=== PATIENT | female | born 1975 | race Caucasian/White ===

== ENCOUNTER 2017-07-25 10:31 | Emergency (ER) | payer MEDICAID, SELFPAY ==
[2017-07-25 10:31] VITALS: BP 103/51; PULSE 90; RESP 18; TEMP 36.8; O2SAT 99; BMI 33.7
--- NOTE | 2017-07-25 11:57 | HMH.EDUTC ---
[facility] [place] Disposition Clinical Impression: Bronchitis Disposition: Home, Self-Care Condition on Discharge: Good Instructions: DI for Acute Bronchitis Additional Instructions: * Monitor Temp. Follow up if fever develops * No sign of a bacterial infection. Likely viral. Viruses can last 10-14 days. Be sure to follow up for new or worsening symptoms. * humidifier/vaporizer/hot steamy shower * Inhaler every 4-6 hours as needed like we discussed. Should help open airways and improve cough, wheezing, shortness of breath. * Mucinex during the day for your cough and cough suppressant only at night. Be sure to drink lots of water. Insurance may not cover a prescription of mucinex. Might be cheaper to get 400mg tablets and take 2 tablets morning, midday and evening all with lots of water. * Tessalon Perles as needed for cough * Start steroid today as you requested. Helps with inflammation therefore, cough and wheezing. Rvwd side effects and risks. Pt and spouse want medication. Pt reports they have taken them before. Prescriptions: Benzonatate [Benzonatate 200mg Cap] 200 mg PO TID PRN #21 cap PRN Reason: Cough methylPREDNISolone [Medrol] 4 mg PO DIRECTED #1 tab.ds.pk Referrals: Onesimo Corbett [Referring] - (IMMEDIATELY for new or worsening symptoms OR no noticeable improvement over the next 48-72 hours. 911 for difficulty breathing) Time of Disposition: 12:17 Medical Decision Making - Gregory Inquiry Pt receiving controlled substance: No Vital Signs: 07/25/17 10:31 Temperature 98.2 F Temperature Source Oral Pulse Rate [Left Radial] 90 Respiratory Rate 18 Blood Pressure [Right Arm] 103/51 Blood Pressure Mean [Right Arm] 68 Blood Pressure Source [Right Arm] Automatic Cuff Blood Pressure Position [Right Arm] Supine 02 Sat by Pulse Oximetry 99 Oxygen Delivery Method Room Air [facility] [place] HPI - General Stated complaint: dizzy cough Time Seen by Provider: 07/25/17 11:57 Mode of Arrival: Ambulatory Source of Information: Patient Limitations: No Limitations Description of Symptoms (Recalled from Triage Doc. by RN): cough, dizziness, feels like she's is going to have a seizure x 2 days HEENT Symptoms (Recalled from RN notes): No Resp Symptoms (Recalled from RN notes): Yes (cough) Skin Symptoms (Recalled from RN notes): No MS Symptoms (Recalled from RN notes): No Functional Status (Recalled from RN notes): na - History of Present Illness Provider Complaint: Here w/ spouse c/o cough. She has a cold so while I was here in the ER with my mom, I thought I would get her some cold medicine spouse reports. Cough x 2-3 days. Feels dizzy at times with cough. A little SOA with exertion or too much cough . Wheezing at night. Denies tobacco abuse. Son with bronchitis within the last week. Improved with antibiotics and steroids. pt wants the same. Told nurse she felt like she might have a seizure but according to spouse, she has felt this way for 2 weeks, that is unchanged. Clarified with patient and she agrees, unchanged from baseline except for this cough . Hasn't taken or tried anything for symptoms. 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 Also no longer needs omeprazole or metformin. She lost weight and it went away . Med list gabapentin for leg pain, simvastatin for HLP, vistaril for anxiety, olanzapine, clonidine for HTN, levothyroxine, citalopram for anxiety, buspirone, lasix, atenolol, dilantin, clonazepam PRN anxiety and seizures. - Related Data Home Medications Medication Instructions Recorded Confirmed Atenolol [Atenolol 50mg Tab] 50 mg PO DAILY 07/25/17 07/25/17 Buspirone HCl 15 mg PO DAILY 07/25/17 07/25/17 Citalopram Hydrobromide [Celexa] 40 mg PO DAILY 07/25/17 07/25/17 Furosemide [Lasix 20mg tab] 20 mg PO DAILY 07/25/17 07/25/17 Gabapentin [Gabapentin 300mg Cap] 300 mg PO DAILY 07/25/17 07/25/17 Levothyroxine Sodium 50 mcg PO DAILY 07/25/17 07/25/17 [Levothyroxine 50mcg (0.05mg) Tab] OLANZapine [Olanzapine] 20 mg P
--- NOTE | 2017-07-25 12:05 | ED_ITS ---
[facility] [place] Disposition Clinical Impression: Bronchitis Disposition: Home, Self-Care Condition on Discharge: Good Instructions: DI for Acute Bronchitis Additional Instructions: * Monitor Temp. Follow up if fever develops * No sign of a bacterial infection. Likely viral. Viruses can last 10-14 days. Be sure to follow up for new or worsening symptoms. * humidifier/vaporizer/hot steamy shower * Inhaler every 4-6 hours as needed like we discussed. Should help open airways and improve cough, wheezing, shortness of breath. * Mucinex during the day for your cough and cough suppressant only at night. Be sure to drink lots of water. Insurance may not cover a prescription of mucinex. Might be cheaper to get 400mg tablets and take 2 tablets morning, midday and evening all with lots of water. * Tessalon Perles as needed for cough * Start steroid today as you requested. Helps with inflammation therefore, cough and wheezing. Rvwd side effects and risks. Pt and spouse want medication. Pt reports they have taken them before. Prescriptions: Benzonatate [Benzonatate 200mg Cap] 200 mg PO TID PRN #21 cap PRN Reason: Cough methylPREDNISolone [Medrol] 4 mg PO DIRECTED #1 tab.ds.pk Referrals: Onesimo Corbett [Referring] - (IMMEDIATELY for new or worsening symptoms OR no noticeable improvement over the next 48-72 hours. 911 for difficulty breathing) Time of Disposition: 12:17 Medical Decision Making - Gregory Inquiry Pt receiving controlled substance: No Vital Signs: 07/25/17 10:31 Temperature 98.2 F Temperature Source Oral Pulse Rate [Left Radial] 90 Respiratory Rate 18 Blood Pressure [Right Arm] 103/51 Blood Pressure Mean [Right Arm] 68 Blood Pressure Source [Right Arm] Automatic Cuff Blood Pressure Position [Right Arm] Supine 02 Sat by Pulse Oximetry 99 Oxygen Delivery Method Room Air [facility] [place] HPI - General Stated complaint: dizzy cough Time Seen by Provider: 07/25/17 11:57 Mode of Arrival: Ambulatory Source of Information: Patient Limitations: No Limitations Description of Symptoms (Recalled from Triage Doc. by RN): cough, dizziness, feels like she's is going to have a seizure x 2 days HEENT Symptoms (Recalled from RN notes): No Resp Symptoms (Recalled from RN notes): Yes (cough) Skin Symptoms (Recalled from RN notes): No MS Symptoms (Recalled from RN notes): No Functional Status (Recalled from RN notes): na - History of Present Illness Provider Complaint: Here w/ spouse c/o cough. She has a cold so while I was here in the ER with my mom, I thought I would get her some cold medicine spouse reports. Cough x 2-3 days. Feels dizzy at times with cough. A little SOA with exertion or too much cough . Wheezing at night. Denies tobacco abuse. Son with bronchitis within the last week. Improved with antibiotics and steroids. pt wants the same. Told nurse she felt like she might have a seizure but according to spouse, she has felt this way for 2 weeks, that is unchanged. Clarified with patient and she agrees, unchanged from baseline except for this cough . Hasn't taken or tried anything for symptoms. 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 Also no longer needs omeprazole or metformin. She lost weight and it went away . Med list gabapentin for leg pain, simvastatin for HLP, vistaril for anxiety, olanzapine, clonidine for HTN, levothyroxine, citalopram for anxiety, buspirone, lasix, atenolol, dilantin, clonazepam PRN anxiety and seizures. - Related Data Home Medications Medication Instructions Recorde
[2017-07-25 12:23] VITALS: BP 132/78; PULSE 72; RESP 18; TEMP 37
== END 2017-07-25 12:25 | disposition home or self-care (01) ==
PROVIDERS: Emergency Provider Nurse Practitioner Family; PCP Family Medicine
DX: J20.9 Acute bronchitis, unspecified (principal); E78.5 Hyperlipidemia, unspecified; F41.9 Anxiety disorder, unspecified; I10 Essential (primary) hypertension; R56.9 Unspecified convulsions; E11.9 Type 2 diabetes mellitus without complications; Z88.6 Allergy status to analgesic agent
CPT/HCPCS: 99202

== ENCOUNTER 2017-07-29 12:33 | Emergency (ER) | payer MEDICAID, SELFPAY ==
[2017-07-29 13:00] VITALS: BP 117/65; PULSE 89; RESP 20; TEMP 37.3; O2SAT 95; BMI 33.7
--- NOTE | 2017-07-29 14:12 | HMH.EDDENT ---
ED Disposition Clinical Impression: Pain, dental, Tramadol allergy, Has run out of medications Disposition: Home, Self-Care Condition on Discharge: Fair Prescriptions: Meloxicam [Mobic 7.5mg Tab] 7.5 mg PO BID #14 tab Referrals: Francis Robles [Primary Care Provider] - - Critical Care Critical Care Time: No Attestation: On 07/29/17, the high probability of a clinically significant, sudden or life threatening deterioration of the following system(s) required my full and direct attention, intervention and personal management. The time I documented below is in addition to time spent performing reported procedures but includes the following listed in this critical care notation. Medical Decision Making - Gregory Inquiry Pt receiving controlled substance: No Gregory was queried for this patient: No Vital Signs: 07/29/17 13:00 07/29/17 14:53 Temperature 99.1 F 98.9 F Temperature Source Oral Oral Pulse Rate 70 Pulse Rate [Right Radial] 89 Respiratory Rate 20 18 Blood Pressure 101/53 Blood Pressure [Left Arm] 117/65 Blood Pressure Mean [Left Arm] 82 Blood Pressure Source Automatic Cuff Blood Pressure Source [Left Arm] Automatic Cuff Blood Pressure Position Sitting Blood Pressure Position [Left Arm] Sitting 02 Sat by Pulse Oximetry 95 Oxygen Delivery Method Room Air Room Air Orders (Tests/Meds): ED MEDICATIONS Discontinued Medications Generic Name Dose Route Start Last Admin Trade Name Enrike PRN Reason Stop Dose Admin Ketorolac Tromethamine 30 mg 07/29/17 14:18 07/29/17 14:20 Toradol 30mg/Ml Vial IM 07/29/17 14:19 30 mg ONCE ONE Administration Medical Decision Narrative: I discussed with the patient and her that elbow and I will be unable to refill her narcotic pain medication. And will use alternatives like nonsteroidals. She is allergic to tramadol she is narcotic. I told her that she will be given Toradol which is nonsteroidal Dental HPI - General Chief complaint: Dental/Oral Stated complaint: had all teeth pulled in alot pain Time Seen by Provider: 07/29/17 13:15 Mode of Arrival: Ambulatory Limitations: No Limitations Description of Symptoms (Recalled from ER Triage Doc. by RN): UPPER AND LOWER TEETH REMOVED MONDAY, DENTIST PRESCRIBED 12 PAIN PILLS AND PT REPORTS THAT ISN'T ENOUGH FOR PAIN. - History of Present Illness HPI Narrative: 41 years old white female status post dental extraction out of pain medication. He denies having fever visual disturbance neck rigidity nausea or vomiting. He was prescribed hydrocodone 12 tablets less than 2 days ago and now she is out of them. Onset (ago): day(s) Duration: constant Relieving factors: prescription analgesics Exacerbating factors: nothing Treatment prior to arrival: none - Related Data Home Medications Medication Instructions Recorded Confirmed Atenolol [Atenolol 50mg Tab] 50 mg PO DAILY 07/25/17 07/25/17 Buspirone HCl 15 mg PO DAILY 07/25/17 07/25/17 Citalopram Hydrobromide [Celexa] 40 mg PO DAILY 07/25/17 07/25/17 Furosemide [Lasix 20mg tab] 20 mg PO DAILY 07/25/17 07/25/17 Gabapentin [Gabapentin 300mg Cap] 300 mg PO DAILY 07/25/17 07/25/17 Levothyroxine Sodium 50 mcg PO DAILY 07/25/17 07/25/17 [Levothyroxine 50mcg (0.05mg) Tab] OLANZapine [Olanzapine] 20 mg PO DAILY 07/25/17 07/25/17 Phenytoin Sodium Extended 100 mg PO DAILY 07/25/17 07/25/17 [Dilantin 100mg Capsule] Simvastatin [Zocor] 20 mg PO DAILY 07/25/17 07/25/17 cloNIDine HCl [cloNIDine 0.2mg 0.2 mg PO DAILY 07/25/17 07/25/17 Tablet] clonazePAM [Klonopin] 0.5 mg PO DAILY 07/25/17 07/25/17 hydrOXYzine pamoate [Hydroxyzine 50 mg PO DAILY 07/25/17 07/25/17 Pamoate] Previous Rx's Medication Instructions Recorded Benzonatate [Benzonatate 200mg Cap] 200 mg PO TID PRN #21 cap 07/25/17 methylPREDNISolone [Medrol] 4 mg PO DIRECTED #1 tab.ds.pk 07/25/17 Meloxicam [Mobic 7.5mg Tab] 7.5 mg PO BID #14 tab 07/29/17
--- NOTE | 2017-07-29 14:16 | ED_ITS ---
ED Disposition Clinical Impression: Pain, dental, Tramadol allergy, Has run out of medications Disposition: Home, Self-Care Condition on Discharge: Fair Prescriptions: Meloxicam [Mobic 7.5mg Tab] 7.5 mg PO BID #14 tab Referrals: Francis Robles [Primary Care Provider] - - Critical Care Critical Care Time: No Attestation: On 07/29/17, the high probability of a clinically significant, sudden or life threatening deterioration of the following system(s) required my full and direct attention, intervention and personal management. The time I documented below is in addition to time spent performing reported procedures but includes the following listed in this critical care notation. Medical Decision Making - Gregory Inquiry Pt receiving controlled substance: No Gregory was queried for this patient: No Vital Signs: 07/29/17 13:00 07/29/17 14:53 Temperature 99.1 F 98.9 F Temperature Source Oral Oral Pulse Rate 70 Pulse Rate [Right Radial] 89 Respiratory Rate 20 18 Blood Pressure 101/53 Blood Pressure [Left Arm] 117/65 Blood Pressure Mean [Left Arm] 82 Blood Pressure Source Automatic Cuff Blood Pressure Source [Left Arm] Automatic Cuff Blood Pressure Position Sitting Blood Pressure Position [Left Arm] Sitting 02 Sat by Pulse Oximetry 95 Oxygen Delivery Method Room Air Room Air Orders (Tests/Meds): ED MEDICATIONS Discontinued Medications Generic Name Dose Route Start Last Admin Trade Name Enrike PRN Reason Stop Dose Admin Ketorolac Tromethamine 30 mg 07/29/17 14:18 07/29/17 14:20 Toradol 30mg/Ml Vial IM 07/29/17 14:19 30 mg ONCE ONE Administration Medical Decision Narrative: I discussed with the patient and her that elbow and I will be unable to refill her narcotic pain medication. And will use alternatives like nonsteroidals. She is allergic to tramadol she is narcotic. I told her that she will be given Toradol which is nonsteroidal Dental HPI - General Chief complaint: Dental/Oral Stated complaint: had all teeth pulled in alot pain Time Seen by Provider: 07/29/17 13:15 Mode of Arrival: Ambulatory Limitations: No Limitations Description of Symptoms (Recalled from ER Triage Doc. by RN): UPPER AND LOWER TEETH REMOVED MONDAY, DENTIST PRESCRIBED 12 PAIN PILLS AND PT REPORTS THAT ISN 'T ENOUGH FOR PAIN. - History of Present Illness HPI Narrative: 41 years old white female status post dental extraction out of pain medication. He denies having fever visual disturbance neck rigidity nausea or vomiting. He was prescribed hydrocodone 12 tablets less than 2 days ago and now she is out of them. Onset (ago): day(s) Duration: constant Relieving factors: prescription analgesics Exacerbating factors: nothing Treatment prior to arrival: none - Related Data Home Medications Medication Instructions Recorded Confirmed Atenolol [Atenolol 50mg Tab] 50 mg PO DAILY 07/25/17 07/25/17 Buspirone HCl 15 mg PO DAILY 07/25/17 07/25/17 Citalopram Hydrobromide [Celexa] 40 mg PO DAILY 07/25/17 07/25/17 Furosemide [Lasix 20mg tab] 20 mg PO DAILY 07/25/17 07/25/17 Gabapentin [Gabapentin 300mg Cap] 300 mg PO DAILY 07/25/17 07/25/17 Levothyroxine Sodium 50 mcg PO DAILY 07/25/17 07/25/17 [Levothyroxine 50mcg (0.05mg) Tab]
[2017-07-29 14:53] VITALS: BP 101/53; PULSE 70; RESP 18; TEMP 37.2; O2SAT 97
== END 2017-07-29 14:52 | disposition home or self-care (01) ==
PROVIDERS: Emergency Provider Emergency Medicine; PCP Family Medicine
DX: K00.6 Disturbances in tooth eruption (principal); R56.9 Unspecified convulsions; E78.5 Hyperlipidemia, unspecified; I10 Essential (primary) hypertension; K21.9 Gastro-esophageal reflux disease without esophagitis; F41.8 Other specified anxiety disorders; E03.9 Hypothyroidism, unspecified; Z88.6 Allergy status to analgesic agent
CPT/HCPCS: 96372; 99281

== ENCOUNTER 2019-07-02 15:27 | Observation (INO) ==
--- NOTE | 2019-07-02 15:34 | Emergency Department Note ---
ED Disposition Clinical Impression: Chest pain, atypical, COPD (chronic obstructive pulmonary disease) Disposition: Admitted as Observation Condition on Discharge: Good Referrals: Francis Robles [Primary Care Provider] - - Critical Care Critical Care Time: No Attestation: On , the high probability of a clinically significant, sudden or life threatening deterioration of the following system(s) required my full and direct attention, intervention and personal management. The time I documented below is in addition to time spent performing reported procedures but includes the following listed in this critical care notation. Medical Decision Making - Medical Records MR Comment: Chest x-ray was negative for any infiltrate. no Interstitial markings. EKG shows normal sinus rhythm. No ST changes. troponin was negative. Achy feeling in the chest. COPD chronic with frequent exacerbation - Gregory Inquiry Pt receiving controlled substance: No Gregory was queried for this patient: No Vital Signs: 07/02/19 15:28 07/02/19 17:39 Temperature 98.2 F Temperature Source Oral Pulse Rate [Right Brachial] 88 88 Respiratory Rate 88 H 18 Blood Pressure [Right Arm] 140/86 140/86 Blood Pressure Mean [Right Arm] 104 104 Blood Pressure Source [Right Arm] Automatic Cuff Automatic Cuff Blood Pressure Position [Right Arm] Supine Supine 02 Sat by Pulse Oximetry 97 97 Oxygen Delivery Method Room Air - Lab Data Lab Results 07/02/19 15:40: WBC 14.4 H, RBC 4.77, Hgb 14.6, Hct 46.5, MCV 97.5, MCH 30.5, MCHC 31.3 L, RDW 16.8, Plt Count 380, MPV 7.7, Neut % (Auto) 78.9, Lymph % (Auto) 15.2, [place] % (Auto) 3.8, Eos % (Auto) 1.9, Baso % (Auto) 0.3, Neut # (Auto) 11.3 H, Lymph # (Auto) 2.2, [place] # (Auto) 0.6, Eos # (Auto) 0.3, Baso # (Auto) 0.0 07/02/19 15:40: Sodium 134 L, Potassium 4.3, Chloride 92 L, Carbon Dioxide 32 H, Anion Gap 14.3, BUN 6 L, Creatinine 0.60, Estimated Creat Clear 162, Estimated GFR 109, Est GFR ( Amer) 131, Glucose 277 H, Calcium 8.6, Troponin I < 0.01 07/02/19 15:40: NT-Pro-B Natriuret Pep 32.0 07/02/19 16:28: Urine Color Yellow, Urine Appearance Clear, Urine pH 7.0, Ur Specific [place] 1.010, Urine Protein Negative, Urine Glucose (UA) Negative, Urine Ketones Negative, Urine Blood 2+, Urine Nitrate Negative, Urine Bilirubin Negative, Urine Urobilinogen 0.2, Ur Leukocyte Esterase Trace, Urine RBC 5-10, Urine WBC 3-5, Ur Squamous Epith Cells Occasional, Urine Bacteria Trace 07/02/19 17:41: Troponin I < 0.01 Result diagrams: 07/02/19 15:40 07/02/19 15:40 Orders (Tests/Meds): ED MEDICATIONS Generic Name Dose Route Start Last Admin Trade Name Freq PRN Reason Stop Dose Admin Nitroglycerin 0.4 mg 07/02/19 15:37 Nitrostat 0.4mg Sl Tablet SL 07/03/19 15:37 [id number] PRN Chest Pain Discontinued Medications Generic Name Dose Route Start Last Admin Trade Name Freq PRN Reason Stop Dose Admin Albuterol/Ipratropium 3 ml 07/02/19 16:51 07/02/19 17:30 Duoneb 3ml Neb IH 07/02/19 16:52 3 ml ONCE ONE Administration Aspirin 324 mg 07/02/19 15:37 07/02/19 15:58 Aspirin 81mg Chewable Tablet PO 07/02/19 15:38 324 mg ONCE ONE Administration ORDERS Category Date Time Status Troponin I Q3H Lab 07/02/19 21:45 Ordered Chest Pain HPI - General Chief Complaint: Chest Pain Stated Complaint: Chest pain Time Seen by Provider: 07/02/19 16:45 Mode of Arrival: Wheelchair Limitations: No Limitations Description of Symptoms (Recalled from ER Triage Doc. by RN): Chest Pain - History of Present Illness HPI narrative: 43-year-old female with a history of COPD and chronic congestive heart failure. Complains of shortness achy feeling in the chest. She is a smoker. She said she had a heart cath about 2 years ago and they did not put any stent in . She has no swelling lower extremities. She is laying in bed flat with no signs of orthopnea. She looks comfortable with no diaphoresis. Uses oxygen at home at 2 liters. Duration: intermittent Activity at onset: during rest Pain location: substernal, left chest Severity: mild Severity scale (1-10): 3 Quality: aching Relieving factors: nothing Exacerbating factors: nothing Context: recent illness - Related Data Home Medications Medication Instructions Recorded Confirmed Buspirone HCl [Buspirone 15 mg 15 mg PO DAILY 07/25/17 07/25/17 Tablets] Citalopram Hydrobromide [Celexa] 40 mg PO DAILY 07/25/17 07/25/17 Furosemide [Lasix 20mg tab] 20 mg PO DAILY 07/25/17 07/25/17 Gabapentin [Gabapentin 300mg Cap] 300 mg PO DAILY 07/25/17 07/25/17 Levothyroxine Sodium 50 mcg PO DAILY 07/25/17 07/25/17 [Levothyroxine 50mcg (0.05mg) Tab] OLANZapine [Olanzapine] 20 mg PO DAILY 07/25/17 07/25/17 Phenytoin Sodium Extended 100 mg PO DAILY 07/25/17 07/25/17 [Dilantin 100mg Capsule] Simvastatin [Zocor] 20 mg PO DAILY 07/25/17 07/25/17 atenoloL [Atenolol 50mg Tab] 50 mg PO DAILY 07/25/17 07/25/17 cloNIDine HCL [cloNIDine 0.2mg 0.2 mg PO DAILY 07/25/17 07/25/17 Tablet] clonazePAM [Klonopin] 0.5 mg PO DAILY 07/25/17 07/25/17 hydrOXYzine pamoate [Hydroxyzine 50 mg PO DAILY 07/25/17 07/25/17 Pamoate] Meloxicam [Mobic 7.5mg Tab] 7.5 mg PO BID 07/02/19 methylPREDNISolone [Medrol] 4 mg PO DIRECTED 07/02/19 Previous Rx's Medication Instructions Recorded Benzonatate [Benzonatate 200mg Cap] 200 mg PO TID PRN #21 cap 07/25/17 Allergies Allergy/AdvReac Type Severity Reaction Status Date / Time tramadol Allergy Mild Abdominal Verified 07/29/17 13:08 Pain [facility] History - Hepatitis A Screen Drug use history?: No High risk sexual behaviors?: No History of sexually transmitted infection?: No Currently employed?: No Childcare worker?: No Do you have indoor plumbing?: Yes Do you have electricity?: Yes Attestation statement:: This patient has been screened for Hepatitis A risk factors. Medical History: Reports:: Anxiety, Chronic Obstructive Pulmonary Disease (COPD) Denies:: Cancer, Diabetes Mellitus Type 1, Diabetes Mellitus Type 2, Internal Pacemaker, MRSA Other Medical History: Reports: Other (neuropathy, HLP, anxiety, hypothyroidism, HTN, seizures) Other Surgeries: Yes: Tubal Ligation. No: Pacemaker Amputation: No Fractures: No - Social History Smoking Status: Current every day smoker # Packs/Day (cigarettes): 1 Alcohol Intake: never Substance Use Type: denies use Occupational Status: unemployed Household Members: spouse - Psychiatric History Pschychiatric History:: Reports:: Anxiety ROS Obtained: Yes All systems reviewed & no additional complaints - Constitutional Constitutional: Reports system reviewed and no additional complaints, except as docu - Eyes Eyes: Reports system reviewed and no additional complaints, except as docu - ENT Ears, Nose, Mouth, and Throat: Reports system reviewed and no additional complaints, except as docu - Cardiovascular Cardiovascular: Reports system reviewed and no additional complaints, except as docu, Reports chest pain, Reports dyspnea, Reports dyspnea on exertion - Respiratory Respiratory: Yes system reviewed and no additional complaints, except as docu - Gastrointestinal Gastrointestingal: Reports: system reviewed and no additional complaints, except as docu - Musculoskeletal Musculoskeletal: Reports system reviewed and no additional complaints, except as docu - Integumentary/Breasts Skin/Breast: Reports system reviewed and no additional complaints, except as docu - Neurologic Neurologic: Reports system reviewed and no additional complaints, except as docu - Endocrine Endocrine: Reports system reviewed and no additional complaints, except as docu - Hematologic/Lymphatic Henatologic/Lymphatic: Reports system reviewed and no additional complaints, except as docu - Allergic/Immunologic Allergic/Immunologic: Reports system reviewed and no additional complaints, except as docu Physical Exam - General General appearance: alert, in no apparent distress - Head Head exam: atraumatic, normocephalic, normal inspection - Eye Eye exam: Present: normal appearance, PERRL, EOMI - ENT ENT exam: Present: normal exam, normal oropharynx, mucous membranes moist, TM's normal bilaterally, normal external ear exam - Neck Neck exam: Present: normal inspection, full ROM, trachea midline. Absent: meningismus, lymphadenopathy - Chest Chest inspection: Present: normal inspection, symmetric chest wall rise. Absent: tenderness - Respiratory Respiratory exam: Present: wheezes, prolonged expiratory phase - Cardiovascular Cardiovascular exam: Present: regular rate, normal rhythm, tachycardia. Absent: JVD - Abdominal Exam Abdominal exam: Present: soft, normal bowel sounds. Absent: distention, tenderness, guarding - Extremities Exam Extremities exam: Present: normal inspection, full ROM, normal capillary refill. Absent: calf tenderness - Back Exam Back exam: Present: normal inspection. Absent: tenderness - Neurological Exam Neurological exam: Present: alert, oriented X3 - Psychiatric Psychiatric exam: Present: normal affect, normal mood - Skin Skin exam: Present: warm, dry, intact, normal color - Lymphatic Lymphatic Findings: no adenopathy
[2019-07-02 15:51] LABS: Basophils % 0.3 % (0.1-2.0); Eosinophils # 0.3 K/mm3 (0.0-0.4); Eosinophils % 1.9 % (0.1-12.0); Hematocrit 46.5 % (37.0-47.0); Hemoglobin 14.6 g/dL (12.2-16.2); Lymphocytes # 2.2 K/mm3 (0.7-4.5); Lymphocytes % 15.2 % (10-50); Mean Corpuscular HGB Conc 31.3 g/dL (31.8-35.4); Mean Corpuscular Volume 97.5 fl (81-99); Mean Platelet Volume 7.7 fl (7.4-10.4); Monocytes # 0.6 K/mm3 (0.1-1.0); Monocytes % 3.8 % (1.7-9.3); Neutrophils # 11.3 K/mm3 (1.8-7.8); Neutrophils % 78.9 % (37.0-80.0); Platelet Count 380 K/mm3 (142-424); Red Blood Count 4.77 M/mm3 (4.20-5.40); Red Cell Distribution Width 16.8 % (11.5-17.5); White Blood Count 14.4 K/mm3 (4.8-10.8)
[2019-07-02 15:53] LABS: Chloride 92 mmol/L (98-107); Sodium 134 mmol/L (136-145)
[2019-07-02 15:56] LABS: Blood Urea Nitrogen 6 mg/dl (7-17)
[2019-07-02 15:57] LABS: Anion Gap 14.3 mEq/L (5-15); Calcium 8.6 mg/dl (8.4-10.2); Carbon Dioxide 32 mmol/L (22.0-30.0); Glucose 277 mg/dl (74-100)
[2019-07-02 16:37] LABS: Microscopic, Urine URINE MICROSCOPIC (MICROSCOPIC)
[2019-07-02 16:45] LABS: Appearance,Urine CLEAR (Clear); Bilirubin,Urine Negative (Negative); Blood, Urine 2+ (Negative); Color,Urine YELLOW (Yellow); Glucose,Urine (UA) Negative (Negative); Ketones,Urine Negative (Negative); Leukocyte Esterase,Urine TRACE (Negative); Protein,Urine Negative (Negative); Urobilinogen,Urine 0.2 EU/dl (0.2)
[2019-07-02 17:31] LABS: Bacteria,Urine Trace /lpf; Squamous Epithelial Cell,Urine Occasional #/hpf (0-5)
--- NOTE | 2019-07-02 20:28 | Electrocardiograph Report ---
APPROVED REPORT Exam: Resting ECG HR:94 bpm ECG Measurements Heart Rate 94 AXES AK 144 P 36 QRSd 70 QRS 51 QT 342 T34 QTc 427 <Conclusion> Normal sinus rhythm Low voltage QRS Late r wave progression Abnormal ECG Electronically signed by : Max Alvarez, 07/02/2019 20:27:31
--- NOTE | 2019-07-03 07:19 | Pharmacy Consult Notes ---
[facility] Pharmacy VTE Monitoring - Patient Demographics Admission date: 07/02/19 Report Date: 07/03/19 Time: 07:19 Allergies/Adverse Reactions: Patient Allergies tramadol Adverse Reaction (Mild, Verified 07/02/19 19:52) Abdominal Pain Height: 1.5 m Weight: 85.928 kg Patient Problems: Current Active Problems Chest pain, atypical (Acute) COPD (chronic obstructive pulmonary disease) (Acute) - VTE Risk Labs: VTE Related Lab Results Hgb 14.6 g/dL (12.2-16.2) 07/02/19 15:40 Hct 46.5 % (37.0-47.0) 07/02/19 15:40 Plt Count 380 K/mm3 (142-424) 07/02/19 15:40 BUN 6 mg/dl (7-17) L 07/02/19 15:40 Creatinine 0.60 mg/dl (0.52-1.04) 07/02/19 15:40 Estimated Creat Clear 162 mL/min (50-200) 07/02/19 15:40 VTE Score: 9 VTE Risk Level: Moderate Risk - Prophylaxis VTE Prophylaxis Ordered?: Yes Types of VTE Prophylaxis: TEDS Knee High Location of Applied Device: Bilateral Lower Extremeties
--- NOTE | 2019-07-03 07:52 | H&P/Discharge Summary ---
General - General Admission date:: 07/02/19 Discharge date: 07/03/19 *Admission Date: 07/02/19 *Chief complaint: Cough and shortness of air *History of present illness: 43-year-old white female who has emphysema that requires oxygen therapy and nebulizer treatments at home. She came to the emergency department with a chief complaint of cough and congestion, also reported some anterior chest pain that was worse with coughing, deep breathing and positional changes. In spite of her home oxygen therapy she continues to smoke and does not use her nebulizers on a regular basis. In the emergency department she was found to have coughing and congestion, minimal wheezing, lower than average O2 saturations and she was admitted to hospital for overnight observation and serial enzyme testing. [facility] History I have reviewed the patient's past medical history: Yes Medical History: Reports:: Anxiety, Chronic Obstructive Pulmonary Disease (COPD), Diabetes Mellitus Type 2, Hyperlipidemia, Hypertension Denies:: Cancer, Diabetes Mellitus Type 1, Internal Pacemaker, MRSA *Have you ever received a pneumonia vaccine?: Yes *Have you received a flu vaccine this season?: Yes Other Medical History: Reports: Hypothyroidism, Other (neuropathy, HLP, anxiety, hypothyroidism, HTN, seizures) Other Surgeries: Yes: Tubal Ligation. No: Pacemaker Amputation: No Fractures: No - *Social History Educational Level: Attended High School Smoking Status: Current every day smoker Tobacco Type: cigarettes # Packs/Day (cigarettes): 1 Alcohol Intake: never Substance Use Type: denies use *Occupational Status:: disabled Housing: other Household Members: spouse, children *Travel in the last 8 weeks: None - Psychiatric History Pschychiatric History:: Reports:: Anxiety Family Hx:: Diabetes, Heart Attack, Hyperlipidemia, Hypertension, Alcoholism Review of Systems - Review of Systems Review of systems:: pertinent systems reviewed and negative unless documented below Chest pain as noted above, nonexertional, no nausea or diaphoresis. Respiratory symptoms noted. Otherwise 10 point review of systems negative for GI, , neuro or other organ system evaluation. Exam Vital signs and Labs for Last 24 Hours: Temp Pulse Resp BP Pulse Ox 98.2 F 87 20 122/69 90 L 07/03/19 04:00 07/03/19 04:00 07/03/19 04:00 07/03/19 04:00 07/03/19 04:00 Laboratory Results - last 24 hr 07/02/19 15:40: WBC 14.4 H, RBC 4.77, Hgb 14.6, Hct 46.5, MCV 97.5, MCH 30.5, MCHC 31.3 L, RDW 16.8, Plt Count 380, MPV 7.7, Neut % (Auto) 78.9, Lymph % (Auto) 15.2, [place] % (Auto) 3.8, Eos % (Auto) 1.9, Baso % (Auto) 0.3, Neut # (Auto) 11.3 H, Lymph # (Auto) 2.2, [place] # (Auto) 0.6, Eos # (Auto) 0.3, Baso # (Auto) 0.0 07/02/19 15:40: Sodium 134 L, Potassium 4.3, Chloride 92 L, Carbon Dioxide 32 H, Anion Gap 14.3, BUN 6 L, Creatinine 0.60, Estimated Creat Clear 162, Estimated GFR 109, Est GFR ( Amer) 131, Glucose 277 H, Calcium 8.6, Troponin I < 0.01 07/02/19 15:40: NT-Pro-B Natriuret Pep 32.0 07/02/19 16:28: Urine Color Yellow, Urine Appearance Clear, Urine pH 7.0, Ur Specific [place] 1.010, Urine Protein Negative, Urine Glucose (UA) Negative, Urine Ketones Negative, Urine Blood 2+, Urine Nitrate Negative, Urine Bilirubin Negative, Urine Urobilinogen 0.2, Ur Leukocyte Esterase Trace, Urine RBC 5-10, Urine WBC 3-5, Ur Squamous Epith Cells Occasional, Urine Bacteria Trace 07/02/19 17:41: Troponin I < 0.01 07/02/19 22:01: Troponin I < 0.01 I & O for Last 24 hours: Intake & Output 06/30/19 07/01/19 07/02/19 07/03/19 11:59 11:59 11:59 11:59 Weight 189 lb 7.014 oz Narrative: Patient is alert, oriented. Pleasant. Talkative. In no distress. Wearing her normal 2 L nasal cannula. ENT exam clear. Oropharynx clear. No JVD. Skin normal with no rash. Neurologically intact. Cranial nerves intact. Lungs have good air movement. Minimal expiratory rhonchi but these resolved with a deep breath. Heart rate regular. Abdomen soft and nontender. No edema or clubbing. Hospital Course Hospital Course: Patient was admitted overnight. Ruled out for DE. Telemetry monitoring was normal. Patient did well with respiratory symptoms. Responded very nicely to pulmonary toilet and antibiotics. She is at her baseline from a respiratory standpoint. She will be discharged home with medicine for COPD exacerbation as noted in an appointment with her regular physician in 2 days. She was strongly encouraged not to smoke. Results Labs on day of discharge: Labs from last 24 hours 07/02/19 07/02/19 07/02/19 22:01 17:41 16:28 WBC RBC Hgb Hct MCV MCH MCHC RDW Plt Count MPV Neut % (Auto) Lymph % (Auto) [place] % (Auto) Eos % (Auto) Baso % (Auto) Neut # (Auto) Lymph # (Auto) [place] # (Auto) Eos # (Auto) Baso # (Auto) Sodium Potassium Chloride Carbon Dioxide Anion Gap BUN Creatinine Estimated Creat Clear Estimated GFR Est GFR ( Amer) Glucose Calcium Troponin I < 0.01 < 0.01 NT-Pro-B Natriuret Pep Urine Color Yellow Urine Appearance Clear Urine pH 7.0 Ur Specific [place] 1.010 Urine Protein Negative Urine Glucose (UA) Negative Urine Ketones Negative Urine Blood 2+ Urine Nitrate Negative Urine Bilirubin Negative Urine Urobilinogen 0.2 Ur Leukocyte Esterase Trace Urine RBC 5-10 Urine WBC 3-5 Ur Squamous Epith Cells Occasional Urine Bacteria Trace 07/02/19 07/02/19 07/02/19 15:40 15:40 15:40 WBC 14.4 H RBC 4.77 Hgb 14.6 Hct 46.5 MCV 97.5 MCH 30.5 MCHC 31.3 L RDW 16.8 Plt Count 380 MPV 7.7 Neut % (Auto) 78.9 Lymph % (Auto) 15.2 [place] % (Auto) 3.8 Eos % (Auto) 1.9 Baso % (Auto) 0.3 Neut # (Auto) 11.3 H Lymph # (Auto) 2.2 [place] # (Auto) 0.6 Eos # (Auto) 0.3 Baso # (Auto) 0.0 Sodium 134 L Potassium 4.3 Chloride 92 L Carbon Dioxide 32 H Anion Gap 14.3 BUN 6 L Creatinine 0.60 Estimated Creat Clear 162 Estimated GFR 109 Est GFR ( Amer) 131 Glucose 277 H Calcium 8.6 Troponin I < 0.01 NT-Pro-B Natriuret Pep 32.0 Urine Color Urine Appearance Urine pH Ur Specific [place] Urine Protein Urine Glucose (UA) Urine Ketones Urine Blood Urine Nitrate Urine Bilirubin Urine Urobilinogen Ur Leukocyte Esterase Urine RBC Urine WBC Ur Squamous Epith Cells Urine Bacteria DS: Diagnosis - Discharge Diagnosis (1) COPD (chronic obstructive pulmonary disease) Status: Acute (2) Chest pain, atypical Status: Acute (3) Bronchitis Status: Acute Discharge Plan - Patient Discharge Instructions ACTIVITY: Continue current activity DIET: continue same diet Patient Instructions: DI for Chronic Obstructive Pulmonary Disease, DI for Atypical Chest Pain - Follow up Plan Follow up with: Francis Robles [Primary Care Provider] - 07/05/19 Disposition: Home, Self-Senior Care Medications: Home Medications Medication Instructions Recorded Confirmed Type Furosemide [Lasix 20mg tab] 20 mg PO DAILY 07/25/17 07/02/19 History Gabapentin [Gabapentin 300mg Cap] 400 mg PO TID 07/25/17 07/02/19 History Levothyroxine Sodium 50 mcg PO DAILY 07/25/17 07/02/19 History [Levothyroxine 50mcg (0.05mg) Tab] Phenytoin Sodium Extended 100 mg PO DAILY 07/25/17 07/02/19 History [Dilantin 100mg Capsule] Simvastatin [Zocor] 20 mg PO DAILY 07/25/17 07/02/19 History atenoloL [Atenolol 50mg Tab] 50 mg PO DAILY 07/25/17 07/02/19 History cloNIDine HCL [cloNIDine 0.2mg 0.2 mg PO DAILY 07/25/17 07/02/19 History Tablet] hydrOXYzine pamoate [Hydroxyzine 50 mg PO HS 07/25/17 07/03/19 History Pamoate] Azithromycin 250 mg PO DAILY 07/02/19 07/02/19 History LORazepam [Ativan 1mg tablet] 1 mg PO HS 07/02/19 07/02/19 History Magnesium Oxide [Magnesium] 250 mg PO DAILY 07/02/19 07/02/19 History Metformin HCl [Metformin 1000mg 1,000 mg PO BID 07/02/19 07/02/19 History Tablets] OLANZapine [Olanzapine] 20 mg PO HS 07/02/19 07/02/19 History Potassium Chloride [Klor-Con M20] 20 meq PO DAILY 07/02/19 07/02/19 History Sertraline HCl [Zoloft] 100 mg PO DAILY 07/02/19 07/03/19 History diazePAM [diazePAM 5mg Tablet] 7.5 mg PO TID 07/02/19 07/02/19 History Buspirone HCl [Buspar 10mg 20 mg PO TID 07/03/19 07/03/19 History tablet] levoFLOXacin [Levaquin 500mg 500 mg PO DAILY #7 tab 07/03/19 Rx tab] predniSONE [Deltasone 20mg 20 mg PO BID 7 Days #14 tab 07/03/19 Rx tablet] Prescriptions/Medication Reconciliation: New levoFLOXacin [Levaquin 500mg tab] 500 mg PO DAILY #7 tab predniSONE [Deltasone 20mg tablet] 20 mg PO BID 7 Days #14 tab Continued Furosemide [Lasix 20mg tab] 20 mg PO DAILY Levothyroxine Sodium [Levothyroxine 50mcg (0.05mg) Tab] 50 mcg PO DAILY hydrOXYzine pamoate [Hydroxyzine Pamoate] 50 mg PO HS Gabapentin [Gabapentin 300mg Cap] 400 mg PO TID cloNIDine HCL [cloNIDine 0.2mg Tablet] 0.2 mg PO DAILY Sertraline HCl [Zoloft] 100 mg PO DAILY OLANZapine [Olanzapine] 20 mg PO HS LORazepam [Ativan 1mg tablet] 1 mg PO HS Buspirone HCl [Buspar 10mg tablet] 20 mg PO TID Simvastatin [Zocor] 20 mg PO DAILY atenoloL [Atenolol 50mg Tab] 50 mg PO DAILY Phenytoin Sodium Extended [Dilantin 100mg Capsule] 100 mg PO DAILY Magnesium Oxide [Magnesium] 250 mg PO DAILY diazePAM [diazePAM 5mg Tablet] 7.5 mg PO TID Potassium Chloride [Klor-Con M20] 20 meq PO DAILY Metformin HCl [Metformin 1000mg Tablets] 1,000 mg PO BID Discontinued Azithromycin 250 mg PO DAILY - Problem Reconciliation Problems Reviewed?: Yes
== END 2019-07-03 09:33 | disposition home or self-care (01) ==
LOC: ER 15:27 → 2ND 15:27
PROVIDERS: ADMIT Internal Medicine Adolescent Medicine; ATTEND Internal Medicine Adolescent Medicine
CPT/HCPCS: 36415; 71020; 71046; 80048; 81001; 83880; 84484; 85025; 93005; 99284; G0378

== ENCOUNTER 2021-04-21 11:16 | Inpatient (IN) | payer MEDICAID, SELFPAY ==
[2021-04-21] VITALS (9 sets, daily range): BP systolic 106–140; BP diastolic 56–77; PULSE 73–83; RESP 14–21; TEMP 36.4–36.8; O2SAT 91–95; BMI 33.7; BMI 32.2
[2021-04-21 12:01] LABS: Basophils % 0.4 % (0.1-2.0); Eosinophils # 0.1 K/mm3 (0.0-0.4); Eosinophils % 1.5 % (0.1-12.0); Hematocrit 44.8 % (37.0-47.0); Hemoglobin 15.5 g/dL (12.2-16.2); Lymphocytes # 1.3 K/mm3 (0.7-4.5); Lymphocytes % 14.3 % (10-50); Mean Corpuscular HGB Conc 34.6 g/dL (31.8-35.4); Mean Corpuscular Hemoglobin 29.4 pg (27.0-31.2); Mean Corpuscular Volume 84.8 fl (81-99); Mean Platelet Volume 7.4 fl (7.4-10.4); Monocytes # 0.5 K/mm3 (0.1-1.0); Monocytes % 4.8 % (1.7-9.3); Neutrophils # 7.4 K/mm3 (1.8-7.8); Platelet Count 345 K/mm3 (142-424); Red Blood Count 5.29 M/mm3 (4.20-5.40); White Blood Count 9.3 K/mm3 (4.8-10.8)
[2021-04-21 12:09] LABS: Lactic Acid 1.1 mmol/L (0.7-2.1)
--- NOTE | 2021-04-21 12:23 | HMH.EDGENADL ---
ED Disposition Clinical Impression: Hypokalemia, Hyponatremia, Pyelonephritis Disposition: Admitted As Inpatient Condition on Discharge: Fair - Critical Care Critical Care Time: No Attestation: On 04/21/21, the high probability of a clinically significant, sudden or life threatening deterioration of the following system(s) required my full and direct attention, intervention and personal management. The time I documented below is in addition to time spent performing reported procedures but includes the following listed in this critical care notation. Medical Decision Making - Medical Records Medical records reviewed: Yes: I reviewed the patient's medical records. - Gregory Inquiry Pt receiving controlled substance: No Gregory was queried for this patient: No Vital Signs: 04/21/21 11:20 04/21/21 12:33 04/21/21 13:07 Temperature 97.6 F Temperature Source Oral Pulse Rate 75 79 Pulse Rate [Left Radial] 83 Respiratory Rate 18 14 Blood Pressure 140/56 L 132/77 Blood Pressure [Left Arm] 112/65 Blood Pressure Mean [Left Arm] 80 Blood Pressure Source [Left Arm] Automatic Cuff Blood Pressure Position Blood Pressure Position [Left Arm] Sitting 02 Sat by Pulse Oximetry 95 95 93 L Oxygen Delivery Method Room Air 04/21/21 13:32 04/21/21 14:00 04/21/21 14:30 Temperature Temperature Source Pulse Rate 77 75 73 Pulse Rate [Left Radial] Respiratory Rate Blood Pressure 128/68 113/63 106/61 L Blood Pressure [Left Arm] Blood Pressure Mean [Left Arm] Blood Pressure Source [Left Arm] Blood Pressure Position Blood Pressure Position [Left Arm] 02 Sat by Pulse Oximetry 94 L 92 L 92 L Oxygen Delivery Method Room Air 04/21/21 14:52 04/21/21 14:56 Temperature 97.6 F 97.6 F Temperature Source Oral Pulse Rate 73 Pulse Rate [Left Radial] 77 Respiratory Rate 16 18 Blood Pressure 106/61 L Blood Pressure [Left Arm] 106/61 L Blood Pressure Mean [Left Arm] 76 Blood Pressure Source [Left Arm] Automatic Cuff Blood Pressure Position Sitting Blood Pressure Position [Left Arm] Supine 02 Sat by Pulse Oximetry 91 L Oxygen Delivery Method Room Air Room Air - Lab Data Lab results reviewed: Yes: I reviewed the patient's lab results. Lab Results 04/21/21 11:49: WBC 9.3, RBC 5.29, Hgb 15.5, Hct 44.8, MCV 84.8, MCH 29.4, MCHC 34.6, RDW 16.0, Plt Count 345, MPV 7.4, Neut % (Auto) 79.0, Lymph % (Auto) 14.3, [place] % (Auto) 4.8, Eos % (Auto) 1.5, Baso % (Auto) 0.4, Neut # (Auto) 7.4, Lymph # (Auto) 1.3, [place] # (Auto) 0.5, Eos # (Auto) 0.1, Baso # (Auto) 0.0 04/21/21 11:49: Sodium 127 L, Potassium 2.0 L*, Chloride 80 L, Carbon Dioxide 42 H*, Anion Gap 7.0, BUN 7, Creatinine 0.90, Estimated Creat Clear 93, Estimated GFR 67, Est GFR ( Amer) 82, Glucose 237 H, Calcium 8.8, Total Bilirubin 0.2, AST 38 H, ALT 27, Alkaline Phosphatase 185 H, Total Protein 7.1, Albumin 3.9, Globulin 3.2, Albumin/Globulin Ratio 1.2, Lipase 91 04/21/21 11:49: Lactate 1.1 04/21/21 12:36: Urine Color Yellow, Urine Appearance Clear, Urine pH 6.5, Ur Specific [place] 1.015, Urine Protein Trace, Urine Glucose (UA) Negative, Urine Ketones Negative, Urine Blood Negative, Urine Nitrate Negative, Urine Bilirubin Negative, Urine Urobilinogen 0.2, Ur Leukocyte Esterase Trace, Urine RBC None, Urine WBC Occasional, Ur Renal Epithelial Cell 5-10, Urine Bacteria Trace Result diagrams: 04/21/21 11:49 04/21/21 11:49 Orders (Tests/Meds): ED MEDICATIONS Generic Name Dose Route Start Last Admin Trade Name Freq PRN Reason Stop Dose Admin Potassium Chloride/Water 100 mls @ 50 mls/hr 04/21/21 16:45 Potassium Chloride 20meq/100ml Ivpb IV 04/21/21 18:44 Q2H DOUGLAS Sodium Chloride 1,000 mls @ 150 mls/hr 04/21/21 14:59 04/21/21 15:40 Sod Chlor 0.9% 1000ml Bag IV 05/21/21 13:29 150 mls/hr .[id number] DOUGLAS Administration Ceftriaxone Sodium 1 gm/ 50 mls @ 100 mls/hr 04/21/21 15:30 04/21/21 15:39 Sodium C
[2021-04-21 12:29] LABS: Alanine Aminotransferase 27 U/L (12-78); Albumin Level 3.9 g/dl (3.5-5.0); Albumin/Globulin Ratio 1.2 (1.1-1.8); Alkaline Phosphatase 185 U/L (38-126); Aspartate Amino Transferase 38 U/L (14-36); Bilirubin,Total 0.2 mg/dl (0.2-1.3); Blood Urea Nitrogen 7 mg/dl (7-17); Calcium 8.8 mg/dl (8.4-10.2); Chloride 80 mmol/L (98-107); Creatinine Clearance Estimated 93 mL/min (50-200); Estimated Glomerular Filt Rate 67 ml/min (>60); GFR (African American) 82 ML/MIN (>60); Globulin 3.2 g/dL (1.3-3.2); Glucose 237 mg/dl (74-100); Lipase 91 U/L (23-300); Sodium 127 mmol/L (136-145); Total Protein,Serum 7.1 g/dl (6.3-8.2)
[2021-04-21 12:40] LABS: Carbon Dioxide 42 mmol/L (22.0-30.0)
--- NOTE | 2021-04-21 12:41 | PC.NURSE ---
lab called with critical potassium level at this time, notified STEPHANIE JULOI at this time
[2021-04-21 12:42] LABS: Microscopic, Urine URINE MICROSCOPIC (MICROSCOPIC)
[2021-04-21 12:51] LABS: Appearance,Urine CLEAR (Clear); Bilirubin,Urine Negative (Negative); Blood, Urine Negative (Negative); Color,Urine YELLOW (Yellow); Glucose,Urine (UA) Negative (Negative); Ketones,Urine Negative (Negative); Leukocyte Esterase,Urine TRACE (Negative); Nitrate,Urine Negative (Negative); PH,Urine 6.5 (5.0-8.5); Protein,Urine TRACE (Negative); Specific Gravity, Urine 1.015 (1.005-1.030); Urobilinogen,Urine 0.2 EU/dl (0.2)
[2021-04-21 13:02] LABS: Bacteria,Urine Trace /lpf; WBC,Urine Occasional #/hpf (0-3)
--- NOTE | 2021-04-21 13:09 | PC.NURSE ---
Pt placed on monitor worker at this time due to getting IV potassium. Called and ordered pt lunch tray
[2021-04-21 13:49] LABS: Coronavirus 19, PCR Not Detected (NotDetected); Influenza A, PCR Not Detected (NotDetected); Influenza B, PCR Not Detected (NotDetected)
--- NOTE | 2021-04-21 14:39 | PC.NURSE ---
attempted to call report to second floor, states will have staff call me back as they werent answering
--- NOTE | 2021-04-21 14:43 | PC.NURSE ---
report called to ryan andersen rn on second floor at this time states she will send staff to transport pt.
--- NOTE | 2021-04-21 15:19 | P.CONPHA_ITS ---
[facility] Pharmacy VTE Monitoring - Patient Demographics Admission date: 04/21/21 Report Date: 04/21/21 Time: 15:19 Allergies/Adverse Reactions: Patient Allergies tramadol Adverse Reaction (Mild, Verified 07/02/19 19:52) Abdominal Pain Height: 1.5 m Weight: 72.32 kg - VTE Risk Labs: VTE Related Lab Results Hgb 15.5 g/dL (12.2-16.2) 04/21/21 11:49 Hct 44.8 % (37.0-47.0) 04/21/21 11:49 Plt Count 345 K/mm3 (142-424) 04/21/21 11:49 BUN 7 mg/dl (7-17) 04/21/21 11:49 Creatinine 0.90 mg/dl (0.52-1.04) 04/21/21 11:49 Estimated Creat Clear 93 mL/min (50-200) 04/21/21 11:49 - Prophylaxis VTE Prophylaxis Ordered?: Yes Types of VTE Prophylaxis: TEDS Knee High Location of Applied Device: Bilateral Lower Extremeties
--- NOTE | 2021-04-21 17:42 | PC.NURSE ---
Spoke with MD Antonio requesting to restart patient's home med- Ativan. Awaitiing pharmacy approval. Patient complains of high anxiety
--- NOTE | 2021-04-21 17:50 | HMH.HP ---
*Admission Date: 04/21/21 *Chief complaint: Weakness and vomiting *History of present illness: 45-year-old white female with history of diabetes, morbid obesity, poor health care maintenance and overriding significant anxiety who has a primary care physician not in the [facility] system, who came to the hospital with weakness, vomiting, fatigue and muscle cramps. Found to have evidence of cystitis, also found to have evidence of hypokalemia, hyponatremia, dehydration, admitted to hospital for IV fluids, IV antibiotics and further diagnostic testing. [facility] History I have reviewed the patient's past medical history: Yes Medical History: Reports:: Anxiety, Chronic Obstructive Pulmonary Disease (COPD), Diabetes Mellitus Type 2, Hyperlipidemia, Hypertension Denies:: Cancer, Diabetes Mellitus Type 1, Internal Pacemaker, MRSA *Have you ever received a pneumonia vaccine?: No *Have you received a flu vaccine this season?: No Other Medical History: Reports: Hypothyroidism, Other (neuropathy, HLP, anxiety, hypothyroidism, HTN, seizures) Other Surgeries: Yes: Tubal Ligation. No: Pacemaker Amputation: No Fractures: No - *Social History Smoking Status: Current every day smoker Tobacco Type: cigarettes # Packs/Day (cigarettes): 1 Alcohol Intake: never Substance Use Type: denies use *Occupational Status:: unemployed Housing: other Household Members: spouse *Travel in the last 8 weeks: None - Psychiatric History Pschychiatric History:: Reports:: Anxiety Family Hx:: Diabetes, Heart Attack, Hyperlipidemia, Hypertension, Alcoholism Review of Systems - Review of Systems Review of systems:: pertinent systems reviewed and negative unless documented below Patient reports that she feels better since IV fluids. Continues have some mild abdominal pain. Her overriding complaint to me is her anxiety and wishes her home Ativan given. Otherwise she denies reviews of systems except for noted in the HPI. Meds Home Medications Medication Instructions Recorded Confirmed Type Furosemide [Lasix 20mg tablet] 20 mg PO DAILY 07/25/17 04/21/21 History Gabapentin [Gabapentin 300mg Cap] 400 mg PO TID 07/25/17 04/21/21 History Levothyroxine Sodium 50 mcg PO DAILY 07/25/17 04/21/21 History [Levothyroxine 50mcg (0.05mg) Tab] Phenytoin Sodium Extended 100 mg PO DAILY 07/25/17 04/21/21 History [Dilantin 100mg Capsule] Simvastatin [Zocor 20mg] 20 mg PO DAILY 07/25/17 04/21/21 History atenoloL [Atenolol 50mg Tab] 50 mg PO DAILY 07/25/17 04/21/21 History cloNIDine HCL [cloNIDine 0.2mg 0.2 mg PO DAILY 07/25/17 04/21/21 History Tablet] hydrOXYzine pamoate [Hydroxyzine 50 mg PO HS 07/25/17 04/21/21 History Pamoate] LORazepam [Ativan 1mg tablet] 1 mg PO HS 07/02/19 04/21/21 History Magnesium Oxide [Magnesium] 250 mg PO DAILY 07/02/19 04/21/21 History Metformin HCl [Metformin 1000mg 1,000 mg PO BID 07/02/19 04/21/21 History Tablets] OLANZapine [Olanzapine] 20 mg PO HS 07/02/19 04/21/21 History Potassium Chloride [Klor-Con M20] 20 meq PO DAILY 07/02/19 04/21/21 History Sertraline HCl [Zoloft] 100 mg PO DAILY 07/02/19 04/21/21 History diazePAM [diazePAM 5mg Tablet] 7.5 mg PO TID 07/02/19 04/21/21 History Buspirone HCl [Buspar 10mg 20 mg PO TID 07/03/19 04/21/21 History tablet] levoFLOXacin [Levaquin 500mg 500 mg PO DAILY 04/21/21 04/21/21 History tab] predniSONE [Deltasone 20mg 20 mg PO BID 04/21/21 04/21/21 History tablet] Allergies Allergy/AdvReac Type Severity Reaction Status Date / Time tramadol AdvReac Mild Abdominal Verified 07/02/19 19:52 Pain Exam Vital signs and Labs for Last 24 Hours: Temp Pulse Resp BP Pulse Ox 97.6 F 77 18 106/61 L 91 L 04/21/21 14:56 04/21/21 14:56 04/21/21 14:56 04/21/21 14:56 04/21/21 14:56 Laboratory Results - last 24 hr 04/21/21 11:49: WBC 9.3, RBC 5.29, Hgb 15.5, Hct 44.8, MCV 84.8, MCH 29.4, MCHC 34.6, RDW 16.0, Plt Count 345, MPV 7.
[2021-04-21 18:42] LABS: Free Thyroxine Index 1.6 ug/dL (5.93-13.13); Triiodothryronine (T3) Uptake 40 % (23.5-40.5)
[2021-04-21 18:55] LABS: Hemoglobin A1C 7.8 % (4.0-6.0)
[2021-04-21 18:56] LABS: Thyroid Stimulating Hormone 0.57 uIU/mL (0.465-4.68)
--- NOTE | 2021-04-21 19:18 | PC.NURSE ---
Verbal order from MD Antonio to restart home meds specifically Ativan 1mg PO HS. I faxed this notification to overnight pharmacy 3x. No response, medication was administered with double RN verification with Loli Staton RN> Pharmacy communication now sent as STAT. This information was passed to shoe coverer so that they can appropriately document and not administer a repeat dose
[2021-04-21 19:26] LABS: POC Glucose,Bedside 252 (70-110)
[2021-04-21 20:33] LABS: POC Glucose,Bedside 211 (70-110)
[2021-04-22 04:00] VITALS: BP 133/69; PULSE 67; RESP 19; TEMP 36.6; O2SAT 94
[2021-04-22 04:17] VITALS: BMI 32.6
[2021-04-22 05:26] LABS: POC Glucose,Bedside 347 (70-110)
[2021-04-22 06:52] LABS: Basophils % 0.3 % (0.1-2.0); Eosinophils # 0.1 K/mm3 (0.0-0.4); Eosinophils % 1.9 % (0.1-12.0); Hematocrit 40.3 % (37.0-47.0); Lymphocytes # 1.9 K/mm3 (0.7-4.5); Mean Corpuscular HGB Conc 31.3 g/dL (31.8-35.4); Mean Corpuscular Hemoglobin 28.1 pg (27.0-31.2); Monocytes # 0.4 K/mm3 (0.1-1.0); Neutrophils # 3.8 K/mm3 (1.8-7.8); Neutrophils % 60.8 % (37.0-80.0); Platelet Count 267 K/mm3 (142-424); Red Blood Count 4.48 M/mm3 (4.20-5.40); White Blood Count 6.3 K/mm3 (4.8-10.8)
[2021-04-22 07:08] LABS: Alanine Aminotransferase 21 U/L (12-78); Albumin Level 2.9 g/dl (3.5-5.0); Albumin/Globulin Ratio 1.1 (1.1-1.8); Alkaline Phosphatase 114 U/L (38-126); Aspartate Amino Transferase 26 U/L (14-36); Blood Urea Nitrogen 4 mg/dl (7-17); Calcium 7.6 mg/dl (8.4-10.2); Chloride 92 mmol/L (98-107); Creatinine Clearance Estimated 136 mL/min (50-200); Estimated Glomerular Filt Rate 108 ml/min (>60); GFR (African American) 130 ML/MIN (>60); Globulin 2.6 g/dL (1.3-3.2); Glucose 370 mg/dl (74-100); Magnesium 1.7 mg/dl (1.6-2.3); Sodium 131 mmol/L (136-145); Total Protein,Serum 5.5 g/dl (6.3-8.2)
[2021-04-22 07:14] LABS: Anion Gap 3.2 mEq/L (5-15); Carbon Dioxide 38 mmol/L (22.0-30.0)
[2021-04-22 07:23] LABS: Hemoglobin 12.6 g/dL (12.2-16.2)
[2021-04-22 07:40] LABS: Bilirubin,Total < 0.1 mg/dl (0.2-1.3); Potassium 2.2 mmoL/L (3.5-5.1)
[2021-04-22 07:43] VITALS: BP 115/63; PULSE 82; RESP 20; TEMP 36.8; O2SAT 91
--- NOTE | 2021-04-22 08:49 | HMH.ACPN2 ---
Internal Medicine - PN: Subj *Date: 04/22/21 *Time: 08:49 Interval history: Patient feels better. Is less anxious and less emotionally labile this morning. Has been able to eat most of her breakfast. Exam Vital signs and Labs for Last 24 Hours: Temp Pulse Resp BP Pulse Ox 98.2 F 82 20 115/63 91 L 04/22/21 07:43 04/22/21 07:43 04/22/21 07:43 04/22/21 07:43 04/22/21 07:43 Laboratory Results - last 24 hr 04/21/21 11:49: WBC 9.3, RBC 5.29, Hgb 15.5, Hct 44.8, MCV 84.8, MCH 29.4, MCHC 34.6, RDW 16.0, Plt Count 345, MPV 7.4, Neut % (Auto) 79.0, Lymph % (Auto) 14.3, [place] % (Auto) 4.8, Eos % (Auto) 1.5, Baso % (Auto) 0.4, Neut # (Auto) 7.4, Lymph # (Auto) 1.3, [place] # (Auto) 0.5, Eos # (Auto) 0.1, Baso # (Auto) 0.0 04/21/21 11:49: Sodium 127 L, Potassium 2.0 L*, Chloride 80 L, Carbon Dioxide 42 H*, Anion Gap 7.0, BUN 7, Creatinine 0.90, Estimated Creat Clear 93, Estimated GFR 67, Est GFR ( Amer) 82, Glucose 237 H, Calcium 8.8, Total Bilirubin 0.2, AST 38 H, ALT 27, Alkaline Phosphatase 185 H, Total Protein 7.1, Albumin 3.9, Globulin 3.2, Albumin/Globulin Ratio 1.2, Lipase 91 04/21/21 11:49: Lactate 1.1 04/21/21 11:49: Phenytoin 5.0 L 04/21/21 11:49: Hemoglobin A1c 7.8 H 04/21/21 11:49: TSH 0.57, Free T4 Index 1.6 L, Thyroxine (T4) 4.0 L, T3 Uptake 40 04/21/21 12:36: Urine Color Yellow, Urine Appearance Clear, Urine pH 6.5, Ur Specific [place] 1.015, Urine Protein Trace, Urine Glucose (UA) Negative, Urine Ketones Negative, Urine Blood Negative, Urine Nitrate Negative, Urine Bilirubin Negative, Urine Urobilinogen 0.2, Ur Leukocyte Esterase Trace, Urine RBC None, Urine WBC Occasional, Ur Renal Epithelial Cell 5-10, Urine Bacteria Trace 04/21/21 13:49: SARS-CoV-2 (PCR) Not detected, Influenza A Untype (PCR) Not detected, Influenza Type B (PCR) Not detected 04/21/21 17:02: POC Glucose 252 H 04/21/21 20:20: POC Glucose 211 H 04/22/21 05:13: POC Glucose 347 H* 04/22/21 06:06: WBC 6.3 D, RBC 4.48, Hgb 12.6 D, Hct 40.3, MCV 90.0, MCH 28.1, MCHC 31.3 L, RDW 16.0, Plt Count 267, MPV 8.0, Neut % (Auto) 60.8, Lymph % (Auto) 30.0, [place] % (Auto) 7.0, Eos % (Auto) 1.9, Baso % (Auto) 0.3, Neut # (Auto) 3.8, Lymph # (Auto) 1.9, [place] # (Auto) 0.4, Eos # (Auto) 0.1, Baso # (Auto) 0.0 04/22/21 06:06: Sodium 131 L, Potassium 2.2 L*, Chloride 92 L, Carbon Dioxide 38 H, Anion Gap 3.2 L, BUN 4 L D, Creatinine 0.60 D, Estimated Creat Clear 136, Estimated GFR 108, Est GFR ( Amer) 130 D, Glucose 370 H D, Calcium 7.6 L, Magnesium 1.7, Total Bilirubin < 0.1 L, AST 26 D, ALT 21, Alkaline Phosphatase 114, Total Protein 5.5 L, Albumin 2.9 L D, Globulin 2.6, Albumin/Globulin Ratio 1.1 I & O for Last 24 hours: Intake & Output 04/19/21 04/20/21 04/21/21 04/22/21 11:59 11:59 11:59 11:59 Intake Total 2010 Output Total 0 / 0 Balance 2010 Weight 167 lb 162 lb Narrative: Lungs with good air expansion. Heart rate regular. Abdomen soft and nontender. No edema or clubbing. She is alert, pleasant. Oriented. Assessment and Plan (1) Cystitis Status: Acute Category: Medical Code(s): N30.90 - Cystitis, unspecified without hematuria (2) Diabetes type 2, controlled Status: Acute Category: Medical Code(s): E11.9 - Type 2 diabetes mellitus without complications (3) Seizure disorder Status: Acute Category: Medical Code(s): G40.909 - Epilepsy, unspecified, not intractable, without status epilepticus (4) Obesity Status: Acute Category: Medical Code(s): E66.9 - Obesity, unspecified (5) Hypokalemia Status: Acute Category: Medical Code(s): E87.6 - Hypokalemia (6) Hyponatremia Status: Acute Category: Medical Code(s): E87.1 - Hypo-osmolality and hyponatremia (7) Anxiety Status: Acute Category: Medical Code(s): F41.9 - Anxiety disorder, unspecified - Assessment and plan all Dx Assessment and Plan for all problems:: Await culture results for cystitis treatment. Contin
--- NOTE | 2021-04-22 09:25 | PC.NURSE ---
Dr. Alvarez aware of critical K.
--- NOTE | 2021-04-22 09:34 | HMH.PHAINT ---
Home medications verified with [facility]
[2021-04-22 11:58] VITALS: BMI 32.6
[2021-04-22 16:00] VITALS: BP 109/53; RESP 21; TEMP 36.8; O2SAT 90
[2021-04-22 19:52] VITALS: BP 126/78; PULSE 58; RESP 14; TEMP 36.6; O2SAT 100
[2021-04-23 04:12] VITALS: BP 127/61; PULSE 76; RESP 19; TEMP 36.7; O2SAT 96
[2021-04-23 04:31] VITALS: BMI 34.4
[2021-04-23 05:31] LABS: POC Glucose,Bedside 178 (70-110)
[2021-04-23 05:31] LABS: POC Glucose,Bedside 218 (70-110)
[2021-04-23 05:31] LABS: POC Glucose,Bedside 168 (70-110)
[2021-04-23 06:43] LABS: Chloride 99 mmol/L (98-107)
[2021-04-23 06:44] LABS: Sodium 139 mmol/L (136-145)
[2021-04-23 06:46] LABS: Blood Urea Nitrogen 7 mg/dl (7-17); Creatinine Clearance Estimated 123 mL/min (50-200); Estimated Glomerular Filt Rate 90 ml/min (>60); GFR (African American) 109 ML/MIN (>60)
[2021-04-23 06:47] LABS: Anion Gap 6.6 mEq/L (5-15); Calcium 7.7 mg/dl (8.4-10.2); Carbon Dioxide 36 mmol/L (22.0-30.0); Glucose 145 mg/dl (74-100)
[2021-04-23 07:28] LABS: Potassium 2.6 mmoL/L (3.5-5.1)
--- NOTE | 2021-04-23 08:30 | HMH.DCSUM ---
General - General Admission date:: 04/21/21 Discharge date: 04/23/21 HPI HPI: 45-year-old white female with history of diabetes, morbid obesity, poor health care maintenance and overriding significant anxiety who has a primary care physician not in the [facility] system, who came to the hospital with weakness, vomiting, fatigue and muscle cramps. Found to have evidence of cystitis, also found to have evidence of hypokalemia, hyponatremia, dehydration, admitted to hospital for IV fluids, IV antibiotics and further diagnostic testing. Hospital Course Hospital Course: 45-year-old female who was admitted for abdominal pain, vomiting, suspected gastroenteritis versus UTI. Found to have significant electrolyte abnormalities on admission. Problems addressed as follows Infectious/pyelonephritis Urine sample benign. Patient started on ceftriaxone empirically on admission. Urine culture with no growth. Normal white cell count, no fever, no tachycardia. Nausea and vomiting resolved during admission with repletion of electrolytes and treatment with antiemetics. No clear indication for antibiotics. We will stop them at this time and not continue at discharge. Low suspicion for infectious etiology. -Abdominal pain and vomiting resolved, no imaging indicated or obtained Electrolyte abnormalities -Hypokalemia, hyponatremia, metabolic alkalosis. Suspected secondary to her nausea and vomiting and loss of electrolytes/stomach acid. Repleted during hospitalization. On day of discharge sodium and chloride normalized. Potassium looking better, patient feeling much better. Requesting to go home. Will transition oral regimen to complete repletion and have repeat labs in about a week to monitor for improvement in her potassium level. Would recommend also checking calcium level at that time to verify its stability as it is down somewhat however when corrected for albumin, still within a normal range. -Increased potassium chloride for daily home use and light of her diuretic use daily. Will need close monitoring as an outpatient Seizures -Stable during hospitalization, no seizure activity. Continued home medication. Tolerated well Diabetes -A1c obtained during admission, 7.8. Continued insulin regimen during hospitalization. Further management as an outpatient Resumed anxiolytics, patient is benzodiazepine dependent. Medically stable for discharge home. Tolerating p.o. intake. Examined on day of discharge Patient requesting to follow-up with Dr. Weldon. Will facilitate making appointment prior to discharge. Objective Vital signs: Temp Pulse Resp BP Pulse Ox 98.1 F 76 19 127/61 96 04/23/21 04:12 04/23/21 04:12 04/23/21 04:12 04/23/21 04:12 04/23/21 04:12 Narrative: - Constitutional no acute distress, obese, cushingoid face, chronically ill appearing, disheveled - *Routine HEENT Exam Head: Present: normocephalic Eye: Present: EOMI, PERRL ENT: Present: mucous membranes moist - *Routine Neck Exam Present: supple. Absent: lymphadenopathy - *Routine Respiratory Exam Present: CTA bilaterally - *Routine Cardiovascular Exam Present: RRR - *Routine Abdominal Exam Present: soft, normoactive bowel sounds, NO tenderness - *Routine Extremities Exam Absent: cyanosis, clubbing, edema - *Routine Skin Exam Present: warm. Absent: rash - *Routine Neurological Exam Present: alert, oriented X3 Results Labs on day of discharge: Labs from last 24 hours 04/23/21 04/23/21 04/22/21 05:24 05:09 17:05 Sodium 139 Potassium 2.6 L* Chloride 99 Carbon Dioxide 36 H Anion Gap 6.6 BUN 7 D Creatinine 0.70 Estimated Creat Clear 123 Estimated GFR 90 Est GFR ( Amer) 109 Glucose 145 H D POC Glucose 178 H 218 H Calcium 7.7 L 04/22/21 13:07 Sodium Potassium Chloride Carbon Dioxide Anion Gap BUN Creatinine Estimated C
[2021-04-24 21:33] LABS: POC Glucose,Bedside 144 (70-110)
== END 2021-04-23 09:30 | disposition home or self-care (01) | DRG 690 ==
LOC: ER 11:21 → 2ND 13:40
PROVIDERS: Admitting Provider Emergency Medicine; Emergency Provider Emergency Medicine; PCP Family Medicine; Visit Provider Internal Medicine Adolescent Medicine
DX: N30.00 Acute cystitis without hematuria (principal); E87.6 Hypokalemia; Z20.822 Contact with and (suspected) exposure to COVID-19; G40.909 Epilepsy, unspecified, not intractable, without status epilepticus; I10 Essential (primary) hypertension; E03.9 Hypothyroidism, unspecified; J44.9 Chronic obstructive pulmonary disease, unspecified; F41.9 Anxiety disorder, unspecified; E11.40 Type 2 diabetes mellitus with diabetic neuropathy, unspecified; F17.210 Nicotine dependence, cigarettes, uncomplicated; E78.5 Hyperlipidemia, unspecified; Z68.34 Body mass index [BMI] 34.0-34.9, adult; E66.01 Morbid (severe) obesity due to excess calories
CPT/HCPCS: 80048; 80053; 80185; 81001; 82962; 83036; 83605; 83690; 83735; 84436; 84443; 84479; 85025; 87086; 96365; 96367; 96375; 99284; C9803; J2405; U0003; U0005

== ENCOUNTER 2021-05-03 15:31 | Emergency (ER) | payer MEDICAID, SELFPAY ==
[2021-05-03 16:05] VITALS: BP 111/66; PULSE 98; RESP 18; O2SAT 94; BMI 35.3
--- NOTE | 2021-05-03 16:10 | XR_ITS ---
PROCEDURE INFORMATION: Exam: XR Right Foot Exam date and time: 05/03/2021 4:10 PM Age: 45 years old Clinical indication: Injury or trauma; Fall; Blunt trauma; Right; Injury date: 05/03/21; Prior surgery; Surgery date: 6+ months; Surgery type: Foot fractures of metatarsals fixed with plates and screws; Additional info: Fall today and now having pain and swelling TECHNIQUE: Imaging protocol: XR Right foot. Views: 3 or more views. COMPARISON: No relevant prior studies available. FINDINGS: Bones/joints: Previous internal fixation 1st 2nd and 3rd metatarsals and of the adjacent cuneiform bones. Lucencies surrounding the compression plates of the 1st ray suggesting loosening, and fragmented appearance of the cuneiform bones and of the adjacent distal medial aspect of the navicular. While some of this may be chronic deformity suspect there is acute superimposed fractures here. There is abnormal widening between the bases of the 1st and 2nd metatarsals, and abnormal superior offset of the forefoot relative to the midfoot consistent with midfoot instability. Flattening of heads of the 2nd and 3rd metatarsals consistent with Freiberg's infraction is. Soft tissues: Soft tissue swelling. Other findings: Most useful would be comparison with previous studies to assess the degree of interval disruption here. CT will also be useful. IMPRESSION: 1. Previous internal fixation 1st 2nd and 3rd metatarsals and of the adjacent cuneiform bones. Lucencies surrounding the compression plates of the 1st ray suggesting loosening, and fragmented appearance of the cuneiform bones and of the adjacent distal medial aspect of the navicular. While some of this may be chronic deformity suspect there are acute superimposed fractures here. 2. There is abnormal widening between the bases of the 1st and 2nd metatarsals, and abnormal superior offset of the forefoot relative to the midfoot consistent with midfoot instability. 3. 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 4. Most useful would be comparison with previous studies to assess the degree of interval disruption here. CT will also be useful.
[2021-05-03 16:40] VITALS: BP 111/66; PULSE 98; RESP 18; O2SAT 94; BMI 35.2
--- NOTE | 2021-05-03 16:42 | PC.NURSE ---
PATIENT REQUESTING TO BE SEEN IN [place]. PATIENT HAD ALREADY REGISTERED FOR ER AND HAD BEEN TRIAGED FOR ER AND IS CURRENTLY WAITING FOR BED IN ER. MOUSE BREEDER WAS CALLED TO ASK IF PATIENT COULD BE SEEN IN [place] AFTER REGISTERING FOR ER, AND SHE STATED SHE DID NOT KNOW.
--- NOTE | 2021-05-03 17:03 | HMH.EDUTC ---
[facility] [place] Clinical Impression: Foot injury Qualifiers: Encounter type: initial encounter Laterality: right Qualified Code(s): S99.921A - Unspecified injury of right foot, initial encounter Disposition: Home, Self-Care Condition on Discharge: Good Additional Instructions: *weight bearing as tolerated, Wear the Boot *RICE, Rest the extremity, Ice 15-20 minutes 3-4 times daily, Compress- wear the david wrap as discussed as much as possible to help reduce swelling and pain, Elevate the extremity when at rest *Walking boot is for support and help control swelling, use it except in the shower. Be sure that is not to tight but not to loose either *Elevate when resting *Ibuprofen as directed on package every 6-8 hours as needed for pain an inflammation. If need something more can take Tylenol in between doses of Ibuprofen to help Immediately follow up with your family doctor for new or worsening of symptoms, or no noticeable improvement over the next 3-5 days Follow up with Podiatry or whoever did your surgery on your foot for further treatment and evaluation Return if needed Straight to ER if any life threatening symptoms Referrals: Crow Weldon MD [Primary Care Provider] - As needed Lizy Davis DPM [Staff Physician] - (Call office for appointment) Time of Disposition: 18:18 Medical Decision Making - Gregory Inquiry Pt receiving controlled substance: No Gregory was queried for this patient: No Vital Signs: 05/03/21 16:05 05/03/21 16:40 05/03/21 17:35 Temperature 98.0 F Temperature Source Oral Pulse Rate 98 H Pulse Rate [Right Brachial] 98 H 98 H Respiratory Rate 18 18 18 Blood Pressure 111/66 Blood Pressure [Right Arm] 111/66 111/66 Blood Pressure Mean [Right Arm] 81 81 Blood Pressure Source [Right Arm] Automatic Cuff Automatic Cuff Blood Pressure Position [Right Arm] Sitting Sitting 02 Sat by Pulse Oximetry 94 L 94 L Oxygen Delivery Method Room Air Room Air Orders (Tests/Meds): ED MEDICATIONS Discontinued Medications Generic Name Dose Route Start Last Admin Trade Name Freq PRN Reason Stop Dose Admin Ketorolac Tromethamine 30 mg 05/03/21 17:18 05/03/21 17:35 Ketorolac 60mg/2ml Vial IM 05/03/21 17:19 30 mg ONCE ONE Administration - Radiology Data #1 Image(s): Foot/Toes Image Reviewed: Yes I have reviewed radiologist's interpretation IMPRESSION: 1. Previous internal fixation 1st 2nd and 3rd metatarsals and of the adjacent cuneiform bones. Lucencies surrounding the compression plates of the 1st ray suggesting loosening, and fragmented appearance of the cuneiform bones and of the adjacent distal medial aspect of the navicular. While some of this may be chronic deformity suspect there are acute superimposed fractures here. 2. There is abnormal widening between the bases of the 1st and 2nd metatarsals, and abnormal superior offset of the forefoot relative to the midfoot consistent with midfoot instability. 3. 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 4. Most useful would be comparison with previous studies to assess the degree of interval disruption here. CT will also be useful. - Physician Consults Physician Consulted: Dr Adorno Time: 18:20 Reason -: Orthopedic Eval/Care Comment/Response: Spoke with Dr Adorno and he looked at the xray and advised to place in boot and have patient follow up with Dr Davis or Orthopedics that did surgery on foot initially in [place] Medical Decision Narrative: Medication discussed with pharmacy Patient state that she has taken Toradol in the past without complications or reaction And was recently prescribed Ibuprofen but is out of them because her took them too [facility] [place] - General Chief complaint: Extremity Injury, Lower Stated complaint: AO fall 05/03 injured R foot Time Seen by Provider: 05/03/21 17:03 Mode of Arrival: Ambulatory Source of Information: [place]
[2021-05-03 17:35] VITALS: BP 111/66; PULSE 98; RESP 18; TEMP 36.7; O2SAT 94
== END 2021-05-03 17:45 | disposition home or self-care (01) ==
PROVIDERS: Emergency Provider Nurse Practitioner; PCP Emergency Medicine
DX: S99.921A Unspecified injury of right foot, initial encounter (principal); W01.0XXA Fall on same level from slipping, tripping and stumbling without subsequent striking against object, initial encounter; Y92.019 Unspecified place in single-family (private) house as the place of occurrence of the external cause; E11.9 Type 2 diabetes mellitus without complications; E78.5 Hyperlipidemia, unspecified; I10 Essential (primary) hypertension; F41.9 Anxiety disorder, unspecified; E03.9 Hypothyroidism, unspecified
CPT/HCPCS: 29515; 73630; 96372; 99291

== ENCOUNTER 2021-05-08 16:22 | Emergency (ER) | payer MEDICAID, SELFPAY ==
[2021-05-08 18:12] VITALS: BP 132/79
[2021-05-08 18:15] VITALS: BP 132/79; PULSE 76; O2SAT 93
[2021-05-08 18:27] VITALS: BP 132/79; PULSE 79; RESP 18; TEMP 37; O2SAT 94; BMI 34.3
--- NOTE | 2021-05-08 18:56 | HMH.EDGENADL ---
ED Disposition Clinical Impression: Hypokalemia, Hyponatremia Headache Qualifiers: Headache type: unspecified Headache chronicity pattern: acute headache Intractability: not intractable Qualified Code(s): R51.9 - Headache, unspecified Disposition: Home, Self-Care Condition on Discharge: Good Instructions: DI for Hypokalemia, DI for Hyponatremia, DI for Headache Additional Instructions: Increase your dose of potassium, take 2 tablets twice a day for the next 5 days. Then follow-up with your primary care provider to have your potassium level rechecked. Your sodium was low and you also need to have that rechecked. Dr. Mendes states to follow-up with him in the office on Monday or Monday. Any taking Tylenol for headache. Referrals: Crow Weldon MD [Primary Care Provider] - - Critical Care Critical Care Time: No Attestation: On 05/08/21, the high probability of a clinically significant, sudden or life threatening deterioration of the following system(s) required my full and direct attention, intervention and personal management. The time I documented below is in addition to time spent performing reported procedures but includes the following listed in this critical care notation. Medical Decision Making - Medical Records Medical records reviewed: Yes: I reviewed the patient's medical records. MR Comment: Reviewed discharge summary from recent admission 04/21/2021 through 04/23/2021. Presented with similar symptoms. Had a potassium of 2 at admission. Improved to 2.6 by discharge. Suspected UTI treated, but culture negative. - Gregory Inquiry Pt receiving controlled substance: Yes Gregory was queried for this patient: Yes Risks and benefits of using a controlled substance: were discussed with pt by me Vital Signs: 05/08/21 18:12 05/08/21 18:15 05/08/21 18:27 Temperature 98.6 F Temperature Source Oral Pulse Rate 76 Pulse Rate [Right Radial] 79 Respiratory Rate 18 Blood Pressure 132/79 132/79 Blood Pressure [Right Arm] 132/79 Blood Pressure Mean 107 Blood Pressure Mean [Right Arm] 96 Blood Pressure Source Automatic Cuff Blood Pressure Source [Right Arm] Automatic Cuff Blood Pressure Position Supine Blood Pressure Position [Right Arm] Supine 02 Sat by Pulse Oximetry 93 L 94 L Oxygen Delivery Method Room Air - Lab Data Lab Results 05/08/21 18:51: SARS-CoV-2 (PCR) Not detected, Influenza A Untype (PCR) Not detected, Influenza Type B (PCR) Not detected 05/08/21 18:52: WBC 12.7 H, RBC 4.87, Hgb 14.1, Hct 42.9, MCV 88.2, MCH 29.0, MCHC 32.9, RDW 17.1, Plt Count 446 H, MPV 7.8, Neut % (Auto) 80.0, Lymph % (Auto) 13.2, [place] % (Auto) 4.9, Eos % (Auto) 1.3, Baso % (Auto) 0.6, Neut # (Auto) 10.2 H, Lymph # (Auto) 1.7, [place] # (Auto) 0.6, Eos # (Auto) 0.2, Baso # (Auto) 0.1 05/08/21 18:52: Sodium 123 L, Potassium 2.8 L*, Chloride 78 L, Carbon Dioxide 38 H, Anion Gap 9.8, BUN 7, Creatinine 0.60, Estimated Creat Clear 143, Estimated GFR 108, Est GFR ( Amer) 130, Glucose 145 H, Calcium 8.4, Total Bilirubin 0.4, AST 21, ALT 18, Alkaline Phosphatase 125, Total Protein 7.2 D, Albumin 4.3, Globulin 2.9, Albumin/Globulin Ratio 1.5 05/08/21 18:52: Magnesium 1.5 L Result diagrams: 05/08/21 18:52 05/08/21 18:52 Orders (Tests/Meds): ED MEDICATIONS Generic Name Dose Route Start Last Admin Trade Name Freq PRN Reason Stop Dose Admin Sodium Chloride 10 ml 05/08/21 19:15 Sodium Chloride 0.9% 10ml Vial IV 06/07/21 19:14 NEEDED PRN to Dilute Lorazepam inj Discontinued Medications Generic Name Dose Route Start Last Admin Trade Name Freq PRN Reason Stop Dose Admin Acetaminophen 500 mg 05/08/21 18:36 05/08/21 19:01 Acetaminophen 500mg Tab PO 05/08/21 18:37 500 mg ONCE ONE Administration Sodium Chloride 1,000 mls @ 999 mls/hr 05/08/21 18:57 05/08/21 19:00 Sod Chlor 0.9% 1000ml Bag IV 05/08/21 19:57 999 mls/hr .Q1H1M ONE Administration
[2021-05-08 18:59] LABS: Coronavirus 19, PCR Not Detected (NotDetected); Influenza A, PCR Not Detected (NotDetected); Influenza B, PCR Not Detected (NotDetected)
[2021-05-08 19:07] LABS: Chloride 78 mmol/L (98-107); Sodium 123 mmol/L (136-145)
[2021-05-08 19:10] LABS: Alanine Aminotransferase 18 U/L (12-78); Albumin Level 4.3 g/dl (3.5-5.0); Albumin/Globulin Ratio 1.5 (1.1-1.8); Alkaline Phosphatase 125 U/L (38-126); Anion Gap 9.8 mEq/L (5-15); Aspartate Amino Transferase 21 U/L (14-36); Bilirubin,Total 0.4 mg/dl (0.2-1.3); Blood Urea Nitrogen 7 mg/dl (7-17); Carbon Dioxide 38 mmol/L (22.0-30.0); Creatinine Clearance Estimated 143 mL/min (50-200); Estimated Glomerular Filt Rate 108 ml/min (>60); GFR (African American) 130 ML/MIN (>60); Globulin 2.9 g/dL (1.3-3.2); Total Protein,Serum 7.2 g/dl (6.3-8.2)
[2021-05-08 19:11] LABS: Calcium 8.4 mg/dl (8.4-10.2); Glucose 145 mg/dl (74-100); Potassium 2.8 mmoL/L (3.5-5.1)
[2021-05-08 19:15] LABS: Basophils # 0.1 K/mm3 (0-0.2); Basophils % 0.6 % (0.1-2.0); Eosinophils # 0.2 K/mm3 (0.0-0.4); Eosinophils % 1.3 % (0.1-12.0); Hematocrit 42.9 % (37.0-47.0); Hemoglobin 14.1 g/dL (12.2-16.2); Lymphocytes # 1.7 K/mm3 (0.7-4.5); Lymphocytes % 13.2 % (10-50); Mean Corpuscular HGB Conc 32.9 g/dL (31.8-35.4); Mean Corpuscular Volume 88.2 fl (81-99); Mean Platelet Volume 7.8 fl (7.4-10.4); Monocytes # 0.6 K/mm3 (0.1-1.0); Monocytes % 4.9 % (1.7-9.3); Neutrophils # 10.2 K/mm3 (1.8-7.8); Platelet Count 446 K/mm3 (142-424); Red Blood Count 4.87 M/mm3 (4.20-5.40); Red Cell Distribution Width 17.1 % (11.5-17.5); White Blood Count 12.7 K/mm3 (4.8-10.8)
[2021-05-08 19:19] LABS: Magnesium 1.5 mg/dl (1.6-2.3)
--- NOTE | 2021-05-08 19:35 | PC.NURSE ---
Critical potassium of 2.8 called by betsy Kohli tech. notified
[2021-05-08 20:45] VITALS: BP 130/75; PULSE 78; RESP 18; TEMP 36.6; O2SAT 95
== END 2021-05-08 20:45 | disposition home or self-care (01) ==
PROVIDERS: Emergency Provider Emergency Medicine; PCP Emergency Medicine
DX: E87.6 Hypokalemia (principal); E87.1 Hypo-osmolality and hyponatremia; E11.65 Type 2 diabetes mellitus with hyperglycemia; F41.9 Anxiety disorder, unspecified; I10 Essential (primary) hypertension; E78.5 Hyperlipidemia, unspecified; J44.9 Chronic obstructive pulmonary disease, unspecified; Z79.899 Other long term (current) drug therapy
CPT/HCPCS: 80053; 83735; 85025; 96365; 96375; 99283; C9803; J2405; U0003; U0005

== ENCOUNTER 2021-05-12 14:52 | Emergency (ER) | payer MEDICAID, SELFPAY ==
[2021-05-12 16:08] VITALS: BP 0/0; PULSE 0; RESP 0; TEMP -17.7; TEMP 0; O2SAT 0
--- NOTE | 2021-05-12 16:08 | PC.NURSE ---
registration staff states pt reported them she was tired of waiting and was going home. pt LWBS
== END 2021-05-12 16:08 | disposition left against medical advice (07) ==
PROVIDERS: Emergency Provider Internal Medicine Critical Care Medicine; PCP Emergency Medicine
DX: Z53.21 Procedure and treatment not carried out due to patient leaving prior to being seen by health care provider (principal)
CPT/HCPCS: 99211

== ENCOUNTER 2021-05-14 13:03 | Emergency (ER) | payer MEDICAID, SELFPAY ==
[2021-05-14 13:04] VITALS: BP 127/71; PULSE 81; RESP 18; TEMP 36.6; O2SAT 97; BMI 34.3
--- NOTE | 2021-05-14 13:29 | XR_ITS ---
PROCEDURE INFORMATION: Exam: XR Right Foot Exam date and time: 05/14/2021 1:29 PM Age: 45 years old Clinical indication: Pain; Foot; Right; Prior surgery; Surgery date: 6+ months; Additional info: Pain/past surgery TECHNIQUE: Imaging protocol: XR Right foot. Views: 3 or more views. COMPARISON: CR XR FOOT RT MIN 3V 05/03/2021 4:33 PM FINDINGS: Tubes, catheters and devices: Prior surgical fixation of the foot including malleable surgical plates and screws without significant change from the prior study other than the fracture through the surgical plate stabilizing the 3rd metatarsal. Bones/joints: Flattening and fractures of the 2nd and 3rd metatarsal heads. Spur formation at the insertion of the plantar aponeurosis. Soft tissues: Normal. IMPRESSION: 1. Prior surgical fixation of the foot including malleable surgical plates and screws without significant change from the prior study other than the fracture through the surgical plate stabilizing the 3rd metatarsal. 2. Spur formation at the insertion of the plantar aponeurosis.
--- NOTE | 2021-05-14 14:07 | HMH.EDGENADL ---
ED Disposition Clinical Impression: Loosening of orthopedic plate device Fracture of foot Qualifiers: Encounter type: initial encounter Fracture type: closed Laterality: right Qualified Code(s): S92.901A - Unspecified fracture of right foot, initial encounter for closed fracture Disposition: Home, Self-Care Condition on Discharge: Fair Additional Instructions: Use your orthopedic boot and crutches until follow-up with Dr. Davis. Call Dr. Davis's office to make appointment. Call on Monday. [place] as needed for pain. Call your primary care doctor on Monday for further pain medication. Additional instructions for CONTROLLED SUBSTANCES: You have been prescribed a medication that is a controlled substance. Controlled substances include pain medications known as opiates and sedative nerve medications known as benzodiazepines. Tramadol, fioricet, and gabapentin are also controlled substances. Some common opiates include: Codeine (such as Tylenol #3) Hydrocodone (Vicodin, Lortab, Lorcet, [place]) Oxycodone (Percocet, Percodan, Oxycodone, Oxy IR) Some common benzodiazepines include: Diazepam (Valium) Lorazepam (Ativan) Alprazolam (Xanax) Clonazepam (Klonopin) Oxazepam (Serax) All of these controlled substances are highly addictive and frequently abused. Misuse can and frequently does lead to addiction as well as overdose and . Medication should be stored in a locked cabinet or other secure storage unit. Do not store the medication in a motor vehicle. Short term supplies, 3 days or less, are prescribed because of the highly addictive nature of the medication. Any of the controlled substance medication NOT taken should be disposed of properly and NOT SAVED. The recommended method of disposing of unused medications is: Place the medicines in a sealable plastic bag. If the medicine is a solid, crush it or add water to dissolve it. Add something undesirable (cat litter, coffee grounds, etc.) Dispose of sealed bag in household trash Do not flush or pour unused medicines down a sink or drain. Controlled substances should not be shared, given away or sold. Because of the addictive nature and frequent abuse, these medications are sometimes stolen. These medications should be kept in a safe place where they cannot be stolen. Do not keep them in your car or purse. Lost or stolen prescriptions for controlled substances WILL NOT BE REFILLED in this emergency department, regardless of whether a police report was filed. Prescriptions: Hydrocod/Acet 5/325 mg [[place] 5/325mg tablet] 1 tab PO Q6HP PRN #12 tab PRN Reason: Pain Transmission Status: [facility] to [facility] Review Source Referrals: Alyse Weldon DO [Primary Care Provider] - - Critical Care Critical Care Time: No Attestation: On 05/14/21, the high probability of a clinically significant, sudden or life threatening deterioration of the following system(s) required my full and direct attention, intervention and personal management. The time I documented below is in addition to time spent performing reported procedures but includes the following listed in this critical care notation. Medical Decision Making - Medical Records Medical records reviewed: Yes: I reviewed the patient's medical records. MR Comment: Reviewed most recent foot x-ray, see report below. - Gregory Inquiry Pt receiving controlled substance: Yes Gregory was queried for this patient: Yes Risks and benefits of using a controlled substance: were discussed with pt by me Vital Signs: 05/14/21 13:04 Temperature 97.8 F Temperature Source Oral Pulse Rate [Left Radial] 81 Respiratory Rate 18 Blood Pressure [Right Arm] 127/71 Blood Pressure Mean [Right Arm] 89 Blood Pressure Source [Right Arm] Automatic Cuff Blood Pressure Position [Right Arm] Sitting 02 Sat by Pulse Oximetry 97 Oxygen Delivery Method Room Air Orders (Tests/Meds): ED MEDICATIONS Discontinued Medi
[2021-05-14 14:27] VITALS: BP 119/55; PULSE 91; RESP 18; TEMP 36.6; O2SAT 98
== END 2021-05-14 14:28 | disposition home or self-care (01) ==
PROVIDERS: Emergency Provider Emergency Medicine; PCP Family Medicine
DX: T84.89XA Other specified complication of internal orthopedic prosthetic devices, implants and grafts, initial encounter (principal); S92.901A Unspecified fracture of right foot, initial encounter for closed fracture; W01.0XXA Fall on same level from slipping, tripping and stumbling without subsequent striking against object, initial encounter; E11.9 Type 2 diabetes mellitus without complications; I10 Essential (primary) hypertension; F41.9 Anxiety disorder, unspecified; E78.5 Hyperlipidemia, unspecified; F17.210 Nicotine dependence, cigarettes, uncomplicated
CPT/HCPCS: 73630; 99282

== ENCOUNTER 2021-05-17 14:41 | Emergency (ER) | payer MEDICAID, SELFPAY ==
[2021-05-17 15:23] VITALS: RESP 20; O2SAT 95; BMI 34.3
--- NOTE | 2021-05-17 15:26 | HMH.EDGENADL ---
ED Disposition Clinical Impression: Right foot pain Disposition: Home, Self-Care Condition on Discharge: Good Additional Instructions: Please follow-up with your orthopedic doctor. If your condition worsens or any other concerns arise, please return to the emergency department. Referrals: Crow Weldon MD [Primary Care Provider] - - Critical Care Critical Care Time: No Attestation: On 05/17/21, the high probability of a clinically significant, sudden or life threatening deterioration of the following system(s) required my full and direct attention, intervention and personal management. The time I documented below is in addition to time spent performing reported procedures but includes the following listed in this critical care notation. Medical Decision Making - Medical Records Medical records reviewed: Yes: I reviewed the patient's medical records. - Gregory Inquiry Pt receiving controlled substance: No Medical Decision Narrative: Patient is a 45-year-old female presenting with a chief complaint of right foot pain. She states that she is out of her pain medications and requests a refill. She declined any further imaging or evaluation today. Her exam shows tenderness with palpation over the plantar surface but no evidence of infection. Patient was treated with p.o. Tylenol and advised to follow-up with her orthopedic surgeon for further care. She was counseled regarding return precautions such as, but not limited to, fever, worsening erythema, worsening swelling, drainage, worsening pain. She was advised to continue to be nonweightbearing and wear her boot. General Adult HPI - General Stated complaint: broken right foot pain Time Seen by Provider: 05/17/21 15:10 - History of Present Illness HPI narrative: Haleigh is a 45-year-old female with a history of right foot surgery for prior fractures is presenting for chief complaint of right foot pain. She states that she recently reinjured her right foot. She was evaluated here on 05/14 and had x-rays of the right foot done which showed: FINDINGS: Tubes, catheters and devices: Prior surgical fixation of the foot including malleable surgical plates and screws without significant change from the prior study other than the fracture through the surgical plate stabilizing the 3rd metatarsal. Bones/joints: Flattening and fractures of the 2nd and 3rd metatarsal heads. Spur formation at the insertion of the plantar aponeurosis. Soft tissues: Normal. IMPRESSION: 1. Prior surgical fixation of the foot including malleable surgical plates and screws without significant change from the prior study other than the fracture through the surgical plate stabilizing the 3rd metatarsal. 2. Spur formation at the insertion of the plantar aponeurosis. During prior hospitalization, patient was offered further evaluation with CT imaging but declined. She was offered further imaging today as well but declined and stated that she wanted pain medications. She states that she will follow up with Dr. Davis in [place] for further care. She denies any systemic symptoms. - Related Data Home Medications Medication Instructions Recorded Confirmed Furosemide [Lasix 20mg tablet] 40 mg PO DAILY 07/25/17 05/10/21 Levothyroxine Sodium 50 mcg PO DAILY 07/25/17 05/10/21 [Levothyroxine 50mcg (0.05mg) Tab] Phenytoin Sodium Extended 300 mg PO AM 07/25/17 05/10/21 [Dilantin 100mg Capsule] Sertraline HCl [Zoloft] 300 mg PO DAILY 07/02/19 05/10/21 diazePAM [diazePAM 5mg Tablet] 2.5 - 5 mg PO TID 07/02/19 05/10/21 Cetirizine HCl 10 mg PO DAILY 04/22/21 05/10/21 Doxepin HCl [Sinequin 50mg capsule] 50 - 100 mg PO HS 04/22/21 05/10/21 Fluticasone Propionate [Flonase 1 spray IN DAILY 04/22/21 05/10/21 Allergy Relief NS] Metoprolol Succinate [Metoprolol 25 mg PO DAILY 04/22/21 05/10/21 Succinate 25mg Tablet*] lisinopriL [Lisinopril] 20 mg PO DAILY 04/22/21 05/10/21
[2021-05-17 15:42] VITALS: BP 123/74; PULSE 74; RESP 16; TEMP 36.6; O2SAT 98
== END 2021-05-17 15:43 | disposition home or self-care (01) ==
PROVIDERS: Emergency Provider Emergency Medicine; PCP Emergency Medicine
DX: M79.671 Pain in right foot (principal); E11.9 Type 2 diabetes mellitus without complications; E78.5 Hyperlipidemia, unspecified; I10 Essential (primary) hypertension; F41.9 Anxiety disorder, unspecified; F17.210 Nicotine dependence, cigarettes, uncomplicated
CPT/HCPCS: 99281

== ENCOUNTER 2021-05-18 00:47 | Emergency (ER) | payer MEDICAID, SELFPAY ==
[2021-05-18 00:48] VITALS: BP 133/62; PULSE 83; RESP 20; TEMP 36.7; O2SAT 94; BMI 34.2
--- NOTE | 2021-05-18 01:07 | HMH.EDGENADL ---
ED Disposition Clinical Impression: Right foot pain Disposition: Home, Self-Care Condition on Discharge: Good Instructions: DI for Chronic Pain -- Adult, DI for Acute Pain -- Adult Referrals: Crow Weldon MD [Primary Care Provider] - - Critical Care Critical Care Time: No Attestation: On , the high probability of a clinically significant, sudden or life threatening deterioration of the following system(s) required my full and direct attention, intervention and personal management. The time I documented below is in addition to time spent performing reported procedures but includes the following listed in this critical care notation. Medical Decision Making - Gregory Inquiry Pt receiving controlled substance: Yes Gregory was queried for this patient: No Risks and benefits of using a controlled substance: were discussed with pt by me Vital Signs: 05/18/21 00:48 Temperature 98.1 F Temperature Source Oral Respiratory Rate 20 02 Sat by Pulse Oximetry 94 L Oxygen Delivery Method Room Air Orders (Tests/Meds): ED MEDICATIONS Generic Name Dose Route Start Last Admin Trade Name Freq PRN Reason Stop Dose Admin Methocarbamol 500 mg 05/18/21 01:15 Methocarbamol 500mg Tablet PO 06/17/21 01:14 BID DOUGLAS Discontinued Medications Generic Name Dose Route Start Last Admin Trade Name Freq PRN Reason Stop Dose Admin Hydrocodone Bitart/Acetaminophen 1 tab 05/18/21 01:05 Hydrocodone/Apap 5/325 Mg Tablet PO 05/18/21 01:06 ONCE ONE Lidocaine 1 each 05/18/21 01:05 Lidocaine 5% Transdermal Patch TP 05/18/21 01:06 ONCE ONE Medical Decision Narrative: DDx includes but not limited to plantar fasciitis, muscle sprain, chronic pain. Fall 3 weeks ago that exacerbated chronic pain. XR on 05/14 did not show new fractures or dislocations. No new trauma since then. No evidence of infection on exam. NV intact, pulses good, sensation and movement good as well. Pt has appointment with PCP later today to refill/reevaluate home pain medication regimen. Here in ED she is refusing additional imaging, would like to follow up with her foot surgeon later this week. This seems appropriate given low concern for new or acute injury that would change acute management with additional imaging. In this setting, will give patient norco 5 x1, robaxin, apply lidocaine patch. Pain controlled in ED. Pt is weight bearing, ambulating without significant difficulty. She is stable for discharge. Given ED return precautions. General Adult HPI - General Chief complaint: PAIN Stated complaint: Pain in Rt foot surgical hardware Time Seen by Provider: 05/18/21 01:05 Mode of Arrival: Ambulatory Limitations: No Limitations Description of Symptoms (Recalled from ER Triage Doc. by RN): Pt was seen in this ED today for right ankle pain. Pt presents with same complaints. No acute injury since she left today. - History of Present Illness HPI narrative: 45 yo female w/ hx right foot fractures s/p surgical repair over 1 year ago presents for right foot pain. Patient reports she fell after tripping over her dog 3 weeks ago and hit her foot. States she has chronic pain in the right foot after her surgery but it worsened after her fall 3 weeks ago, particularly on the plantar surface where she noticed a knot on the bottom of her foot after the fall. The pain is 10/10. Does not radiate. Worsens with walking and putting pressure on her foot. She states she has no other symptoms, no shortness of breath, calf swelling, ankle pain, numbness, tingling, weakness. Of note, she received xray of her right foot on 05/14 in this ED when she presented for similar symptoms which did not show new fractures or hardware disruption. She presented to this ED on 05/17 as well for similar symptoms but refused additional imaging at that time and wanted pain medication as she had run out of home pain meds. States she has been taking tylenol at home without s
[2021-05-18 01:24] LABS: POC Glucose,Bedside 197 (70-110)
[2021-05-18 01:40] VITALS: BP 133/62; PULSE 83; RESP 20; TEMP 36.7; O2SAT 94
== END 2021-05-18 01:40 | disposition home or self-care (01) ==
PROVIDERS: Emergency Provider Student in an Organized Health Care Education/Training Program; PCP Emergency Medicine
DX: M79.671 Pain in right foot (principal); E11.9 Type 2 diabetes mellitus without complications; F41.9 Anxiety disorder, unspecified; E78.5 Hyperlipidemia, unspecified; E03.9 Hypothyroidism, unspecified; I10 Essential (primary) hypertension; F17.210 Nicotine dependence, cigarettes, uncomplicated
CPT/HCPCS: 82962; 99282

== ENCOUNTER → 2021-05-19 09:57 | Outpatient (CLI) | payer MEDICAID, SELFPAY ==
[2021-05-19 11:11] LABS: Anion Gap 10.6 mEq/L (5-15); Blood Urea Nitrogen 6 mg/dl (7-17); Calcium 8.7 mg/dl (8.4-10.2); Carbon Dioxide 31 mmol/L (22.0-30.0); Chloride 99 mmol/L (98-107); Estimated Glomerular Filt Rate 90 ml/min (>60); GFR (African American) 109 ML/MIN (>60); Glucose 152 mg/dl (74-100); Potassium 4.6 mmoL/L (3.5-5.1); Sodium 136 mmol/L (136-145)
== END ==
PROVIDERS: Visit Provider Family Medicine
DX: E87.6 Hypokalemia (principal)
CPT/HCPCS: 36415; 80048

== ENCOUNTER 2021-05-26 10:48 | Emergency (ER) | payer MEDICAID, SELFPAY ==
--- NOTE | 2021-05-26 10:48 | ECG_ITS ---
APPROVED REPORT Exam: Resting ECG HR:93 bpm ECG Measurements Heart Rate 93 AXES WI 154 P 24 QRSd 84 QRS 50 QT 378 T 37 QTc 469 Conclusion Normal sinus rhythm Low voltage QRS Borderline ECG Electronically signed by : Max Alvarez MD 05/27/2021 13:44:33
[2021-05-26 11:23] VITALS: BMI 34.3
--- NOTE | 2021-05-26 11:24 | HMH.EDGENADL ---
ED Disposition Clinical Impression: Seizure disorder, Hypokalemia Chest pain Qualifiers: Chest pain type: unspecified Qualified Code(s): R07.9 - Chest pain, unspecified Disposition: Home, Self-Care Condition on Discharge: Good Instructions: DI for Seizure Disorder -- Adult, DI for Hypokalemia, DI for Chest Pain Additional Instructions: Increase your dose of Dilantin to 4 capsules at night. Increase your dose of potassium to 2 tablets twice a day for 1 week. Take 2 tablets this evening. Follow-up with your primary care provider within 1 week to have your Dilantin level and potassium levels rechecked. Additional instructions for CHEST PAIN: See your physician as soon as possible for further evaluation. Return immediately if worsening chest pain, vomiting, shortness of breath, fever, coughing of blood. Additional instructions for SEIZURE OR LOSS OF CONSCIOUSNESS/POSSIBLE SEIZURE: NO DRIVING, BIKE RIDING, SWIMMING, TUB BATHING, LADDERS UNTIL CLEARED BY DOCTOR. RETURN IF SEIZURE RECURS. NO ALCOHOL OR STREET DRUGS. See your physician as soon as possible for follow-up. Return to the emergency department if seizure recurs. Referrals: Crow Weldon MD [Primary Care Provider] - - Critical Care Critical Care Time: No Attestation: On , the high probability of a clinically significant, sudden or life threatening deterioration of the following system(s) required my full and direct attention, intervention and personal management. The time I documented below is in addition to time spent performing reported procedures but includes the following listed in this critical care notation. Medical Decision Making - Gregory Inquiry Pt receiving controlled substance: Yes Gregory was queried for this patient: Yes Risks and benefits of using a controlled substance: were discussed with pt by me Vital Signs: 05/26/21 11:36 05/26/21 13:05 Temperature 98.0 F 98 F Temperature Source Oral Pulse Rate 88 Pulse Rate [Left Radial] 91 H Respiratory Rate 18 17 Blood Pressure 141/80 H Blood Pressure [Right Arm] 157/89 H Blood Pressure Mean [Right Arm] 111 02 Sat by Pulse Oximetry 95 Oxygen Delivery Method Room Air Room Air - Lab Data Lab Results 05/26/21 11:20: WBC 11.2 H, RBC 5.41 H, Hgb 15.6, Hct 49.7 H, MCV 91.8, MCH 28.8, MCHC 31.4 L, RDW 16.3, Plt Count 383, MPV 7.7, Neut % (Auto) 82.3 H, Lymph % (Auto) 11.2, [place] % (Auto) 4.6, Eos % (Auto) 1.3, Baso % (Auto) 0.6, Neut # (Auto) 9.2 H, Lymph # (Auto) 1.3, [place] # (Auto) 0.5, Eos # (Auto) 0.1, Baso # (Auto) 0.1 05/26/21 11:20: Sodium 130 L, Potassium 2.7 L*, Chloride 82 L, Carbon Dioxide 36 H, Anion Gap 14.7, BUN 5 L, Creatinine 0.70, Estimated Creat Clear 122, Estimated GFR 90, Est GFR ( Amer) 109, Glucose 237 H, Calcium 9.4, Troponin I < 0.01 05/26/21 11:20: Phenytoin 5.7 L Result diagrams: 05/26/21 11:20 05/26/21 11:20 Orders (Tests/Meds): ED MEDICATIONS Discontinued Medications Generic Name Dose Route Start Last Admin Trade Name Freq PRN Reason Stop Dose Admin Hydrocodone Bitart/Acetaminophen 1 tab 05/26/21 12:03 05/26/21 12:17 Hydrocodone/Apap 5/325 Mg Tablet PO 05/26/21 12:04 1 tab ONCE ONE Administration Aspirin 243 mg 05/26/21 11:37 05/26/21 11:48 Aspirin 81mg Chewable Tablet PO 05/26/21 11:38 243 mg ONCE ONE Administration Phenytoin Sodium 200 mg 05/26/21 12:40 05/26/21 12:42 Phenytoin 100mg Capsule PO 05/26/21 12:41 200 mg ONCE ONE Administration Potassium Chloride 40 meq 05/26/21 12:00 05/26/21 12:17 Potassium Chloride 20meq Tab PO 05/26/21 12:01 40 meq ONCE ONE Administration - Radiology Data #1 Image(s): Chest Image Reviewed: Yes I reviewed the patient's radiology image Preliminary Findings: Normal/NAD - ECG Data Tracing #1 EKG interpreted by Zohaib Wright MD: Rhythm: sinus Rate: 93 [place]: normal Ectopy: none Conduction: normal ST Segment Changes: no
[2021-05-26 11:36] VITALS: BP 157/89; PULSE 91; RESP 18; TEMP 36.7; O2SAT 95; BMI 34.3
--- NOTE | 2021-05-26 11:37 | XR_ITS ---
FINAL REPORT CLINICAL HISTORY: chest pain COMPARISON: 07/02/2019 FINDINGS: SINGLE VIEW CHEST The heart is normal in size. The mediastinum is unremarkable. There is right bronchial wall thickening, may represent bronchitis. There is no pneumothorax. IMPRESSION: Bronchial wall thickening, may represent bronchitis. Reviewed, Interpreted and Dictated by Ken Osorio III, MD Transcribed by Haleigh Walden Authenticated by Ken Osorio III, MD on 05/26/2021 01:43:38 PM [facility][1]
[2021-05-26 11:46] LABS: Chloride 82 mmol/L (98-107); Sodium 130 mmol/L (136-145)
[2021-05-26 11:49] LABS: Anion Gap 14.7 mEq/L (5-15); Blood Urea Nitrogen 5 mg/dl (7-17); Carbon Dioxide 36 mmol/L (22.0-30.0); Creatinine Clearance Estimated 122 mL/min (50-200); Estimated Glomerular Filt Rate 90 ml/min (>60); GFR (African American) 109 ML/MIN (>60)
[2021-05-26 11:50] LABS: Calcium 9.4 mg/dl (8.4-10.2); Glucose 237 mg/dl (74-100)
[2021-05-26 11:56] LABS: Potassium 2.7 mmoL/L (3.5-5.1)
[2021-05-26 11:57] LABS: Basophils # 0.1 K/mm3 (0-0.2); Basophils % 0.6 % (0.1-2.0); Eosinophils # 0.1 K/mm3 (0.0-0.4); Eosinophils % 1.3 % (0.1-12.0); Hematocrit 49.7 % (37.0-47.0); Hemoglobin 15.6 g/dL (12.2-16.2); Lymphocytes # 1.3 K/mm3 (0.7-4.5); Lymphocytes % 11.2 % (10-50); Mean Corpuscular HGB Conc 31.4 g/dL (31.8-35.4); Mean Corpuscular Hemoglobin 28.8 pg (27.0-31.2); Mean Corpuscular Volume 91.8 fl (81-99); Mean Platelet Volume 7.7 fl (7.4-10.4); Monocytes # 0.5 K/mm3 (0.1-1.0); Monocytes % 4.6 % (1.7-9.3); Neutrophils # 9.2 K/mm3 (1.8-7.8); Neutrophils % 82.3 % (37.0-80.0); Platelet Count 383 K/mm3 (142-424); Red Blood Count 5.41 M/mm3 (4.20-5.40); Red Cell Distribution Width 16.3 % (11.5-17.5); White Blood Count 11.2 K/mm3 (4.8-10.8)
[2021-05-26 12:06] LABS: Troponin I < 0.01 ng/ml (0.00-0.034)
[2021-05-26 12:25] LABS: Phenytoin (Dilantin) 5.7 ug/ml (10-20)
[2021-05-26 13:05] VITALS: BP 141/80; PULSE 88; RESP 17; TEMP 36.6; O2SAT 97
== END 2021-05-26 13:09 | disposition home or self-care (01) ==
PROVIDERS: Emergency Provider Emergency Medicine; PCP Emergency Medicine
DX: G40.909 Epilepsy, unspecified, not intractable, without status epilepticus (principal); E87.6 Hypokalemia; J44.9 Chronic obstructive pulmonary disease, unspecified; E78.5 Hyperlipidemia, unspecified; I10 Essential (primary) hypertension; E03.9 Hypothyroidism, unspecified; Z79.899 Other long term (current) drug therapy
CPT/HCPCS: 71045; 80048; 80185; 84484; 85025; 93005; 99283

== ENCOUNTER 2021-05-27 14:31 | Observation (INO) | payer MEDICAID, SELFPAY ==
[2021-05-27] VITALS (8 sets, daily range): BP systolic 107–152; BP diastolic 59–87; PULSE 78–93; RESP 16–19; TEMP 36.7–36.9; O2SAT 90–98; BMI 34.3; BMI 39.0
--- NOTE | 2021-05-27 14:48 | PC.NURSE ---
lab called for blood draw
[2021-05-27 15:07] LABS: Basophils # 0.1 K/mm3 (0-0.2); Basophils % 0.9 % (0.1-2.0); Eosinophils # 0.2 K/mm3 (0.0-0.4); Eosinophils % 1.9 % (0.1-12.0); Hematocrit 44.7 % (37.0-47.0); Hemoglobin 14.7 g/dL (12.2-16.2); Lymphocytes # 1.7 K/mm3 (0.7-4.5); Lymphocytes % 14.3 % (10-50); Mean Corpuscular HGB Conc 32.9 g/dL (31.8-35.4); Mean Corpuscular Hemoglobin 29.1 pg (27.0-31.2); Mean Corpuscular Volume 88.4 fl (81-99); Mean Platelet Volume 7.4 fl (7.4-10.4); Monocytes # 0.8 K/mm3 (0.1-1.0); Monocytes % 6.3 % (1.7-9.3); Neutrophils # 9.2 K/mm3 (1.8-7.8); Neutrophils % 76.6 % (37.0-80.0); Platelet Count 358 K/mm3 (142-424); Red Blood Count 5.06 M/mm3 (4.20-5.40); Red Cell Distribution Width 16.2 % (11.5-17.5)
--- NOTE | 2021-05-27 15:18 | HMH.EDGENADL ---
ED Disposition Clinical Impression: Seizure disorder Disposition: Admitted as Observation Condition on Discharge: Good Instructions: DI for Seizure Disorder -- Adult, DI for Seizure (Not Epilepsy/Seizure Disorder), DI for Seizure Disorder -- Child Referrals: Crow Weldon MD [Primary Care Provider] - - Critical Care Critical Care Time: No Attestation: On 05/27/21, the high probability of a clinically significant, sudden or life threatening deterioration of the following system(s) required my full and direct attention, intervention and personal management. The time I documented below is in addition to time spent performing reported procedures but includes the following listed in this critical care notation. Medical Decision Making - Gregory Inquiry Pt receiving controlled substance: No Vital Signs: 05/27/21 14:35 Temperature 98.4 F Temperature Source Oral Pulse Rate [Radial] 83 Respiratory Rate 16 Blood Pressure [Right Arm] 111/59 L Blood Pressure Mean [Right Arm] 76 Blood Pressure Position [Right Arm] Sitting 02 Sat by Pulse Oximetry 98 Oxygen Delivery Method Room Air - Lab Data Lab Results 05/27/21 14:55: WBC 12.0 H, RBC 5.06, Hgb 14.7, Hct 44.7, MCV 88.4, MCH 29.1, MCHC 32.9, RDW 16.2, Plt Count 358, MPV 7.4, Neut % (Auto) 76.6, Lymph % (Auto) 14.3, [place] % (Auto) 6.3, Eos % (Auto) 1.9, Baso % (Auto) 0.9, Neut # (Auto) 9.2 H, Lymph # (Auto) 1.7, [place] # (Auto) 0.8, Eos # (Auto) 0.2, Baso # (Auto) 0.1 05/27/21 14:55: Sodium 127 L, Potassium 3.1 L, Chloride 76 L, Carbon Dioxide 41 H*, Anion Gap 13.1, BUN 3 L D, Creatinine 0.60, Estimated Creat Clear 168, Estimated GFR 108, Est GFR ( Amer) 130, Glucose 141 H, Calcium 8.9, Total Bilirubin 0.2, AST 26, ALT 22, Alkaline Phosphatase 121, Total Protein 7.3, Albumin 4.4, Globulin 2.9, Albumin/Globulin Ratio 1.5, Phenytoin 5.9 L Result diagrams: 05/27/21 14:55 05/27/21 14:55 Orders (Tests/Meds): ED MEDICATIONS Generic Name Dose Route Start Last Admin Trade Name Freq PRN Reason Stop Dose Admin Phenytoin Sodium 400 mg 05/27/21 16:15 Phenytoin 100mg/2ml Vial IV 06/26/21 16:14 ONCE DOUGLAS Discontinued Medications Generic Name Dose Route Start Last Admin Trade Name Freq PRN Reason Stop Dose Admin Phenytoin Sodium 300 mg 05/27/21 16:05 Phenytoin 100mg Capsule PO 05/27/21 16:06 ONCE ONE Potassium Chloride 40 meq 05/27/21 15:33 05/27/21 15:45 Potassium Chloride 20meq Tab PO 05/27/21 15:34 40 meq ONCE ONE Administration ORDERS Category Date Time Status Urinalysis and Microscopic Stat Lab 05/27/21 15:24 Ordered General Adult HPI - General Chief complaint: Seizure Stated complaint: seizure Time Seen by Provider: 05/27/21 15:18 Mode of Arrival: Ambulatory Limitations: No Limitations Description of Symptoms (Recalled from ER Triage Doc. by RN): TO ED PER VELMA PT STATES SHE HAD A SEIZURE AT PCP'S OFFICE TODAY SENT TO ED FOR EVAL. PT SEEN YESTERDAY WITH SEIZURES AND GIVEN IN ED AND TOLD TO TAKE EXTRA DOSE AT HOME. PT STATES SHE THINKS SHE NEEDS TO BE ADMITTED AND GET POTASSIUM AT HOME - History of Present Illness HPI narrative: general t-c szr today, brief, spont resolved, h/o epilepsy, seen here for same recently Severity: mild, moderate Associated symptoms: denies other symptoms - Related Data Home Medications Medication Instructions Recorded Confirmed Phenytoin Sodium Extended 300 mg PO AM 07/25/17 05/18/21 [Dilantin 100mg Capsule] Sertraline HCl [Zoloft] 300 mg PO DAILY 07/02/19 05/18/21 Cetirizine HCl 10 mg PO DAILY 04/22/21 05/18/21 Doxepin HCl [Sinequin 50mg capsule] 50 - 100 mg PO HS 04/22/21 05/18/21 Fluticasone Propionate [Flonase 1 spray IN DAILY 04/22/21 05/18/21 Allergy Relief NS] Metoprolol Succinate [Metoprolol 25 mg PO DAILY 04/22/21 05/18/21 Succinate 25mg Tablet*] lisinopriL [Lisinopril] 20 mg PO DAILY 04/22/21 05/18/21 ondansetron HCL [Ondansetron 4mg 4 mg PO
[2021-05-27 15:24] LABS: Alanine Aminotransferase 22 U/L (12-78); Albumin Level 4.4 g/dl (3.5-5.0); Albumin/Globulin Ratio 1.5 (1.1-1.8); Alkaline Phosphatase 121 U/L (38-126); Aspartate Amino Transferase 26 U/L (14-36); Bilirubin,Total 0.2 mg/dl (0.2-1.3); Blood Urea Nitrogen 3 mg/dl (7-17); Calcium 8.9 mg/dl (8.4-10.2); Chloride 76 mmol/L (98-107); Creatinine Clearance Estimated 168 mL/min (50-200); Estimated Glomerular Filt Rate 108 ml/min (>60); GFR (African American) 130 ML/MIN (>60); Globulin 2.9 g/dL (1.3-3.2); Glucose 141 mg/dl (74-100); Phenytoin (Dilantin) 5.9 ug/ml (10-20); Potassium 3.1 mmoL/L (3.5-5.1); Sodium 127 mmol/L (136-145); Total Protein,Serum 7.3 g/dl (6.3-8.2)
[2021-05-27 15:32] LABS: Anion Gap 13.1 mEq/L (5-15); Carbon Dioxide 41 mmol/L (22.0-30.0)
[2021-05-27 16:38] LABS: Microscopic, Urine URINE MICROSCOPIC (MICROSCOPIC)
[2021-05-27 16:41] LABS: Appearance,Urine CLEAR (Clear); Bilirubin,Urine Negative (Negative); Blood, Urine Negative (Negative); Color,Urine YELLOW (Yellow); Glucose,Urine (UA) Negative (Negative); Ketones,Urine Negative (Negative); Leukocyte Esterase,Urine 1+ (Negative); Nitrate,Urine Negative (Negative); PH,Urine 6.5 (5.0-8.5); Protein,Urine Negative (Negative); Urobilinogen,Urine 0.2 EU/dl (0.2)
[2021-05-27 16:56] LABS: Coronavirus 19, PCR Not Detected (NotDetected); Influenza A, PCR Not Detected (NotDetected); Influenza B, PCR Not Detected (NotDetected)
--- NOTE | 2021-05-27 17:08 | XR_ITS ---
PROCEDURE INFORMATION: Exam: XR Chest Exam date and time: 05/27/2021 5:08 PM Age: 45 years old Clinical indication: Cough TECHNIQUE: Imaging protocol: XR of the chest. Views: 1 view. Total images: 1 COMPARISON: CR XR CHEST PORTABLE 05/26/2021 11:46 AM FINDINGS: Lungs: Question mild peribronchial thickening and perihilar stranding suggesting possible bronchitis. Normal pulmonary expansion. Pulmonary vasculature grossly normal. No gross pulmonary infiltrates. Pleural spaces: No pleural effusion. No pneumothorax. Heart/Mediastinum: Heart size normal. No tracheal/mediastinal shift. Bones/joints: No acute osseous abnormalities are identified. IMPRESSION: Question mild changes of bronchitis. No gross pulmonary infiltrates.
--- NOTE | 2021-05-27 19:00 | PC.NURSE ---
Pt arrived to the floor at this time
[2021-05-28 04:22] VITALS: BP 120/72; PULSE 70; RESP 18; TEMP 36.6; O2SAT 97
[2021-05-28 04:51] VITALS: BMI 33.7
--- NOTE | 2021-05-28 05:18 | PC.NURSE ---
Pt has rested well tonight. Pt had no seizure activity thus far in shift. Pt voiced x1 of a headache, admin meds per MAR with relief.
[2021-05-28 07:54] LABS: Basophils # 0.1 K/mm3 (0-0.2); Basophils % 0.5 % (0.1-2.0); Eosinophils # 0.2 K/mm3 (0.0-0.4); Eosinophils % 1.6 % (0.1-12.0); Hematocrit 46.8 % (37.0-47.0); Hemoglobin 15.3 g/dL (12.2-16.2); Lymphocytes # 1.9 K/mm3 (0.7-4.5); Lymphocytes % 16.5 % (10-50); Mean Corpuscular HGB Conc 32.8 g/dL (31.8-35.4); Mean Corpuscular Hemoglobin 29.5 pg (27.0-31.2); Mean Corpuscular Volume 89.9 fl (81-99); Mean Platelet Volume 7.7 fl (7.4-10.4); Monocytes # 0.8 K/mm3 (0.1-1.0); Monocytes % 6.7 % (1.7-9.3); Neutrophils # 8.5 K/mm3 (1.8-7.8); Neutrophils % 74.6 % (37.0-80.0); Platelet Count 355 K/mm3 (142-424); Red Cell Distribution Width 16.1 % (11.5-17.5); White Blood Count 11.4 K/mm3 (4.8-10.8)
[2021-05-28 08:00] VITALS: BP 108/54; PULSE 96; RESP 18; TEMP 36.9; O2SAT 94
--- NOTE | 2021-05-28 08:09 | HMH.PHAVTE ---
[facility] Pharmacy VTE Monitoring - Patient Demographics Admission date: 05/28/21 Report Date: 05/28/21 Time: 08:09 Allergies/Adverse Reactions: Patient Allergies tramadol Adverse Reaction (Mild, Verified 05/18/21 14:49) Abdominal Pain Height: 1.52 m Weight: 78.018 kg Patient Problems: Current Active Problems Seizure disorder (Chronic) - VTE Risk Labs: VTE Related Lab Results Hgb 15.3 g/dL (12.2-16.2) 05/28/21 07:30 Hct 46.8 % (37.0-47.0) 05/28/21 07:30 Plt Count 355 K/mm3 (142-424) 05/28/21 07:30 BUN 3 mg/dl (7-17) L D 05/27/21 14:55 Creatinine 0.60 mg/dl (0.52-1.04) 05/27/21 14:55 Estimated Creat Clear 168 mL/min (50-200) 05/27/21 14:55 Was VTE Risk Assessment Performed: Yes VTE Score: 6 VTE Risk Level: Moderate Risk Clinical Trial Participant: No - Prophylaxis VTE Prophylaxis Ordered?: Yes Types of VTE Prophylaxis: TEDS Knee High
[2021-05-28 08:51] LABS: Alanine Aminotransferase 27 U/L (12-78); Albumin Level 4.4 g/dl (3.5-5.0); Albumin/Globulin Ratio 1.6 (1.1-1.8); Alkaline Phosphatase 126 U/L (38-126); Aspartate Amino Transferase 36 U/L (14-36); Bilirubin,Total 0.2 mg/dl (0.2-1.3); Blood Urea Nitrogen 4 mg/dl (7-17); Calcium 8.9 mg/dl (8.4-10.2); Chloride 77 mmol/L (98-107); Creatinine Clearance Estimated 173 mL/min (50-200); Estimated Glomerular Filt Rate 133 ml/min (>60); GFR (African American) 161 ML/MIN (>60); Globulin 2.8 g/dL (1.3-3.2); Glucose 251 mg/dl (74-100); Phenytoin (Dilantin) 6.1 ug/ml (10-20); Sodium 127 mmol/L (136-145); Total Protein,Serum 7.2 g/dl (6.3-8.2)
[2021-05-28 08:57] LABS: Anion Gap 12.6 mEq/L (5-15); Carbon Dioxide 40 mmol/L (22.0-30.0)
--- NOTE | 2021-05-28 09:03 | HMH.PHAINT ---
HOME MEDICATION LIST VERIFIED USING LIST FROM CLINIC PHARMACY
--- NOTE | 2021-05-28 09:23 | HMH.HPDC ---
General - General Admission date:: 05/27/21 Discharge date: 05/28/21 *Admission Date: 05/28/21 *Chief complaint: seizure *History of present illness: 45 yr old female presents to ed via ambulance. per squad she had a witness seizure at pcp office and was sent to ed for evaluation. Pt was recently seen in ed for seizures and was told to take extra dose of dilatin. No seizure while in ed, pt was admitted for observation and hypokelemia. [facility] History I have reviewed the patient's past medical history: Yes Medical History: Reports:: Anxiety, Chronic Obstructive Pulmonary Disease (COPD), Hyperlipidemia, Hypertension Denies:: Cancer, Diabetes Mellitus Type 1, Diabetes Mellitus Type 2, Internal Pacemaker, MRSA *Have you ever received a pneumonia vaccine?: No *Have you received a flu vaccine this season?: No Other Medical History: Reports: Hypothyroidism, Thyroid Disease, Other Other Surgeries: Yes: Tubal Ligation. No: Pacemaker Amputation: No Fractures: No - *Social History Smoking Status: Current every day smoker Tobacco Type: cigarettes # Packs/Day (cigarettes): 1 Alcohol Intake: never Substance Use Type: denies use *Occupational Status:: unemployed Housing: house Household Members: spouse, children *Travel in the last 8 weeks: None - Psychiatric History Pschychiatric History:: Reports:: Anxiety Family Hx:: No significant family history Review of Systems - Review of Systems Review of systems:: pertinent systems reviewed and negative unless documented below - Constitutional Denies body ache(s), Denies fatigue, Denies lack of energy - Eyes Denies blurry vision - ENT Denies bleeding gums - *Cardiovascular Denies chest pain at rest - *Respiratory Denies chest congestion - *Gastrointestinal Denies abdominal pain - *Genitourinary Denies abnormal vaginal bleeding - *Musculoskeletal Denies abnormal walking - Integumentary/Breasts Denies hair loss - *Neurologic Denies abnormal hearing - Psychiatric Denies lack of enjoyment - Endocrine Denies cold intolerance - Hematologic/Lymphatic Denies easy bruising - Allergic/Immunologic Denies GI upset with certain foods Exam Vital signs and Labs for Last 24 Hours: Temp Pulse Resp BP Pulse Ox 98.5 F 96 H 18 108/54 L 94 L 05/28/21 08:00 05/28/21 08:00 05/28/21 08:00 05/28/21 08:00 05/28/21 08:00 Laboratory Results - last 24 hr 05/27/21 14:55: WBC 12.0 H, RBC 5.06, Hgb 14.7, Hct 44.7, MCV 88.4, MCH 29.1, MCHC 32.9, RDW 16.2, Plt Count 358, MPV 7.4, Neut % (Auto) 76.6, Lymph % (Auto) 14.3, [place] % (Auto) 6.3, Eos % (Auto) 1.9, Baso % (Auto) 0.9, Neut # (Auto) 9.2 H, Lymph # (Auto) 1.7, [place] # (Auto) 0.8, Eos # (Auto) 0.2, Baso # (Auto) 0.1 05/27/21 14:55: Sodium 127 L, Potassium 3.1 L, Chloride 76 L, Carbon Dioxide 41 H*, Anion Gap 13.1, BUN 3 L D, Creatinine 0.60, Estimated Creat Clear 168, Estimated GFR 108, Est GFR ( Amer) 130, Glucose 141 H, Calcium 8.9, Total Bilirubin 0.2, AST 26, ALT 22, Alkaline Phosphatase 121, Total Protein 7.3, Albumin 4.4, Globulin 2.9, Albumin/Globulin Ratio 1.5, Phenytoin 5.9 L 05/27/21 16:30: Urine Color Yellow, Urine Appearance Clear, Urine pH 6.5, Ur Specific [place] 1.010, Urine Protein Negative, Urine Glucose (UA) Negative, Urine Ketones Negative, Urine Blood Negative, Urine Nitrate Negative, Urine Bilirubin Negative, Urine Urobilinogen 0.2, Ur Leukocyte Esterase 1+ A, Urine RBC None, Urine WBC 5-10, Ur Squamous Epith Cells 3-5, Urine Bacteria None 05/27/21 16:30: SARS-CoV-2 (PCR) Not detected, Influenza A Untype (PCR) Not detected, Influenza Type B (PCR) Not detected 05/28/21 07:30: WBC 11.4 H, RBC 5.20, Hgb 15.3, Hct 46.8, MCV 89.9, MCH 29.5, MCHC 32.8, RDW 16.1, Plt Count 355, MPV 7.7, Neut % (Auto) 74.6, Lymph % (Auto) 16.5, [place] % (Auto) 6.7, Eos % (Auto) 1.6, Baso % (Auto) 0.5, Neut # (Auto) 8.5 H, Lymph # (Auto) 1.9, [place] # (Auto) 0.8, Eos # (Auto) 0.2, Baso # (Auto) 0.1 I & O for Last 24 hours:
[2021-05-28 10:03] LABS: Potassium 2.6 mmoL/L (3.5-5.1)
== END 2021-05-28 09:49 | disposition home or self-care (01) ==
LOC: ER 16:08 → 2ND 19:33
PROVIDERS: Admitting Provider Emergency Medicine; Emergency Provider Emergency Medicine; PCP Emergency Medicine; Visit Provider Family Medicine
DX: G40.909 Epilepsy, unspecified, not intractable, without status epilepticus (principal); E87.6 Hypokalemia; E11.9 Type 2 diabetes mellitus without complications; Z79.84 Long term (current) use of oral hypoglycemic drugs; I10 Essential (primary) hypertension; J44.9 Chronic obstructive pulmonary disease, unspecified; E78.5 Hyperlipidemia, unspecified; E03.9 Hypothyroidism, unspecified; F17.210 Nicotine dependence, cigarettes, uncomplicated; Z79.899 Other long term (current) drug therapy
CPT/HCPCS: 36415; 71045; 80053; 80185; 81001; 85025; 87086; 87088; 87186; 94760; 99284; C9803; G0378; U0003; U0005

== ENCOUNTER 2021-05-29 13:54 | Emergency (ER) | payer MEDICAID, SELFPAY ==
[2021-05-29 13:55] VITALS: BP 133/68; PULSE 91; RESP 16; TEMP 37.3; O2SAT 98; BMI 34.3
--- NOTE | 2021-05-29 14:04 | HMH.EDGENADL ---
ED Disposition Clinical Impression: Migraine Qualifiers: Migraine type: unspecified Status migrainosus presence: without status migrainosus Intractability: not intractable Qualified Code(s): G43.909 - Migraine, unspecified, not intractable, without status migrainosus Disposition: Left Against Medical Advice Condition on Discharge: Fair Instructions: Migraine -- Adult Referrals: Crow Weldon MD [Primary Care Provider] - - Critical Care Critical Care Time: No Attestation: On , the high probability of a clinically significant, sudden or life threatening deterioration of the following system(s) required my full and direct attention, intervention and personal management. The time I documented below is in addition to time spent performing reported procedures but includes the following listed in this critical care notation. Medical Decision Making - Medical Records Medical records reviewed: Yes: I reviewed the patient's medical records. - Gregory Inquiry Pt receiving controlled substance: No Vital Signs: 05/29/21 13:55 05/29/21 14:30 Temperature 99.2 F Temperature Source Oral Pulse Rate 87 Pulse Rate [Radial] 91 H Respiratory Rate 16 16 Blood Pressure 131/62 Blood Pressure [Right Arm] 133/68 Blood Pressure Mean 75 Blood Pressure Mean [Right Arm] 89 Blood Pressure Position [Right Arm] Sitting 02 Sat by Pulse Oximetry 98 95 Oxygen Delivery Method Room Air - Lab Data Lab results reviewed: Yes: I reviewed the patient's lab results. Lab Results 05/29/21 14:37: WBC 12.5 H, RBC 5.19, Hgb 15.0, Hct 45.3, MCV 87.3, MCH 28.9, MCHC 33.1, RDW 16.2, Plt Count 355, MPV 7.6, Neut % (Auto) 87.0 H, Lymph % (Auto) 6.7 L, [place] % (Auto) 4.6, Eos % (Auto) 0.4, Baso % (Auto) 1.3, Neut # (Auto) 10.8 H, Lymph # (Auto) 0.8, [place] # (Auto) 0.6, Eos # (Auto) 0.1, Baso # (Auto) 0.2 05/29/21 14:37: Sodium 120 L, Potassium 2.0 L* D, Chloride 67 L, Carbon Dioxide 41 H*, Anion Gap 14.0, BUN 4 L, Creatinine 0.50 L, Estimated Creat Clear 171, Estimated GFR 133, Est GFR ( Amer) 161, Glucose 231 H, Calcium 8.7, Total Bilirubin 0.3, AST 32, ALT 29, Alkaline Phosphatase 123, Total Protein 7.3, Albumin 4.5, Globulin 2.8, Albumin/Globulin Ratio 1.6 05/29/21 14:37: Serum HCG, Qual Negative Result diagrams: 05/29/21 14:37 05/29/21 14:37 Orders (Tests/Meds): ED MEDICATIONS Discontinued Medications Generic Name Dose Route Start Last Admin Trade Name Freq PRN Reason Stop Dose Admin Lactated Ringer's 500 mls @ 999 mls/hr 05/29/21 14:15 05/29/21 14:52 Lactated Ringer's 1000 Ml Bag IV 05/29/21 14:45 999 mls/hr .Q31M DOUGLAS Administration Iopamidol 75 ml 05/29/21 15:23 05/29/21 15:24 Iopamidol-370 (76%);100ml Bottle IV 05/29/21 15:24 75 ml ONCE ONE Administration Prochlorperazine Edisylate 10 mg 05/29/21 14:14 05/29/21 14:53 Prochlorperazine 10mg/2ml Vial IV 05/29/21 14:15 10 mg ONCE ONE Administration Sodium Chloride 50 ml 05/29/21 15:23 05/29/21 15:24 0.9 % Sodium Chloride 50 Ml Vial IV 05/29/21 15:24 50 ml ONCE ONE Administration Sodium Chloride 10 ml 05/29/21 15:23 05/29/21 15:24 Sodium Chloride 0.9% 10ml Syr (Rad Only) IV 05/29/21 15:24 10 ml ONCE ONE Administration ORDERS Category Date Time Status Complete Blood Count Auto Diff Stat Lab 05/29/21 14:37 Results Medical Decision Narrative: Haleigh is a 45yo F presenting for chief complaint of headache associated with vertigo and difficulty with tandem gait. Differential diagnosis includes, but is not limited to, posterior circulation stroke, migraine, complex migraine, status migrainosus, COVID-19, infectious etiology. Initial exam, patient is hemodynamically stable nontoxic-appearing. She is afebrile. She has a nonfocal neurological exam aside from difficulty with tandem gait. Unclear if this is her baseline given that she has problems with her left foot. Given concerning HPI including vertigo, shin
--- NOTE | 2021-05-29 14:15 | CT_ITS ---
PROCEDURE INFORMATION: Exam: CT Angiography Head With Contrast, Arteriography Exam date and time: 05/29/2021 2:15 PM Age: 45 years old Clinical indication: Headache and vertigo; Additional info: Vertigo, ataxia, cramer// gfr 133 05/28/21 labs-- right ac- 75ml of 370 isovue TECHNIQUE: Imaging protocol: Computed tomography angiography of the head with contrast. Exam focused on the arteries. 3D rendering (Not supervised by radiologist): MIP and/or 3D reconstructed images were created by the technologist. Radiation optimization: All CT scans at this facility use at least one of these dose optimization techniques: automated exposure control; mA and/or kV adjustment per patient size (includes targeted exams where dose is matched to clinical indication); or iterative reconstruction. Contrast material: ISOVUE 370; Contrast volume: 75 ml; Contrast route: INTRAVENOUS (IV); COMPARISON: CT HEAD/BRAIN WO CON 05/29/2021 3:02 PM FINDINGS: ANTERIOR CIRCULATION: Right internal carotid artery: Unremarkable. Intracranial segment is patent with no significant stenosis. No aneurysm. Right middle cerebral artery: Unremarkable. No occlusion or significant stenosis. No aneurysm. Right anterior cerebral artery: Unremarkable. No occlusion or significant stenosis. No aneurysm. Left internal carotid artery: Unremarkable. Intracranial segment is patent with no significant stenosis. No aneurysm. Left middle cerebral artery: Unremarkable. No occlusion or significant stenosis. No aneurysm. Left anterior cerebral artery: Unremarkable. No occlusion or significant stenosis. No aneurysm. POSTERIOR CIRCULATION: Right vertebral artery: Unremarkable. No occlusion or significant stenosis. No aneurysm. Left vertebral artery: Unremarkable. No occlusion or significant stenosis. No aneurysm. Basilar artery: Unremarkable. No occlusion or significant stenosis. No aneurysm. Right posterior cerebral artery: There is origin of the right posterior cerebral artery from the anterior circulation. There is a patent right P1 segment. Left posterior cerebral artery: The left posterior cerebral artery emanates from the basilar artery. The vasculature of the posterior fossa is not assessed due to small size of the vessels. Brain: There is no acute cortical infarction, intracranial hemorrhage or mass. Cerebral ventricles: No ventriculomegaly. Bones/joints: Unremarkable. No acute fracture. Soft tissues: Unremarkable. Other findings: The patient may have macroglossia. IMPRESSION: No large vessel occlusion.
--- NOTE | 2021-05-29 14:15 | CT_ITS ---
PROCEDURE INFORMATION: Exam: CT Head Without Contrast Exam date and time: 05/29/2021 2:15 PM Age: 45 years old Clinical indication: Other: Headach/ vertigo; Additional info: Severe GARCIA, vertigo/ataxia TECHNIQUE: Imaging protocol: Computed tomography of the head without contrast. Radiation optimization: All CT scans at this facility use at least one of these dose optimization techniques: automated exposure control; mA and/or kV adjustment per patient size (includes targeted exams where dose is matched to clinical indication); or iterative reconstruction. COMPARISON: HD CT HEAD W/O CONTRAST 03/05/2015 4:33 PM FINDINGS: Brain: There is no acute cortical infarction, intracranial hemorrhage or mass. Cerebral ventricles: No ventriculomegaly. Paranasal sinuses: Minimal mucoperiosteal thickening in the right maxillary antrum.The remainder of the paranasal sinuses appear clear. Mastoid air cells: The middle ear cavities and mastoid air cells are clear. Bones/joints: Unremarkable. No acute fracture. Soft tissues: Unremarkable. IMPRESSION: No acute intracranial findings.
--- NOTE | 2021-05-29 14:16 | CT_ITS ---
PROCEDURE INFORMATION: Exam: CT Angiography Neck With Contrast Exam date and time: 05/29/2021 2:16 PM Age: 45 years old Clinical indication: Headache and vertigo; Additional info: Vertigo, GARCIA, ataxia// gfr 133 05/28/21 labs-- right ac- 75ml of 370 isovue TECHNIQUE: Imaging protocol: Computed tomography angiography of the neck with contrast. 3D rendering (Not supervised by radiologist): MIP and/or 3D reconstructed images were created by the technologist. Radiation optimization: All CT scans at this facility use at least one of these dose optimization techniques: automated exposure control; mA and/or kV adjustment per patient size (includes targeted exams where dose is matched to clinical indication); or iterative reconstruction. Contrast material: ISOVUE 370; Contrast volume: 75 ml; Contrast route: INTRAVENOUS (IV); COMPARISON: CT HEAD/BRAIN WO CON 05/29/2021 3:02 PM FINDINGS: Right common carotid artery: No stenosis. No dissection or occlusion. Right internal carotid artery: No stenosis of the extracranial segment. No dissection or occlusion. Right external carotid artery: No occlusion or stenosis of the origin. Left common carotid artery: No stenosis. No dissection or occlusion. Left internal carotid artery: No stenosis of the extracranial segment. No dissection or occlusion. Left external carotid artery: No occlusion or stenosis of the origin. Right vertebral artery: No stenosis. No dissection or occlusion. Left vertebral artery: No stenosis. No dissection or occlusion. Soft tissues: No significant soft tissue swelling. Patient may have macroglossia. Bones/joints: No acute fracture. Lungs: No lesions of the lung apices. IMPRESSION: No significant stenosis of the internal carotid arteries by NASCET criteria. REFERENCES: NASCET CRITERIA. The degree of internal carotid artery stenosis is based on NASCET criteria. Normal is no stenosis. Mild is less than 50% stenosis. Moderate is 50-69% stenosis. Severe is 70% to 99% stenosis. Total occlusion is no detectable patent lumen.
[2021-05-29 14:30] VITALS: BP 131/62; PULSE 87; RESP 16; O2SAT 95
[2021-05-29 15:13] LABS: Basophils # 0.2 K/mm3 (0-0.2); Basophils % 1.3 % (0.1-2.0); Eosinophils # 0.1 K/mm3 (0.0-0.4); Eosinophils % 0.4 % (0.1-12.0); Hematocrit 45.3 % (37.0-47.0); Lymphocytes # 0.8 K/mm3 (0.7-4.5); Lymphocytes % 6.7 % (10-50); Mean Corpuscular HGB Conc 33.1 g/dL (31.8-35.4); Mean Corpuscular Hemoglobin 28.9 pg (27.0-31.2); Mean Corpuscular Volume 87.3 fl (81-99); Mean Platelet Volume 7.6 fl (7.4-10.4); Monocytes # 0.6 K/mm3 (0.1-1.0); Monocytes % 4.6 % (1.7-9.3); Neutrophils # 10.8 K/mm3 (1.8-7.8); Platelet Count 355 K/mm3 (142-424); Red Blood Count 5.19 M/mm3 (4.20-5.40); Red Cell Distribution Width 16.2 % (11.5-17.5); White Blood Count 12.5 K/mm3 (4.8-10.8)
[2021-05-29 15:42] LABS: Alanine Aminotransferase 29 U/L (12-78); Albumin Level 4.5 g/dl (3.5-5.0); Albumin/Globulin Ratio 1.6 (1.1-1.8); Alkaline Phosphatase 123 U/L (38-126); Aspartate Amino Transferase 32 U/L (14-36); Bilirubin,Total 0.3 mg/dl (0.2-1.3); Blood Urea Nitrogen 4 mg/dl (7-17); Calcium 8.7 mg/dl (8.4-10.2); Creatinine Clearance Estimated 171 mL/min (50-200); Estimated Glomerular Filt Rate 133 ml/min (>60); GFR (African American) 161 ML/MIN (>60); Globulin 2.8 g/dL (1.3-3.2); Glucose 231 mg/dl (74-100); Sodium 120 mmol/L (136-145); Total Protein,Serum 7.3 g/dl (6.3-8.2)
[2021-05-29 15:49] LABS: Carbon Dioxide 41 mmol/L (22.0-30.0)
[2021-05-29 15:50] LABS: Chloride 67 mmol/L (98-107)
--- NOTE | 2021-05-29 15:50 | PC.NURSE ---
Meghana called from lab, reporting a potassium of 2.0 and chloride of 67. notified.
[2021-05-29 15:52] LABS: MANUAL DIFFERENTIAL MANUAL DIFFERENTIAL (MANUAL DIFF)
[2021-05-29 15:53] LABS: HCG Qualitative, Serum Negative (Negative)
[2021-05-29 17:35] LABS: Anisocytosis 1+; Lymphocytes % 7 % (10-50); Monocytes % 5 % (2-9); Neutrophils % 88 % (42-76); Platelet Estimate Normal; Total Cells Counted 100
[2021-05-29 18:06] VITALS: BP 123/74; PULSE 74; RESP 16; TEMP 36.6; O2SAT 98
== END 2021-05-29 18:07 | disposition left against medical advice (07) ==
PROVIDERS: Emergency Provider Emergency Medicine; PCP Emergency Medicine
DX: G43.909 Migraine, unspecified, not intractable, without status migrainosus (principal); I10 Essential (primary) hypertension; E03.9 Hypothyroidism, unspecified; F41.9 Anxiety disorder, unspecified; E78.5 Hyperlipidemia, unspecified; F17.210 Nicotine dependence, cigarettes, uncomplicated
CPT/HCPCS: 70450; 70496; 70498; 80053; 84703; 85007; 85025; 96365; 96375; 99282; Q9967

== ENCOUNTER 2021-05-29 20:38 | Emergency (ER) | payer MEDICAID, SELFPAY ==
[2021-05-29 20:40] VITALS: BP 128/80; PULSE 86; RESP 18; TEMP 36.7; O2SAT 90; BMI 35.5
--- NOTE | 2021-05-29 22:51 | HMH.EDGENADL ---
ED Disposition Clinical Impression: Hypokalemia, Tension headache Disposition: Home, Self-Care Condition on Discharge: Good Additional Instructions: For the next week I want you to take 2 of your potassium pills twice a day, you will then need to get your labs redrawn. It is very importantly follow-up with your primary care physician to have labs redrawn on Monday. Recommend following up with you primary care on to assess how to change you medications so your potassium does not get so dangerously low again. It is also importantly do not take too much potassium because of having your potassium levels be too high is also dangerous. This is why it is important to both get your labs rechecked as well as to follow-up with your physician to determine the appropriate amount of potassium for you. Referrals: Crow Weldon MD [Primary Care Provider] - - Critical Care Critical Care Time: Yes Attestation: On 05/29/21, the high probability of a clinically significant, sudden or life threatening deterioration of the following system(s) required my full and direct attention, intervention and personal management. The time I documented below is in addition to time spent performing reported procedures but includes the following listed in this critical care notation. Vital system(s) involved:: Metabolic Failure My critical care processes included: Medication Orders and management Medical Decision Making - Medical Records Medical records reviewed: Yes: I reviewed the patient's medical records. - Gregory Inquiry Pt receiving controlled substance: No Vital Signs: 05/29/21 20:40 05/29/21 23:00 05/30/21 00:00 Temperature 98.1 F Temperature Source Oral Pulse Rate 86 83 Pulse Rate [Left] 86 Respiratory Rate 18 Blood Pressure 128/80 118/60 Blood Pressure [Right Arm] 128/80 Blood Pressure Mean [Right Arm] 96 02 Sat by Pulse Oximetry 90 L 94 L 94 L Oxygen Delivery Method Room Air 05/30/21 00:30 05/30/21 01:00 05/30/21 01:30 Temperature Temperature Source Pulse Rate 82 80 73 Pulse Rate [Left] Respiratory Rate Blood Pressure 134/87 121/66 110/56 L Blood Pressure [Right Arm] Blood Pressure Mean [Right Arm] 02 Sat by Pulse Oximetry 92 L 95 93 L Oxygen Delivery Method Room Air Room Air Room Air 05/30/21 02:00 05/30/21 02:30 05/30/21 03:00 Temperature Temperature Source Pulse Rate 81 72 76 Pulse Rate [Left] Respiratory Rate 24 Blood Pressure 113/80 113/53 L 119/65 Blood Pressure [Right Arm] Blood Pressure Mean [Right Arm] 02 Sat by Pulse Oximetry 95 94 L 96 Oxygen Delivery Method Room Air Room Air Room Air 05/30/21 03:30 Temperature Temperature Source Pulse Rate 76 Pulse Rate [Left] Respiratory Rate Blood Pressure 118/55 L Blood Pressure [Right Arm] Blood Pressure Mean [Right Arm] 02 Sat by Pulse Oximetry 94 L Oxygen Delivery Method Room Air - Lab Data Lab Results 05/29/21 23:07: WBC 13.4 H, RBC 5.08, Hgb 14.7, Hct 44.4, MCV 87.4, MCH 28.9, MCHC 33.1, RDW 16.2, Plt Count 369, MPV 7.9, Neut % (Auto) 83.8 H, Lymph % (Auto) 9.9 L, Stone % (Auto) 5.5, Eos % (Auto) 0.2, Baso % (Auto) 0.7, Neut # (Auto) 11.2 H, Lymph # (Auto) 1.3, Stone # (Auto) 0.7, Eos # (Auto) 0.0, Baso # (Auto) 0.1 05/29/21 23:07: Sodium 123 L, Potassium 2.1 L*, Chloride 69 L, Carbon Dioxide 44 H*, Anion Gap 12.1, BUN 4 L, Creatinine 0.50 L, Estimated Creat Clear 111, Estimated GFR 133, Est GFR ( Amer) 161, Glucose 187 H, Calcium 8.9, Magnesium 1.8, Total Bilirubin 0.3, AST 24, ALT 25, Alkaline Phosphatase 120, Total Protein 7.4, Albumin 4.4, Globulin 3.0, Albumin/Globulin Ratio 1.5 05/30/21 03:44: Potassium 2.6 L* D Result diagrams: 05/29/21 23:07 05/30/21 03:44 Orders (Tests/Meds): ED MEDICATIONS Generic Name Dose Route Start Last Admin Trade Name Freq PRN Reason Stop Dose Admin Potassium Chloride/Water 100 mls @ 50 mls/hr 05/29/21 23:41 05/30/21 03:08
[2021-05-29 23:00] VITALS: BP 128/80; PULSE 86; O2SAT 94
[2021-05-29 23:36] VITALS: BMI 43.9
[2021-05-29 23:43] LABS: Basophils # 0.1 K/mm3 (0-0.2); Basophils % 0.7 % (0.1-2.0); Eosinophils % 0.2 % (0.1-12.0); Hematocrit 44.4 % (37.0-47.0); Hemoglobin 14.7 g/dL (12.2-16.2); Lymphocytes # 1.3 K/mm3 (0.7-4.5); Lymphocytes % 9.9 % (10-50); Mean Corpuscular HGB Conc 33.1 g/dL (31.8-35.4); Mean Corpuscular Hemoglobin 28.9 pg (27.0-31.2); Mean Corpuscular Volume 87.4 fl (81-99); Mean Platelet Volume 7.9 fl (7.4-10.4); Monocytes # 0.7 K/mm3 (0.1-1.0); Monocytes % 5.5 % (1.7-9.3); Neutrophils # 11.2 K/mm3 (1.8-7.8); Neutrophils % 83.8 % (37.0-80.0); Platelet Count 369 K/mm3 (142-424); Red Blood Count 5.08 M/mm3 (4.20-5.40); Red Cell Distribution Width 16.2 % (11.5-17.5); White Blood Count 13.4 K/mm3 (4.8-10.8)
[2021-05-29 23:46] LABS: Sodium 123 mmol/L (136-145)
[2021-05-29 23:48] LABS: Alanine Aminotransferase 25 U/L (12-78); Aspartate Amino Transferase 24 U/L (14-36); Blood Urea Nitrogen 4 mg/dl (7-17); Creatinine Clearance Estimated 111 mL/min (50-200); Estimated Glomerular Filt Rate 133 ml/min (>60); GFR (African American) 161 ML/MIN (>60)
[2021-05-29 23:49] LABS: Albumin Level 4.4 g/dl (3.5-5.0); Albumin/Globulin Ratio 1.5 (1.1-1.8); Alkaline Phosphatase 120 U/L (38-126); Bilirubin,Total 0.3 mg/dl (0.2-1.3); Calcium 8.9 mg/dl (8.4-10.2); Chloride 69 mmol/L (98-107); Glucose 187 mg/dl (74-100); Magnesium 1.8 mg/dl (1.6-2.3); Potassium 2.1 mmoL/L (3.5-5.1); Total Protein,Serum 7.4 g/dl (6.3-8.2)
[2021-05-29 23:56] LABS: Anion Gap 12.1 mEq/L (5-15); Carbon Dioxide 44 mmol/L (22.0-30.0)
[2021-05-30] VITALS (9 sets, daily range): BP systolic 110–134; BP diastolic 53–87; PULSE 72–88; RESP 18–24; TEMP 36.7; O2SAT 92–96
[2021-05-30 04:01] LABS: Potassium 2.6 mmoL/L (3.5-5.1)
== END 2021-05-30 04:35 | disposition home or self-care (01) ==
PROVIDERS: Emergency Provider Emergency Medicine; PCP Emergency Medicine
DX: G44.209 Tension-type headache, unspecified, not intractable (principal); G43.909 Migraine, unspecified, not intractable, without status migrainosus; E87.6 Hypokalemia; E03.9 Hypothyroidism, unspecified; E78.5 Hyperlipidemia, unspecified; I10 Essential (primary) hypertension; Z79.899 Other long term (current) drug therapy
CPT/HCPCS: 80053; 83735; 84132; 85025; 96365; 96366; 96367; 96375; 99282

== ENCOUNTER → 2021-06-01 11:40 | Outpatient (CLI) | payer MEDICAID, SELFPAY ==
[2021-06-01 12:37] LABS: Chloride 89 mmol/L (98-107); Sodium 127 mmol/L (136-145)
[2021-06-01 12:38] LABS: Potassium 4.6 mmoL/L (3.5-5.1)
[2021-06-01 12:40] LABS: Alanine Aminotransferase 17 U/L (12-78); Albumin Level 4.4 g/dl (3.5-5.0); Albumin/Globulin Ratio 1.7 (1.1-1.8); Alkaline Phosphatase 91 U/L (38-126); Anion Gap 3.6 mEq/L (5-15); Aspartate Amino Transferase 19 U/L (14-36); Bilirubin,Total 0.2 mg/dl (0.2-1.3); Blood Urea Nitrogen 6 mg/dl (7-17); Carbon Dioxide 39 mmol/L (22.0-30.0); Estimated Glomerular Filt Rate 108 ml/min (>60); GFR (African American) 130 ML/MIN (>60); Globulin 2.6 g/dL (1.3-3.2)
[2021-06-01 12:41] LABS: Calcium 9.2 mg/dl (8.4-10.2); Glucose 226 mg/dl (74-100)
== END ==
PROVIDERS: PCP Family Medicine; Visit Provider Emergency Medicine
DX: E87.6 Hypokalemia (principal)
CPT/HCPCS: 36415; 80053

== ENCOUNTER 2021-06-01 16:17 | Emergency (ER) | payer MEDICAID, SELFPAY ==
[2021-06-01 16:19] VITALS: BP 160/77; PULSE 60; RESP 16; TEMP 37.1; O2SAT 98; BMI 34.3
--- NOTE | 2021-06-01 16:59 | PC.NURSE ---
WENT IN TO SEE PT SHE ONLY WANTS HER POTASSIUM LEVEL SHE THINKS ITS LOW , AFTER A NORMAL POTASSIUM SHE WANTS TO SIGN OUT AMA SHE DOESNT WANT TO WAIT FOR DR RIVERA
[2021-06-01 17:10] VITALS: BP 160/77; PULSE 60; RESP 16; TEMP 36.8; O2SAT 98
--- NOTE | 2021-06-01 17:10 | PC.NURSE ---
PT LEFT AMA
== END 2021-06-01 17:11 | disposition home or self-care (01) ==
LOC: ER 16:50
PROVIDERS: Emergency Provider Emergency Medicine; PCP Family Medicine
DX: Z53.21 Procedure and treatment not carried out due to patient leaving prior to being seen by health care provider (principal)
CPT/HCPCS: 99281

== ENCOUNTER 2021-06-03 22:06 | Emergency (ER) | payer MEDICAID, SELFPAY ==
[2021-06-03 22:08] VITALS: BP 154/85; PULSE 79; RESP 18; TEMP 36.8; O2SAT 96; BMI 34.3
--- NOTE | 2021-06-03 23:01 | PC.NURSE ---
This RN went to lobby to view pt foot. Foot has palpable pulses and appears as pt's baseline. Pt informed that when a room is available we will get her back as soon as possible
--- NOTE | 2021-06-04 00:42 | CT_ITS ---
PROCEDURE INFORMATION: Exam: CT Right Lower Extremity Without Contrast, Foot Exam date and time: 06/04/2021 12:42 AM Age: 45 years old Clinical indication: Pain; Foot; Right; Prior surgery; Additional info: Pain with hardware TECHNIQUE: Imaging protocol: CT of the Right lower extremity without contrast was performed. Exam focused on the foot. Radiation optimization: All CT scans at this facility use at least one of these dose optimization techniques: automated exposure control; mA and/or kV adjustment per patient size (includes targeted exams where dose is matched to clinical indication); or iterative reconstruction. COMPARISON: CR XR FOOT RT MIN 3V 05/14/2021 1:27 PM FINDINGS: Bones/joints: Osteopenia, possibly exacerbated by disuse. Chronic hypertrophic spurring of the distal fibula suggesting remote trauma. There is abnormal alignment of the talonavicular joint, with caudal subluxation of the navicular with respect to the anterior talus. There is subchondral flattening and erosive like change involving the medial, distal portion of the navicular, favored to be non-acute. This may be in part related to cut-out of a screw transfixing the 1st TMT joint, which partially extends into the medial naviculocuneiform joint (although prior trauma may also contribute). A few small age indeterminate avulsion fragments are seen near the distal cuboid and the anterior calcaneal process. Presumed non-acute fracturing/fragmentation involving all metatarsal bases and cuneiforms. There is marked malalignment of the naviculocuneiform joint. 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 Hardware fixation is present at the 1st through 3rd TMT joints. There is evidence of hardware loosening, with lucency surrounding several screws, as well as a fracture of the 3rd ray malleable plate. There is abnormal capsular edema/thickening throughout the midfoot, as well as multifocal joint effusion (and possible extra-articular fluid accumulation). Non-acute subchondral flattening and fragmentation of the 2nd and 3rd metatarsal heads. There is associated 2nd and 3rd MTP joint capsular edema/thickening (probable synovitis). Soft tissues: There is generalized subcutaneous edema. This appears more confluent in the plantar midfoot region, suggesting abnormal biomechanics with developing rocker-bottom deformity, which may pose a risk for midfoot ulceration in the future. There does appear to be a superficial ulceration of the great toe medially, without evidence of underlying fluid collection or osteolysis. There is perceived fluid within the peroneus longus tendon sheath, suggesting tenosynovitis. The tendon itself is not well evaluated on this CT study, and cannot exclude a degree of tendon tearing. There is marked atrophy of the intrinsic foot musculature. IMPRESSION: 1. Multifocal fracturing/fragmentation throughout the midfoot, presumed non-acute, status post hardware fixation. There is evidence of hardware loosening, including a fracture of the 3rd ray fixation plate. There is evidence of midfoot instability, with marked malalignment throughout the midfoot, including homolateral subluxation of the TMT joints. Destructive changes of the midfoot joint spaces with nonspecific joint (and also possibly extra-articular) fluid. Overall appearance is that of Charcot neuroarthropathy (either antecedent or subsequent to the trauma). An age-indeterminate superimposed infectious process cannot be strictly excluded, but susp
--- NOTE | 2021-06-04 00:42 | HMH.EDEXTP ---
ED Disposition Clinical Impression: Foot fracture, right Qualifiers: Encounter type: initial encounter Fracture type: open Qualified Code(s): S92.901B - Unspecified fracture of right foot, initial encounter for open fracture Disposition: Home, Self-Care Condition on Discharge: Good Instructions: DI for Foot Pain Additional Instructions: see pcp for follow up this am Referrals: Crow Weldon MD [Primary Care Provider] - - Critical Care Critical Care Time: No Attestation: On 06/03/21, the high probability of a clinically significant, sudden or life threatening deterioration of the following system(s) required my full and direct attention, intervention and personal management. The time I documented below is in addition to time spent performing reported procedures but includes the following listed in this critical care notation. Medical Decision Making - Medical Records Medical records reviewed: Yes: I reviewed the patient's medical records. - Gregory Inquiry Pt receiving controlled substance: No Vital Signs: 06/03/21 22:08 Temperature 98.3 F Temperature Source Oral Pulse Rate [Apical] 79 Respiratory Rate 18 Blood Pressure [Right Arm] 154/85 H Blood Pressure Mean [Right Arm] 108 Blood Pressure Source [Right Arm] Automatic Cuff Blood Pressure Position [Right Arm] Sitting 02 Sat by Pulse Oximetry 96 Oxygen Delivery Method Room Air - Lab Data Lab results reviewed: Yes: I reviewed the patient's lab results. Orders (Tests/Meds): ORDERS Category Date Time Status CT foot RT wo con Stat Cat Scan 06/04/21 00:42 Taken Medical Decision Narrative: pt with acute pain from rt foot with reported fx - Extremity Problem HPI - General Chief complaint: Extremity Injury, Lower Stated complaint: ao 6 MONTH r foot pain Time Seen by Provider: 06/04/21 00:42 Mode of Arrival: Ambulatory Source of Information: Patient, Medical Record Limitations: No Limitations Description of Symptoms (Recalled from ER Triage Doc. by RN): Patient arrived to ER c/o severe pain to her right foot related to a break that occured last month after a fall. States that she has since gone to her pcp who diagnosed the break via xray and prescribed her pain medication but she has since ran out of her medication. - History of Present Illness HPI Narrative: pt with reported ongoing rt foot pain with hx of prev orif and has prev abn xrays foot - pt has seen pcp and has pending podiatry clinton Roberson MD Complaint: extremity pain Onset (ago): day(s) Consistency: constant Location: right, lower extremity Exacerbating factors: range of motion, weight bearing Associated symptoms: denies other symptoms - Related Data Home Medications Medication Instructions Recorded Confirmed Phenytoin Sodium Extended 300 mg PO AM 07/25/17 05/27/21 [Dilantin 100mg Capsule] Sertraline HCl [Zoloft] 300 mg PO DAILY 07/02/19 05/27/21 Cetirizine HCl 10 mg PO DAILY 04/22/21 05/27/21 Doxepin HCl [Sinequin 50mg capsule] 50 - 100 mg PO HS 04/22/21 05/27/21 Fluticasone Propionate [Flonase 1 spray NS DAILY 04/22/21 05/28/21 Allergy Relief NS] Metoprolol Succinate [Metoprolol 25 mg PO DAILY 04/22/21 05/27/21 Succinate 25mg Tablet*] lisinopriL [Lisinopril] 20 mg PO DAILY 04/22/21 05/27/21 ondansetron HCL [Ondansetron 4mg 4 mg PO Q6HP PRN 04/22/21 05/28/21 tab*] buspirone 15 mg tablet 15 mg PO TID tab 04/27/21 05/27/21 metolazone 2.5 mg tablet 2.5 mg PO DAILY 04/27/21 05/27/21 olanzapine 20 mg tablet 20 mg PO DAILY 04/27/21 05/27/21 phenytoin sodium extended 100 mg 200 mg PO HS 04/27/21 05/27/21 capsule Potassium Chloride 40 meq PO DAILY 05/27/21 05/28/21 hydrOXYzine HCL [Hydroxyzine HCl] 25 mg PO HS 05/27/21 05/27/21 Hydrocod/Acet 5/325 mg [[place] 1 tab PO TIDP PRN 05/28/21 05/28/21 5/325mg tablet] Levothyroxine Sodium [Synthroid 50 mcg PO DAILY 05/28/21 05/27/21 50mcg (0.05mg) tab] Metformin HCl [Metformin 1000mg 1,000 mg PO BIDWMEAL 01
[2021-06-04 01:30] VITALS: BP 150/98; PULSE 77; RESP 18; TEMP 36.5; O2SAT 98
--- NOTE | 2021-06-04 01:37 | PC.NURSE ---
PT POSITIONED FOR COMFORT AND BLANKET PROVIDED. NO ACUTE DISTRESS NOTED.
[2021-06-04 02:06] VITALS: BP 133/81; PULSE 76; RESP 18; TEMP 36.5
== END 2021-06-04 02:09 | disposition home or self-care (01) ==
PROVIDERS: Emergency Provider Emergency Medicine; PCP Emergency Medicine
DX: S92.331G Displaced fracture of third metatarsal bone, right foot, subsequent encounter for fracture with delayed healing (principal); J44.9 Chronic obstructive pulmonary disease, unspecified; I10 Essential (primary) hypertension; E78.5 Hyperlipidemia, unspecified; F41.9 Anxiety disorder, unspecified; F17.210 Nicotine dependence, cigarettes, uncomplicated
CPT/HCPCS: 73700; 96372; 99282

== ENCOUNTER 2021-07-06 22:27 | Emergency (ER) | payer MEDICAID, SELFPAY ==
[2021-07-06 22:27] VITALS: BP 161/81; PULSE 93; RESP 19; TEMP 36.9; O2SAT 95
--- NOTE | 2021-07-06 22:29 | ECG_ITS ---
APPROVED REPORT Exam: Resting ECG HR:95 bpm ECG Measurements Heart Rate 95 AXES RI 174 P 49 QRSd 93 QRS 66 QT 333 T 46 QTc 386 Conclusion SINUS RHYTHM LOW QRS VOLTAGE IN PRECORDIAL LEADS [QRS DEFLECTION < 1.0 mV IN CHEST LEADS] POSSIBLE RIGHT VENTRICULAR CONDUCTION DELAY [RSR (QR) IN V1/V2] BORDERLINE ECG UNCONFIRMED REPORT Electronically signed by : Max Alvarez MD 07/07/2021 21:56:00
--- NOTE | 2021-07-06 22:42 | HMH.EDCP ---
ED Disposition Clinical Impression: Chest pain Qualifiers: Chest pain type: precordial pain Qualified Code(s): R07.2 - Precordial pain Disposition: Home, Self-Care Condition on Discharge: Good Instructions: DI for Atypical Chest Pain Additional Instructions: see pcp for follow up Referrals: Crow Weldon MD [Primary Care Provider] - - Critical Care Critical Care Time: No Attestation: On 07/06/21, the high probability of a clinically significant, sudden or life threatening deterioration of the following system(s) required my full and direct attention, intervention and personal management. The time I documented below is in addition to time spent performing reported procedures but includes the following listed in this critical care notation. Medical Decision Making - Medical Records Medical records reviewed: Yes: I reviewed the patient's medical records. - Gregory Inquiry Pt receiving controlled substance: No Vital Signs: 07/06/21 22:27 Temperature 98.4 F Temperature Source Oral Pulse Rate [Right] 93 H Respiratory Rate 19 Blood Pressure [Right Arm] 161/81 H Blood Pressure Mean [Right Arm] 107 Blood Pressure Source [Right Arm] Automatic Cuff 02 Sat by Pulse Oximetry 95 Oxygen Delivery Method Room Air - Lab Data Lab results reviewed: Yes: I reviewed the patient's lab results. Lab Results 07/06/21 22:38: WBC 12.7 H, RBC 4.77, Hgb 13.7, Hct 42.8, MCV 89.7, MCH 28.6, MCHC 31.9, RDW 15.8, Plt Count 405, MPV 7.9, Neut % (Auto) 74.9, Lymph % (Auto) 17.7, Williams % (Auto) 4.7, Eos % (Auto) 1.7, Baso % (Auto) 1.1, Neut # (Auto) 9.5 H, Lymph # (Auto) 2.3, Williams # (Auto) 0.6, Eos # (Auto) 0.2, Baso # (Auto) 0.1, ESR 19 07/06/21 22:38: Sodium 137, Potassium 3.4 L, Chloride 103, Carbon Dioxide 28, Anion Gap 9.4, BUN 6 L, Creatinine 0.60, Estimated Creat Clear 148, Estimated GFR 108, Est GFR ( Amer) 130, Glucose 190 H, Calcium 8.4, Magnesium 1.5 L, Total Bilirubin 0.2, Direct Bilirubin 0.2, Conjugated Bilirubin 0.0, Indirect Bilirubin 0.0, Unconjugated Bilirubin 0.1, AST 26, ALT 19, Alkaline Phosphatase 120, Troponin I < 0.01, C-Reactive Protein 17.7 H, NT-Pro-B Natriuret Pep 146 H, Total Protein 6.8, Albumin 4.2, Procalcitonin 0.060, TSH 1.88, Thyroxine (T4) 5.3 L 07/06/21 22:38: Phenytoin 3.9 L Result diagrams: 07/06/21 22:38 07/06/21 22:38 Orders (Tests/Meds): ED MEDICATIONS Generic Name Dose Route Start Last Admin Trade Name Freq PRN Reason Stop Dose Admin Sodium Chloride 1,000 mls @ 999 mls/hr 07/06/21 22:45 07/06/21 22:59 Sod Chlor 0.9% 1000ml Bag IV 07/06/21 23:45 999 mls/hr .Q1H1M DOUGLAS Administration Discontinued Medications Generic Name Dose Route Start Last Admin Trade Name Freq PRN Reason Stop Dose Admin Aspirin 324 mg 07/06/21 22:42 07/06/21 22:58 Aspirin 81mg Chewable Tablet PO 07/06/21 22:43 324 mg ONCE ONE Administration ORDERS Category Date Time Status CXR 2 view (NOT portable) [XR chest 2V] Stat Exams 07/06/21 23:36 Taken Troponin I Q3H Lab 07/07/21 01:45 Ordered Troponin I Q3H Lab 07/07/21 04:45 Ordered - Radiology Data #1 Image(s): Chest Image Reviewed: Yes I reviewed the patient's radiology image Preliminary Findings: Normal/NAD - ECG Data Tracing #1 Normal Sinus Rhythm: Yes Ischemic changes: non-specific ST-T wave changes Medical Decision Narrative: has atypical chest pain with stable exam and labs Chest Pain HPI - General Chief Complaint: Chest Pain Stated Complaint: Chest Pain Time Seen by Provider: 07/06/21 22:42 Mode of Arrival: Family Vehicle Source of Information: Patient, Medical Record Limitations: No Limitations Description of Symptoms (Recalled from ER Triage Doc. by RN): Pt c/o midsternal chest pain that radiates down left arm and upper back. States it began this morning and has been intermittent. Denies any SOA, cough, dizziness, n/v/d, chills, or fever. Pt has a hx of CAD and reports last heart ca
[2021-07-06 22:48] LABS: Basophils # 0.1 K/mm3 (0-0.2); Basophils % 1.1 % (0.1-2.0); Eosinophils # 0.2 K/mm3 (0.0-0.4); Eosinophils % 1.7 % (0.1-12.0); Hematocrit 42.8 % (37.0-47.0); Hemoglobin 13.7 g/dL (12.2-16.2); Lymphocytes # 2.3 K/mm3 (0.7-4.5); Lymphocytes % 17.7 % (10-50); Mean Corpuscular HGB Conc 31.9 g/dL (31.8-35.4); Mean Corpuscular Hemoglobin 28.6 pg (27.0-31.2); Mean Corpuscular Volume 89.7 fl (81-99); Mean Platelet Volume 7.9 fl (7.4-10.4); Monocytes # 0.6 K/mm3 (0.1-1.0); Monocytes % 4.7 % (1.7-9.3); Neutrophils # 9.5 K/mm3 (1.8-7.8); Neutrophils % 74.9 % (37.0-80.0); Platelet Count 405 K/mm3 (142-424); Red Blood Count 4.77 M/mm3 (4.20-5.40); Red Cell Distribution Width 15.8 % (11.5-17.5); White Blood Count 12.7 K/mm3 (4.8-10.8)
[2021-07-06 22:55] LABS: Alanine Aminotransferase 19 U/L (12-78); Albumin Level 4.2 g/dl (3.5-5.0); Alkaline Phosphatase 120 U/L (38-126); Anion Gap 9.4 mEq/L (5-15); Aspartate Amino Transferase 26 U/L (14-36); Bilirubin,Direct 0.2 mg/dl (0.0-0.4); Bilirubin,Total 0.2 mg/dl (0.2-1.3); Bilirubin,Unconjugated 0.1 mg/dL (0.0-1.1); Blood Urea Nitrogen 6 mg/dl (7-17); Calcium 8.4 mg/dl (8.4-10.2); Carbon Dioxide 28 mmol/L (22.0-30.0); Chloride 103 mmol/L (98-107); Creatinine Clearance Estimated 148 mL/min (50-200); Estimated Glomerular Filt Rate 108 ml/min (>60); GFR (African American) 130 ML/MIN (>60); Glucose 190 mg/dl (74-100); Magnesium 1.5 mg/dl (1.6-2.3); Potassium 3.4 mmoL/L (3.5-5.1); Sodium 137 mmol/L (136-145); Total Protein,Serum 6.8 g/dl (6.3-8.2)
[2021-07-06 23:00] LABS: C-Reactive Protein 17.7 mg/L (0-4); Phenytoin (Dilantin) 3.9 ug/ml (10-20)
[2021-07-06 23:10] LABS: NT Pro Brain Natriuretic Pep. 146 pg/mL (0-125)
[2021-07-06 23:15] LABS: T4 (Thyroxine) 5.3 ug/dl (5.53-11.0)
[2021-07-06 23:24] LABS: Troponin I < 0.01 ng/ml (0.00-0.034)
[2021-07-06 23:28] LABS: Thyroid Stimulating Hormone 1.88 uIU/mL (0.465-4.68)
--- NOTE | 2021-07-06 23:36 | XR_ITS ---
PROCEDURE INFORMATION: Exam: XR Chest Exam date and time: 07/06/2021 11:36 PM Age: 45 years old Clinical indication: Sternal or substernal pain; Additional info: Cp TECHNIQUE: Imaging protocol: XR of the chest. Views: 2 views. Total images: 2 COMPARISON: CR XR CHEST PORTABLE 05/27/2021 5:17 PM FINDINGS: Lungs: Normal pulmonary expansion. Pulmonary vasculature grossly normal. No gross pulmonary infiltrates or edema pattern. Pleural spaces: No pleural effusion. No pneumothorax. Heart/Mediastinum: Heart size normal. No tracheal/mediastinal shift. Bones/joints: No acute osseous abnormalities are identified. Other findings: Mild rightward rotation. IMPRESSION: No acute thoracic process.
[2021-07-06 23:50] LABS: Erythrocyte Sedimentation Rate 19 mm/hr (0-20)
[2021-07-07 00:16] VITALS: BP 131/73; PULSE 78; RESP 20; TEMP 36.8; O2SAT 99
== END 2021-07-07 00:21 | disposition home or self-care (01) ==
PROVIDERS: Emergency Provider Emergency Medicine; PCP Emergency Medicine
DX: R07.2 Precordial pain (principal); I25.10 Atherosclerotic heart disease of native coronary artery without angina pectoris; J44.9 Chronic obstructive pulmonary disease, unspecified; E11.9 Type 2 diabetes mellitus without complications; E78.5 Hyperlipidemia, unspecified; I10 Essential (primary) hypertension; F17.210 Nicotine dependence, cigarettes, uncomplicated; Z79.899 Other long term (current) drug therapy
CPT/HCPCS: 71046; 80048; 80076; 80185; 83735; 83880; 84145; 84436; 84443; 84484; 85025; 85651; 86140; 93005; 96365; 99283

== ENCOUNTER 2021-07-24 12:24 | Emergency (ER) | payer MEDICAID, SELFPAY ==
[2021-07-24 12:25] VITALS: BP 143/85; PULSE 97; RESP 16; TEMP 36.8; O2SAT 96; BMI 35.5
--- NOTE | 2021-07-24 12:41 | HMH.EDGENADL ---
ED Disposition Clinical Impression: Dizziness, Has run out of medications Low back pain Qualifiers: Chronicity: acute Back pain laterality: bilateral Sciatica presence: without sciatica Qualified Code(s): M54.50 - Low back pain, unspecified Disposition: Home, Self-Care Condition on Discharge: Good Instructions: DI for Low Back Pain, DI for Vertigo Additional Instructions: Continue taking your diazepam as prescribed. Tylenol for pain until your pain medication prescription is refilled. Meclizine as needed for dizziness. See your primary care provider Monday for further care and refills. Prescriptions: Meclizine HCl [Antivert 25mg tablet] 25 mg PO TIDP PRN #10 tab PRN Reason: Dizziness Transmission Status: Pending to [facility] Ondansetron [Zofran 4mg ODT] 4 mg PO TIDP PRN #10 tab PRN Reason: Nausea And Vomiting Transmission Status: Pending to [facility] Referrals: Ced Corbett MD [Primary Care Provider] - - Critical Care Critical Care Time: No Attestation: On , the high probability of a clinically significant, sudden or life threatening deterioration of the following system(s) required my full and direct attention, intervention and personal management. The time I documented below is in addition to time spent performing reported procedures but includes the following listed in this critical care notation. Medical Decision Making - Medical Records Medical records reviewed: Yes: I reviewed the patient's medical records. MR Comment: Reviewed emergency department visit 05/29/2021 for headache and dizziness. Described vertiginous symptoms at that point as well. Had an extensive work-up including CT head, CT angiogram of head and neck, all unremarkable. - Gregory Inquiry Pt receiving controlled substance: Yes Gregory was queried for this patient: Yes Risks and benefits of using a controlled substance: were discussed with pt by me Vital Signs: 07/24/21 12:25 07/24/21 13:00 Temperature 98.2 F Temperature Source Oral Pulse Rate 84 Pulse Rate [Right Radial] 97 H Respiratory Rate 16 Blood Pressure 145/80 H Blood Pressure [Right Arm] 143/85 H Blood Pressure Mean [Right Arm] 104 Blood Pressure Source [Right Arm] Automatic Cuff Blood Pressure Position [Right Arm] Sitting 02 Sat by Pulse Oximetry 96 94 L Oxygen Delivery Method Room Air Room Air - Lab Data Lab Results 07/24/21 13:13: WBC 13.3 H, RBC 4.93, Hgb 14.1, Hct 43.6, MCV 88.4, MCH 28.6, MCHC 32.3, RDW 15.7, Plt Count 350, MPV 8.6, Neut % (Auto) 82.2 H, Lymph % (Auto) 11.3, [place] % (Auto) 5.0, Eos % (Auto) 0.9, Baso % (Auto) 0.6, Neut # (Auto) 10.9 H, Lymph # (Auto) 1.5, [place] # (Auto) 0.7, Eos # (Auto) 0.1, Baso # (Auto) 0.1 07/24/21 13:13: Sodium 127 L, Potassium 2.7 L*, Chloride 83 L, Carbon Dioxide 38 H, Anion Gap 8.7, BUN 4 L, Creatinine 0.60, Estimated Creat Clear 148, Estimated GFR 108, Est GFR ( Amer) 130, Glucose 278 H, Calcium 8.2 L, Total Bilirubin 0.3, AST 17, ALT 15, Alkaline Phosphatase 135 H, Total Protein 7.2, Albumin 4.1, Globulin 3.1, Albumin/Globulin Ratio 1.3 07/24/21 13:23: Urine Color Yellow, Urine Appearance Clear, Urine pH 6.5, Ur Specific Arthur 1.015, Urine Protein Trace, Urine Glucose (UA) 2+, Urine Ketones Negative, Urine Blood 1+, Urine Nitrate Negative, Urine Bilirubin Negative, Urine Urobilinogen 0.2, Ur Leukocyte Esterase Negative, Urine RBC None, Urine WBC None, Ur Squamous Epith Cells 3-5, Urine Bacteria Trace Result diagrams: 07/24/21 13:13 07/24/21 13:13 Orders (Tests/Meds): ED MEDICATIONS Discontinued Medications Generic Name Dose Route Start Last Admin Trade Name Freq PRN Reason Stop Dose Admin Hydrocodone Bitart/Acetaminophen 1 tab 07/24/21 12:56 07/24/21 13:16 Apap/Hydrocodone 325mg/7.5mg Tab PO 07/24/21 12:57 1 tab ONCE ONE Administration Lorazepam 0.5 mg 07/24/21 12:55 07/24/21 13:16 Lorazepam 0.5mg Tablet PO 07/24/21 12:56 0.5 mg ONCE ONE A
[2021-07-24 13:00] VITALS: BP 145/80; PULSE 84; O2SAT 94
[2021-07-24 13:23] LABS: Basophils # 0.1 K/mm3 (0-0.2); Basophils % 0.6 % (0.1-2.0); Eosinophils # 0.1 K/mm3 (0.0-0.4); Eosinophils % 0.9 % (0.1-12.0); Hematocrit 43.6 % (37.0-47.0); Hemoglobin 14.1 g/dL (12.2-16.2); Lymphocytes # 1.5 K/mm3 (0.7-4.5); Lymphocytes % 11.3 % (10-50); Mean Corpuscular HGB Conc 32.3 g/dL (31.8-35.4); Mean Corpuscular Hemoglobin 28.6 pg (27.0-31.2); Mean Corpuscular Volume 88.4 fl (81-99); Mean Platelet Volume 8.6 fl (7.4-10.4); Monocytes # 0.7 K/mm3 (0.1-1.0); Neutrophils # 10.9 K/mm3 (1.8-7.8); Neutrophils % 82.2 % (37.0-80.0); Platelet Count 350 K/mm3 (142-424); Red Blood Count 4.93 M/mm3 (4.20-5.40); Red Cell Distribution Width 15.7 % (11.5-17.5); White Blood Count 13.3 K/mm3 (4.8-10.8)
[2021-07-24 13:26] LABS: Chloride 83 mmol/L (98-107); Sodium 127 mmol/L (136-145)
[2021-07-24 13:28] LABS: Blood Urea Nitrogen 4 mg/dl (7-17); Creatinine Clearance Estimated 148 mL/min (50-200); Estimated Glomerular Filt Rate 108 ml/min (>60); GFR (African American) 130 ML/MIN (>60)
[2021-07-24 13:29] LABS: Alanine Aminotransferase 15 U/L (12-78); Albumin Level 4.1 g/dl (3.5-5.0); Albumin/Globulin Ratio 1.3 (1.1-1.8); Alkaline Phosphatase 135 U/L (38-126); Aspartate Amino Transferase 17 U/L (14-36); Bilirubin,Total 0.3 mg/dl (0.2-1.3); Calcium 8.2 mg/dl (8.4-10.2); Carbon Dioxide 38 mmol/L (22.0-30.0); Globulin 3.1 g/dL (1.3-3.2); Glucose 278 mg/dl (74-100); Total Protein,Serum 7.2 g/dl (6.3-8.2)
[2021-07-24 13:30] LABS: Anion Gap 8.7 mEq/L (5-15); Potassium 2.7 mmoL/L (3.5-5.1)
--- NOTE | 2021-07-24 13:30 | PC.NURSE ---
Lab reported critical potassium of 2.7 MD notified.
[2021-07-24 13:38] LABS: Microscopic, Urine URINE MICROSCOPIC (MICROSCOPIC)
--- NOTE | 2021-07-24 14:02 | PC.NURSE ---
pt urine sent, she is in room with the person accompanying her
[2021-07-24 14:07] LABS: Bacteria,Urine Trace /lpf
[2021-07-24 14:19] LABS: Appearance,Urine CLEAR (Clear); Bilirubin,Urine Negative (Negative); Blood, Urine 1+ (Negative); Color,Urine YELLOW (Yellow); Glucose,Urine (UA) 2+ (Negative); Ketones,Urine Negative (Negative); Leukocyte Esterase,Urine Negative (Negative); Nitrate,Urine Negative (Negative); PH,Urine 6.5 (5.0-8.5); Protein,Urine TRACE (Negative); Specific Gravity, Urine 1.015 (1.005-1.030); Urobilinogen,Urine 0.2 EU/dl (0.2)
[2021-07-24 14:54] VITALS: BP 138/74; PULSE 88; RESP 18; TEMP 36.8; O2SAT 95
[2021-07-24 14:58] LABS: Phenytoin (Dilantin) 3.7 ug/ml (10-20)
== END 2021-07-24 14:56 | disposition home or self-care (01) ==
PROVIDERS: Emergency Provider Emergency Medicine; PCP Family Medicine
DX: R42 Dizziness and giddiness (principal); M54.50 Low back pain, unspecified; R51.9 Headache, unspecified; I10 Essential (primary) hypertension; E78.5 Hyperlipidemia, unspecified; E11.9 Type 2 diabetes mellitus without complications; E03.9 Hypothyroidism, unspecified; F41.9 Anxiety disorder, unspecified; F17.210 Nicotine dependence, cigarettes, uncomplicated; Z79.02 Long term (current) use of antithrombotics/antiplatelets; Z79.51 Long term (current) use of inhaled steroids; Z79.84 Long term (current) use of oral hypoglycemic drugs; Z79.899 Other long term (current) drug therapy; Z88.2 Allergy status to sulfonamides; Z88.6 Allergy status to analgesic agent; Z88.8 Allergy status to other drugs, medicaments and biological substances
CPT/HCPCS: 80053; 80185; 81001; 85025; 99283

== ENCOUNTER 2021-07-25 07:48 | Emergency (ER) | payer MEDICAID, SELFPAY ==
[2021-07-25 07:49] VITALS: BP 134/82; PULSE 88; RESP 16; TEMP 37; O2SAT 98; BMI 35.5
--- NOTE | 2021-07-25 07:56 | PC.NURSE ---
EKG done and given to Dr. Mohr
--- NOTE | 2021-07-25 07:56 | ECG_ITS ---
APPROVED REPORT Exam: Resting ECG HR:89 bpm ECG Measurements Heart Rate 89 AXES HI 152 P 59 QRSd 85 QRS 83 QT 378 T 59 QTc 424 Conclusion SINUS RHYTHM POSSIBLE RIGHT VENTRICULAR CONDUCTION DELAY [RSR (QR) IN V1/V2] BORDERLINE ECG UNCONFIRMED REPORT Electronically signed by : Max Alvarez MD 07/25/2021 13:46:37
--- NOTE | 2021-07-25 07:58 | PC.NURSE ---
pt in room, hooked up to vital signs and EKG done. Call light given to patient. is bedside.
[2021-07-25 08:19] VITALS: BP 144/80; PULSE 81; PULSE 82; O2SAT 87
--- NOTE | 2021-07-25 08:21 | HMH.EDGENADL ---
ED Disposition Clinical Impression: Right foot pain, Dizziness, Anxiety Disposition: Home, Self-Care Condition on Discharge: Good Instructions: DI for Chronic Pain -- Adult Prescriptions: Lidocaine [Lidocaine 5% patch] 1 patch TP Q12HP PRN #3 patch PRN Reason: foot pain Transmission Status: [facility] to [facility] Referrals: Ced Boyd MD [Primary Care Provider] - - Critical Care Critical Care Time: No Attestation: On 07/25/21, the high probability of a clinically significant, sudden or life threatening deterioration of the following system(s) required my full and direct attention, intervention and personal management. The time I documented below is in addition to time spent performing reported procedures but includes the following listed in this critical care notation. Medical Decision Making - Gregory Inquiry Pt receiving controlled substance: Yes Gregory was queried for this patient: No Risks and benefits of using a controlled substance: were not discussed with pt by me Vital Signs: 07/25/21 07:49 07/25/21 08:19 07/25/21 08:57 Temperature 98.6 F Temperature Source Oral Pulse Rate 82 72 Pulse Rate [Radial] 88 Respiratory Rate 16 Blood Pressure 144/80 H 132/67 Blood Pressure [Right Arm] 134/82 Blood Pressure Mean [Right Arm] 99 Blood Pressure Position [Right Arm] Sitting 02 Sat by Pulse Oximetry 98 87 L 93 L Oxygen Delivery Method Room Air Room Air Room Air Orders (Tests/Meds): ED MEDICATIONS Discontinued Medications Generic Name Dose Route Start Last Admin Trade Name Freq PRN Reason Stop Dose Admin Hydroxyzine Pamoate 25 mg 07/25/21 08:36 07/25/21 08:42 Hydroxyzine Pamoate 25mg Capsule PO 07/25/21 08:37 25 mg ONCE ONE Administration Lidocaine 1 each 07/25/21 08:38 07/25/21 08:42 Lidocaine 5% Transdermal Patch TP 07/25/21 08:39 1 each ONCE ONE Administration Meclizine HCl 25 mg 07/25/21 08:39 07/25/21 08:42 Meclizine 25mg Tablet PO 07/25/21 08:40 25 mg ONCE ONE Administration Oxycodone/Acetaminophen 1 each 07/25/21 08:36 07/25/21 08:42 Oxycodone 7.5mg W/Apap 325mg Tablet PO 07/25/21 08:37 1 each ONCE ONE Administration Medical Decision Narrative: 45 yo female presents for right foot pain that is chronic without new trauma and with dizziness that is described as room spinning only when she moves and not at rest. RLE is neurovascularly intact with normal pulses, no new deformity or swelling, normal gross strength and sensation, warm to touch. less likely to represent acute bony injury without new trauma, dvt, vascular emergency such as arterial occlusion. She has a neuro exam with mild antalgic gait attributable to her chronic right foot pain but without unsteadiness or imbalance, normal finger to nose and heel to smith, normal cranial nerve exam ii-xii, gcs 15. She also directly reports that she feels her dizziness is attributable to her anxiety and usually comes on with her anxiety and improves with her home ativan. she had similar dizziness in may 2021 for which she received cth, cta h/n which did not reveal acute findings and her dizziness has only been intermittent and not worsening since then. less likely acute cva or posterior insufficiency in this setting. she had episode of hypoxia in ed on room air to 87% which resolved with repositioning and she states she did not bring her home 2lpm nc o2 with her. her pain is well controlled with x1 percocet 7.5 and topical lidocaine patch to right foot. she requests rx for lidocaine patch. also given vistaril for anxiety and she appears comfortable and is hds on reassessment, in nad, not anxious appearing, resting comfortably on ed bed. she will follow up per her scheduled appointment with pcp dr. boyd tomorrow. she is stable for discharge. given ed return precautions. General Adult HPI - General Chief complaint: PAIN Stated complaint: dizzy, back pain, rt foot pain Time Seen by Robert
[2021-07-25 08:57] VITALS: BP 132/67; PULSE 72; O2SAT 93
[2021-07-25 09:00] VITALS: BP 136/66; PULSE 71; O2SAT 92
--- NOTE | 2021-07-25 09:23 | PC.NURSE ---
Pt in room w
[2021-07-25 09:36] VITALS: BP 139/65; PULSE 77; RESP 16; TEMP 36.8; O2SAT 96
--- NOTE | 2021-07-25 09:37 | PC.NURSE ---
patients vital signs were taken before discharge. patient was given a cup of ice. She is getting dressed at this time, no assistance needed. bedside.
== END 2021-07-25 09:38 | disposition home or self-care (01) ==
PROVIDERS: Emergency Provider Student in an Organized Health Care Education/Training Program; PCP Family Medicine
DX: R42 Dizziness and giddiness (principal); M79.671 Pain in right foot; E11.9 Type 2 diabetes mellitus without complications; E03.9 Hypothyroidism, unspecified; I10 Essential (primary) hypertension; G40.909 Epilepsy, unspecified, not intractable, without status epilepticus; E78.5 Hyperlipidemia, unspecified; F17.210 Nicotine dependence, cigarettes, uncomplicated; Z79.899 Other long term (current) drug therapy
CPT/HCPCS: 93005; 99283

== ENCOUNTER 2021-08-01 01:30 | Emergency (ER) | payer MEDICAID, SELFPAY ==
[2021-08-01 01:38] VITALS: BP 157/72; PULSE 87; RESP 18; TEMP 36.6; O2SAT 97; BMI 35.5
--- NOTE | 2021-08-01 02:07 | HMH.EDGENADL ---
ED Disposition Clinical Impression: Foot pain, right Disposition: Home, Self-Care Condition on Discharge: Good Instructions: DI for Acute Pain -- Adult Additional Instructions: call pcp for follow up Referrals: Ced Corbett MD [Primary Care Provider] - - Critical Care Critical Care Time: No Attestation: On 08/01/21, the high probability of a clinically significant, sudden or life threatening deterioration of the following system(s) required my full and direct attention, intervention and personal management. The time I documented below is in addition to time spent performing reported procedures but includes the following listed in this critical care notation. Medical Decision Making - Medical Records Medical records reviewed: Yes: I reviewed the patient's medical records. - Gregory Inquiry Pt receiving controlled substance: No Vital Signs: 08/01/21 01:38 Temperature 97.8 F Temperature Source Oral Pulse Rate [Apical] 87 Respiratory Rate 18 Blood Pressure [Left Arm] 157/72 H Blood Pressure Mean [Left Arm] 100 Blood Pressure Source [Left Arm] Automatic Cuff Blood Pressure Position [Left Arm] Sitting 02 Sat by Pulse Oximetry 97 Oxygen Delivery Method Room Air - Lab Data Lab results reviewed: Yes: I reviewed the patient's lab results. Medical Decision Narrative: no new injury excerbation of ongoing injury General Adult HPI - General Chief complaint: PAIN Stated complaint: Pain in both feet;Rt ft broken Time Seen by Provider: 08/01/21 02:08 Mode of Arrival: Wheelchair Source of Information: Patient, Spouse, Medical Record Limitations: No Limitations Description of Symptoms (Recalled from ER Triage Doc. by RN): Pt c/o bilateral foot pain with worse pain in her right foot. States that the pain started about an hour ago. States she was sitting down when it started huring. Denies any injury with exception of known break in right foot. Does report she took her pain pill an hour ago but it hasn't kicked in yet. - History of Present Illness HPI narrative: increased pain with no acute injury rt foot - hx of rt foot fx and orif - followed by podiatry Onset (ago): hour(s) Location: lower extremity Severity: moderate Associated symptoms: denies other symptoms Treatments prior to arrival: other (pain meds ) - Related Data Home Medications Medication Instructions Recorded Confirmed Phenytoin Sodium Extended 300 mg PO AM 07/25/17 07/26/21 [Dilantin 100mg Capsule] Sertraline HCl [Zoloft] 300 mg PO DAILY 07/02/19 07/26/21 Cetirizine HCl 10 mg PO DAILY 04/22/21 07/26/21 Metoprolol Succinate [Metoprolol 25 mg PO DAILY 04/22/21 07/26/21 Succinate 25mg Tablet*] lisinopriL [Lisinopril] 20 mg PO DAILY 04/22/21 07/26/21 phenytoin sodium extended 100 mg 200 mg PO HS 04/27/21 07/26/21 capsule Levothyroxine Sodium [Synthroid 50 mcg PO DAILY 05/28/21 07/26/21 50mcg (0.05mg) tab] Metformin HCl [Metformin 1000mg 1,000 mg PO BIDWMEAL 05/28/21 07/26/21 Tablets] Previous Rx's Medication Instructions Recorded atorvastatin 40 mg tablet 40 mg PO DAILY #90 tab 05/05/21 folic acid 1 mg tablet 1 mg PO DAILY #90 tab 05/05/21 magnesium oxide 250 mg PO DAILY #90 tab 05/05/21 omeprazole 20 mg capsule,delayed 20 mg PO DAILY #90 cap 05/05/21 release clopidogrel 75 mg tablet 75 mg PO DAILY #90 tab 05/19/21 furosemide 20 mg tablet 40 mg PO DAILY #60 tab 05/24/21 doxepin 50 mg capsule 50 - 100 mg PO HS #180 cap 06/08/21 olanzapine 20 mg tablet 20 mg PO DAILY #90 tab 06/14/21 fluticasone propionate 50 1 spray INTRANASAL DAILY #16 g 06/17/21 mcg/actuation nasal spray,suspension gabapentin 300 mg capsule 600 mg PO TID #90 cap 06/17/21 buspirone 15 mg tablet 15 mg PO TID #90 tab 06/28/21 diazepam 5 mg tablet 2.5 mg PO TID #45 tab 07/08/21 blood sugar diagnostic See Rx Instructions .ROUTE #100 07/09/21 each blood-glucose meter See Rx Instructions .ROUTE #1 each 07/09/21 Meclizine HCl [Antivert 25
[2021-08-01 02:30] VITALS: BP 150/70; PULSE 85; RESP 18; TEMP 36.8; O2SAT 98
== END 2021-08-01 02:33 | disposition home or self-care (01) ==
PROVIDERS: Emergency Provider Emergency Medicine; PCP Family Medicine
DX: M79.672 Pain in left foot (principal); M79.671 Pain in right foot; I10 Essential (primary) hypertension; E78.5 Hyperlipidemia, unspecified; E11.9 Type 2 diabetes mellitus without complications; J44.9 Chronic obstructive pulmonary disease, unspecified; F41.9 Anxiety disorder, unspecified; F17.210 Nicotine dependence, cigarettes, uncomplicated; Z79.1 Long term (current) use of non-steroidal anti-inflammatories (NSAID); Z79.51 Long term (current) use of inhaled steroids; Z79.84 Long term (current) use of oral hypoglycemic drugs; Z79.899 Other long term (current) drug therapy; Z88.2 Allergy status to sulfonamides; Z88.8 Allergy status to other drugs, medicaments and biological substances
CPT/HCPCS: 99284

== ENCOUNTER 2021-08-01 15:52 | Emergency (ER) | payer MEDICAID, SELFPAY ==
[2021-08-01 18:42] VITALS: BP 0/0; PULSE 0; RESP 0; TEMP -17.7; TEMP 0; O2SAT 0
== END 2021-08-01 18:43 | disposition left against medical advice (07) ==
LOC: ER 18:21
PROVIDERS: Emergency Provider Emergency Medicine; PCP Family Medicine
DX: M79.671 Pain in right foot (principal); Z53.21 Procedure and treatment not carried out due to patient leaving prior to being seen by health care provider; Z79.02 Long term (current) use of antithrombotics/antiplatelets; Z79.51 Long term (current) use of inhaled steroids; Z79.84 Long term (current) use of oral hypoglycemic drugs; Z79.899 Other long term (current) drug therapy; Z88.2 Allergy status to sulfonamides; Z88.5 Allergy status to narcotic agent; Z88.6 Allergy status to analgesic agent
CPT/HCPCS: 99211

== ENCOUNTER 2021-08-03 19:07 | Emergency (ER) | payer MEDICAID, SELFPAY ==
[2021-08-03 19:09] VITALS: BP 153/73; PULSE 88; RESP 18; TEMP 36.8; O2SAT 97; BMI 35.5
[2021-08-03 19:14] VITALS: BP 153/73; PULSE 78
[2021-08-03 19:30] VITALS: BP 156/85; PULSE 93; O2SAT 96
[2021-08-03 20:01] VITALS: BP 134/73; O2SAT 94
--- NOTE | 2021-08-03 20:19 | HMH.EDGENADL ---
ED Disposition Clinical Impression: Right foot pain Disposition: Home, Self-Care Condition on Discharge: Good Additional Instructions: Please return to the ED for any new or worsening symptoms. Referrals: Crow Weldon MD [Primary Care Provider] - Lizy Davis DPM [Staff Physician] - - Critical Care Critical Care Time: No Attestation: On 08/03/21, the high probability of a clinically significant, sudden or life threatening deterioration of the following system(s) required my full and direct attention, intervention and personal management. The time I documented below is in addition to time spent performing reported procedures but includes the following listed in this critical care notation. Medical Decision Making - Medical Records Medical records reviewed: Yes: I reviewed the patient's medical records. - Gregory Inquiry Pt receiving controlled substance: No Vital Signs: 08/03/21 19:09 08/03/21 19:14 08/03/21 19:30 Temperature 98.2 F Temperature Source Oral Pulse Rate 78 93 H Pulse Rate [Left Radial] 88 Respiratory Rate 18 Blood Pressure 153/73 H 156/85 H Blood Pressure [Right Arm] 153/73 H Blood Pressure Mean 128 130 Blood Pressure Mean [Right Arm] 99 Blood Pressure Position [Right Arm] Sitting 02 Sat by Pulse Oximetry 97 96 Oxygen Delivery Method Room Air 08/03/21 20:01 08/03/21 20:30 08/03/21 20:39 Temperature 98.2 F Temperature Source Pulse Rate 78 90 Pulse Rate [Left Radial] Respiratory Rate 20 Blood Pressure 134/73 145/79 H 132/74 Blood Pressure [Right Arm] Blood Pressure Mean 97 Blood Pressure Mean [Right Arm] Blood Pressure Position [Right Arm] 02 Sat by Pulse Oximetry 94 L 94 L Oxygen Delivery Method Orders (Tests/Meds): ED MEDICATIONS Discontinued Medications Generic Name Dose Route Start Last Admin Trade Name Freq PRN Reason Stop Dose Admin Lorazepam 2 mg 08/03/21 20:32 08/03/21 20:38 Lorazepam 1mg Tablet PO 08/03/21 20:33 2 mg ONCE ONE Administration Medical Decision Narrative: Patient is a 45-year-old female with chronic medical problems of the right foot who presents the ED today for further evaluation of right foot pain and anxiety, patient is well-appearing on reevaluation, no significant alterations of vital signs to indicate infection, there is no obvious source of infection on her foot, no asymmetric swelling, redness, warmth or erythema on the foot, and no recent trauma. Patient is very anxious on initial evaluation in appearance, and is requesting repeat doses of IV anxiety and pain medication. On review of patient's PDMP she is currently taking Azalea, gabapentin, Ativan, in addition to her seizure medication of Dilantin, and worried about polypharmacy in this patient, and have discussed this with her as the dangers of using all of these medications together involve treatment failure, respiratory depression, seizures. I will give the patient an additional dose of oral benzodiazepine, as I believe this is a best route to treat her anxiety and the lowest relative harm, have had extensive discussion with the patient regarding harm with the bleeding medication she is already taking, and have advised her to follow-up with Dr. Wiley in the podiatry office, it sounds like they are having trouble getting an appointment, and I encouraged him to follow-up with her primary care provider they just like yesterday in order to get this appointment, as to podiatry is the definitive management of her right foot pain. Patient verbalized understanding with the plan, given this and no other acute issues on examination and no new changes other than chronic foot pain, will treat her anxiety and discharge, patient given return precautions return to ED with any new or worsening symptoms, if she is to have worsening pain in her right foot, swelling, redness, fevers, or evidence of infection she knows to return to the ED after our disc
[2021-08-03 20:30] VITALS: BP 145/79; PULSE 78; O2SAT 94
[2021-08-03 20:39] VITALS: BP 132/74; PULSE 90; RESP 20; TEMP 36.8; O2SAT 96
== END 2021-08-03 20:46 | disposition home or self-care (01) ==
PROVIDERS: Emergency Provider Student in an Organized Health Care Education/Training Program; PCP Emergency Medicine
DX: M79.671 Pain in right foot (principal); G89.29 Other chronic pain; J44.9 Chronic obstructive pulmonary disease, unspecified; E11.9 Type 2 diabetes mellitus without complications; E03.9 Hypothyroidism, unspecified; I10 Essential (primary) hypertension; E78.5 Hyperlipidemia, unspecified; F17.210 Nicotine dependence, cigarettes, uncomplicated; Z79.899 Other long term (current) drug therapy; F41.9 Anxiety disorder, unspecified
CPT/HCPCS: 99283

== ENCOUNTER 2021-08-04 07:09 | Observation (INO) | payer MEDICAID, SELFPAY ==
[2021-08-04] VITALS (30 sets, daily range): BP systolic 83–138; BP diastolic 35–75; PULSE 62–111; RESP 15–29; TEMP 36.6–36.8; O2SAT 88–100; BMI 30.2; BMI 36.3
[2021-08-04 06:57] LABS: POC Glucose,Bedside 228 (70-110)
--- NOTE | 2021-08-04 07:10 | XR_ITS ---
FINAL REPORT CLINICAL HISTORY: SOB, poss sz this morning COMPARISON: 06/16/2021 FINDINGS: SINGLE VIEW CHEST The heart is normal in size. The mediastinum is unremarkable. The lungs are clear. There is no pneumothorax. IMPRESSION: No acute cardiopulmonary process. Reviewed, Interpreted and Dictated by Philip Wright MD Transcribed by Haleigh Walden Authenticated by Philip Wright MD on 08/04/2021 08:12:17 AM [facility]
--- NOTE | 2021-08-04 07:15 | PC.NURSE ---
late entry: approx 0710 pt monitor alarms were going off, staff member to bedside to check on pt, staff member calls for additional help r/t pt having a seizure. Pt face is cyanotic in color, pt clammed down, BVM breaths given per ER MD and jaw thrust maneuver to provide oxygenation. Seizure episode lasted approx 1 minute. ER MD at BS for duration. Pt post ictal afterwards. Seizure precautions remain in place (pads on bedrails, suction at bedside). pt on cardiac exercise physiologist and continuous pulse ox, will continue to monitor
--- NOTE | 2021-08-04 07:15 | PC.NURSE ---
REPORT TO ZIGGY RIVAS.
--- NOTE | 2021-08-04 07:28 | PC.NURSE ---
pt starting to open her eyes, no verbal response at this time, will continue to monitor.
--- NOTE | 2021-08-04 07:30 | CT_ITS ---
FINAL REPORT TECHNIQUE: Axial CT images were performed through the head. Coronal reformatted images were submitted. This study was performed with techniques to keep radiation doses as low as reasonably achievable (ALARA). Individualized dose reduction techniques using automated exposure control or adjustment of mA and/or kV according to the patient's size were employed. CLINICAL HISTORY: multiple seizures COMPARISON: May 29, 2021 FINDINGS: There is mild atrophy. There is abnormal decreased attenuation in the deep white matter diffusely bilaterally of uncertain significance. The ventricles are normal in size. There is no evidence of hemorrhage. There is no mass or edema identified. There is no abnormal extra-axial fluid seen. There is mild mucoperiosteal thickening of the right maxillary sinus. There are no air fluid levels. IMPRESSION: Apparent decreased attenuation the deep white matter diffusely of uncertain significance. A brain MRI may be of value to better assess the white matter. No hemorrhage or mass effect. Reviewed, Interpreted and Dictated by Philip Wright MD Transcribed by Pili Boogie Authenticated by Philip Wright MD on 08/04/2021 08:27:56 AM [facility]
--- NOTE | 2021-08-04 07:32 | PC.NURSE ---
o2 sat dropped below her ususal of 92% switched to a non rebreather to get sats back up
--- NOTE | 2021-08-04 07:47 | PC.NURSE ---
er doc ordered ct of the head
--- NOTE | 2021-08-04 07:51 | PC.NURSE ---
pt to CT via stretcher at this time, pt is awake at this time. Pt able to some questions. Will continue to monitor
--- NOTE | 2021-08-04 08:11 | HMH.EDGENADL ---
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 The time I documented below is in addition to time spent performing reported procedures but includes the following listed in this critical care notation. Medical Decision Making - Medical Records Medical records reviewed: Yes: I reviewed the patient's medical records. - Gregory Inquiry Pt receiving controlled substance: Yes Gregory was queried for this patient: Yes Risks and benefits of using a controlled substance: were discussed with pt by me <Zeferino Mason - Last Filed: 08/04/21 08:30> - Lab Data Result diagrams: 08/04/21 08:55 08/04/21 08:55 - Radiology Data #1 Image(s): Chest Image Reviewed: Yes I have reviewed radiologist's interpretation - CT Data CT Scan: Head Time Received: 09:[address] Reviewed: Yes: I have viewed the radiologist's interpretation - Physician Consults Physician Consulted: Shiraz Time: 10:45 Reason -: Admission Comment/Response: Agrees to admit the patient to the hospital. We discussed the patient's clinical information, including history, exam, laboratory and radiology results and ED course. Per hospital procedure, I will write temporary bridge inpatient orders on the patient. Specific orders requested by the admitting physician: Discontinue Dilantin. Continue Keppra intravenously. Ativan 0.5 mg every 6 hours. - Reevaluation(s) Time: 10:45 <Zohaib Wright - Last Filed: 08/04/21 10:49> Vital Signs: 08/04/21 06:38 08/04/21 07:14 08/04/21 07:30 Temperature 98.2 F Temperature Source Oral Pulse Rate 107 H 111 H Pulse Rate [Left Radial] 97 H Respiratory Rate 18 16 29 H Blood Pressure 132/66 Blood Pressure [Right Arm] 130/60 Blood Pressure Mean Blood Pressure Mean [Right Arm] 83 Blood Pressure Position [Right Arm] Sitting 02 Sat by Pulse Oximetry 92 L 99 88 L Oxygen Delivery Method Room Air 08/04/21 08:01 08/04/21 08:45 08/04/21 09:01 Temperature Temperature Source Pulse Rate 102 H 102 H 95 H Pulse Rate [Left Radial] Respiratory Rate 27 H 24 19 Blood Pressure 115/58 L 105/51 L 102/49 L Blood Pressure [Right Arm] Blood Pressure Mean 69 64 Blood Pressure Mean [Right Arm] Blood Pressure Position [Right Arm] 02 Sat by Pulse Oximetry 90 L 92 L 92 L Oxygen Delivery Method 08/04/21 09:15 08/04/21 09:30 Temperature Temperature Source Pulse Rate 95 H 83 Pulse Rate [Left Radial] Respiratory Rate 23 23 Blood Pressure 106/55 L 111/63 Blood Pressure [Right Arm] Blood Pressure Mean 71 73 Blood Pressure Mean [Right Arm] Blood Pressure Position [Right Arm] 02 Sat by Pulse Oximetry 94 L 94 L Oxygen Delivery Method - Lab Data Lab Results 08/04/21 06:48: POC Glucose 228 H 08/04/21 08:55: WBC 11.4 H, RBC 4.57, Hgb 12.9, Hct 41.6, MCV 91.0, MCH 28.1, MCHC 30.9 L, RDW 15.4, Plt Count 412, MPV 7.7, Neut % (Auto) 88.9 H, Lymph % (Auto) 6.5 L,
--- NOTE | 2021-08-04 08:15 | PC.NURSE ---
late entry: approx 0808 pt monitor alarms again, low SaO2. Multiple staff members to bedside along with ER MD. Pt face cyanotic, pt clamped down, seizure activity noted, ER MD gave pt BVM ventilations. Pt was medicated per MAR per verbal orders from ER MD. Seizure activity lasted approx 15-30 seconds. Pt not post ictal at this time, pt has eye opening response, able to answer some questions. seizure precautions remain in place, pt on cardiac cath technician and pulse ox monitor. Will continue to monitor
--- NOTE | 2021-08-04 08:29 | PC.NURSE ---
ER MD Wright at speaking with pt and
--- NOTE | 2021-08-04 08:40 | PC.NURSE ---
contacted lab to check to see if they had blood in the lab for pt, orders are computer but they don't say received, spoke with moiz who states they do not have blood on pt. notified STEPHANIE JULIO, will obtain blood on pt and send to lab.
--- NOTE | 2021-08-04 08:48 | PC.NURSE ---
pt reports nausea, ER MD Wright notified, he gave verbal order for Zofran 4mg IV once
[2021-08-04 09:13] LABS: Basophils % 0.2 % (0.1-2.0); Eosinophils % 0.3 % (0.1-12.0); Hematocrit 41.6 % (37.0-47.0); Hemoglobin 12.9 g/dL (12.2-16.2); Lymphocytes # 0.8 K/mm3 (0.7-4.5); Lymphocytes % 6.5 % (10-50); Mean Corpuscular HGB Conc 30.9 g/dL (31.8-35.4); Mean Corpuscular Hemoglobin 28.1 pg (27.0-31.2); Mean Platelet Volume 7.7 fl (7.4-10.4); Monocytes # 0.5 K/mm3 (0.1-1.0); Neutrophils # 10.2 K/mm3 (1.8-7.8); Neutrophils % 88.9 % (37.0-80.0); Platelet Count 412 K/mm3 (142-424); Red Blood Count 4.57 M/mm3 (4.20-5.40); Red Cell Distribution Width 15.4 % (11.5-17.5); White Blood Count 11.4 K/mm3 (4.8-10.8)
[2021-08-04 09:22] LABS: Alanine Aminotransferase 24 U/L (12-78); Albumin Level 3.3 g/dl (3.5-5.0); Albumin/Globulin Ratio 1.4 (1.1-1.8); Alkaline Phosphatase 121 U/L (38-126); Aspartate Amino Transferase 27 U/L (14-36); Bilirubin,Total 0.2 mg/dl (0.2-1.3); Calcium 7.8 mg/dl (8.4-10.2); Carbon Dioxide 26 mmol/L (22.0-30.0); Chloride 105 mmol/L (98-107); Creatinine Clearance Estimated 151 mL/min (50-200); Estimated Glomerular Filt Rate 133 ml/min (>60); GFR (African American) 161 ML/MIN (>60); Globulin 2.3 g/dL (1.3-3.2); Glucose 214 mg/dl (74-100); Phenytoin (Dilantin) 4.9 ug/ml (10-20); Sodium 137 mmol/L (136-145); Total Protein,Serum 5.6 g/dl (6.3-8.2)
[2021-08-04 09:25] LABS: Blood Urea Nitrogen < 2 mg/dl (7-17)
[2021-08-04 09:28] LABS: MANUAL DIFFERENTIAL MANUAL DIFFERENTIAL (MANUAL DIFF)
[2021-08-04 09:29] LABS: HCG Qualitative, Serum Negative (Negative)
--- NOTE | 2021-08-04 09:42 | PC.NURSE ---
waiting bond runner back from dr. andre
[2021-08-04 09:50] LABS: Thyroid Stimulating Hormone 0.89 uIU/mL (0.465-4.68)
[2021-08-04 09:53] LABS: Lymphocytes % 4 % (10-50); Monocytes % 2 % (2-9); Neutrophils % 94 % (42-76); Total Cells Counted 100
[2021-08-04 09:54] LABS: Platelet Estimate Normal
--- NOTE | 2021-08-04 10:32 | PC.NURSE ---
Dr Weldon called about patient, for consult with Dr Wright
--- NOTE | 2021-08-04 10:44 | PC.NURSE ---
notified care management of admission, spoke with jesus
[2021-08-04 10:50] LABS: Coronavirus 19, PCR Not Detected (NotDetected); Influenza A, PCR Not Detected (NotDetected); Influenza B, PCR Not Detected (NotDetected)
--- NOTE | 2021-08-04 12:17 | HMH.HP ---
*Admission Date: 08/04/21 *Chief complaint: Seizures *History of present illness: Patient is a 45-year-old female who presents the ED today with seizures, patient has had multiple seizures this afternoon, after her ED visit earlier today. Unclear patient has been taking her medication, patient had one 32nd seizure with her at home, 1 with EMS for which she was given 2 mg of IV Versed, and another seizure shortly after arrival to the emergency department. Patient is a 45-year-old female who presents the ED today after a seizure, patient is postictal on my initial evaluation unable provide history, unclear patient has been taking her medications at home, takes Dilantin and Keppra at home from with my evaluation earlier today, patient has released from my earlier evaluation been taking her medications as prescribed, and has not had a seizure in some time. After arrival to the emergency department this morning she had another seizure, was called into the room by nursing staff who found the patient unresponsive, not having breathing, face was purple with oxygen saturation in the 50s. We performed [id number]-pftc ventilation for the patient, and she regained spontaneous respiration and was postictal for approximately 30 minutes afterward, patient was able to speak to us initially after her first seizure, however approximately 45 minutes after length of stay had another seizure, which stopped approximately 30 seconds. They are able to obtain a CT head without contrast after her first seizure in the emergency department which on independent interpretation does not show any evidence of midline shift, no obvious intracranial bleeding. (Zeferino Mason) states that she saw a neurologist at [facility] about 6 or 7 months ago and was admitted overnight for an EEG. He says that is when she was started on Valium. She does not routinely follow-up with the neurologist, states Dr. Corbett manages her seizure medication. [facility] History I have reviewed the patient's past medical history: Yes Medical History: Reports:: Anxiety, Chronic Obstructive Pulmonary Disease (COPD), Diabetes Mellitus Type 2, Hyperlipidemia, Hypertension Denies:: Cancer, Diabetes Mellitus Type 1, Internal Pacemaker, MRSA *Have you ever received a pneumonia vaccine?: No *Have you received a flu vaccine this season?: No Other Medical History: Reports: Hypothyroidism, Thyroid Disease, Other Other Surgeries: Yes: Tubal Ligation. No: Pacemaker Amputation: No Fractures: No - *Social History Last grade of school completed: High school graduate Smoking Status: Current every day smoker Tobacco Type: cigarettes # Packs/Day (cigarettes): 1 Alcohol Intake: never Alcohol Intake Frequency:: 0-2 drinks per day Substance Use Type: denies use *Occupational Status:: unemployed Housing: house Household Members: spouse, children *Travel in the last 8 weeks: None - Psychiatric History Pschychiatric History:: Reports:: Anxiety Family Hx:: No significant family history Review of Systems - Review of Systems Review of systems:: pertinent systems reviewed and negative unless documented below - Constitutional Reports fatigue, Denies anorexia - Eyes Denies blurry vision, Denies double vision - ENT Denies facial pain, Denies nasal discharge - *Cardiovascular Denies chest pain, Denies generalized swelling - *Respiratory Reports cough, Denies chest congestion, Denies shortness of breath - *Gastrointestinal Denies abdominal pain, Denies change in stools - *Musculoskeletal Denies joint pain, Denies muscle weakness - Integumentary/Breasts Denies bleeding lesions, Denies yellowing of the skin - *Neurologic Reports seizure-like activity, Reports weakness, Denies behavioral changes, Denies confusion - Psychiatric Denies lack of enjoyment, Denies depression - Endocrine Denies cold intolerance, Denies increased thirst - Hematologic/Lymphat
--- NOTE | 2021-08-04 13:19 | PC.NURSE ---
Called and spoke with [facility] at [facility] and confirmed med list with dosing.
--- NOTE | 2021-08-04 13:48 | PC.NURSE ---
report called to king fleming rn on second floor at this time
--- NOTE | 2021-08-04 13:52 | PC.NURSE ---
REPORT RECEIVED FROM EVA MARTÍNEZ RN
--- NOTE | 2021-08-04 14:40 | HMH.PHAVTE ---
[facility] Pharmacy VTE Monitoring - Patient Demographics Admission date: 08/04/21 Report Date: 08/04/21 Time: 14:40 Allergies/Adverse Reactions: Patient Allergies tramadol Adverse Reaction (Mild, Verified 08/02/21 10:08) Abdominal Pain sulfamethoxazole [From Sulfamethoxazole-Trimethoprim] Adverse Reaction (Verified 08/02/21 10:08) trimethoprim [From Sulfamethoxazole-Trimethoprim] Adverse Reaction (Verified 08/02/21 10:08) Height: 1.5 m Weight: 81.647 kg Patient Problems: Current Active Problems Epileptic seizure (Acute) - VTE Risk Labs: VTE Related Lab Results Hgb 12.9 g/dL (12.2-16.2) 08/04/21 08:55 Hct 41.6 % (37.0-47.0) 08/04/21 08:55 Plt Count 412 K/mm3 (142-424) 08/04/21 08:55 BUN < 2 mg/dl (7-17) L 08/04/21 08:55 Creatinine 0.50 mg/dl (0.52-1.04) L 08/04/21 08:55 Estimated Creat Clear 151 mL/min (50-200) 08/04/21 08:55 Was VTE Risk Assessment Performed: Yes VTE Score: 4 VTE Risk Level: Low Risk - Prophylaxis VTE Prophylaxis Ordered?: Yes Types of VTE Prophylaxis: TEDS Knee High Location of Applied Device: Bilateral Lower Extremeties
[2021-08-04 16:44] LABS: POC Glucose,Bedside 145 (70-110)
[2021-08-05] VITALS: PULSE 80
[2021-08-05 04:00] VITALS: PULSE 90
[2021-08-05 04:51] VITALS: BP 134/78; PULSE 83; RESP 16; TEMP 36.3; O2SAT 98; BMI 36.3
--- NOTE | 2021-08-05 05:35 | PC.NURSE ---
pt has rested well throughout shift, pt has complained multiple times with left sided foot pain, pt appears uncomfortable when complaining but shortly after would fall asleep, pain managed with tylenol and heat, no seizures noted this shift, pt would remove nasal cannula while sleeping ando2 sats would drop to low 80s but would quickly increase when oxygen was reapplied, vss. no distress noted, no other changes from previous assessment will continue to monitor at this time
[2021-08-05 08:00] VITALS: BP 125/63; PULSE 75; PULSE 80; RESP 19; TEMP 36.9; O2SAT 97
--- NOTE | 2021-08-05 09:06 | HMH.DCSUM ---
General - General Admission date:: 08/04/21 Discharge date: 08/05/21 HPI HPI: Patient is a 45-year-old female who presents the ED today with seizures, patient has had multiple seizures this afternoon, after her ED visit earlier today. Unclear patient has been taking her medication, patient had one 32nd seizure with her at home, 1 with EMS for which she was given 2 mg of IV Versed, and another seizure shortly after arrival to the emergency department. Patient is a 45-year-old female who presents the ED today after a seizure, patient is postictal on my initial evaluation unable provide history, unclear patient has been taking her medications at home, takes Dilantin and Keppra at home from with my evaluation earlier today, patient has released from my earlier evaluation been taking her medications as prescribed, and has not had a seizure in some time. After arrival to the emergency department this morning she had another seizure, was called into the room by nursing staff who found the patient unresponsive, not having breathing, face was purple with oxygen saturation in the 50s. We performed [id number]-tyqr ventilation for the patient, and she regained spontaneous respiration and was postictal for approximately 30 minutes afterward, patient was able to speak to us initially after her first seizure, however approximately 45 minutes after length of stay had another seizure, which stopped approximately 30 seconds. They are able to obtain a CT head without contrast after her first seizure in the emergency department which on independent interpretation does not show any evidence of midline shift, no obvious intracranial bleeding. (Zeferino Mason) states that she saw a neurologist at [facility] about 6 or 7 months ago and was admitted overnight for an EEG. He says that is when she was started on Valium. She does not routinely follow-up with the neurologist, states Dr. Corbett manages her seizure medication. Hospital Course Hospital Course: Patient is a 45-year-old female who presents the ED today after a seizure, patient is postictal on my initial evaluation unable provide history, unclear patient has been taking her medications at home, takes Dilantin and Keppra at home from with my evaluation earlier today, patient has released from my earlier evaluation been taking her medications as prescribed, and has not had a seizure in some time. After arrival to the emergency department this morning she had another seizure, was called into the room by nursing staff who found the patient unresponsive, not having breathing, face was purple with oxygen saturation in the 50s. We performed rzk-saudk-xezo ventilation for the patient, and she regained spontaneous respiration and was postictal for approximately 30 minutes afterward, patient was able to speak to us initially after her first seizure, however approximately 45 minutes after length of stay had another seizure, which stopped approximately 30 seconds. They are able to obtain a CT head without contrast after her first seizure in the emergency department which on independent interpretation does not show any evidence of midline shift, no obvious intracranial bleeding. (Zeferino Mason) 08/04/21 CXR: FINDINGS: SINGLE VIEW CHEST The heart is normal in size. The mediastinum is unremarkable. The lungs are clear. There is no pneumothorax. IMPRESSION: No acute cardiopulmonary process. Reviewed, Interpreted and Dictated by Philip Wright MD 08/04/[address]: FINDINGS: There is mild atrophy. There is abnormal decreased attenuation in the deep white matter diffusely bilaterally of uncertain significance. The ventricles are normal in size. There is no evidence of hemorrhage. There is no mass or edema identified. There is no abnormal extra-axial fluid seen. There is mild mucoperiosteal thickening of the right maxillary sinus. There are no air fluid
--- NOTE | 2021-08-05 10:24 | HMH.PHAINT ---
I spoke with Mrs. Watkins today about her medication list. 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 I also went over the medications she was to continue taking and the medication she was supposed to stop taking. She did not have any questions or concerns when we spoke. Patient was provided a copy of the medication list.
--- NOTE | 2021-08-06 13:37 | CARE MANAGER ---
Attempted to contact patient related to hospital discharge follow up. Left voicemail message. EVELYN Aguilera
== END 2021-08-05 10:43 | disposition home or self-care (01) ==
LOC: ER 10:49 → 2ND 14:57
PROVIDERS: Student in an Organized Health Care Education/Training Program; Admitting Provider Emergency Medicine; Emergency Provider Emergency Medicine; PCP Emergency Medicine; Visit Provider Family Medicine
DX: G40.803 Other epilepsy, intractable, with status epilepticus (principal); Z79.899 Other long term (current) drug therapy; E11.9 Type 2 diabetes mellitus without complications; I10 Essential (primary) hypertension; J44.9 Chronic obstructive pulmonary disease, unspecified; F17.210 Nicotine dependence, cigarettes, uncomplicated; R07.2 Precordial pain; E11.610 Type 2 diabetes mellitus with diabetic neuropathic arthropathy; F41.9 Anxiety disorder, unspecified
CPT/HCPCS: 70450; 71045; 80053; 80185; 82962; 84443; 84703; 85007; 85025; 96365; 96375; 99291; C9803; G0378; J1953; J2405; U0003; U0005

== ENCOUNTER 2021-08-06 17:29 | Emergency (ER) | payer MEDICAID, SELFPAY ==
[2021-08-06 17:30] VITALS: BP 138/51; PULSE 89; RESP 17; TEMP 37.2; O2SAT 93; BMI 35.5
--- NOTE | 2021-08-06 18:44 | HMH.EDGENADL ---
ED Disposition Clinical Impression: Charcot's joint of foot Qualifiers: Laterality: right Qualified Code(s): M14.671 - Charcot's joint, right ankle and foot Chronic foot pain Qualifiers: Laterality: right Qualified Code(s): M79.671 - Pain in right foot Disposition: Home, Self-Care Condition on Discharge: Good Additional Instructions: Fill your prescription Monday. Tylenol 3 take-home pack as needed for pain, this must last you until Monday. Follow-up with primary care provider for further pain management. It appears that you have an appointment scheduled with Dr. Kaufman, orthopedics, at this hospital on . Please keep that appointment. Referrals: Ced Corbett MD [Primary Care Provider] - - Critical Care Critical Care Time: No Attestation: On 08/06/21, the high probability of a clinically significant, sudden or life threatening deterioration of the following system(s) required my full and direct attention, intervention and personal management. The time I documented below is in addition to time spent performing reported procedures but includes the following listed in this critical care notation. Medical Decision Making - Medical Records Medical records reviewed: Yes: I reviewed the patient's medical records. MR Comment: Reviewed radiology interpretation of prior CT of foot, see below - Gregory Inquiry Pt receiving controlled substance: Yes Gregory was queried for this patient: Yes Risks and benefits of using a controlled substance: were discussed with pt by me Vital Signs: 08/06/21 17:30 Temperature 98.9 F Temperature Source Oral Pulse Rate [Left Radial] 89 Respiratory Rate 17 Blood Pressure [Left Arm] 138/51 L Blood Pressure Mean [Left Arm] 80 Blood Pressure Source [Left Arm] Automatic Cuff Blood Pressure Position [Left Arm] Right Lateral 02 Sat by Pulse Oximetry 93 L Oxygen Delivery Method Room Air Orders (Tests/Meds): ED MEDICATIONS Discontinued Medications Generic Name Dose Route Start Last Admin Trade Name Freq PRN Reason Stop Dose Admin Hydromorphone HCl 2 mg 08/06/21 18:59 Hydromorphone 2mg/Ml Syringe IM 08/06/21 19:00 ONCE ONE Promethazine HCl 25 mg 08/06/21 18:59 Promethazine Hcl 25mg/Ml 1ml Vial IM 08/06/21 19:00 ONCE ONE Sodium Chloride 25 ml 08/06/21 18:59 Sodium Chloride 0.9% 25ml Bag IV 08/06/21 19:00 ONCE ONE PROCEDURE INFORMATION: Exam: CT Right Lower Extremity Without Contrast, Foot Exam date and time: 06/04/2021 12:42 AM Age: 45 years old Clinical indication: Pain; Foot; Right; Prior surgery; Additional info: Pain TECHNIQUE: Imaging protocol: CT of the Right lower extremity without contrast was performed. Exam focused on the foot. Radiation optimization: All CT scans at this facility use at least one of these dose optimization techniques: automated exposure control; mA and/or kV adjustment per patient size (includes targeted exams where dose is matched to clinical indication); or iterative reconstruction. COMPARISON: CR XR FOOT RT MIN 3V 05/14/2021 1:27 PM FINDINGS: Bones/joints: Osteopenia, possibly exacerbated by disuse. Chronic hypertrophic spurring of the distal fibula suggesting remote trauma. There is abnormal alignment of the talonavicular joint, with caudal subluxation of the navicular with respect to the anterior talus. There is subchondral flattening and erosive like change involving the medial, distal portion of the navicular, favored to be non-acute. This may be in part related to cut-out of a screw transfixing the 1st TMT joint, which partially extends into the medial naviculocuneiform joint (although prior trauma may also contribute). A few small age indeterminate avulsion fragments are seen near the distal cuboid and the anterior calcaneal process. Presumed non-acute fracturing/fragmentation involving all metatarsal bases and cuneiforms. There
[2021-08-06 19:30] VITALS: BP 142/78; PULSE 85; RESP 16; TEMP 36.8; O2SAT 94
== END 2021-08-06 19:32 | disposition home or self-care (01) ==
PROVIDERS: Emergency Provider Emergency Medicine; PCP Family Medicine
DX: M14.671 Charcot's joint, right ankle and foot (principal); E11.9 Type 2 diabetes mellitus without complications; I10 Essential (primary) hypertension; E78.5 Hyperlipidemia, unspecified; J44.9 Chronic obstructive pulmonary disease, unspecified; F41.9 Anxiety disorder, unspecified; E03.9 Hypothyroidism, unspecified; F17.210 Nicotine dependence, cigarettes, uncomplicated; Z79.899 Other long term (current) drug therapy
CPT/HCPCS: 96372; 99283

== ENCOUNTER 2021-08-08 11:41 | Emergency (ER) | payer MEDICAID, SELFPAY ==
[2021-08-08] VITALS (9 sets, daily range): BP systolic 121–142; BP diastolic 50–88; PULSE 86–98; RESP 15–16; TEMP 37.1; O2SAT 90–98; BMI 35.5
--- NOTE | 2021-08-08 12:15 | HMH.EDGENADL ---
ED Disposition Clinical Impression: Nausea, Dizziness Urinary tract infection Qualifiers: Urinary tract infection type: acute cystitis Hematuria presence: without hematuria Qualified Code(s): N30.00 - Acute cystitis without hematuria Disposition: Home, Self-Care Condition on Discharge: Good Instructions: DI for Nausea -- Adult, DI for Urinary Tract Infection (UTI) Additional Instructions: Omnicef as prescribed. Phenergan as needed for nausea. Continue meclizine as needed for dizziness. Follow-up with your primary care provider this week, call tomorrow for appointment. Additional instructions for URINARY TRACT INFECTION: Take antibiotic as prescribed. See your physician in 2-3 days for follow up and culture results. Return immediately if you have an uncontrollable fever greater than 102 degrees, severe back or abdominal pain, inability to urinate, or repetitive vomiting. Prescriptions: Cefdinir [Omnicef 300mg Capsule] 300 mg PO BID #20 cap Transmission Status: Pending to [facility] Referrals: Ced Corbett MD [Primary Care Provider] - - Critical Care Critical Care Time: No Attestation: On 08/08/21, the high probability of a clinically significant, sudden or life threatening deterioration of the following system(s) required my full and direct attention, intervention and personal management. The time I documented below is in addition to time spent performing reported procedures but includes the following listed in this critical care notation. Medical Decision Making - Gregory Inquiry Pt receiving controlled substance: No Vital Signs: 08/08/21 11:42 08/08/21 11:50 08/08/21 12:00 Temperature 98.7 F Temperature Source Oral Pulse Rate 89 86 Pulse Rate [Radial] 92 H Respiratory Rate 16 Blood Pressure 121/50 L 122/51 L Blood Pressure [Right Arm] 121/56 L Blood Pressure Mean 102 87 Blood Pressure Mean [Right Arm] 77 Blood Pressure Position [Right Arm] Sitting 02 Sat by Pulse Oximetry 98 96 96 08/08/21 12:30 08/08/21 13:00 08/08/21 13:30 Temperature Temperature Source Pulse Rate 92 H 92 H 89 Pulse Rate [Radial] Respiratory Rate Blood Pressure 121/68 123/63 123/79 Blood Pressure [Right Arm] Blood Pressure Mean 94 85 93 Blood Pressure Mean [Right Arm] Blood Pressure Position [Right Arm] 02 Sat by Pulse Oximetry 93 L 90 L 94 L - Lab Data Lab Results 08/08/21 12:14: Urine Color Yellow, Urine Appearance Clear, Urine pH 7.5, Ur Specific [place] 1.015, Urine Protein Negative, Urine Glucose (UA) Negative, Urine Ketones Negative, Urine Blood 1+, Urine Nitrate Negative, Urine Bilirubin Negative, Urine Urobilinogen 0.2, Ur Leukocyte Esterase 3+ A, Urine RBC Occasional, Urine WBC 50-100, Ur Squamous Epith Cells 3-5, Urine Bacteria Trace 08/08/21 12:45: WBC 11.1 H, RBC 4.93, Hgb 13.9, Hct 43.7, MCV 88.5, MCH 28.2, MCHC 31.8, RDW 15.2, Plt Count 373, MPV 7.4, Neut % (Auto) 84.9 H, Lymph % (Auto) 9.4 L, [place] % (Auto) 3.7, Eos % (Auto) 1.4, Baso % (Auto) 0.7, Neut # (Auto) 9.4 H, Lymph # (Auto) 1.1, [place] # (Auto) 0.4, Eos # (Auto) 0.2, Baso # (Auto) 0.1 08/08/21 12:45: Sodium 136, Potassium 4.1, Chloride 101, Carbon Dioxide 33 H, Anion Gap 6.1, BUN 5 L, Creatinine 0.50 L, Estimated Creat Clear 177, Estimated GFR 133, Est GFR ( Amer) 161, Glucose 148 H, Calcium 8.0 L, Total Bilirubin 0.3, AST 20, ALT 15, Alkaline Phosphatase 125, Troponin I < 0.01, Total Protein 6.6, Albumin 3.7, Globulin 2.9, Albumin/Globulin Ratio 1.3 08/08/21 15:13: Troponin I < 0.01 Result diagrams: 08/08/21 12:45 08/08/21 12:45 Orders (Tests/Meds): ED MEDICATIONS Generic Name Dose Route Start Last Admin Trade Name Freq PRN Reason Stop Dose Admin Ceftriaxone Sodium 1 gm/ 50 mls @ 100 mls/hr 08/08/21 16:00 08/08/21 16:15 Sodium Chloride IV 08/22/21 15:59 100 mls/hr Q24H DOUGLAS Administration Sodium Chloride 10 ml 08/08/21 12:15 Sodium Chloride 0.9% 10ml
--- NOTE | 2021-08-08 12:57 | ECG_ITS ---
APPROVED REPORT Exam: Resting ECG HR:93 bpm ECG Measurements Heart Rate 93 AXES MO 159 P 69 QRSd 81 QRS 87 QT 352 T 72 QTc 403 Conclusion SINUS RHYTHM NORMAL ECG UNCONFIRMED REPORT Electronically signed by : Max Alvarez MD 08/09/2021 19:46:41
[2021-08-08 13:10] LABS: Basophils # 0.1 K/mm3 (0-0.2); Basophils % 0.7 % (0.1-2.0); Chloride 101 mmol/L (98-107); Eosinophils # 0.2 K/mm3 (0.0-0.4); Eosinophils % 1.4 % (0.1-12.0); Hematocrit 43.7 % (37.0-47.0); Hemoglobin 13.9 g/dL (12.2-16.2); Lymphocytes # 1.1 K/mm3 (0.7-4.5); Lymphocytes % 9.4 % (10-50); Mean Corpuscular HGB Conc 31.8 g/dL (31.8-35.4); Mean Corpuscular Hemoglobin 28.2 pg (27.0-31.2); Mean Corpuscular Volume 88.5 fl (81-99); Mean Platelet Volume 7.4 fl (7.4-10.4); Monocytes # 0.4 K/mm3 (0.1-1.0); Monocytes % 3.7 % (1.7-9.3); Neutrophils # 9.4 K/mm3 (1.8-7.8); Neutrophils % 84.9 % (37.0-80.0); Platelet Count 373 K/mm3 (142-424); Potassium 4.1 mmoL/L (3.5-5.1); Red Blood Count 4.93 M/mm3 (4.20-5.40); Red Cell Distribution Width 15.2 % (11.5-17.5); Sodium 136 mmol/L (136-145); White Blood Count 11.1 K/mm3 (4.8-10.8)
[2021-08-08 13:12] LABS: Blood Urea Nitrogen 5 mg/dl (7-17); Creatinine Clearance Estimated 177 mL/min (50-200); Estimated Glomerular Filt Rate 133 ml/min (>60); GFR (African American) 161 ML/MIN (>60)
[2021-08-08 13:13] LABS: Alanine Aminotransferase 15 U/L (12-78); Albumin Level 3.7 g/dl (3.5-5.0); Albumin/Globulin Ratio 1.3 (1.1-1.8); Alkaline Phosphatase 125 U/L (38-126); Anion Gap 6.1 mEq/L (5-15); Aspartate Amino Transferase 20 U/L (14-36); Bilirubin,Total 0.3 mg/dl (0.2-1.3); Carbon Dioxide 33 mmol/L (22.0-30.0); Globulin 2.9 g/dL (1.3-3.2); Glucose 148 mg/dl (74-100); Total Protein,Serum 6.6 g/dl (6.3-8.2)
--- NOTE | 2021-08-08 13:17 | PC.NURSE ---
PT'S O2 SAT 88% RA. PT WEARS O2 2L PRN. O2 NC PLACED AT 2L O2 SATS 94%
--- NOTE | 2021-08-08 13:20 | PC.NURSE ---
Pt was @84spo2. pt her on 2L and went to 95spo2
[2021-08-08 13:29] LABS: Troponin I < 0.01 ng/ml (0.00-0.034)
[2021-08-08 14:15] LABS: Microscopic, Urine URINE MICROSCOPIC (MICROSCOPIC)
--- NOTE | 2021-08-08 14:45 | PC.NURSE ---
PT in room with at bedside
[2021-08-08 14:53] LABS: Appearance,Urine CLEAR (Clear); Bilirubin,Urine Negative (Negative); Blood, Urine 1+ (Negative); Color,Urine YELLOW (Yellow); Glucose,Urine (UA) Negative (Negative); Ketones,Urine Negative (Negative); Leukocyte Esterase,Urine 3+ (Negative); Nitrate,Urine Negative (Negative); PH,Urine 7.5 (5.0-8.5); Protein,Urine Negative (Negative); Specific Gravity, Urine 1.015 (1.005-1.030); Urobilinogen,Urine 0.2 EU/dl (0.2)
[2021-08-08 15:51] LABS: Bacteria,Urine Trace /lpf; RBC,Urine Occasional #/hpf (0-3); WBC,Urine 50-100 #/hpf (0-3)
[2021-08-08 16:07] LABS: Troponin I < 0.01 ng/ml (0.00-0.034)
== END 2021-08-08 16:50 | disposition home or self-care (01) ==
PROVIDERS: Emergency Provider Emergency Medicine; PCP Family Medicine
DX: N30.00 Acute cystitis without hematuria (principal); M79.671 Pain in right foot; I10 Essential (primary) hypertension; E78.5 Hyperlipidemia, unspecified; E03.9 Hypothyroidism, unspecified; F17.210 Nicotine dependence, cigarettes, uncomplicated; Z79.899 Other long term (current) drug therapy
CPT/HCPCS: 36415; 80053; 81001; 84484; 85025; 87086; 87088; 87186; 93005; 96365; 96375; 99284; J0696; J2405

== ENCOUNTER → 2021-08-09 16:00 | Outpatient (CLI) | payer MEDICAID, SELFPAY | PROVIDERS: Visit Provider Family Medicine | DX: R39.9 Unspecified symptoms and signs involving the genitourinary system (principal) | CPT/HCPCS: 87086 ==

== ENCOUNTER → 2021-08-20 13:35 | Outpatient (CLI) | payer MEDICAID, SELFPAY ==
--- NOTE | 2021-08-20 13:40 | XR_ITS ---
FINAL REPORT CLINICAL HISTORY: right foot pain FINDINGS: RIGHT FOOT Three views demonstrate no acute fracture or dislocation. Postoperative changes are present. There is chronic deformity of the midfoot. There is medial subluxation of the navicular and medial cuneiform. Multiple screws and screw plates are seen in the 1st, 2nd, and 3rd tarsal metatarsal joints. The screw plate in the 3rd tarsal metatarsal is broken. A plantar calcaneal spur is identified. There is chronic flattening of the 2nd and 3rd metatarsal heads, may represent chronic osteonecrosis. IMPRESSION: Postoperative changes with a broken screw in the 3rd tarsal metatarsal. Chronic flattening of the 2nd and 3rd metatarsal heads, may represent chronic osteonecrosis. Reviewed, Interpreted and Dictated by Ken Osorio III, MD Transcribed by Haleigh Walden Authenticated by Ken Osorio III, MD on 08/20/2021 02:54:55 PM [facility]
== END ==
PROVIDERS: PCP Family Medicine; Visit Provider Orthopaedic Surgery
DX: M79.671 Pain in right foot (principal)
CPT/HCPCS: 73630

== ENCOUNTER 2021-08-21 21:58 | Emergency (ER) | payer MEDICAID, SELFPAY ==
[2021-08-21 21:59] VITALS: BP 138/74; PULSE 90; RESP 18; TEMP 37.3; O2SAT 95; BMI 35.5
--- NOTE | 2021-08-21 23:02 | HMH.EDGENADL ---
ED Disposition Clinical Impression: Chronic pain Qualifiers: Chronic pain type: due to trauma Qualified Code(s): G89.21 - Chronic pain due to trauma Disposition: Home, Self-Care Condition on Discharge: Good Additional Instructions: Follow up with Dr. Weldon for a refill of your pain medicine. Referrals: Crow Weldon MD [Primary Care Provider] - - Critical Care Critical Care Time: No Attestation: On 08/21/21, the high probability of a clinically significant, sudden or life threatening deterioration of the following system(s) required my full and direct attention, intervention and personal management. The time I documented below is in addition to time spent performing reported procedures but includes the following listed in this critical care notation. Medical Decision Making - Gregory Inquiry Pt receiving controlled substance: No Vital Signs: 08/21/21 21:59 Temperature 99.1 F Temperature Source Oral Pulse Rate [Right] 90 Respiratory Rate 18 Blood Pressure [Right Arm] 138/74 Blood Pressure Mean [Right Arm] 95 02 Sat by Pulse Oximetry 95 Orders (Tests/Meds): ED MEDICATIONS Discontinued Medications Generic Name Dose Route Start Last Admin Trade Name Enrike PRN Reason Stop Dose Admin Hydrocodone Bitart/Acetaminophen 1 tab 08/21/21 22:51 08/21/21 22:55 Apap/Hydrocodone 325mg/7.5mg Tab PO 08/21/21 22:52 1 tab ONCE ONE Administration Ketorolac Tromethamine 60 mg 08/21/21 22:51 08/21/21 22:56 Ketorolac 60mg/2ml Vial IM 08/21/21 22:52 60 mg ONCE ONE Administration Medical Decision Narrative: The patient is a 45 year old female who presents with acute on chronic foot pain after she ran out of her home [employer]. No new injury. No obvious trauma. No need for imaging. She was given her home 7.5 mg norco as well as 60 mg IM toradol. Patient was discharged home with PCP follow up. General Adult HPI - General Chief complaint: PAIN Stated complaint: foot injury in pain Time Seen by Provider: 08/21/21 23:00 Mode of Arrival: Wheelchair Limitations: No Limitations Description of Symptoms (Recalled from ER Triage Doc. by RN): pt c/o rt foot pain and pt states out of [employer] until . pt denies any new accident - History of Present Illness HPI narrative: The patient is a 45 year old female with a history of chronic foot pain and CAD s/p PCI who presents to the ED with right foot pain. The patient states she is out of her norco and is having worsening of her R foot pain. She says she has an appointment with ortho in a month. She denies any new injury. She says she has tried over the counter meds and lidocaine patches and it doesn't work. She says she usually gets a shot when she comes in which helps and requests this. - Related Data Home Medications Medication Instructions Recorded Confirmed Sertraline HCl [Zoloft] 300 mg PO DAILY 07/02/19 08/20/21 Cetirizine HCl 10 mg PO DAILY 04/22/21 08/20/21 Metoprolol Succinate [Metoprolol 25 mg PO DAILY 04/22/21 08/20/21 Succinate 25mg Tablet*] lisinopriL [Lisinopril] 20 mg PO DAILY 04/22/21 08/20/21 Levothyroxine Sodium [Synthroid 50 mcg PO DAILY 05/28/21 08/20/21 50mcg (0.05mg) tab] Metformin HCl [Metformin 1000mg 1,000 mg PO BIDWMEAL 05/28/21 08/20/21 Tablets] Blood Sugar Diagnostic [Assure See Rx Instructions .ROUTE BID 08/03/21 08/20/21 [place] Test Strip] Blood-Glucose Meter [Blood Glucose See Rx Instructions .ROUTE BID 08/03/21 08/20/21 Meter] Previous Rx's Medication Instructions Recorded atorvastatin 40 mg tablet 40 mg PO DAILY #90 tab 05/05/21 folic acid 1 mg tablet 1 mg PO DAILY #90 tab 05/05/21 magnesium oxide 250 mg PO DAILY #90 tab 05/05/21 omeprazole 20 mg capsule,delayed 20 mg PO DAILY #90 cap 05/05/21 release clopidogrel 75 mg tablet 75 mg PO DAILY #90 tab 05/19/21 furosemide 20 mg tablet 40 mg PO DAILY #60 tab 05/24/21 doxepin 50 mg capsule 50 - 100 mg PO HS #180 cap 06/08/21 ol
[2021-08-21 23:06] VITALS: BP 138/66; PULSE 90; RESP 18; TEMP 36.7; O2SAT 98
== END 2021-08-21 23:08 | disposition home or self-care (01) ==
PROVIDERS: Emergency Provider Emergency Medicine; PCP Emergency Medicine
DX: M79.671 Pain in right foot (principal); G89.21 Chronic pain due to trauma; I10 Essential (primary) hypertension; E78.5 Hyperlipidemia, unspecified; E11.9 Type 2 diabetes mellitus without complications; E03.9 Hypothyroidism, unspecified; F41.9 Anxiety disorder, unspecified; F17.210 Nicotine dependence, cigarettes, uncomplicated; Z79.02 Long term (current) use of antithrombotics/antiplatelets; Z79.51 Long term (current) use of inhaled steroids; Z79.84 Long term (current) use of oral hypoglycemic drugs; Z79.899 Other long term (current) drug therapy; Z88.2 Allergy status to sulfonamides; Z88.6 Allergy status to analgesic agent; Z88.8 Allergy status to other drugs, medicaments and biological substances
CPT/HCPCS: 99284

== ENCOUNTER 2021-08-25 15:31 | Emergency (ER) | payer MEDICAID, SELFPAY ==
[2021-08-25 16:20] VITALS: BP 126/56; PULSE 85; RESP 17; TEMP 36.9; O2SAT 95; BMI 35.5
[2021-08-25 16:30] VITALS: BP 115/55
--- NOTE | 2021-08-25 16:58 | HMH.EDGENADL ---
ED Disposition Clinical Impression: Chronic foot pain Qualifiers: Laterality: right Qualified Code(s): M79.671 - Pain in right foot Disposition: Home, Self-Care Condition on Discharge: Good Additional Instructions: See your primary care provider tomorrow for further pain management. Referrals: Crow Weldon MD [Primary Care Provider] - - Critical Care Critical Care Time: No Attestation: On 08/25/21, the high probability of a clinically significant, sudden or life threatening deterioration of the following system(s) required my full and direct attention, intervention and personal management. The time I documented below is in addition to time spent performing reported procedures but includes the following listed in this critical care notation. Medical Decision Making - Gregory Inquiry Pt receiving controlled substance: Yes Gregory was queried for this patient: Yes Risks and benefits of using a controlled substance: were discussed with pt by me Vital Signs: 08/25/21 16:20 08/25/21 16:30 Temperature 98.4 F Temperature Source Oral Pulse Rate [Left Radial] 85 Respiratory Rate 17 Blood Pressure 115/55 L Blood Pressure [Right Arm] 126/56 L Blood Pressure Mean 88 Blood Pressure Mean [Right Arm] 79 02 Sat by Pulse Oximetry 95 Oxygen Delivery Method Room Air Orders (Tests/Meds): ED MEDICATIONS Discontinued Medications Generic Name Dose Route Start Last Admin Trade Name Freq PRN Reason Stop Dose Admin Hydrocodone Bitart/Acetaminophen 1 tab 08/25/21 17:05 08/25/21 17:20 Apap/Hydrocodone 325mg/7.5mg Tab PO 08/25/21 17:06 1 tab ONCE ONE Administration Ketorolac Tromethamine 60 mg 08/25/21 17:04 08/25/21 17:19 Ketorolac 60mg/2ml Vial IM 08/25/21 17:05 60 mg ONCE ONE Administration General Adult HPI - General Chief complaint: PAIN Stated complaint: R foot pain Time Seen by Provider: 08/25/21 16:59 Mode of Arrival: Ambulatory Limitations: No Limitations Description of Symptoms (Recalled from ER Triage Doc. by RN): pt to ed c/o right foot pain. pt states she has chronic foot pain and is supposed to see her pcp tomorrow but is out of her pain pills and is hurting. pt states pcp stated they would fill script tomorrow after visit but she cant wait. - History of Present Illness HPI narrative: The patient is known to me from previous emergency department visits. She has chronic pain in her right foot, Charcot foot and disruption of previous orthopedic hardware. She sees her primary care provider for pain management. She recurrently runs out of pain medication. She says that she is currently again out of her pain medication, has an appointment to see her primary care provider tomorrow, and states that they would not call her in a prescription. She requests a pain pill to get her through. No new injuries. No new symptoms. - Related Data Home Medications Medication Instructions Recorded Confirmed Sertraline HCl [Zoloft] 300 mg PO DAILY 07/02/19 08/20/21 Cetirizine HCl 10 mg PO DAILY 04/22/21 08/20/21 Metoprolol Succinate [Metoprolol 25 mg PO DAILY 04/22/21 08/20/21 Succinate 25mg Tablet*] lisinopriL [Lisinopril] 20 mg PO DAILY 04/22/21 08/20/21 Levothyroxine Sodium [Synthroid 50 mcg PO DAILY 05/28/21 08/20/21 50mcg (0.05mg) tab] Metformin HCl [Metformin 1000mg 1,000 mg PO BIDWMEAL 05/28/21 08/20/21 Tablets] Blood Sugar Diagnostic [Assure See Rx Instructions .ROUTE BID 08/03/21 08/20/21 [place] Test Strip] Blood-Glucose Meter [Blood Glucose See Rx Instructions .ROUTE BID 08/03/21 08/20/21 Meter] Previous Rx's Medication Instructions Recorded atorvastatin 40 mg tablet 40 mg PO DAILY #90 tab 05/05/21 folic acid 1 mg tablet 1 mg PO DAILY #90 tab 05/05/21 magnesium oxide 250 mg PO DAILY #90 tab 05/05/21 omeprazole 20 mg capsule,delayed 20 mg PO DAILY #90 cap 05/05/21 release clopidogrel 75 mg tablet 75 mg PO DAILY #90 tab 05/19/21
[2021-08-25 17:36] VITALS: BP 115/55; PULSE 85; RESP 17; TEMP 36.9; O2SAT 95
== END 2021-08-25 17:37 | disposition home or self-care (01) ==
PROVIDERS: Emergency Provider Emergency Medicine; PCP Emergency Medicine
DX: M79.671 Pain in right foot (principal); J44.9 Chronic obstructive pulmonary disease, unspecified; E78.5 Hyperlipidemia, unspecified; I10 Essential (primary) hypertension; E03.9 Hypothyroidism, unspecified; E11.9 Type 2 diabetes mellitus without complications; F17.210 Nicotine dependence, cigarettes, uncomplicated; F41.9 Anxiety disorder, unspecified
CPT/HCPCS: 96372; 99283

== ENCOUNTER 2021-09-01 06:18 | Inpatient (IN) | payer MEDICAID, SELFPAY ==
[2021-09-01] VITALS (19 sets, daily range): BP systolic 91–149; BP diastolic 50–81; PULSE 64–127; RESP 2–27; TEMP 36.6–37.2; O2SAT 90–100; BMI 34.3; BMI 35.9
--- NOTE | 2021-09-01 | ECG_ITS ---
APPROVED REPORT Exam: Resting ECG HR:109 bpm ECG Measurements Heart Rate 109 AXES GA 159 P 55 QRSd 81 QRS 79 QT 333 T 47 QTc 397 Conclusion SINUS TACHYCARDIA LOW QRS VOLTAGE IN PRECORDIAL LEADS [QRS DEFLECTION < 1.0 mV IN CHEST LEADS] ABNORMAL RHYTHM ECG UNCONFIRMED REPORT Electronically signed by : Max Alvarez MD 09/01/2021 10:10:49
--- NOTE | 2021-09-01 06:21 | XR_ITS ---
PROCEDURE INFORMATION: Exam: XR Chest Exam date and time: 09/01/2021 6:25 AM Age: 45 years old Clinical indication: Condition or disease; Other: Seizures TECHNIQUE: Imaging protocol: XR of the chest. Views: 1 view. COMPARISON: CR XR CHEST PORTABLE 08/04/2021 7:21 AM FINDINGS: Lungs: No focal airspace disease. Pleural spaces: Unremarkable. No pleural effusion. No pneumothorax. Heart/Mediastinum: Cardiomediastinal silhouette is within normal limits. Bones/joints: Unremarkable. IMPRESSION: No acute cardiopulmonary abnormality.
[2021-09-01 06:25] LABS: ABG Base Excess -1.1 mmol/L (-2.4-2.3); ABG HCO3 25.7 mmhg (22.0-26.0); ABG Oxygen Saturation 91 % (90-100); ABG PH 7.28 mmol/L (7.35-7.45); ABG PO2 60.7 mmhg (80-100); ABG TCO2 27.4 mmhg (23-27)
[2021-09-01 06:29] LABS: Allen's Test Acceptable; Oxygen 4 LPM %; Source Left Radial
--- NOTE | 2021-09-01 06:29 | PC.NURSE ---
PT PLACED IN FULL SEIZURE PRECAUTIONS UPON ARRIVAL TO ED.
[2021-09-01 06:30] LABS: ABG PCO2 56.6 mmhg (35.0-45.0)
[2021-09-01 06:46] LABS: Basophils # 0.1 K/mm3 (0-0.2); Basophils % 0.8 % (0.1-2.0); Eosinophils # 0.2 K/mm3 (0.0-0.4); Eosinophils % 1.6 % (0.1-12.0); Hematocrit 40.7 % (37.0-47.0); Hemoglobin 12.5 g/dL (12.2-16.2); Lymphocytes # 1.3 K/mm3 (0.7-4.5); Mean Corpuscular HGB Conc 30.7 g/dL (31.8-35.4); Mean Corpuscular Hemoglobin 27.8 pg (27.0-31.2); Mean Corpuscular Volume 90.6 fl (81-99); Monocytes # 0.4 K/mm3 (0.1-1.0); Monocytes % 3.7 % (1.7-9.3); Neutrophils # 8.3 K/mm3 (1.8-7.8); Platelet Count 333 K/mm3 (142-424); Red Blood Count 4.49 M/mm3 (4.20-5.40); Red Cell Distribution Width 16.5 % (11.5-17.5); White Blood Count 10.3 K/mm3 (4.8-10.8)
--- NOTE | 2021-09-01 06:50 | PC.NURSE ---
IN/OUT CATH PERFORMED USING STERILE TECHNIQUE WITH PROPER HAND HYGINE. URINE SPECIMEN OBTAINED. 500 ML CLEAR YELLOW URINE DRAINED FROM BLADDER. PT TOLERATED WELL. NO ACUTE DISTRESS NOTED. SEIZURE PRECAUTIONS IN PLACE.
[2021-09-01 06:51] LABS: Coronavirus 19, PCR Not Detected (NotDetected); Influenza A, PCR Not Detected (NotDetected); Influenza B, PCR Not Detected (NotDetected); Microscopic, Urine URINE MICROSCOPIC (MICROSCOPIC)
[2021-09-01 06:52] LABS: Magnesium 1.7 mg/dl (1.6-2.3)
[2021-09-01 06:54] LABS: Appearance,Urine CLEAR (Clear); Bilirubin,Urine Negative (Negative); Blood, Urine Negative (Negative); Color,Urine YELLOW (Yellow); Glucose,Urine (UA) Negative (Negative); Ketones,Urine Negative (Negative); Leukocyte Esterase,Urine Negative (Negative); Nitrate,Urine Negative (Negative); Protein,Urine Negative (Negative); Specific Gravity, Urine <= 1.005 (1.005-1.030); Urobilinogen,Urine 0.2 EU/dl (0.2)
[2021-09-01 06:57] LABS: C-Reactive Protein 39.2 mg/L (0-4)
[2021-09-01 07:00] LABS: Lactic Acid 3.1 mmol/L (0.7-2.1)
[2021-09-01 07:03] LABS: NT Pro Brain Natriuretic Pep. 108 pg/mL (0-125)
[2021-09-01 07:11] LABS: T4 (Thyroxine) 6.2 ug/dl (5.53-11.0)
--- NOTE | 2021-09-01 07:18 | PC.NURSE ---
notified bathhouse attendant of admission, spoke with Aydee. States pt will be boarding in ER until a bed is available.
[2021-09-01 07:24] LABS: Thyroid Stimulating Hormone 1.45 uIU/mL (0.465-4.68)
[2021-09-01 07:25] LABS: Erythrocyte Sedimentation Rate 13 mm/hr (0-20); Troponin I < 0.01 ng/ml (0.00-0.034)
--- NOTE | 2021-09-01 07:38 | HMH.EDSEIZ ---
ED Disposition Clinical Impression: Generalized seizure, Obesity (BMI 30-39.9) COPD (chronic obstructive pulmonary disease) Qualifiers: COPD type: unspecified COPD Qualified Code(s): J44.9 - Chronic obstructive pulmonary disease, unspecified Respiratory failure with hypercapnia Qualifiers: Chronicity: acute on chronic Qualified Code(s): J96.22 - Acute and chronic respiratory failure with hypercapnia Disposition: Admitted As Inpatient Condition on Discharge: Fair - Critical Care Critical Care Time: No Attestation: On 09/01/21, the high probability of a clinically significant, sudden or life threatening deterioration of the following system(s) required my full and direct attention, intervention and personal management. The time I documented below is in addition to time spent performing reported procedures but includes the following listed in this critical care notation. Medical Decision Making - Medical Records Medical records reviewed: Yes: I reviewed the patient's medical records. - Gregory Inquiry Pt receiving controlled substance: No Vital Signs: 09/01/21 06:11 09/01/21 06:50 Temperature 98.9 F Temperature Source Oral Pulse Rate [Left Radial] 118 H Respiratory Rate 18 Blood Pressure [Right Arm] 142/81 H Blood Pressure Mean [Right Arm] 101 02 Sat by Pulse Oximetry 94 L 95 Oxygen Delivery Method Nasal Cannula BiPAP Oxygen Flow Rate (LPM) 4 - Lab Data Lab results reviewed: Yes: I reviewed the patient's lab results. Lab Results 09/01/21 06:20: SARS-CoV-2 (PCR) Not detected, Influenza A Untype (PCR) Not detected, Influenza Type B (PCR) Not detected 09/01/21 06:20: Urine Color Yellow, Urine Appearance Clear, Urine pH 6.0, Ur Specific [place] <= 1.005, Urine Protein Negative, Urine Glucose (UA) Negative, Urine Ketones Negative, Urine Blood Negative, Urine Nitrate Negative, Urine Bilirubin Negative, Urine Urobilinogen 0.2, Ur Leukocyte Esterase Negative, Urine RBC None, Urine WBC 3-5, Ur Squamous Epith Cells 3-5, Urine Bacteria None 09/01/21 06:26: ESR 13 09/01/21 06:26: Troponin I < 0.01, C-Reactive Protein 39.2 H, TSH 1.45, Thyroxine (T4) 6.2 09/01/21 06:26: WBC 10.3, RBC 4.49, Hgb 12.5, Hct 40.7, MCV 90.6, MCH 27.8, MCHC 30.7 L, RDW 16.5, Plt Count 333, MPV 8.0, Neut % (Auto) 81.0 H, Lymph % (Auto) 13.0, [place] % (Auto) 3.7, Eos % (Auto) 1.6, Baso % (Auto) 0.8, Neut # (Auto) 8.3 H, Lymph # (Auto) 1.3, [place] # (Auto) 0.4, Eos # (Auto) 0.2, Baso # (Auto) 0.1 09/01/21 06:26: Lactate 3.1 H 09/01/21 06:26: Magnesium 1.7, NT-Pro-B Natriuret Pep 108 09/01/21 06:27: Specimen Source Left radial, O2 % 4 lpm, ABG pH 7.28 L, ABG pCO2 56.6 H, ABG pO2 60.7 L, ABG HCO3 25.7, ABG Total CO2 27.4 H, ABG O2 Saturation 91, ABG Base Excess -1.1, Idris Test Acceptable Result diagrams: 09/01/21 06:26 Orders (Tests/Meds): ORDERS Category Date Time Status Chest XR -- portable [XR chest portable] Stat Exams 09/01/21 06:21 Taken C-Reactive Protein Stat Lab 09/01/21 06:26 Results Procalcitonin Stat Lab 09/01/21 06:26 Results T4 (Thyroxine) Stat Lab 09/01/21 06:26 Results Thyroid Stimulating Hormone Stat Lab 09/01/21 06:26 Results Troponin I Q3H Lab 09/01/21 09:45 Ordered Troponin I Q3H Lab 09/01/21 12:45 Ordered Troponin I Stat Lab 09/01/21 06:26 Results Blood Culture Stat Micro 09/01/21 06:26 Received - Radiology Data #1 Image(s): Chest Image Reviewed: Yes I reviewed the patient's radiology image Preliminary Findings: Abnormal - ECG Data Tracing #1 Normal Sinus Rhythm: Yes Ischemic changes: non-specific ST-T wave changes Medical Decision Narrative: pt will need to be admitted for resp failure and sz at this time Seizures HPI - General Chief Complaint: Seizure Stated Complaint: seizures Time Seen by Provider: 09/01/21 06:30 Mode of Arrival: EMS Source of Information: Patient, EMS, Medical Record Limitations: No Limitations Description of Symptoms (Recalled from ER Triage Doc.
--- NOTE | 2021-09-01 07:51 | PC.NURSE ---
notified lab of add of labs, spoke with Priscilla
[2021-09-01 07:58] LABS: Chloride 104 mmol/L (98-107); Sodium 137 mmol/L (136-145)
[2021-09-01 07:59] LABS: Potassium 3.2 mmoL/L (3.5-5.1)
[2021-09-01 08:01] LABS: Alanine Aminotransferase 20 U/L (12-78); Albumin Level 3.5 g/dl (3.5-5.0); Albumin/Globulin Ratio 1.3 (1.1-1.8); Alkaline Phosphatase 131 U/L (38-126); Anion Gap 10.2 mEq/L (5-15); Aspartate Amino Transferase 33 U/L (14-36); Bilirubin,Total 0.3 mg/dl (0.2-1.3); Blood Urea Nitrogen 3 mg/dl (7-17); Carbon Dioxide 26 mmol/L (22.0-30.0); Creatinine Clearance Estimated 143 mL/min (50-200); Estimated Glomerular Filt Rate 108 ml/min (>60); GFR (African American) 130 ML/MIN (>60); Globulin 2.6 g/dL (1.3-3.2); Total Protein,Serum 6.1 g/dl (6.3-8.2)
[2021-09-01 08:02] LABS: Calcium 7.4 mg/dl (8.4-10.2); Glucose 215 mg/dl (74-100)
[2021-09-01 08:47] LABS: Procalcitonin 0.079 ng/mL (0.0-2.0)
--- NOTE | 2021-09-01 08:55 | HMH.HP ---
*Admission Date: 09/01/21 *Chief complaint: seizure *History of present illness: 45 yr old female presented to er via ambulance due to seizure. Per ED record,EMS she had two seizures en route and needed respiratory support after second seizure.per ed record upon arrival pt was able to answer questions. Pt was alert and oriented when assessment and was on bypap. at bedside. Pt will be admitted for monitoring and resp support as needed. [facility] History I have reviewed the patient's past medical history: Yes Medical History: Reports:: Anxiety, Chronic Obstructive Pulmonary Disease (COPD), Diabetes Mellitus Type 2, Hyperlipidemia, Hypertension Denies:: Cancer, Diabetes Mellitus Type 1, Internal Pacemaker, MRSA *Have you ever received a pneumonia vaccine?: No *Have you received a flu vaccine this season?: No Other Medical History: Reports: Hypothyroidism, Thyroid Disease, Other Other Surgeries: Yes: Tubal Ligation. No: Pacemaker Amputation: No Fractures: No - *Social History Smoking Status: Current every day smoker Tobacco Type: cigarettes # Packs/Day (cigarettes): 1 Alcohol Intake: never Alcohol Intake Frequency:: 0-2 drinks per day Substance Use Type: denies use *Occupational Status:: unemployed Housing: house Household Members: spouse, children *Travel in the last 8 weeks: None - Psychiatric History Pschychiatric History:: Reports:: Anxiety Family Hx:: No significant family history Review of Systems - Review of Systems Review of systems:: pertinent systems reviewed and negative unless documented below - Constitutional Denies body ache(s), Denies fatigue, Denies weight gain - Eyes Denies blurry vision - ENT Denies bleeding gums, Denies dizziness, Denies headache(s) - *Cardiovascular Denies chest pain at rest - *Respiratory Reports shortness of breath, Reports shortness of breath with activity, Denies chest congestion - *Gastrointestinal Denies abdominal pain - *Genitourinary Denies urinary urgency - *Musculoskeletal Denies abnormal walking, Denies body aches - Integumentary/Breasts Denies rash - *Neurologic Reports seizure-like activity, Denies abnormal hearing, Denies localized weakness - Psychiatric Denies lack of enjoyment - Endocrine Denies excessive sweating - Hematologic/Lymphatic Denies easy bruising - Allergic/Immunologic Denies itchy eyes Meds Home Medications Medication Instructions Recorded Confirmed Type Sertraline HCl [Zoloft] 300 mg PO DAILY 07/02/19 08/26/21 History Cetirizine HCl 10 mg PO DAILY 04/22/21 08/26/21 History Metoprolol Succinate [Metoprolol 25 mg PO DAILY 04/22/21 08/26/21 History Succinate 25mg Tablet*] lisinopriL [Lisinopril] 20 mg PO DAILY 04/22/21 08/26/21 History atorvastatin 40 mg tablet 40 mg PO DAILY #90 tab 05/05/21 08/26/21 Rx folic acid 1 mg tablet 1 mg PO DAILY #90 tab 05/05/21 08/26/21 Rx magnesium oxide 250 mg PO DAILY #90 tab 05/05/21 08/26/21 Rx omeprazole 20 mg capsule,delayed 20 mg PO DAILY #90 cap 05/05/21 08/26/21 Rx release Metformin HCl [Metformin 1000mg 1,000 mg PO BIDWMEAL 05/28/21 08/26/21 History Tablets] doxepin 50 mg capsule 50 - 100 mg PO HS #180 cap 06/08/21 08/26/21 Rx olanzapine 20 mg tablet 20 mg PO DAILY #90 tab 06/14/21 08/26/21 Rx fluticasone propionate 50 1 spray INTRANASAL DAILY #16 g 06/17/21 08/26/21 Rx mcg/actuation nasal spray,suspension buspirone 15 mg tablet 15 mg PO TID #90 tab 06/28/21 08/26/21 Rx Meclizine HCl [Antivert 25mg 25 mg PO TIDP PRN #10 tab 07/24/21 08/26/21 Rx tablet] potassium chloride 20 mEq See Rx Instructions PO DAILY #90 07/26/21 08/26/21 Rx tablet,extended release(part/cryst) tab gabapentin 800 mg tablet 800 mg PO TID PRN #90 tab 08/02/21 08/26/21 Rx Blood Sugar Diagnostic [Assure See Rx Instructions .ROUTE BID 08/03/21 08/26/21 History [place] Test Strip] Blood-Glucose Meter [Blood Glucose See Rx Instructions .ROUTE BID 08/03/21 08/26/21 History Meter] l
--- NOTE | 2021-09-01 09:48 | PC.NURSE ---
pt had removed bipap, bipap was alarming, entered room pt was asleep on her side, at BS. Pt easily woken up, bipap placed back on pt. Told pt we are waiting for a bed availability on second floor, pt and verbalized understanding. will continue to monitor
--- NOTE | 2021-09-01 09:50 | PC.NURSE ---
Lab notified me stating the patient wanted to taker her BIPAP mask off; Consuelo Bose RN aware and RT was called
[2021-09-01 10:24] LABS: Troponin I < 0.01 ng/ml (0.00-0.034)
[2021-09-01 10:38] LABS: Reflex Lactic Add Lactic Reflex
--- NOTE | 2021-09-01 10:46 | PC.NURSE ---
Addendum entered by Gabby Warner RN 09/01/21 10:46: updated pt and of room assignment Original Note: [facility] lab[facility] called with room assignment for pt, room 211. States room should be ready soon
--- NOTE | 2021-09-01 10:53 | PC.NURSE ---
Lab at ; notified us that patient was having a seizure; EVELYN Pierre at BS
--- NOTE | 2021-09-01 10:55 | PC.NURSE ---
approx 1053- lab staff was at BS, notified ER staff they thought pt was having a seizure. I went to pt bedside, pt was laying on her L side, seizure activity noted, pt on the bipap, pt pulse ox was not picking up well, pt was cyanotic around the lips. Adjusted pulse ox, good pleth noted- SaO2 52% pt bipap removed, 100% NRB placed on pt. Pt SaO2 began to improve, seizure activity stopped. Pt respiration began to be more organized and effective, cyanosis improving. Pt kept on NRB until SaO2 reached 100% then placed back on bipap. Seizure pads remain in place on bed. at BS, nurse monitoring and pulses in place. Will continue to monitor. Seizure activity lasted approx 1.5 minutes.
--- NOTE | 2021-09-01 11:04 | PC.NURSE ---
report called to tatyana castillo on second floor at this time. states she will send staff down to get pt
--- NOTE | 2021-09-01 11:18 | P.CONPHA_ITS ---
[facility] VTE Monitoring - Patient Demographics Admission date: 09/01/21 Report Date: 09/01/21 Time: 11:18 Allergies/Adverse Reactions: Patient Allergies tramadol Adverse Reaction (Mild, Verified 08/26/21 09:37) Abdominal Pain sulfamethoxazole [From Sulfamethoxazole-Trimethoprim] Adverse Reaction (Verified 08/26/21 09:37) trimethoprim [From Sulfamethoxazole-Trimethoprim] Adverse Reaction (Verified 08/26/21 09:37) Height: 1.5 m Weight: 77.111 kg Patient Problems: Current Active Problems Generalized seizure (Acute) Respiratory failure with hypercapnia (Acute) Obesity (BMI 30-39.9) (Acute) COPD (chronic obstructive pulmonary disease) (Acute) - VTE Risk Labs: VTE Related Lab Results Hgb 12.5 g/dL (12.2-16.2) 09/01/21 06:26 Hct 40.7 % (37.0-47.0) 09/01/21 06:26 Plt Count 333 K/mm3 (142-424) 09/01/21 06:26 BUN 3 mg/dl (7-17) L 09/01/21 06:26 Creatinine 0.60 mg/dl (0.52-1.04) 09/01/21 06:26 Estimated Creat Clear 143 mL/min (50-200) 09/01/21 06:26 - Prophylaxis VTE Prophylaxis Ordered?: Yes Types of VTE Prophylaxis: TEDS Knee High Location of Applied Device: Bilateral Lower Extremeties
--- NOTE | 2021-09-01 11:49 | PC.NURSE ---
notified dr. andre of lactic acid critical result specimen was drawn soon after pt had a seizure no new orders obtained, will continue to monitor
--- NOTE | 2021-09-01 12:09 | PC.NURSE ---
RT at BS
[2021-09-01 13:06] LABS: Reflex Lactic (2 hrs) Add Lactic Reflex
[2021-09-01 13:39] LABS: Troponin I < 0.01 ng/ml (0.00-0.034)
[2021-09-01 13:48] LABS: Lactic Acid Follow up (RFLX 2) 1.4 mmol/L (0.7-2.1)
--- NOTE | 2021-09-01 13:58 | HMH.PULMCON ---
*Admission Date: 09/01/21 *Reason for consult:: Acute hypoxic hypercarbic respiratory failure *History of present illness: Ms. Watkins is a 42-year-old male significant smoking history, history of COPD, seizure disorder presented to the clinic with altered mentation and found to be in hypercarbic respiratory failure initiated on BiPAP therapy and pulmonary was called for further management. [facility] History Medical History: Reports:: Anxiety, Congestive Heart Failure, Chronic Obstructive Pulmonary Disease (COPD), Diabetes Mellitus Type 2, Hyperlipidemia, Hypertension, Myocardial Infarction Denies:: Cancer, Diabetes Mellitus Type 1, Internal Pacemaker, MRSA *Have you ever received a pneumonia vaccine?: Yes *Have you received a flu vaccine this season?: Yes Other Medical History: Reports: Hypothyroidism, Thyroid Disease, Other Other Surgeries: Yes: Cardiac Catheterization, Coronary Stent, Tubal Ligation. No: Pacemaker Amputation: No Fractures: No - *Social History Smoking Status: Current every day smoker Tobacco Type: cigarettes # Packs/Day (cigarettes): 1 Alcohol Intake: never Alcohol Intake Frequency:: 0-2 drinks per day Substance Use Type: denies use *Occupational Status:: disabled Housing: house Household Members: spouse, children *Travel in the last 8 weeks: None - Psychiatric History Pschychiatric History:: Reports:: Anxiety Family Hx:: No significant family history ROS - Cons Reports daytime sleepiness, Reports lack of energy - ENT Denies nasal congestion, Denies nasal discharge - Card Reports shortness of breath, Reports shortness of breath with activity - Resp Respiratory: Reports chest congestion, Reports cough, Denies excessive phlegm production, Denies cough with sputum production, Denies wheezing - GI Gastrointestingal: Denies: abdominal pain - [place] Musculoskeletal: Reports muscle weakness - Psych Reports irritability, Denies thoughts of hurting/killing others, Denies thoughts of hurting/killing yourself Meds Home Medications Medication Instructions Recorded Confirmed Type Sertraline HCl [Zoloft] 300 mg PO DAILY 07/02/19 08/26/21 History Cetirizine HCl 10 mg PO DAILY 04/22/21 08/26/21 History Metoprolol Succinate [Metoprolol 25 mg PO DAILY 04/22/21 08/26/21 History Succinate 25mg Tablet*] lisinopriL [Lisinopril] 20 mg PO DAILY 04/22/21 08/26/21 History atorvastatin 40 mg tablet 40 mg PO DAILY #90 tab 05/05/21 08/26/21 Rx folic acid 1 mg tablet 1 mg PO DAILY #90 tab 05/05/21 08/26/21 Rx magnesium oxide 250 mg PO DAILY #90 tab 05/05/21 08/26/21 Rx omeprazole 20 mg capsule,delayed 20 mg PO DAILY #90 cap 05/05/21 08/26/21 Rx release Metformin HCl [Metformin 1000mg 1,000 mg PO BIDWMEAL 05/28/21 08/26/21 History Tablets] doxepin 50 mg capsule 50 - 100 mg PO HS #180 cap 06/08/21 08/26/21 Rx olanzapine 20 mg tablet 20 mg PO DAILY #90 tab 06/14/21 08/26/21 Rx fluticasone propionate 50 1 spray INTRANASAL DAILY #16 g 06/17/21 08/26/21 Rx mcg/actuation nasal spray,suspension buspirone 15 mg tablet 15 mg PO TID #90 tab 06/28/21 08/26/21 Rx Meclizine HCl [Antivert 25mg 25 mg PO TIDP PRN #10 tab 07/24/21 08/26/21 Rx tablet] potassium chloride 20 mEq See Rx Instructions PO DAILY #90 07/26/21 08/26/21 Rx tablet,extended release(part/cryst) tab gabapentin 800 mg tablet 800 mg PO TID PRN #90 tab 08/02/21 08/26/21 Rx Blood Sugar Diagnostic [Assure See Rx Instructions .ROUTE BID 08/03/21 08/26/21 History [place] Test Strip] Blood-Glucose Meter [Blood Glucose See Rx Instructions .ROUTE BID 08/03/21 08/26/21 History Meter] levETIRAcetam [Keppra] 750 mg PO BID 30 Days #60 tab 08/05/21 08/26/21 Rx lidocaine 5 % topical patch 1 patch TOPICAL Q12HP PRN #15 patch 08/06/21 08/26/21 Rx lorazepam 0.5 mg tablet 0.5 mg PO BID PRN #60 tab 08/06/21 08/26/21 Rx diazepam 5 mg tablet 5 mg PO TID PRN #90 tab 08/09/21 08/26/21 Rx ondansetron 4 mg disintegrating 4 mg PO TIDP PRN #30 tab 08/09/21 08/26/21 Rx t
--- NOTE | 2021-09-01 14:02 | PC.NURSE ---
pt brought to floor at 1250, adfmission assessments done at 1250
[2021-09-01 14:57] LABS: ABG Base Excess 0.8 mmol/L (-2.4-2.3); ABG HCO3 26.5 mmhg (22.0-26.0); ABG Oxygen Saturation 89 % (90-100); ABG PH 7.34 mmol/L (7.35-7.45); ABG PO2 56.4 mmhg (80-100); ABG TCO2 28.1 mmhg (23-27); Lactate Arterial 1.6 mmol/L (0.4-2.0)
[2021-09-01 14:59] LABS: Allen's Test ACCEPTABLE; Oxygen 3 %; Source Left Radial
[2021-09-01 15:00] LABS: ABG PCO2 50.3 mmhg (35.0-45.0)
--- NOTE | 2021-09-01 15:10 | HMH.PHAINT ---
Home medication list has been verified using [employer] claim history and recent med-rec from visit with one of our providers.
--- NOTE | 2021-09-01 19:12 | PC.NURSE ---
arrived from er with steffany at 1250
[2021-09-02] VITALS: BP 130/60; PULSE 60; PULSE 79; RESP 18; TEMP 36.6; O2SAT 93
[2021-09-02 04:00] VITALS: BP 136/74; PULSE 66; PULSE 76; RESP 16; TEMP 36.7; O2SAT 94
[2021-09-02 05:17] VITALS: BMI 35.9
[2021-09-02 06:11] VITALS: PULSE 64; PULSE 65; O2SAT 98
[2021-09-02 07:35] LABS: Basophils % 0.2 % (0.1-2.0); Eosinophils % 0.1 % (0.1-12.0); Hemoglobin 12.2 g/dL (12.2-16.2); Lymphocytes # 0.7 K/mm3 (0.7-4.5); Lymphocytes % 8.6 % (10-50); Mean Corpuscular HGB Conc 30.6 g/dL (31.8-35.4); Mean Corpuscular Hemoglobin 27.7 pg (27.0-31.2); Mean Corpuscular Volume 90.5 fl (81-99); Mean Platelet Volume 8.1 fl (7.4-10.4); Monocytes # 0.3 K/mm3 (0.1-1.0); Monocytes % 3.1 % (1.7-9.3); Neutrophils # 7.5 K/mm3 (1.8-7.8); Platelet Count 314 K/mm3 (142-424); Red Blood Count 4.42 M/mm3 (4.20-5.40); Red Cell Distribution Width 16.6 % (11.5-17.5); White Blood Count 8.5 K/mm3 (4.8-10.8)
[2021-09-02 07:37] LABS: Chloride 107 mmol/L (98-107); Potassium 4.1 mmoL/L (3.5-5.1); Sodium 137 mmol/L (136-145)
[2021-09-02 07:38] LABS: MANUAL DIFFERENTIAL MANUAL DIFFERENTIAL (MANUAL DIFF)
[2021-09-02 07:40] LABS: Anion Gap 5.1 mEq/L (5-15); Blood Urea Nitrogen 8 mg/dl (7-17); Carbon Dioxide 29 mmol/L (22.0-30.0); Creatinine Clearance Estimated 179 mL/min (50-200); Estimated Glomerular Filt Rate 133 ml/min (>60); GFR (African American) 161 ML/MIN (>60)
[2021-09-02 07:41] LABS: Calcium 7.4 mg/dl (8.4-10.2); Glucose 147 mg/dl (74-100)
[2021-09-02 07:53] VITALS: BP 125/61; PULSE 85; RESP 18; TEMP 37.2; O2SAT 94
[2021-09-02 09:19] LABS: Lymphocytes % 15 % (10-50); Monocytes % 4 % (2-9); Neutrophils % 81 % (42-76); Total Cells Counted 100
[2021-09-02 09:20] LABS: Platelet Estimate Normal; RBC Morphology Normal
--- NOTE | 2021-09-02 09:31 | HMH.PULMPN ---
Internal Medicine - PN: Subj *Date: 09/21/21 *Time: 14:55 Interval history: No acute respiratory vents overnight. Admits improvement in her symptoms. Weaned to room air. Exam - Constitutional Constitutional:: Present: no acute distress - HENMT Exam HENMT: Present: normocephalic, atraumatic - Eye Exam Eyes:: Present: normal appearance both eyes and related structures - Neck Exam Neck:: Present: normal visual inspection - Respiratory Exam Respiratory:: Present: able to speak in complete sentences, no respiratory distress. Absent: respiratory distress, wheezing - Cardiovascular Exam Cardiac:: Present: S1, S2 - GI Exam GI:: Present: soft - Skin Exam Skin: Present: warm, no rash - Neurological Exam Neurological: Present: alert, awake - Extremities Exam Extremities: Present: no cyanosis, no clubbing - Psychiatric Exam Psychiatric: Present: anxious Assessment and Plan (1) Generalized seizure Status: Acute Category: Medical Code(s): R56.9 - Unspecified convulsions (2) Obesity (BMI 30-39.9) Status: Acute Category: Medical Code(s): E66.9 - Obesity, unspecified - Assessment and plan all Dx Assessment and Plan for all problems:: #COPD exacerbation: #Acute hypoxic hypercarbic respiratory failure: 45-year-old significant smoking history, carries a diagnosis COPD. Seizure disorder. Admits compliance with medications. Presented with altered mentation found to be in hypoxic hypercarbic respiratory failure with ABG on admission showed pH of 7.28 with a PCO2 56.6 and PO2 of 60.7. Chest x-ray on admission, no dense consolidation/airspace disease noted.. No evidence of leukocytosis. Interval update: Patient continued to remain on room air. Refused BiPAP overnight. Plan: -DuoNebs every 4 hours scheduled along with budesonide every 12 scheduled. -Continue nasal oxygen supplementation, patient maintaining saturations at 90% and above on 3 L, will continue to monitor and wean as tolerated. Follow with ABG. -Doxycycline 100 mg BID x5 days -Methylprednisolone 125 every 12 hours #Thank you for involving pulmonary in this patient care. We will continue to follow.
--- NOTE | 2021-09-02 09:41 | HMH.DCSUM ---
General - General Admission date:: 09/01/21 Discharge date: 09/02/21 HPI HPI: 45 yr old female presented to er via ambulance due to seizure. Per ED record,EMS she had two seizures en route and needed respiratory support after second seizure.per ed record upon arrival pt was able to answer questions. Pt was alert and oriented when assessment and was on bypap. at bedside. Pt will be admitted for monitoring and resp support as needed. Hospital Course Hospital Course: 45 yr old female presented to er via ambulance due to seizure. Per ED record,EMS she had two seizures en route and needed respiratory support after second seizure.per ed record upon arrival pt was able to answer questions. Pt was alert and oriented when assessment and was on bypap. at bedside. Pt will be admitted for monitoring and resp support as needed. Pulmonology has seen and recommends: Plan: -Initiate DuoNebs every 4 hours scheduled along with budesonide every 12 scheduled. -Continue nasal oxygen supplementation, patient maintaining saturations at 90% and above on 3 L, will continue to monitor and wean as tolerated. Follow with ABG. -Doxycycline 100 mg BID x5 days -Methylprednisolone 125 every 12 hours Generalized seizure No further seizures noted, loading dose of Keppra IV then home Keppra increased to 1000 mg p.o. twice daily Obesity (BMI 30-39.9) Better food options/portions, exercise and adherence to diabetic medicine regimen discussed COPD exacerbation Acute hypoxic hypercarbic respiratory failure hypoxic hypercarbic respiratory failure with ABG on admission showed pH of 7.28 with a PCO2 56.6 and PO2 of 60.7. Chest x-ray on admission, no dense consolidation/airspace disease noted.. No leukocytosis. She has received DuoNebs and budesonide along with nasal cannula at 3 L, doxycycline p.o., and methylprednisolone IV. 45-year-old female patient resting quietly in bed with eyes open, at bedside. She denies any chest pain or shortness of breath during the night. After breathing treatments, antibiotics, and steroids she reports she feels a lot better today and requesting to be discharged home. Discussed importance of maintaining current medical regimen including diabetic medicine, respiratory medicine, and BiPAP usage., She verbalizes understanding and states she will attend PCP appointment next week. Patient reports she has been sleeping on couch in the living room and case resource manager will attempt to secure hospital bed for patient. PLAN: 1. We will discharge home today 2. Doxycycline 100 mg twice daily x5 days 3. We will increase Keppra to 1000 mg p.o. twice daily 4. We will will stop Xanax and Ativan changed to Klonopin 2 mg p.o. twice daily 5. Follow-up with PCP next week 6. Keep scheduled appointments with pulmonary Objective Vital signs: Temp Pulse Resp BP Pulse Ox 98.9 F 85 18 125/61 94 L 09/02/21 07:53 09/02/21 07:53 09/02/21 07:53 09/02/21 07:53 09/02/21 07:53 no acute distress, obese, chronically ill appearing - *Routine HEENT Exam Head: Present: normocephalic Eye: Present: EOMI ENT: Present: mucous membranes moist - *Routine Neck Exam Present: trachea midline. Absent: tracheal deviation - *Routine Respiratory Exam Present: CTA bilaterally. Absent: accessory muscle use - *Routine Cardiovascular Exam Present: RRR - *Routine Abdominal Exam Present: soft, normoactive bowel sounds. Absent: tenderness, firm - *Routine Extremities Exam Present: edema, full ROM, pulses intact. Absent: cyanosis - *Routine Skin Exam Present: intact, dry. Absent: cyanosis, erythema - *Routine Neurological Exam Present: alert, oriented X3. Absent: motor deficit - Routine Psychiatric Exam Present: normal affect, normal thought process. Absent: auditory hallucinations Results Labs on day of discharge: Labs from last 24 hours 09/02/21 09/02/21 09/01/21
--- NOTE | 2021-09-02 10:42 | HMH.PHAINT ---
I spoke with the patient and her family members that were with her about her medication list. Went over the new medications, medications she was to continue, and medications she was to stop taking. Made sure before I left that she knew which ones she needed to stop taking. When we spoke, the patient did not have any questions or concerns. The patient was provided a copy of the medication list. I told her if she had any questions or any confusion about her medications, to let a nurse know and a pharmacist would come talk to her or if she had concerns post-discharge she should follow up with her PCP or call her home pharmacy.
--- NOTE | 2021-09-02 11:16 | PC.NURSE ---
patient refused to wait on medication to be brought up. stated she would go down to clinic pharmacy and wait. staff took patient down to her ride.
[2021-09-02 20:33] LABS: POC Glucose,Bedside 239 (70-110)
[2021-09-02 20:33] LABS: POC Glucose,Bedside 170 (70-110)
[2021-09-02 20:33] LABS: POC Glucose,Bedside 136 (70-110)
[2021-09-06 14:10] LABS: Levetiracetam (Keppra) 24.3 ug/mL (10.0-40.0)
== END 2021-09-02 11:17 | disposition home or self-care (01) | DRG 189 ==
LOC: ER 06:35 → 2ND 08:05
PROVIDERS: Internal Medicine Pulmonary Disease; Admitting Provider Emergency Medicine; Emergency Provider Emergency Medicine; PCP Emergency Medicine; Visit Provider Emergency Medicine
DX: J96.22 Acute and chronic respiratory failure with hypercapnia (principal); J44.1 Chronic obstructive pulmonary disease with (acute) exacerbation; Z20.822 Contact with and (suspected) exposure to COVID-19; J96.01 Acute respiratory failure with hypoxia; E66.9 Obesity, unspecified; Z68.35 Body mass index [BMI] 35.0-35.9, adult; F41.9 Anxiety disorder, unspecified; E11.9 Type 2 diabetes mellitus without complications; E78.5 Hyperlipidemia, unspecified; E03.9 Hypothyroidism, unspecified; F17.210 Nicotine dependence, cigarettes, uncomplicated; I11.0 Hypertensive heart disease with heart failure; I50.9 Heart failure, unspecified; I25.2 Old myocardial infarction; Z95.5 Presence of coronary angioplasty implant and graft; G40.909 Epilepsy, unspecified, not intractable, without status epilepticus
CPT/HCPCS: 36415; 71045; 80048; 80053; 80177; 81001; 82803; 82962; 83605; 83735; 83880; 84145; 84436; 84443; 84484; 85007; 85025; 85651; 86140; 87040; 93005; 94640; 94660; 94760; 99285; C9803; J1953; U0003; U0005

== ENCOUNTER 2021-09-03 13:50 | Emergency (ER) | payer MEDICAID, SELFPAY ==
[2021-09-03 13:51] VITALS: BP 152/78; PULSE 72; RESP 18; TEMP 37; O2SAT 98; BMI 35.5
--- NOTE | 2021-09-03 13:58 | XR_ITS ---
FINAL REPORT CLINICAL HISTORY: fall, pain FINDINGS: LEFT HUMERUS Two views were obtained. There is an oblique fracture of the distal humeral diaphysis with anterior angulation of the distal fracture fragment. IMPRESSION: Fracture is above. Reviewed, Interpreted and Dictated by Ken Osorio III, MD Transcribed by Haleigh Walden Authenticated by Ken Osorio III, MD on 09/03/2021 03:48:[address] [facility]
--- NOTE | 2021-09-03 14:20 | PC.NURSE ---
pt sleeping O2 sats decreased to 85% o2 at 2 LPM APPLIED SATS increased to 95%
--- NOTE | 2021-09-03 14:44 | PC.NURSE ---
waiting clinical transformation specialist back from dr. au ortho clinical transformation specialist
--- NOTE | 2021-09-03 14:46 | PC.NURSE ---
Dr Kaufman called back, notified of consult on pt. He reviewed xrays from his office. States to place pt in Long arm splint, he is going to contact his [place] office to refer pt to Dr. Abdul (on his partners), he thinks pt needs surgery. States he will have office staff call us back with follow up information for pt. STEPHANIE JULIO notified of the above
--- NOTE | 2021-09-03 15:14 | PC.NURSE ---
ER at pt BS
--- NOTE | 2021-09-03 15:17 | HMH.EDGENADL ---
ED Disposition Clinical Impression: Humerus fracture Qualifiers: Encounter type: initial encounter Humerus Location: shaft Fracture type: closed Fracture morphology: unspecified fracture morphology Laterality: left Qualified Code(s): S42.302A - Unspecified fracture of shaft of humerus, left arm, initial encounter for closed fracture Disposition: Home, Self-Care Condition on Discharge: Fair Instructions: How to Use a Sling, How to Take Care of Your Splint, DI for Humeral Fracture Additional Instructions: See Dr. Abdul, orthopedics, 8:30 AM on 09/06/2021. [address] [facility] [place] [id number] Do not eat or drink anything after midnight Monday. Keep splint and sling on until seen on Monday. Percocet as needed for pain. Do not take your hydrocodone/acetaminophen 7.5 mg while you are taking Percocet. Once your Percocet is gone, you may resume taking your hydrocodone/acetaminophen 7.5 mg. Ice 20 minutes 4-5 times a day to your arm. Additional instructions for FRACTURED (BROKEN) BONE: reat your splint like you would a cast: Do not get it wet (cover with a plastic bag while bathing or showering). If the splint feels too tight, you may loosen the david wrap covering it, but do not remove the splint. You may ice the fracture by applying an ice pack over the top of the splint, without removing the splint. Return to an emergency department immediately if you have uncontrollable pain, loss of feeling or inability to move your injured extremity. Additional instructions for CONTROLLED SUBSTANCES: You have been prescribed a medication that is a controlled substance. Controlled substances include pain medications known as opiates and sedative nerve medications known as benzodiazepines. Tramadol, fioricet, and gabapentin are also controlled substances. Some common opiates include: Codeine (such as Tylenol #3) Hydrocodone (Vicodin, Lortab, Lorcet, [place]) Oxycodone (Percocet, Percodan, Oxycodone, Oxy IR) Some common benzodiazepines include: Diazepam (Valium) Lorazepam (Ativan) Alprazolam (Xanax) Clonazepam (Klonopin) Oxazepam (Serax) All of these controlled substances are highly addictive and frequently abused. Misuse can and frequently does lead to addiction as well as overdose and . Medication should be stored in a locked cabinet or other secure storage unit. Do not store the medication in a motor vehicle. Short term supplies, 3 days or less, are prescribed because of the highly addictive nature of the medication. Any of the controlled substance medication NOT taken should be disposed of properly and NOT SAVED. The recommended method of disposing of unused medications is: Place the medicines in a sealable plastic bag. If the medicine is a solid, crush it or add water to dissolve it. Add something undesirable (cat litter, coffee grounds, etc.) Dispose of sealed bag in household trash Do not flush or pour unused medicines down a sink or drain. Controlled substances should not be shared, given away or sold. Because of the addictive nature and frequent abuse, these medications are sometimes stolen. These medications should be kept in a safe place where they cannot be stolen. Do not keep them in your car or purse. Lost or stolen prescriptions for controlled substances WILL NOT BE REFILLED in this emergency department, regardless of whether a police report was filed. Prescriptions: Oxycodone HCl/Acetaminophen [Percocet 5/325mg tablet] 1 tab PO Q6HP PRN #20 tab PRN Reason: Moderate To Severe Pain Transmission Status: Received by Clinic Pharm[facility] Referrals: Ced Corbett MD [Primary Care Provider] - - Critical Care Critical Care Time: No Attestation: On 09/03/21, the high probability of a clinically significant, sudden or life threatening deterioration of the following system(s) required my full and direct attention, intervention and personal management. The time I documented below
[2021-09-03 15:22] LABS: Basophils # 0.1 K/mm3 (0-0.2); Basophils % 1.5 % (0.1-2.0); Eosinophils # 0.1 K/mm3 (0.0-0.4); Hematocrit 39.5 % (37.0-47.0); Hemoglobin 12.1 g/dL (12.2-16.2); Lymphocytes # 1.8 K/mm3 (0.7-4.5); Lymphocytes % 19.3 % (10-50); Mean Corpuscular HGB Conc 30.7 g/dL (31.8-35.4); Mean Corpuscular Hemoglobin 27.4 pg (27.0-31.2); Mean Corpuscular Volume 89.2 fl (81-99); Mean Platelet Volume 8.2 fl (7.4-10.4); Monocytes # 0.5 K/mm3 (0.1-1.0); Monocytes % 5.4 % (1.7-9.3); Neutrophils # 6.9 K/mm3 (1.8-7.8); Neutrophils % 72.8 % (37.0-80.0); Platelet Count 295 K/mm3 (142-424); Red Blood Count 4.43 M/mm3 (4.20-5.40); Red Cell Distribution Width 16.4 % (11.5-17.5); White Blood Count 9.4 K/mm3 (4.8-10.8)
[2021-09-03 15:27] LABS: Chloride 106 mmol/L (98-107); Potassium 3.9 mmoL/L (3.5-5.1); Sodium 140 mmol/L (136-145)
[2021-09-03 15:30] LABS: Anion Gap 6.9 mEq/L (5-15); Blood Urea Nitrogen 7 mg/dl (7-17); Carbon Dioxide 31 mmol/L (22.0-30.0); Creatinine Clearance Estimated 127 mL/min (50-200); Estimated Glomerular Filt Rate 90 ml/min (>60); GFR (African American) 109 ML/MIN (>60)
[2021-09-03 15:31] LABS: Calcium 7.9 mg/dl (8.4-10.2); Glucose 125 mg/dl (74-100)
--- NOTE | 2021-09-03 15:32 | PC.NURSE ---
pt family has been updated on pt POC, they are in the lobby
[2021-09-03 16:45] VITALS: BP 142/98; PULSE 82; RESP 18; TEMP 36.9; O2SAT 94
--- NOTE | 2021-09-03 18:28 | PC.NURSE ---
splinted per tienrn
== END 2021-09-03 16:45 | disposition home or self-care (01) ==
PROVIDERS: Emergency Provider Emergency Medicine; PCP Family Medicine
DX: S42.302A Unspecified fracture of shaft of humerus, left arm, initial encounter for closed fracture (principal); W01.0XXA Fall on same level from slipping, tripping and stumbling without subsequent striking against object, initial encounter; Y92.019 Unspecified place in single-family (private) house as the place of occurrence of the external cause; E11.9 Type 2 diabetes mellitus without complications; I10 Essential (primary) hypertension; E03.9 Hypothyroidism, unspecified; E78.5 Hyperlipidemia, unspecified; I25.2 Old myocardial infarction; J44.9 Chronic obstructive pulmonary disease, unspecified; Z79.899 Other long term (current) drug therapy
CPT/HCPCS: 73060; 80048; 85025; 96374; 96375; 96376; 99284; J2405

== ENCOUNTER 2021-09-05 10:41 | Emergency (ER) | payer MEDICAID, SELFPAY ==
[2021-09-05 10:42] VITALS: BP 117/52; PULSE 97; RESP 14; TEMP 36.7; O2SAT 89; BMI 35.5
--- NOTE | 2021-09-05 10:59 | HMH.EDGENADL ---
ED Disposition Clinical Impression: Left humeral fracture Qualifiers: Encounter type: initial encounter Humerus Location: shaft Fracture type: closed Fracture morphology: unspecified fracture morphology Qualified Code(s): S42.302A - Unspecified fracture of shaft of humerus, left arm, initial encounter for closed fracture Disposition: Home, Self-Care Condition on Discharge: Good Instructions: DI for Humeral Fracture, How to Use a Sling, How to Take Care of Your Splint Additional Instructions: See Dr. Abdul, orthopedics, 8:30 AM on 09/06/2021. [address] [facility] [place]. [address] [id number] Do not eat or drink anything after midnight tonight. Keep splint and sling on until seen tomorrow Percocet as needed for pain. Do not take your hydrocodone/acetaminophen 7.5 mg while you are taking Percocet. Once your Percocet is gone, you may resume taking your hydrocodone/acetaminophen 7.5 mg. If you run out of Percocet you may begin taking your hydrocodone/acetaminophen 7.5 mg. Ice 20 minutes 4-5 times a day to your arm. Referrals: Ced Corbett MD [Primary Care Provider] - - Critical Care Critical Care Time: No Attestation: On 09/05/21, the high probability of a clinically significant, sudden or life threatening deterioration of the following system(s) required my full and direct attention, intervention and personal management. The time I documented below is in addition to time spent performing reported procedures but includes the following listed in this critical care notation. Medical Decision Making - Gregory Inquiry Pt receiving controlled substance: Yes Gregory was queried for this patient: Yes Risks and benefits of using a controlled substance: were discussed with pt by me Vital Signs: 09/05/21 10:42 Temperature 98.1 F Temperature Source Oral Pulse Rate [Right Radial] 97 H Respiratory Rate 14 Blood Pressure [Right Arm] 117/52 L Blood Pressure Mean [Right Arm] 73 Blood Pressure Source [Right Arm] Automatic Cuff Blood Pressure Position [Right Arm] Supine 02 Sat by Pulse Oximetry 89 L Oxygen Delivery Method Room Air Medical Decision Narrative: Patient has only 3 tablets of Percocet left, 20 tablets were prescribed 2 days ago. As noted she has a history of running out of medication early and requesting additional prescriptions and pain shots. I therefore have declined to prescribe more pain medication or stronger pain medication. She will be given as an injection of Dilaudid as a one-time injection. She has 3 tablets of Percocet left and can resume taking her hydrocodone 7.5 mg when this is gone. She has an appointment in less than 24 hours with orthopedics and is again I again stressed the importance of keeping this appointment.. General Adult HPI - General Chief complaint: PAIN Stated complaint: [id number] left arm pain Time Seen by Provider: 09/05/21 10:59 Mode of Arrival: Ambulatory Limitations: No Limitations Description of Symptoms (Recalled from ER Triage Doc. by RN): Pt c/o pain in left arm r/t known fx. Pt states my pain medicine isn't strong enough - History of Present Illness HPI narrative: Complains of left arm pain. Patient seen by me 2 days ago for a left humerus fracture sustained in a fall at her doctor's office. A splint and sling were applied. Orthopedics, Dr. Kaufman, was consulted at this facility. He made arrangements for her to be seen tomorrow morning by Dr. Abdul in [place]. The patient was prescribed Percocet, 20 tablets prescribed, to be used every 6 hours as needed. She is chronically on hydrocodone/acetaminophen 7.5 mg. Advised not to take her usual pain medication while taking Percocet. She is requesting stronger pain medication. The patient is a frequent visitor to this emergency department. Despite being on chronic pain medication she frequently presents requesting pain shots or stronger pain medication and very frequently reporting that she is out o
[2021-09-05 11:26] VITALS: BP 123/69; PULSE 82; RESP 14; TEMP 36.7; O2SAT 91
[2021-09-05 11:37] VITALS: BP 106/74; PULSE 78; RESP 16; TEMP 36.6; O2SAT 96
== END 2021-09-05 11:30 | disposition home or self-care (01) ==
PROVIDERS: Emergency Provider Emergency Medicine; PCP Family Medicine
DX: S42.302A Unspecified fracture of shaft of humerus, left arm, initial encounter for closed fracture (principal)
CPT/HCPCS: 96372; J2405

== ENCOUNTER 2021-09-08 08:26 | Emergency (ER) | payer MEDICAID, SELFPAY ==
[2021-09-08 08:28] VITALS: BP 120/73; PULSE 93; RESP 15; TEMP 36.7; O2SAT 93; BMI 35.5
--- NOTE | 2021-09-08 08:38 | HMH.EDGENADL ---
ED Disposition Clinical Impression: Humerus fracture Qualifiers: Encounter type: initial encounter Humerus Location: shaft Fracture type: closed Fracture morphology: unspecified fracture morphology Laterality: left Qualified Code(s): S42.302A - Unspecified fracture of shaft of humerus, left arm, initial encounter for closed fracture Disposition: Home, Self-Care Condition on Discharge: Good Additional Instructions: Follow-up with your primary care provider or orthopedic physician for further pain management. Continue your current pain medication acetaminophen/hydrocodone 7.5 mg. Referrals: Ced Corbett MD [Primary Care Provider] - - Critical Care Critical Care Time: No Attestation: On 09/08/21, the high probability of a clinically significant, sudden or life threatening deterioration of the following system(s) required my full and direct attention, intervention and personal management. The time I documented below is in addition to time spent performing reported procedures but includes the following listed in this critical care notation. Medical Decision Making - Gregory Inquiry Pt receiving controlled substance: No Gregory was queried for this patient: Yes Risks and benefits of using a controlled substance: were discussed with pt by me Comment: Filled prescription for oxycodone 10 mg, 15 tablets 2 days ago, Dr. Abdul Vital Signs: 09/08/21 08:28 09/08/21 08:51 Temperature 98.1 F 98.1 F Temperature Source Oral Pulse Rate 90 Pulse Rate [Right Radial] 93 H Respiratory Rate 15 16 Blood Pressure 124/71 Blood Pressure [Right Arm] 120/73 Blood Pressure Mean [Right Arm] 88 Blood Pressure Source [Right Arm] Automatic Cuff Blood Pressure Position [Right Arm] Sitting 02 Sat by Pulse Oximetry 93 L Oxygen Delivery Method Room Air Room Air Medical Decision Narrative: I have declined to give the patient any stronger/more pain medication or a shot. I advised her that her orthopedic doctor and her primary care doctor can manage her pain. I suggested that she could have discussed her pain with her orthopedic doctor on Monday when she was seen, 2 days ago. states we did not think of it . I then reviewed her Gregory report which shows that she did fill a prescription written by the orthopedic doctor, Dr. Abdul, on Monday, for oxycodone 10 mg, 15 tablets. Rx filled at [facility] in [place]. When I diiscuss this prescription with patient and her , her acts as if he knew nothing about this prescription. Patient and will not admit to receiving/filling prescription. General Adult HPI - General Stated complaint: [id number] left arm pain Time Seen by Provider: 09/08/21 08:33 - History of Present Illness HPI narrative: Patient has a fractured humerus and is complaining of pain from that condition. Humerus was fractured on 09/03/2021. I saw her in the emergency department on that date. I prescribed her Percocet at that time. She returned again on 09/05/2021. I treated her with a shot of Dilaudid at that time. At that point she had a scheduled appointment for the next day to see orthopedics in [place]. I advised her that from that point forward her orthopedic doctor and/or primary care provider should manage her pain. She is chronically on hydrocodone/acetaminophen 7.5 mg and received 90 of those recently. She was seen by orthopedics in [place] on Monday, 2 days ago. She has been placed in a brace on her left arm and is scheduled to have surgery next Monday. She is requesting more/stronger pain medication and a shot. - Related Data Home Medications Medication Instructions Recorded Confirmed Sertraline HCl [Zoloft] 300 mg PO DAILY 07/02/19 09/03/21 Cetirizine HCl 10 mg PO DAILY 04/22/21 09/03/21 Metoprolol Succinate [Metoprolol 25 mg PO DAILY 04/22/21 09/03/21 Succinate 25mg Tablet*] lisinopriL [Lisinopril] 20 mg PO DAILY 04/22/21 09/03/21 Metformin HCl [Metformin 1000
[2021-09-08 08:51] VITALS: BP 124/71; PULSE 90; RESP 16; TEMP 36.7; O2SAT 94
== END 2021-09-08 08:54 | disposition home or self-care (01) ==
PROVIDERS: Emergency Provider Emergency Medicine; PCP Family Medicine
DX: S42.302A Unspecified fracture of shaft of humerus, left arm, initial encounter for closed fracture (principal); I11.0 Hypertensive heart disease with heart failure; I50.9 Heart failure, unspecified; I25.2 Old myocardial infarction; E78.5 Hyperlipidemia, unspecified; E11.9 Type 2 diabetes mellitus without complications; E03.9 Hypothyroidism, unspecified; J44.9 Chronic obstructive pulmonary disease, unspecified; F17.210 Nicotine dependence, cigarettes, uncomplicated; Z79.02 Long term (current) use of antithrombotics/antiplatelets; Z79.84 Long term (current) use of oral hypoglycemic drugs; Z79.899 Other long term (current) drug therapy; Z95.5 Presence of coronary angioplasty implant and graft; Z88.2 Allergy status to sulfonamides; Z88.6 Allergy status to analgesic agent; Z88.8 Allergy status to other drugs, medicaments and biological substances
CPT/HCPCS: 99282

== ENCOUNTER 2021-09-08 15:56 | Inpatient (IN) | payer MEDICAID, SELFPAY ==
[2021-09-08] VITALS (10 sets, daily range): BP systolic 96–149; BP diastolic 53–95; PULSE 51–99; RESP 17–22; TEMP 36.4–37.2; O2SAT 88–99; BMI 35.5; BMI 35.6
--- NOTE | 2021-09-08 16:09 | PC.NURSE ---
Md at the bedside trying to stimulate a response via sternal rub. bottle of prescription pain medication found in pt's bra.
--- NOTE | 2021-09-08 16:11 | XR_ITS ---
PROCEDURE INFORMATION: Exam: XR Chest Exam date and time: 09/08/2021 4:33 PM Age: 45 years old Clinical indication: Device placement; Ett placement (vent status); Additional info: AMS, ett placement TECHNIQUE: Imaging protocol: XR of the chest. Views: 1 view. COMPARISON: CR XR CHEST PORTABLE 09/01/2021 6:25 AM FINDINGS: Tubes, catheters and devices: Endotracheal tube is in place with the tip approximately 4.8 cm above the level of the daniela. Lungs: No focal pneumonia. Pleural spaces: There is no evidence of pneumothorax. There are no pleural effusions present. Heart/Mediastinum: Unremarkable. No cardiomegaly. Bones/joints: Unremarkable. IMPRESSION: 1. Endotracheal tube is in place with the tip approximately 4.8 cm above the level of the daniela. 2. There is no evidence of pneumothorax. 3. No focal pneumonia.
--- NOTE | 2021-09-08 16:11 | CT_ITS ---
PROCEDURE INFORMATION: Exam: CT Head Without Contrast Exam date and time: 09/08/2021 4:41 PM Age: 45 years old Clinical indication: Altered mental status/memory loss; Additional info: AMS TECHNIQUE: Imaging protocol: Computed tomography of the head without contrast. Radiation optimization: All CT scans at this facility use at least one of these dose optimization techniques: automated exposure control; mA and/or kV adjustment per patient size (includes targeted exams where dose is matched to clinical indication); or iterative reconstruction. COMPARISON: CT HEAD/BRAIN WO CON 08/04/2021 7:45 AM FINDINGS: Brain: As noted previously, there is diffuse decrease attenuation noted throughout the deep white matter bilaterally. This is similar to the prior study. Mild atrophy is present. No hemorrhage, mass effect or midline shift. Cerebral ventricles: No ventriculomegaly. Paranasal sinuses: Fluid is noted within the ethmoid air cells. Mastoid air cells: Mild right mastoiditis. Left mastoid air cells are clear. Bones/joints: No acute fracture. Soft tissues: No acute changes IMPRESSION: 1. As noted previously, there is diffuse decrease attenuation noted throughout the deep white matter bilaterally. This is similar to the prior study. Follow-up MRI of the brain is recommended. 2. Mild atrophy is present. 3. No hemorrhage, mass effect or midline shift. 4. Mild right mastoiditis.
[2021-09-08 16:12] LABS: ABG Base Excess 2.3 mmol/L (-2.4-2.3); ABG HCO3 28.8 mmhg (22.0-26.0); ABG Oxygen Saturation 95 % (90-100); ABG PO2 77.8 mmhg (80-100); ABG TCO2 30.7 mmhg (23-27)
[2021-09-08 16:16] LABS: Oxygen 3 %
[2021-09-08 16:17] LABS: ABG PCO2 60.6 mmhg (35.0-45.0); Allen's Test ACCEPTABLE; Source Right Radial
--- NOTE | 2021-09-08 16:34 | PC.NURSE ---
Rad here for post intubation xray
--- NOTE | 2021-09-08 16:36 | HMH.EDGENADL ---
ED Disposition Clinical Impression: Acute respiratory failure with hypoxia and hypercapnia Overdose Qualifiers: Encounter type: initial encounter Injury intent: undetermined intent Qualified Code(s): T50.904A - Poisoning by unspecified drugs, medicaments and biological substances, undetermined, initial encounter Altered mental status Qualifiers: Altered mental status type: coma Coma depth: Myriam coma 3-8 Coma timing: in the field (EMT or ambulance) Qualified Code(s): R40.2431 - Myriam coma scale score 3-8, in the field [EMT or ambulance] Disposition: Admitted As Inpatient Condition on Discharge: Serious - Critical Care Critical Care Time: Yes Attestation: On 09/08/21, the high probability of a clinically significant, sudden or life threatening deterioration of the following system(s) required my full and direct attention, intervention and personal management. The time I documented below is in addition to time spent performing reported procedures but includes the following listed in this critical care notation. Total Critical Care Time: 40 Vital system(s) involved:: Respiratory Failure My critical care processes included: Assessment & monitoring of V/S, Initial and Re-exams, Data Review/Interpretation, Coordinating Care, Medication Orders and management, Documentation Medical Decision Making - Gregory Inquiry Pt receiving controlled substance: No Vital Signs: 09/08/21 16:00 09/08/21 16:30 09/08/21 17:01 Temperature 97.5 F L Temperature Source Axillary Pulse Rate 99 H 80 Pulse Rate [Left Radial] 78 Respiratory Rate 17 22 20 Blood Pressure 149/81 H 140/82 Blood Pressure [Right Arm] 147/95 H Blood Pressure Mean [Right Arm] 112 02 Sat by Pulse Oximetry 88 L 95 99 Oxygen Delivery Method Nasal Cannula Mechanical Ventilation Mechanical Ventilation Oxygen Flow Rate (LPM) 5 09/08/21 19:42 Temperature 98.2 F Temperature Source Rectal Pulse Rate 54 L Pulse Rate [Left Radial] Respiratory Rate 20 Blood Pressure 108/60 L Blood Pressure [Right Arm] Blood Pressure Mean [Right Arm] 02 Sat by Pulse Oximetry Oxygen Delivery Method Mechanical Ventilation Oxygen Flow Rate (LPM) - Lab Data Lab Results 09/08/21 16:08: Specimen Source Right radial, O2 % 3, ABG pH 7.30 L, ABG pCO2 60.6 H, ABG pO2 77.8 L, ABG HCO3 28.8 H, ABG Total CO2 30.7 H, ABG O2 Saturation 95, ABG Base Excess 2.3, Idris Test Acceptable 09/08/21 16:10: Urine Opiates Screen Negative, Urine Methadone Screen Negative, Ur Barbituates Screen Negative, Ur Phencyclidine Scrn Negative, Ur Amphetamines Screen Negative, U Benzodiazepines Scrn Positive H, Urine Cocaine Screen Negative, U Marijuana (THC) Screen Negative 09/08/21 17:23: SARS-CoV-2 (PCR) Not detected, Influenza A Untype (PCR) Not detected, Influenza Type B (PCR) Not detected 09/08/21 17:25: WBC 11.7 H, RBC 4.73, Hgb 13.2, Hct 41.5, MCV 87.8, MCH 27.9, MCHC 31.8, RDW 15.7, Plt Count 373, MPV 7.4, Neut % (Auto) 78.7, Lymph % (Auto) 14.0, [place] % (Auto) 4.7, Eos % (Auto) 2.5, Baso % (Auto) 0.2, Neut # (Auto) 9.2 H, Lymph # (Auto) 1.6, [place] # (Auto) 0.6, Eos # (Auto) 0.3, Baso # (Auto) 0.0 09/08/21 17:25: Sodium 137, Potassium 4.6, Chloride 104, Carbon Dioxide 22, Anion Gap 15.6 H, BUN 8, Creatinine 0.60, Estimated Creat Clear 148, Estimated GFR 108, Est GFR ( Amer) 130, Glucose 105 H, Calcium 7.5 L, Total Bilirubin 0.8, AST 30, ALT 18, Alkaline Phosphatase 49, Troponin I 0.02, Total Protein 5.9 L, Albumin 3.9, Globulin 2.0, Albumin/Globulin Ratio 2.0 H, Salicylates < 1.0 L, Acetaminophen < 10 L 09/08/21 17:25: Plasma/Serum Alcohol < 10 09/08/21 17:30: Specimen Source Right radial, O2 % 40, ABG pH 7.42, ABG pCO2 43.6, ABG pO2 68.7 L, ABG HCO3 27.6 H, ABG Total CO2 28.9 H, ABG O2 Saturation 95, ABG Base Excess 3.1 H, Idris Test Non applicable, Vent Rate 20, Tidal Volume 440, PEEP 5 Result diagrams: 09/08/21 17:25 09/08/21 17:25 Orders (Tests/Meds): ED MEDICATIONS Generic Name Dose
[2021-09-08 17:05] LABS: Benzodiazepines Screen,Urine Positive ng/ml (<200)
[2021-09-08 17:06] LABS: Amphetamine/Metha Screen,Urine Negative ng/ml (<1000)
[2021-09-08 17:07] LABS: Barbiturates Screen,Urine Negative ng/ml (<200); Cannabinoid Screen,Urine Negative ng/ml (<50)
[2021-09-08 17:08] LABS: Cocaine Screen,Urine Negative ng/ml (<300)
[2021-09-08 17:09] LABS: Methadone Screen,Urine Negative ng/ml (<300); Opiate Screen,Urine Negative ng/ml (<300)
[2021-09-08 17:10] LABS: Phencyclidine Screen,Urine Negative ng/ml (<25)
--- NOTE | 2021-09-08 17:17 | PC.NURSE ---
lab at bedside
[2021-09-08 17:31] LABS: Coronavirus 19, PCR Not Detected (NotDetected); Influenza A, PCR Not Detected (NotDetected); Influenza B, PCR Not Detected (NotDetected)
[2021-09-08 17:46] LABS: Basophils % 0.2 % (0.1-2.0); Eosinophils # 0.3 K/mm3 (0.0-0.4); Eosinophils % 2.5 % (0.1-12.0); Hematocrit 41.5 % (37.0-47.0); Hemoglobin 13.2 g/dL (12.2-16.2); Lymphocytes # 1.6 K/mm3 (0.7-4.5); Mean Corpuscular HGB Conc 31.8 g/dL (31.8-35.4); Mean Corpuscular Hemoglobin 27.9 pg (27.0-31.2); Mean Corpuscular Volume 87.8 fl (81-99); Mean Platelet Volume 7.4 fl (7.4-10.4); Monocytes # 0.6 K/mm3 (0.1-1.0); Monocytes % 4.7 % (1.7-9.3); Neutrophils # 9.2 K/mm3 (1.8-7.8); Neutrophils % 78.7 % (37.0-80.0); Platelet Count 373 K/mm3 (142-424); Red Blood Count 4.73 M/mm3 (4.20-5.40); Red Cell Distribution Width 15.7 % (11.5-17.5); White Blood Count 11.7 K/mm3 (4.8-10.8)
[2021-09-08 17:54] LABS: ABG Base Excess 3.1 mmol/L (-2.4-2.3); ABG HCO3 27.6 mmhg (22.0-26.0); ABG Oxygen Saturation 95 % (90-100); ABG PCO2 43.6 mmhg (35.0-45.0); ABG PH 7.42 mmol/L (7.35-7.45); ABG PO2 68.7 mmhg (80-100); ABG TCO2 28.9 mmhg (23-27)
[2021-09-08 17:55] LABS: Allen's Test Non Applicable; Oxygen 40 %; PEEP 5; Source Right Radial; Tidal Volume 440; Vent Rate 20
[2021-09-08 17:58] LABS: Alanine Aminotransferase 18 U/L (12-78); Albumin Level 3.9 g/dl (3.5-5.0); Alkaline Phosphatase 49 U/L (38-126); Aspartate Amino Transferase 30 U/L (14-36); Bilirubin,Total 0.8 mg/dl (0.2-1.3); Blood Urea Nitrogen 8 mg/dl (7-17); Calcium 7.5 mg/dl (8.4-10.2); Carbon Dioxide 22 mmol/L (22.0-30.0); Chloride 104 mmol/L (98-107); Creatinine Clearance Estimated 148 mL/min (50-200); Estimated Glomerular Filt Rate 108 ml/min (>60); GFR (African American) 130 ML/MIN (>60); Glucose 105 mg/dl (74-100); Potassium 4.6 mmoL/L (3.5-5.1); Total Protein,Serum 5.9 g/dl (6.3-8.2)
[2021-09-08 18:02] LABS: Acetaminophen < 10 ug/ml (10-30); Salicylate < 1.0 mg/dL (2.0-20.0)
[2021-09-08 18:09] LABS: Troponin I 0.02 ng/ml (0.00-0.034)
--- NOTE | 2021-09-08 18:19 | PC.NURSE ---
Dr Wright speaking to Dr Weldon
[2021-09-08 19:20] LABS: Anion Gap 15.6 mEq/L (5-15); Sodium 137 mmol/L (136-145)
[2021-09-08 19:29] LABS: Ethyl Alcohol < 10 mg/dl (0-10)
[2021-09-08 19:39] LABS: Troponin I 0.03 ng/ml (0.00-0.034)
--- NOTE | 2021-09-08 20:35 | PC.NURSE ---
PT ARRIVED TO FLOOR VIA STRETCHER FROM ED W/STAFF @ 2034
--- NOTE | 2021-09-08 21:42 | PC.NURSE ---
pt admitted to 216 from ED, pt on vent with propofol running at 35mcg/kg/min, pt agitated, family at bedside, will continue to monitor
[2021-09-08 22:53] LABS: Troponin I 0.04 ng/ml (0.00-0.034)
[2021-09-09] VITALS (21 sets, daily range): BP systolic 92–159; BP diastolic 38–90; PULSE 52–90; RESP 14–23; TEMP 36.8–37.9; O2SAT 90–99; BMI 35.6; BMI 35.5
--- NOTE | 2021-09-09 04:00 | PC.NURSE ---
turned propofol to 10mcg/kg/min so pt can have sedation off for sbt trial this am
--- NOTE | 2021-09-09 05:00 | PC.NURSE ---
stopped propofol, educated and reiterated to pt importance of keeping calm so can have spontaneous breathing trial in am to possibly be extubated today
[2021-09-09 07:01] LABS: Chloride 106 mmol/L (98-107); Potassium 3.6 mmoL/L (3.5-5.1); Sodium 138 mmol/L (136-145)
[2021-09-09 07:04] LABS: Anion Gap 5.6 mEq/L (5-15); Blood Urea Nitrogen 11 mg/dl (7-17); Calcium 8.4 mg/dl (8.4-10.2); Carbon Dioxide 30 mmol/L (22.0-30.0); Creatinine Clearance Estimated 127 mL/min (50-200); Estimated Glomerular Filt Rate 90 ml/min (>60); GFR (African American) 109 ML/MIN (>60); Glucose 110 mg/dl (74-100)
--- NOTE | 2021-09-09 07:12 | HMH.PHAVTE ---
[facility] Pharmacy VTE Monitoring - Patient Demographics Admission date: 09/08/21 Report Date: 09/09/21 Time: 07:12 Allergies/Adverse Reactions: Patient Allergies tramadol Adverse Reaction (Mild, Verified 09/08/21 09:56) Abdominal Pain sulfamethoxazole [From Sulfamethoxazole-Trimethoprim] Adverse Reaction (Verified 09/08/21 09:56) trimethoprim [From Sulfamethoxazole-Trimethoprim] Adverse Reaction (Verified 09/08/21 09:56) Height: 1.5 m Weight: 80.172 kg Patient Problems: Current Active Problems Overdose (Acute) Altered mental status (Acute) Acute respiratory failure with hypoxia and hypercapnia (Acute) - VTE Risk Labs: VTE Related Lab Results Hgb 13.2 g/dL (12.2-16.2) 09/08/21 17:25 Hct 41.5 % (37.0-47.0) 09/08/21 17:25 Plt Count 373 K/mm3 (142-424) 09/08/21 17:25 BUN 11 mg/dl (7-17) D 09/09/21 06:24 Creatinine 0.70 mg/dl (0.52-1.04) 09/09/21 06:24 Estimated Creat Clear 127 mL/min (50-200) 09/09/21 06:24 Clinical Trial Participant: No - Prophylaxis VTE Prophylaxis Ordered?: Yes Types of VTE Prophylaxis: TEDS Knee High Location of Applied Device: Bilateral Lower Extremeties
[2021-09-09 08:02] LABS: ABG Base Excess 0.3 mmol/L (-2.4-2.3); ABG HCO3 25.4 mmhg (22.0-26.0); ABG Oxygen Saturation 93 % (90-100); ABG PCO2 43.9 mmhg (35.0-45.0); ABG PH 7.38 mmol/L (7.35-7.45); ABG PO2 68.7 mmhg (80-100); ABG TCO2 26.7 mmhg (23-27); Allen's Test ACCEPTABLE; Oxygen 40% %; PEEP 5; Pressure Support 8; Source R RADIAL
--- NOTE | 2021-09-09 09:30 | HMH.PHAINT ---
Home medication list has been verified using the patient's [employer] claim history and med-rec from recent visit with one of our providers.
--- NOTE | 2021-09-09 10:06 | HMH.HP ---
*Admission Date: 09/08/21 *Chief complaint: overdose *History of present illness: Patient arrives by ambulance unresponsive. Unable to obtain any further history from her. EMS personnel report that the patient received a pain shot from her doctor, then her gave her prescribed benzodiazepines. She then became unresponsive. EMS administered 2 mg of Narcan without change in condition. per ER physician Well known to the practice; chronic pain, charcot foot with extensive fractures and complex hardware, poorly controlled seizures, and humerus fracture left.. Appears to be over-utilizing medications, in this case probably klonopin given the circumstances. Urine opiates negative Was intubated for airway protection. [facility] History Medical History: Reports:: Anxiety, Atherosclerotic Heart Disease, Carotid Stenosis, Congestive Heart Failure, Chronic Obstructive Pulmonary Disease (COPD), Diabetes Mellitus Type 2, Hyperlipidemia, Hypertension, Myocardial Infarction Denies:: Cancer, Diabetes Mellitus Type 1, Internal Pacemaker, MRSA *Have you ever received a pneumonia vaccine?: No *Have you received a flu vaccine this season?: Yes Other Medical History: Reports: Anemia, Arthritis, Hypothyroidism, Thyroid Disease, Other Other Surgeries: Yes: Cardiac Catheterization, Coronary Stent, Tubal Ligation. No: Pacemaker Amputation: No Fractures: No - *Social History Smoking Status: Current every day smoker Tobacco Type: cigarettes # Packs/Day (cigarettes): 2 Alcohol Intake: never Alcohol Intake Frequency:: 0-2 drinks per day Substance Use Type: denies use *Occupational Status:: unemployed, disabled Housing: house Household Members: spouse, children *Travel in the last 8 weeks: None - Psychiatric History Pschychiatric History:: Reports:: Anxiety Family Hx:: No significant family history Review of Systems - Review of Systems Review of systems:: unable to obtain Meds Home Medications Medication Instructions Recorded Confirmed Type Sertraline HCl [Zoloft] 300 mg PO DAILY 07/02/19 09/08/21 History Cetirizine HCl 10 mg PO DAILY 04/22/21 09/08/21 History Metoprolol Succinate [Metoprolol 25 mg PO DAILY 04/22/21 09/08/21 History Succinate 25mg Tablet*] lisinopriL [Lisinopril] 20 mg PO DAILY 04/22/21 09/08/21 History atorvastatin 40 mg tablet 40 mg PO DAILY #90 tab 05/05/21 09/08/21 Rx folic acid 1 mg tablet 1 mg PO DAILY #90 tab 05/05/21 09/08/21 Rx magnesium oxide 250 mg PO DAILY #90 tab 05/05/21 09/08/21 Rx omeprazole 20 mg capsule,delayed 20 mg PO DAILY #90 cap 05/05/21 09/08/21 Rx release Metformin HCl [Metformin 1000mg 1,000 mg PO BID 05/28/21 09/08/21 History Tablets] fluticasone propionate 50 1 spray INTRANASAL DAILY #16 g 06/17/21 09/08/21 Rx mcg/actuation nasal spray,suspension buspirone 15 mg tablet 15 mg PO TID #90 tab 06/28/21 09/08/21 Rx clopidogrel 75 mg tablet 75 mg PO DAILY #90 tab 08/26/21 09/08/21 Rx Furosemide [Furosemide 20mg Tab*] 40 mg PO DAILY 09/01/21 09/08/21 History Levothyroxine Sodium [Synthroid 50 mcg PO DAILY 09/01/21 09/08/21 History 50mcg (0.05mg) tab] OLANZapine [Olanzapine] 20 mg PO DAILY 09/01/21 09/08/21 History Potassium Chloride [K-Tab ER 20 60 meq PO DAILY 09/01/21 09/08/21 History mEq] Oxycodone HCl/Acetaminophen 1 tab PO Q6HP PRN #20 tab 09/03/21 09/08/21 Rx [Percocet 5/325mg tablet] Doxepin HCl [Sinequin 50mg capsule] 50 - 100 mg PO HS 09/08/21 09/09/21 History Hydrocodone/Acetaminophen 1 tab PO Q8HP PRN 09/08/21 09/09/21 History [Hydrocodone-Acetamin 7.5-325] Lidocaine [Lidocaine 5% patch] 1 patch TOPICAL Q12HP PRN 09/08/21 09/09/21 History clonazePAM [Clonazepam] 2 mg PO BIDP PRN 09/08/21 09/09/21 History levETIRAcetam [Levetiracetam] 1,000 mg PO BID 09/08/21 09/08/21 History Gabapentin 800 mg PO TIDP PRN 09/09/21 09/09/21 History Meclizine HCl [Antivert 25mg 25 mg PO TIDP PRN 09/09/21 09/09/21 History tablet] ondansetron HCL [Ondansetron 4mg 4 mg P
[2021-09-09 11:55] LABS: Hematocrit 34.7 % (37.0-47.0); Hemoglobin 10.8 g/dL (12.2-16.2); Red Blood Count 3.95 M/mm3 (4.20-5.40)
[2021-09-09 11:56] LABS: Basophils % 0.3 % (0.1-2.0); Eosinophils % 1.1 % (0.1-12.0); Lymphocytes # 1.7 K/mm3 (0.7-4.5); Lymphocytes % 16.9 % (10-50); Mean Corpuscular HGB Conc 31.1 g/dL (31.8-35.4); Mean Corpuscular Hemoglobin 27.3 pg (27.0-31.2); Mean Corpuscular Volume 87.8 fl (81-99); Mean Platelet Volume 9.7 fl (7.4-10.4); Monocytes # 0.7 K/mm3 (0.1-1.0); Monocytes % 7.4 % (1.7-9.3); Neutrophils # 7.4 K/mm3 (1.8-7.8); Platelet Count 310 K/mm3 (142-424); Red Cell Distribution Width 15.6 % (11.5-17.5)
[2021-09-09 11:57] LABS: Eosinophils # 0.1 K/mm3 (0.0-0.4)
--- NOTE | 2021-09-09 14:25 | PC.NURSE ---
patient has done okay this shift. complaints of pain. educated on treatment and plan of care. has been up to chair most of day. tolerating 4l o2 at this time. did get up and take a shower. patient has been wanting to eat. educated that speech normally sees the patient 24 hours post extubation. did call md and he stated that since she has tolerated meds and some water, and was noted to sneak some of her husbands food would be okay to start on a regular soft diet. also stated okay to turn fluids to 25ml/hr. lungs are clear. no other complaints noted. vitals stable
--- NOTE | 2021-09-09 16:09 | PC.NURSE ---
Called and left message with office, per pt/family request for something different for pain. ([phone])
[2021-09-09 18:02] LABS: POC Glucose,Bedside 125 (70-110)
[2021-09-09 18:02] LABS: POC Glucose,Bedside 135 (70-110)
[2021-09-09 18:02] LABS: POC Glucose,Bedside 105 (70-110)
[2021-09-09 18:02] LABS: POC Glucose,Bedside 149 (70-110)
--- NOTE | 2021-09-09 18:16 | PC.NURSE ---
IV fluids not infusing at this time r/t pt not keeping any equipment in place (heart monitor, o2 or pulse ox). pt continually attempts to get up out of chair despite clip alarm being in place. pt in room as well.
--- NOTE | 2021-09-09 21:00 | PC.NURSE ---
when entering room to perform assessment, noted pt up in chair with a pill bottle in hand, when asked what she was taking pt stated it was her husbands meds and she was getting them for him, not the bottle had label with written gabapentin in it, and laith sanchez name on it, when asked if she took any, she states she was getting them out for him, and stated she was getting them for me ; gabapentin held for pm meds in relation uncertainty if pt took any or not.
[2021-09-10] VITALS (7 sets, daily range): BP systolic 92–122; BP diastolic 49–59; PULSE 63–90; RESP 12–34; TEMP 37.1; O2SAT 85–95
--- NOTE | 2021-09-10 03:00 | PC.NURSE ---
0300 pt sleeping, but arousable when name calling and slight shaking, noted o2 sats 84% and sustaining, rr 40; 02 increased to 6 L pnc at this time.
--- NOTE | 2021-09-10 04:00 | PC.NURSE ---
0400 pt sats not improving on 02 at 6L, respiratory therapy notified, venti mask placed at 40%, with sats at 93% , rr 42, pt arousable upon name calling, but sleeps, lungs Clear and diminished.
--- NOTE | 2021-09-10 05:36 | PC.NURSE ---
pt slept most of the night, arousable upon name calling and shaking, pt placed on venti mask for sats below 88 on 6L pnc, pt complains of pain after torodol and tramadol, arm propped up on pillows and ice packs applied for pain, pt mostly lethargic through the evening. left arm swollen and pt unable to move it much, lung sounds diminished, b/p wnl; rr 32-40 at times
[2021-09-10 08:25] LABS: Basophils % 0.3 % (0.1-2.0); Eosinophils # 0.2 K/mm3 (0.0-0.4); Eosinophils % 1.6 % (0.1-12.0); Hematocrit 34.3 % (37.0-47.0); Hemoglobin 10.9 g/dL (12.2-16.2); Lymphocytes # 1.4 K/mm3 (0.7-4.5); Lymphocytes % 10.3 % (10-50); Mean Corpuscular HGB Conc 31.9 g/dL (31.8-35.4); Mean Corpuscular Hemoglobin 27.8 pg (27.0-31.2); Mean Corpuscular Volume 87.3 fl (81-99); Mean Platelet Volume 7.7 fl (7.4-10.4); Monocytes # 0.7 K/mm3 (0.1-1.0); Monocytes % 5.3 % (1.7-9.3); Neutrophils # 11.3 K/mm3 (1.8-7.8); Neutrophils % 82.5 % (37.0-80.0); Platelet Count 339 K/mm3 (142-424); Red Blood Count 3.93 M/mm3 (4.20-5.40); Red Cell Distribution Width 16.8 % (11.5-17.5); White Blood Count 13.7 K/mm3 (4.8-10.8)
[2021-09-10 08:28] LABS: Chloride 105 mmol/L (98-107); Potassium 3.9 mmoL/L (3.5-5.1); Sodium 138 mmol/L (136-145)
[2021-09-10 08:30] LABS: Alanine Aminotransferase 12 U/L (12-78); Aspartate Amino Transferase 21 U/L (14-36); Blood Urea Nitrogen 11 mg/dl (7-17); Creatinine Clearance Estimated 148 mL/min (50-200); Estimated Glomerular Filt Rate 108 ml/min (>60); GFR (African American) 130 ML/MIN (>60)
[2021-09-10 08:31] LABS: Albumin Level 3.2 g/dl (3.5-5.0); Albumin/Globulin Ratio 1.3 (1.1-1.8); Alkaline Phosphatase 88 U/L (38-126); Anion Gap 5.9 mEq/L (5-15); Bilirubin,Total 0.6 mg/dl (0.2-1.3); Calcium 8.3 mg/dl (8.4-10.2); Carbon Dioxide 31 mmol/L (22.0-30.0); Globulin 2.5 g/dL (1.3-3.2); Glucose 124 mg/dl (74-100); Total Protein,Serum 5.7 g/dl (6.3-8.2)
--- NOTE | 2021-09-10 09:01 | HMH.SLDYSPHA ---
Speech & Language Evaluation Speech/Language Dysphagia Evaluation Start: 09/10/21 08:56 Freq: ONCE Status: Active Protocol: Document 09/10/21 08:56 MARITZA (Rec: 09/10/21 09:01 MARITZA [id number]) Dysphagia Assess/Goals/Plan Assessment Date of Evaluation: 09/10/21 Evaluation Type Initial Certification Assessment/Problems Dyphagia Eval Does Patient Qualify for Service No Qualify/Failure Comment Ms. Watkins does not display any overt signs of dysphagia at this time. Recommendations PHYSICIAN CERTIFICATION: The specified therapy services are required, authorized, and reviewed every 30 days. Diet Recommendations Mechanical Soft Liquid Type Recommendations Normal/Thin Dysphagia Swallow Precautions/Strategies Sitting Upright (90 deg),Small Bites and Sips,Alternate Liquids/Solids Plan Pt/Guardian verbally ack understanding Yes of dx/prognosis/goals G -code Required No Speech & Language HPI Language Primary Language Prydeinig General Information General Current Food Consistancy NPO Dentition Edentulous Oxygen Status Nasal Cannula Facial Symmetry Symmetrical Patient Orientation Person,Place Ability to Follow Directions Good Communication Ability Mild Impairment Dysphagia:Food Presentation Evaluation Food Type Pureed,Mechanical Soft,Liquid, Pudding Dysphagia Evaluation Summary Ms. Watkins was given the following consistencies; thins via open cup and straw, pudding, puree, and mech soft. Regular was not presented due to lack of dentition. Ms. Watkins presents with no overt signs of dysphagia at this time. Mechanical soft diet with chopped meats and thin liquids is recommended at this time. Stroke Dysphagia Assessment PHYSICIAN CERTIFICATION: I certify the specified therapy services for Haleigh Watkins are required, authorized, and reviewed every 30 days.
--- NOTE | 2021-09-10 09:10 | HMH.ACPN2 ---
Internal Medicine - PN: Subj *Date: 09/10/21 *Time: 09:10 Exam Vital signs and Labs for Last 24 Hours: Temp Pulse Resp BP Pulse Ox 98.7 F 80 34 H 114/56 L 91 L 09/10/21 08:00 09/10/21 06:00 09/10/21 06:00 09/10/21 06:00 09/10/21 06:00 Laboratory Results - last 24 hr 09/08/21 21:36: POC Glucose 135 H 09/09/21 05:08: POC Glucose 105 09/09/21 06:24: WBC 10.0, RBC 3.95 L, Hgb 10.8 L D, Hct 34.7 L, MCV 87.8, MCH 27.3, MCHC 31.1 L, RDW 15.6, Plt Count 310, MPV 9.7, Neut % (Auto) 74.0, Lymph % (Auto) 16.9, [place] % (Auto) 7.4, Eos % (Auto) 1.1, Baso % (Auto) 0.3, Neut # (Auto) 7.4, Lymph # (Auto) 1.7, [place] # (Auto) 0.7, Eos # (Auto) 0.1, Baso # (Auto) 0.0 09/09/21 11:27: POC Glucose 125 H 09/09/21 16:59: POC Glucose 149 H 09/10/21 08:04: WBC 13.7 H D, RBC 3.93 L, Hgb 10.9 L, Hct 34.3 L, MCV 87.3, MCH 27.8, MCHC 31.9, RDW 16.8, Plt Count 339, MPV 7.7, Neut % (Auto) 82.5 H, Lymph % (Auto) 10.3, [place] % (Auto) 5.3, Eos % (Auto) 1.6, Baso % (Auto) 0.3, Neut # (Auto) 11.3 H, Lymph # (Auto) 1.4, [place] # (Auto) 0.7, Eos # (Auto) 0.2, Baso # (Auto) 0.0 09/10/21 08:04: Sodium 138, Potassium 3.9, Chloride 105, Carbon Dioxide 31 H, Anion Gap 5.9, BUN 11, Creatinine 0.60, Estimated Creat Clear 148, Estimated GFR 108, Est GFR ( Amer) 130, Glucose 124 H, Calcium 8.3 L, Total Bilirubin 0.6, AST 21 D, ALT 12 D, Alkaline Phosphatase 88, Total Protein 5.7 L, Albumin 3.2 L, Globulin 2.5, Albumin/Globulin Ratio 1.3 I & O for Last 24 hours: Intake & Output 09/07/21 09/08/21 09/09/21 09/10/21 23:59 23:59 23:59 23:59 Intake Total 722 / 722 1125 / 1125 Output Total 600 / 700 495 / 495 0 / 0 Balance -600 / -700 227 / 227 1125 / 1125 Weight 176 lb 12.8 oz 176 lb 5.917 oz Microbiology Reports for the Last 24 Hours: Microbiology 09/08/21 16:29 Sputum - Endotracheal Tube Aspirate Gram Stain - Final 09/08/21 16:29 Sputum - Endotracheal Tube Aspirate Sputum Culture - Preliminary Assessment and Plan (1) Acute respiratory failure with hypoxia and hypercapnia Status: Acute Category: Medical Code(s): J96.01 - Acute respiratory failure with hypoxia; J96.02 - Acute respiratory failure with hypercapnia (2) Altered mental status Status: Acute Qualifiers: Altered mental status type: coma Coma depth: [place] coma 3-8 Coma timing: in the field (EMT or ambulance) Qualified Code(s): R40.2431 - [place] coma scale score 3-8, in the field [EMT or ambulance] Category: Medical Code(s): R41.82 - Altered mental status, unspecified (3) Overdose Status: Acute Qualifiers: Encounter type: initial encounter Injury intent: undetermined intent Qualified Code(s): T50.904A - Poisoning by unspecified drugs, medicaments and biological substances, undetermined, initial encounter Category: Medical Code(s): T50.901A - Poisoning by unspecified drugs, medicaments and biological substances, accidental (unintentional), initial encounter (4) Charcot's joint of foot Status: Acute Qualifiers: Laterality: right Qualified Code(s): M14.671 - Charcot's joint, right ankle and foot Category: Medical Code(s): M14.679 - Charcot's joint, unspecified ankle and foot (5) Chronic foot pain Status: Acute Qualifiers: Laterality: right Qualified Code(s): M79.671 - Pain in right foot; G89.29 - Other chronic pain Category: Medical Code(s): M79.673 - Pain in unspecified foot; G89.29 - Other chronic pain (6) Chronic pain Status: Acute Qualifiers: Chronic pain type: due to trauma Qualified Code(s): G89.21 - Chronic pain due to trauma Category: Medical Code(s): G89.29 - Other chronic pain (7) Epileptic seizure Status: Acute Qualifiers: Epilepsy type: other Intractability: intractable Status epilepticus: with status epilepticus Qualified Code(s): G40.803 - Other epilepsy, intractable, with status epilepticus Category: Medical Code(s): G40.909 - Epilepsy, unspecif
--- NOTE | 2021-09-10 09:47 | DIET.NUTRFU ---
[facility] completed eval today to determine safe swallowing consistencies. Patient does not have teeth with her. Recommend MSOFT with thin, once home and teeth in she can tolerate regular. No indication of dysphasia. Patient is familiar to staff, she was recently just her with good meal intake
--- NOTE | 2021-09-10 10:44 | PC.NURSE ---
pt adamant to leave AMA despite PCP recommendations. Pt is aware that she is not medically stable at this time to be discharged. She is refusing IV acess, routine vitals, and supplemental oxygen. She is A&O. RA sat is 84%. She reports that she wears O2 @ home and that this will not be an issue. Chair alarm is on as pt is unsteady on her feet and is a high fall risk. Dr. Chelle reynolds.
[2021-09-10 22:46] LABS: POC Glucose,Bedside 114 (70-110)
[2021-09-10 22:46] LABS: POC Glucose,Bedside 92 (70-110)
--- NOTE | 2021-11-11 17:33 | HMH.DCSUM ---
General - General Admission date:: 09/08/21 HPI HPI: Patient arrives by ambulance unresponsive. Unable to obtain any further history from her. EMS personnel report that the patient received a pain shot from her doctor, then her gave her prescribed benzodiazepines. She then became unresponsive. EMS administered 2 mg of Narcan without change in condition. per ER physician Well known to the practice; chronic pain, charcot foot with extensive fractures and complex hardware, poorly controlled seizures, and humerus fracture left.. Appears to be over-utilizing medications, in this case probably klonopin given the circumstances. Urine opiates negative Was intubated for airway protection. Hospital Course Hospital Course: The patient was admitted through the emergency room with a suspected overdose. She was intubated for protection of her airways. Subsequently extubated and supplemental oxygen was utilized. After having been seen on rounds on the morning of 09/10/2021 patient decided to leave the hospital AGAINST MEDICAL ADVICE. Detailed nursing notes outline the situation, and patient was clearly made aware of the risks involved with leaving. Objective Vital signs: Temp Pulse Resp BP Pulse Ox 98.7 F 82 34 H 105/59 L 85 L 09/10/21 08:00 09/10/21 09:41 09/10/21 06:00 09/10/21 09:41 09/10/21 10:43 obese, chronically ill appearing - *Routine HEENT Exam Head: Present: normocephalic Eye: Present: EOMI, PERRL ENT: Present: mucous membranes moist - *Routine Neck Exam Present: supple - *Routine Respiratory Exam Present: CTA bilaterally - *Routine Cardiovascular Exam Present: RRR - *Routine Abdominal Exam Present: obese - *Routine Extremities Exam Comments: left humerus fracture - *Routine Skin Exam Present: warm. Absent: rash DS: Diagnosis - Discharge Diagnosis (1) Acute respiratory failure with hypoxia and hypercapnia Status: Acute (2) Altered mental status Status: Acute (3) Overdose Status: Acute (4) Charcot's joint of foot Status: Acute (5) Chronic foot pain Status: Acute (6) Chronic pain Status: Acute (7) Epileptic seizure Status: Acute (8) Foot fracture, right Status: Acute (9) Foot injury Status: Acute (10) Foot pain Status: Acute (11) Fracture of foot Status: Acute (12) Generalized seizure Status: Acute (13) Has run out of medications Status: Acute (14) Humerus fracture Status: Acute (15) Left humeral fracture Status: Acute (16) Loosening of orthopedic plate device Status: Acute (17) Obesity (BMI 30-39.9) Status: Acute (18) Rocker bottom foot Status: Acute (19) Anxiety Status: Chronic (20) Diabetes type 2, controlled Status: Chronic (21) Obesity Status: Chronic (22) Seizure disorder Status: Chronic Discharge Plan - Patient Discharge Instructions ACTIVITY: Limited activity DIET: continue same diet Patient Instructions: Coma, DI for Drug Overdose in Adults, DI for Respiratory Failure, DI for Altered Mental Status, DI for Hypoxia, Respiratory Failure - Follow up Plan Follow up with: Ced Corbett MD [Primary Care Provider] - 09/13/21 9:00 am Disposition: Left Against Medical Advice Condition at discharge:: Improved Home Medications: Home Medications Medication Instructions Recorded Confirmed Type Cetirizine HCl 10 mg PO DAILY 04/22/21 10/08/21 History Metoprolol Succinate [Metoprolol 25 mg PO DAILY 04/22/21 10/08/21 History Succinate 25mg Tablet*] lisinopriL [Lisinopril] 20 mg PO DAILY 04/22/21 10/08/21 History folic acid 1 mg tablet 1 mg PO DAILY #90 tab 05/05/21 10/08/21 Rx Metformin HCl [Metformin 1000mg 1,000 mg PO BID 05/28/21 10/08/21 History Tablets] fluticasone propionate 50 1 spray INTRANASAL DAILY #16 g 06/17/21 10/08/21 Rx mcg/actuation nasal spray,suspension buspirone 15 mg tablet 15 mg PO TID #
== END 2021-09-10 11:55 | disposition left against medical advice (07) | DRG 917 ==
LOC: ER 18:07 → 2ND 22:00
PROVIDERS: Admitting Provider Emergency Medicine; Emergency Provider Emergency Medicine; PCP Family Medicine; Visit Provider Family Medicine
DX: J96.01 Acute respiratory failure with hypoxia (principal); J96.02 Acute respiratory failure with hypercapnia; S42.302A Unspecified fracture of shaft of humerus, left arm, initial encounter for closed fracture; T42.4X1A Poisoning by benzodiazepines, accidental (unintentional), initial encounter; A52.16 Charcot's arthropathy (tabetic); E11.9 Type 2 diabetes mellitus without complications; I11.0 Hypertensive heart disease with heart failure; J44.9 Chronic obstructive pulmonary disease, unspecified; E78.5 Hyperlipidemia, unspecified; I25.2 Old myocardial infarction; F17.210 Nicotine dependence, cigarettes, uncomplicated; E03.9 Hypothyroidism, unspecified; Z95.5 Presence of coronary angioplasty implant and graft; Z79.84 Long term (current) use of oral hypoglycemic drugs; G40.909 Epilepsy, unspecified, not intractable, without status epilepticus; S92.901A Unspecified fracture of right foot, initial encounter for closed fracture; E66.9 Obesity, unspecified; Z68.35 Body mass index [BMI] 35.0-35.9, adult; Z91.19 Patient's noncompliance with other medical treatment and regimen; X58.XXXA Exposure to other specified factors, initial encounter; F41.9 Anxiety disorder, unspecified; I25.10 Atherosclerotic heart disease of native coronary artery without angina pectoris; I65.29 Occlusion and stenosis of unspecified carotid artery
CPT/HCPCS: 31500; 94002; 36415; 70450; 71045; 80048; 80053; 80305; 80329; 82803; 82962; 84484; 85025; 87070; 87205; 92610; 94760; 96372; 96375; 99291; C9803; J2310; J2405; J2704; U0003; U0005

== ENCOUNTER 2021-09-10 17:39 | Observation (INO) | payer MEDICAID, SELFPAY ==
[2021-09-10] VITALS (11 sets, daily range): BP systolic 75–127; BP diastolic 37–80; PULSE 72–91; RESP 12–18; TEMP 36.4–36.8; O2SAT 66–100; BMI 34.3; BMI 34.7
--- NOTE | 2021-09-10 17:58 | XR_ITS ---
PROCEDURE INFORMATION: Exam: XR Chest Exam date and time: 09/10/2021 6:07 PM Age: 45 years old Clinical indication: Other: Hypoxia overdose patient; Additional info: Hypoxia, od TECHNIQUE: Imaging protocol: XR of the chest. Views: 1 view. COMPARISON: CR XR CHEST PORTABLE 09/08/2021 4:33 PM FINDINGS: Lungs: Lung volumes are moderately diminished. There are mildly increased hazy bibasilar opacities, some which may be accentuated by overlying soft tissue artifact. This appears mildly increased from prior exam. The upper lungs remain clear. Pleural spaces: No pleural effusions or appreciable adenopathy. Negative for pneumothorax. Heart/Mediastinum: Mild cardiomegaly is mildly increased. There is mild pulmonary venous hypertension. Bones/joints: There is no evidence of acute fracture. IMPRESSION: 1. Lung volumes moderately diminished. 2. Mildly increased hazy bibasilar opacities, some which may be accentuated by overlying soft tissue artifact.
[2021-09-10 18:25] LABS: VBG Base Excess -2.1 mmol/L (-2.4-2.3); VBG HCO3 23.4 mmol/L (23-30); VBG Oxygen Saturation 98.9 % (50-70); VBG PCO2 43.1 mmol/L (35-51); VBG PH 7.35 mmol/L (7.31-7.41); VBG PO2 145.9 mmol/L (28-40); VBG Total CO2 24.7 mmol/L (23-27)
--- NOTE | 2021-09-10 18:25 | PC.NURSE ---
speaking with Dr. Weldon
--- NOTE | 2021-09-10 18:30 | PC.NURSE ---
[address] andre at this time
[2021-09-10 18:51] LABS: Benzodiazepines Screen,Urine Positive ng/ml (<200)
[2021-09-10 18:52] LABS: Amphetamine/Metha Screen,Urine Negative ng/ml (<1000); Barbiturates Screen,Urine Negative ng/ml (<200)
[2021-09-10 18:53] LABS: Cannabinoid Screen,Urine Negative ng/ml (<50)
[2021-09-10 18:54] LABS: Cocaine Screen,Urine Negative ng/ml (<300); Methadone Screen,Urine Negative ng/ml (<300)
[2021-09-10 18:55] LABS: Opiate Screen,Urine Negative ng/ml (<300)
[2021-09-10 18:56] LABS: Phencyclidine Screen,Urine Negative ng/ml (<25)
[2021-09-10 19:48] LABS: Coronavirus 19, PCR Not Detected (NotDetected); Influenza A, PCR Not Detected (NotDetected); Influenza B, PCR Not Detected (NotDetected)
--- NOTE | 2021-09-10 21:09 | HMH.EDGENADL ---
ED Disposition Clinical Impression: Overdose Qualifiers: Encounter type: initial encounter Injury intent: accidental or unintentional Qualified Code(s): T50.901A - Poisoning by unspecified drugs, medicaments and biological substances, accidental (unintentional), initial encounter Disposition: Admitted As Inpatient Condition on Discharge: Fair Referrals: Ced Corbett MD [Primary Care Provider] - - Critical Care Critical Care Time: No Attestation: On 09/10/21, the high probability of a clinically significant, sudden or life threatening deterioration of the following system(s) required my full and direct attention, intervention and personal management. The time I documented below is in addition to time spent performing reported procedures but includes the following listed in this critical care notation. Medical Decision Making - Medical Records Medical records reviewed: Yes: I reviewed the patient's medical records. - Gregory Inquiry Pt receiving controlled substance: No Vital Signs: 09/10/21 17:39 09/10/21 18:30 Temperature 98.2 F Temperature Source Oral Pulse Rate 88 Pulse Rate [Left Radial] 91 H Respiratory Rate 12 12 Blood Pressure 112/80 Blood Pressure [Right Arm] 75/37 L Blood Pressure Mean 86 Blood Pressure Mean [Right Arm] 49 Blood Pressure Source [Right Arm] Automatic Cuff Blood Pressure Position [Right Arm] Sitting 02 Sat by Pulse Oximetry 66 L 98 Oxygen Delivery Method Room Air Nasal Cannula Oxygen Flow Rate (LPM) 4 - Lab Data Lab Results 09/10/21 18:18: VBG pH 7.35, VBG pCO2 43.1, VBG pO2 145.9 H, VBG HCO3 23.4, VBG Total CO2 24.7, VBG O2 Saturation 98.9 H, VBG Base Excess -2.1 09/10/21 18:25: Urine Opiates Screen Negative, Urine Methadone Screen Negative, Ur Barbituates Screen Negative, Ur Phencyclidine Scrn Negative, Ur Amphetamines Screen Negative, U Benzodiazepines Scrn Positive H, Urine Cocaine Screen Negative, U Marijuana (THC) Screen Negative 09/10/21 19:34: SARS-CoV-2 (PCR) Not detected, Influenza A Untype (PCR) Not detected, Influenza Type B (PCR) Not detected Orders (Tests/Meds): ED MEDICATIONS Generic Name Dose Route Start Last Admin Trade Name Freq PRN Reason Stop Dose Admin Lactated Ringer's 1,000 mls @ 75 mls/hr 09/10/21 21:15 Lactated Ringer's 1000 Ml Bag IV 10/10/21 21:14 .[id number] DOUGLAS Naloxone HCl 2 mg 09/10/21 18:30 09/10/21 18:35 Naloxone 2mg/2ml Syringe IV 10/10/21 18:29 2 mg Q2M PRN Administration Sedation Ondansetron HCl 4 mg 09/10/21 21:03 Ondansetron 4mg/2ml Vial IV 10/10/21 21:02 Q6 PRN Nausea And Vomiting Discontinued Medications Generic Name Dose Route Start Last Admin Trade Name Freq PRN Reason Stop Dose Admin Acetaminophen 500 mg 09/10/21 17:58 09/10/21 19:17 Acetaminophen 500mg Tab PO 09/10/21 17:59 Not Given ONCE ONE Naloxone HCl 4 mg 09/10/21 18:40 09/10/21 18:44 Naloxone 2mg/2ml Syringe IV 09/10/21 18:41 4 mg ONCE ONE Administration ORDERS Category Date Time Status Basic Metabolic Panel Stat Lab 09/10/21 21:02 Ordered Complete Blood Count Auto Diff Stat Lab 09/10/21 21:02 Ordered - Radiology Data #1 Image(s): Chest Image Reviewed: Yes I reviewed the patient's radiology results PRESSION: 1. Lung volumes moderately diminished. 2. Mildly increased hazy bibasilar opacities, some which may be accentuated by overlying soft tissue artifact. Medical Decision Narrative: 45-year-old female with history of prior accidental overdose, respiratory failure requiring mechanical ventilation who is presenting to the ED with concern for overdose, shortness of breath and apnea. Differential diagnoses include opioid overdose, gabapentin overdose, polysubstance abuse, benzodiazepine, ingestion, acute hypoxic/hypercapnic respiratory failure. Given this work-up will include chest x-ray, VBG, physical exam, Narcan administration. Patient required 3 doses
[2021-09-10 21:17] LABS: Basophils % 0.1 % (0.1-2.0); Chloride 103 mmol/L (98-107); Eosinophils # 0.2 K/mm3 (0.0-0.4); Eosinophils % 0.9 % (0.1-12.0); Hematocrit 37.1 % (37.0-47.0); Hemoglobin 11.3 g/dL (12.2-16.2); Lymphocytes # 1.7 K/mm3 (0.7-4.5); Lymphocytes % 9.9 % (10-50); Mean Corpuscular HGB Conc 30.4 g/dL (31.8-35.4); Mean Corpuscular Hemoglobin 27.7 pg (27.0-31.2); Mean Corpuscular Volume 91.2 fl (81-99); Mean Platelet Volume 7.8 fl (7.4-10.4); Monocytes # 0.9 K/mm3 (0.1-1.0); Monocytes % 5.1 % (1.7-9.3); Neutrophils # 14.1 K/mm3 (1.8-7.8); Neutrophils % 83.9 % (37.0-80.0); Platelet Count 402 K/mm3 (142-424); Red Blood Count 4.07 M/mm3 (4.20-5.40); Red Cell Distribution Width 15.9 % (11.5-17.5); Sodium 139 mmol/L (136-145); White Blood Count 16.8 K/mm3 (4.8-10.8)
[2021-09-10 21:20] LABS: Blood Urea Nitrogen 10 mg/dl (7-17); Calcium 8.6 mg/dl (8.4-10.2); Carbon Dioxide 28 mmol/L (22.0-30.0); Creatinine Clearance Estimated 78 mL/min (50-200); Estimated Glomerular Filt Rate 53 ml/min (>60); GFR (African American) 65 ML/MIN (>60); Glucose 118 mg/dl (74-100); MANUAL DIFFERENTIAL MANUAL DIFFERENTIAL (MANUAL DIFF)
[2021-09-10 21:59] LABS: Eosinophils % 1 % (0-3); Hypochromasia 1+; Lymphocytes % 11 % (10-50); Neutrophils % 83 % (42-76); Platelet Estimate Normal; Total Cells Counted 100
--- NOTE | 2021-09-10 22:11 | PC.NURSE ---
patient up to floor via stretcher @ this time
--- NOTE | 2021-09-10 22:37 | PC.NURSE ---
Addendum entered by Hannah Felix RN 09/11/21 05:06: Patient rested throughout shift. Patient would wake requesting pain meds only to fall back to sleep shortly after. Patient contiues to wear 6L NC sating in the 90's when sleeping. VSS however patient is still drowsy. Original Note: Admitted patient to floor to the best of this RN's ability. Patient is lethargic and uncertain of most questions r/t condition. VSS are stable patient currently on 6l NC sating high 90's. Call light in reach. No complaints at this time.
[2021-09-11] VITALS: BP 128/55; PULSE 88; RESP 18; TEMP 36.7; O2SAT 96
[2021-09-11 04:00] VITALS: BP 104/53; PULSE 66; RESP 20; TEMP 36.4; O2SAT 96
[2021-09-11 04:59] VITALS: BMI 34.9
--- NOTE | 2021-09-11 07:30 | XR_ITS ---
PROCEDURE INFORMATION: Exam: XR Chest Exam date and time: 09/11/2021 7:21 AM Age: 45 years old Clinical indication: Shortness of breath; Additional info: SOB TECHNIQUE: Imaging protocol: XR of the chest. Views: 1 view. COMPARISON: CR XR CHEST PORTABLE 09/10/2021 6:07 PM FINDINGS: Lungs: Unremarkable. No consolidation. Pleural spaces: Unremarkable. No pleural effusion. No pneumothorax. Heart/Mediastinum: Unremarkable. No cardiomegaly. Bones/joints: Unremarkable. IMPRESSION: No acute findings.
[2021-09-11 08:00] VITALS: BP 120/70; PULSE 89; RESP 18; TEMP 36.6; O2SAT 91
[2021-09-11 08:34] LABS: Chloride 104 mmol/L (98-107); Potassium 3.8 mmoL/L (3.5-5.1); Sodium 140 mmol/L (136-145)
[2021-09-11 08:37] LABS: Anion Gap 5.8 mEq/L (5-15); Blood Urea Nitrogen 7 mg/dl (7-17); Carbon Dioxide 34 mmol/L (22.0-30.0); Creatinine Clearance Estimated 125 mL/min (50-200); Estimated Glomerular Filt Rate 90 ml/min (>60); GFR (African American) 109 ML/MIN (>60)
[2021-09-11 08:38] LABS: Calcium 8.3 mg/dl (8.4-10.2); Glucose 96 mg/dl (74-100)
[2021-09-11 09:06] LABS: Basophils % 0.2 % (0.1-2.0); Eosinophils # 0.2 K/mm3 (0.0-0.4); Eosinophils % 1.9 % (0.1-12.0); Hematocrit 36.1 % (37.0-47.0); Hemoglobin 11.3 g/dL (12.2-16.2); Lymphocytes % 16.9 % (10-50); Mean Corpuscular HGB Conc 31.4 g/dL (31.8-35.4); Mean Corpuscular Volume 89.3 fl (81-99); Mean Platelet Volume 7.3 fl (7.4-10.4); Monocytes # 0.7 K/mm3 (0.1-1.0); Monocytes % 5.7 % (1.7-9.3); Neutrophils # 8.8 K/mm3 (1.8-7.8); Neutrophils % 75.3 % (37.0-80.0); Platelet Count 356 K/mm3 (142-424); Red Blood Count 4.04 M/mm3 (4.20-5.40); Red Cell Distribution Width 16.1 % (11.5-17.5); White Blood Count 11.7 K/mm3 (4.8-10.8)
--- NOTE | 2021-09-11 09:43 | P.CONPHA_ITS ---
[facility] Pharmacy VTE Monitoring - Patient Demographics Admission date: 09/10/21 Report Date: 09/11/21 Time: 09:43 Allergies/Adverse Reactions: Patient Allergies tramadol Adverse Reaction (Mild, Verified 09/08/21 09:56) Abdominal Pain sulfamethoxazole [From Sulfamethoxazole-Trimethoprim] Adverse Reaction (Verified 09/08/21 09:56) trimethoprim [From Sulfamethoxazole-Trimethoprim] Adverse Reaction (Verified 09/08/21 09:56) Height: 1.5 m Weight: 78.698 kg Patient Problems: Current Active Problems Overdose (Acute) - VTE Risk Labs: VTE Related Lab Results Hgb 11.3 g/dL (12.2-16.2) L 09/11/21 07:43 Hct 36.1 % (37.0-47.0) L 09/11/21 07:43 Plt Count 356 K/mm3 (142-424) 09/11/21 07:43 BUN 7 mg/dl (7-17) D 09/11/21 07:43 Creatinine 0.70 mg/dl (0.52-1.04) D 09/11/21 07:43 Estimated Creat Clear 125 mL/min (50-200) 09/11/21 07:43 VTE Score: 5 VTE Risk Level: Low Risk - Prophylaxis VTE Prophylaxis Ordered?: Yes Types of VTE Prophylaxis: TEDS Knee High Location of Applied Device: Bilateral Lower Extremeties
--- NOTE | 2021-09-11 09:43 | HMH.PHAINT ---
MEDICATION RECONCILIATION COMPLETED ON PATIENT USING EXTERNAL FILL HISTORY FROM PHARMACY AND DISCHARGE SUMMARY FROM PREVIOUS ADMISSION. -CHAR LAWSOND
--- NOTE | 2021-09-11 11:11 | HMH.HPDC ---
General - General Admission date:: 09/10/21 Discharge date: 09/11/21 *Admission Date: 09/10/21 *Chief complaint: altered mental status *History of present illness: this patient presented to the ed -45-year-old female with history of illicit drug use is presenting to the ED with concern for overdose. Patient was recently admitted with respiratory failure secondary to accidental overdose, she was extubated last night and left AGAINST MEDICAL ADVICE earlier today. Her is present at bedside. Patient states that she did took 2 Percocet at home, she is prescribed benzodiazepines, additionally patient states that she is taking gabapentin. She is unable to state how many gabapentin pills or clonazepam pills that she took at home. She intermittently falls asleep and becomes hypoxic and apneic. Her blood pressures normotensive, no evidence of head trauma. 45-year-old female with history of prior accidental overdose, respiratory failure requiring mechanical ventilation who is presenting to the ED with concern for overdose, shortness of breath and apnea. Differential diagnoses include opioid overdose, gabapentin overdose, polysubstance abuse, benzodiazepine, ingestion, acute hypoxic/hypercapnic respiratory failure. Given this work-up will include chest x-ray, VBG, physical exam, Narcan administration. Patient required 3 doses of 2 mg IV Narcan, becomes apneic and hypoxic, on 4 L nasal cannula. UDS positive for benzodiazepines. She is requesting pain medication despite actively becoming apneic in front of us. VBG with no evidence of hypercapnic respiratory failure, chest x-ray with no obvious focal consolidation, no pneumothorax, no cardiomegaly noted. Given the patient is required multiple doses of Narcan with a recent overdose we will admit overnight for observation. Added on BMP, CBC, has as needed Narcan, started regular diet. [facility] History I have reviewed the patient's past medical history: Yes Medical History: Reports:: Anxiety, Atherosclerotic Heart Disease, Carotid Stenosis, Congestive Heart Failure, Chronic Obstructive Pulmonary Disease (COPD), Diabetes Mellitus Type 2, Hyperlipidemia, Hypertension, Myocardial Infarction Denies:: Cancer, Diabetes Mellitus Type 1, Internal Pacemaker, MRSA *Have you ever received a pneumonia vaccine?: No *Have you received a flu vaccine this season?: No Other Medical History: Reports: Anemia, Arthritis, Hypothyroidism, Thyroid Disease, Other Other Surgeries: Yes: Cardiac Catheterization, Coronary Stent, Tubal Ligation. No: Pacemaker Amputation: No Fractures: No - *Social History Smoking Status: Current every day smoker Tobacco Type: cigarettes # Packs/Day (cigarettes): 2 Alcohol Intake: never Alcohol Intake Frequency:: 0-2 drinks per day Substance Use Type: denies use *Occupational Status:: unemployed Housing: house Household Members: spouse, children *Travel in the last 8 weeks: None - Psychiatric History Pschychiatric History:: Reports:: Anxiety Family Hx:: Non-contributory Review of Systems - Constitutional Denies headache(s) - Eyes Denies change in vision - ENT Denies sore throat - *Cardiovascular Denies chest pain at rest - *Respiratory Denies cough - *Gastrointestinal Denies abdominal pain - *Genitourinary Denies blood in urine - *Musculoskeletal Reports joint pain, Denies neck pain - Integumentary/Breasts Denies rash - *Neurologic Denies headache(s), Denies seizure-like activity - Psychiatric Denies thoughts of hurting/killing yourself Exam Vital signs and Labs for Last 24 Hours: Temp Pulse Resp BP Pulse Ox 97.9 F 89 18 120/70 91 L 09/11/21 08:00 09/11/21 08:00 09/11/21 08:00 09/11/21 08:00 09/11/21 08:00 Laboratory Results - last 24 hr 09/10/21 18:06: WBC 16.8 H, RBC 4.07 L, Hgb 11.3 L, Hct 37.1, MCV 91.2, MCH 27.7, MCHC 30.4 L, RDW 15.9, Plt Count 402, MPV 7.8, Neut % (Auto) 83.9 H, Lymph % (Auto) 9.9 L, [place] % (Auto) 5.1, Eos
== END 2021-09-11 12:07 | disposition home or self-care (01) ==
LOC: ER 17:57 → 2ND 21:17
PROVIDERS: Admitting Provider Emergency Medicine; Emergency Provider Emergency Medicine; PCP Family Medicine; Visit Provider Family Medicine
DX: E11.9 Type 2 diabetes mellitus without complications (principal); R41.82 Altered mental status, unspecified; E03.9 Hypothyroidism, unspecified; T50.901A Poisoning by unspecified drugs, medicaments and biological substances, accidental (unintentional), initial encounter; Z79.84 Long term (current) use of oral hypoglycemic drugs; Z79.899 Other long term (current) drug therapy; F17.210 Nicotine dependence, cigarettes, uncomplicated; I25.10 Atherosclerotic heart disease of native coronary artery without angina pectoris; J44.9 Chronic obstructive pulmonary disease, unspecified; I11.0 Hypertensive heart disease with heart failure; I50.9 Heart failure, unspecified; Z95.5 Presence of coronary angioplasty implant and graft; E78.5 Hyperlipidemia, unspecified; G40.909 Epilepsy, unspecified, not intractable, without status epilepticus; S42.302A Unspecified fracture of shaft of humerus, left arm, initial encounter for closed fracture
CPT/HCPCS: 36415; 71045; 80048; 80305; 82803; 85007; 85025; 96375; 96376; 99285; C9803; G0378; J2310; U0003; U0005

== ENCOUNTER 2021-09-26 15:18 | Emergency (ER) | payer MEDICAID, SELFPAY ==
--- NOTE | 2021-09-26 15:30 | PC.NURSE ---
EVELYN Cordero at BS
--- NOTE | 2021-09-26 15:34 | PC.NURSE ---
patient ambulatory to restroom without complications
[2021-09-26 15:38] VITALS: BP 128/70; PULSE 101; RESP 16; TEMP 36.8; O2SAT 94; BMI 35.9
--- NOTE | 2021-09-26 15:40 | PC.NURSE ---
patient ambulatory back to ED room 10 without complications
--- NOTE | 2021-09-26 15:50 | PC.NURSE ---
EVELYN Cordero at BS
--- NOTE | 2021-09-26 15:58 | PC.NURSE ---
ED MD at
[2021-09-26 15:59] LABS: Microscopic, Urine URINE MICROSCOPIC (MICROSCOPIC)
--- NOTE | 2021-09-26 16:00 | HMH.EDGENADL ---
ED Disposition Clinical Impression: Acute urinary retention Disposition: Home, Self-Care Condition on Discharge: Good Instructions: How to Care for Your Rosenbaum Catheter -- Female, DI for Urinary Retention in Women Additional Instructions: Rosenbaum catheter with leg bag and overnight bag. Follow-up with primary care provider in 2 days for catheter removal. Referrals: Ced Corbett MD [Primary Care Provider] - - Critical Care Critical Care Time: No Attestation: On 09/26/21, the high probability of a clinically significant, sudden or life threatening deterioration of the following system(s) required my full and direct attention, intervention and personal management. The time I documented below is in addition to time spent performing reported procedures but includes the following listed in this critical care notation. Medical Decision Making - Gregory Inquiry Pt receiving controlled substance: No Vital Signs: 09/26/21 15:38 Temperature 98.3 F Temperature Source Oral Pulse Rate [Left Radial] 101 H Respiratory Rate 16 Blood Pressure [Right Arm] 128/70 Blood Pressure Mean [Right Arm] 89 02 Sat by Pulse Oximetry 94 L - Lab Data Lab Results 09/26/21 15:44: Urine Color Yellow, Urine Appearance Clear, Urine pH 6.5, Ur Specific [place] <= 1.005, Urine Protein Negative, Urine Glucose (UA) Negative, Urine Ketones Negative, Urine Blood 3+, Urine Nitrate Negative, Urine Bilirubin Negative, Urine Urobilinogen 0.2, Ur Leukocyte Esterase Negative, Urine RBC 5-10, Urine WBC Occasional, Ur Squamous Epith Cells 3-5, Urine Bacteria Trace Medical Decision Narrative: Patient requests pain medication for her arm pain. I have declined. 2 recent overdoses, 1 requiring intubation. Her states she has pain medication at home. I advised her that her primary and orthopedic physicians should manage her pain. General Adult HPI - General Chief complaint: Urogenital-Female Stated complaint: cannot urinate Time Seen by Provider: 09/26/21 15:55 Mode of Arrival: Ambulatory Limitations: No Limitations Description of Symptoms (Recalled from ER Triage Doc. by RN): pt to ed c/o urinary retention. pt states she had surgery on her arm on monday and since then she has been able to empty her badder. - History of Present Illness HPI narrative: States she had surgery on Monday 5 days ago for fractured left humerus. Has not been able to empty her bladder well since surgery. No prior history of urinary retention. Catheter inserted in the emergency department which has returned 1300 cc of urine and she reports improved symptoms. - Related Data Home Medications Medication Instructions Recorded Confirmed Sertraline HCl [Zoloft] 300 mg PO DAILY 07/02/19 09/24/21 Cetirizine HCl 10 mg PO DAILY 04/22/21 09/24/21 Metoprolol Succinate [Metoprolol 25 mg PO DAILY 04/22/21 09/24/21 Succinate 25mg Tablet*] lisinopriL [Lisinopril] 20 mg PO DAILY 04/22/21 09/24/21 Metformin HCl [Metformin 1000mg 1,000 mg PO BID 05/28/21 09/24/21 Tablets] Furosemide [Furosemide 20mg Tab*] 40 mg PO DAILY 09/01/21 09/24/21 Levothyroxine Sodium [Synthroid 50 mcg PO DAILY 09/01/21 09/24/21 50mcg (0.05mg) tab] OLANZapine [Olanzapine] 20 mg PO DAILY 09/01/21 09/24/21 Potassium Chloride [K-Tab ER 20 60 meq PO DAILY 09/01/21 09/24/21 mEq] Doxepin HCl [Sinequin 50mg capsule] 50 - 100 mg PO HS 09/08/21 09/24/21 Lidocaine [Lidocaine 5% patch] 1 patch TOPICAL Q12HP PRN 09/08/21 09/24/21 clonazePAM [Clonazepam] 2 mg PO BIDP PRN 09/08/21 09/24/21 levETIRAcetam [Levetiracetam] 1,000 mg PO BID 09/08/21 09/24/21 Meclizine HCl [Antivert 25mg 25 mg PO TIDP PRN 09/09/21 09/24/21 tablet] ondansetron HCL [Ondansetron 4mg 4 mg PO TIDP PRN 09/09/21 09/24/21 tab*] docusate sodium 100 mg capsule cap PO 09/24/21 09/24/21 Previous Rx's Medication Instructions Recorded atorvastatin 40 mg tablet 40 mg PO DAILY #90 tab 05/05/21 folic acid 1 mg tablet 1 mg
[2021-09-26 16:28] LABS: Appearance,Urine CLEAR (Clear); Bilirubin,Urine Negative (Negative); Blood, Urine 3+ (Negative); Color,Urine YELLOW (Yellow); Glucose,Urine (UA) Negative (Negative); Ketones,Urine Negative (Negative); Leukocyte Esterase,Urine Negative (Negative); Nitrate,Urine Negative (Negative); PH,Urine 6.5 (5.0-8.5); Protein,Urine Negative (Negative); Specific Gravity, Urine <= 1.005 (1.005-1.030); Urobilinogen,Urine 0.2 EU/dl (0.2)
[2021-09-26 16:38] LABS: Bacteria,Urine Trace /lpf; WBC,Urine Occasional #/hpf (0-3)
--- NOTE | 2021-09-26 16:52 | PC.NURSE ---
ED MD at speaking with patient regarding update on POC
--- NOTE | 2021-09-26 16:57 | PC.NURSE ---
Consuelo RN at discussing discharge instructions and educating on how to use a leg bag to the patient
[2021-09-26 17:08] VITALS: BP 121/74; PULSE 98; RESP 18; TEMP 36.8; O2SAT 95
== END 2021-09-26 17:10 | disposition home or self-care (01) ==
PROVIDERS: Emergency Provider Emergency Medicine; PCP Family Medicine
DX: R33.8 Other retention of urine (principal); M79.602 Pain in left arm; I11.0 Hypertensive heart disease with heart failure; I50.9 Heart failure, unspecified; I25.10 Atherosclerotic heart disease of native coronary artery without angina pectoris; I25.2 Old myocardial infarction; I65.29 Occlusion and stenosis of unspecified carotid artery; E78.5 Hyperlipidemia, unspecified; E11.9 Type 2 diabetes mellitus without complications; J44.9 Chronic obstructive pulmonary disease, unspecified; F19.10 Other psychoactive substance abuse, uncomplicated; F41.9 Anxiety disorder, unspecified; Z79.84 Long term (current) use of oral hypoglycemic drugs; Z79.899 Other long term (current) drug therapy; Z91.52 Personal history of nonsuicidal self-harm; Z98.890 Other specified postprocedural states
CPT/HCPCS: 51702; 81001; 99283

== ENCOUNTER 2021-10-02 12:59 | Emergency (ER) | payer MEDICAID, SELFPAY ==
--- NOTE | 2021-10-02 13:12 | HMH.EDGENADL ---
ED Disposition Clinical Impression: Post-operative pain Disposition: Home, Self-Care Condition on Discharge: Good Instructions: DI for Postoperative Pain Additional Instructions: follow up ORtho and PCP Prescriptions: Oxycodone HCl/Acetaminophen [Percocet 5/325mg tablet] 1 tab PO Q6H PRN 2 Days #8 tab PRN Reason: Moderate To Severe Pain Transmission Status: Pending to Clinic Pharmacy [facility] Referrals: Ced Corbett MD [Primary Care Provider] - - Critical Care Critical Care Time: No Attestation: On , the high probability of a clinically significant, sudden or life threatening deterioration of the following system(s) required my full and direct attention, intervention and personal management. The time I documented below is in addition to time spent performing reported procedures but includes the following listed in this critical care notation. Medical Decision Making - Medical Records Medical records reviewed: Yes: I reviewed the patient's medical records. - Gregory Inquiry Pt receiving controlled substance: No Vital Signs: 10/02/21 13:21 Temperature 98.2 F Temperature Source Oral Pulse Rate [Left Radial] 86 Respiratory Rate 20 Blood Pressure [Right Arm] 102/72 L Blood Pressure Mean [Right Arm] 82 02 Sat by Pulse Oximetry 94 L Oxygen Delivery Method Room Air Orders (Tests/Meds): ED MEDICATIONS Discontinued Medications Generic Name Dose Route Start Last Admin Trade Name Freq PRN Reason Stop Dose Admin Oxycodone/Acetaminophen 1 each 10/02/21 13:26 Oxycodone 5mg W/Apap 325mg Tablet PO 10/02/21 13:27 ONCE ONE Medical Decision Narrative: revewed records, mult rx this month and h/o od, advised pain control here and no rx given today, advised to f/u with ortho and pain mgmt General Adult HPI - General Stated complaint: lt arm pain, broken 09/01 Time Seen by Provider: 10/02/21 13:12 - History of Present Illness HPI narrative: left arm pain, ran out of pain medicine, last pill taken yesterday h/o left arm fracture few weeks post-op, no new injuries Onset (ago): day(s) Radiation: non-radiation Severity: moderate Quality: dull Consistency: constant Relieving factors: immobilization Exacerbating factors: movement Associated symptoms: denies other symptoms - Related Data Home Medications Medication Instructions Recorded Confirmed Cetirizine HCl 10 mg PO DAILY 04/22/21 09/24/21 Metoprolol Succinate [Metoprolol 25 mg PO DAILY 04/22/21 09/24/21 Succinate 25mg Tablet*] lisinopriL [Lisinopril] 20 mg PO DAILY 04/22/21 09/24/21 Metformin HCl [Metformin 1000mg 1,000 mg PO BID 05/28/21 09/24/21 Tablets] Furosemide [Furosemide 20mg Tab*] 40 mg PO DAILY 09/01/21 09/24/21 Levothyroxine Sodium [Synthroid 50 mcg PO DAILY 09/01/21 09/24/21 50mcg (0.05mg) tab] OLANZapine [Olanzapine] 20 mg PO DAILY 09/01/21 09/24/21 Potassium Chloride [K-Tab ER 20 60 meq PO DAILY 09/01/21 09/24/21 mEq] Doxepin HCl [Sinequin 50mg capsule] 50 - 100 mg PO HS 09/08/21 09/24/21 Lidocaine [Lidocaine 5% patch] 1 patch TOPICAL Q12HP PRN 09/08/21 09/24/21 clonazePAM [Clonazepam] 2 mg PO BIDP PRN 09/08/21 09/24/21 levETIRAcetam [Levetiracetam] 1,000 mg PO BID 09/08/21 09/24/21 Meclizine HCl [Antivert 25mg 25 mg PO TIDP PRN 09/09/21 09/24/21 tablet] ondansetron HCL [Ondansetron 4mg 4 mg PO TIDP PRN 09/09/21 09/24/21 tab*] docusate sodium 100 mg capsule cap PO 09/24/21 09/24/21 Previous Rx's Medication Instructions Recorded atorvastatin 40 mg tablet 40 mg PO DAILY #90 tab 05/05/21 folic acid 1 mg tablet 1 mg PO DAILY #90 tab 05/05/21 fluticasone propionate 50 1 spray INTRANASAL DAILY #16 g 06/17/21 mcg/actuation nasal spray,suspension buspirone 15 mg tablet 15 mg PO TID #90 tab 06/28/21 clopidogrel 75 mg tablet 75 mg PO DAILY #90 tab 08/26/21 hydroxyzine HCl 50 mg tablet 50 mg PO Q8H PRN #30 tab 09/16/21 oxycodone 10 mg tablet 10 mg PO Q8H PRN #21 tab 09/24/21 petra
[2021-10-02 13:21] VITALS: BP 102/72; PULSE 86; RESP 20; TEMP 36.8; O2SAT 94; BMI 30.1
[2021-10-02 13:44] VITALS: BP 105/70; PULSE 85; RESP 20; TEMP 36.8; O2SAT 95
== END 2021-10-02 13:46 | disposition home or self-care (01) ==
PROVIDERS: Emergency Provider Emergency Medicine; PCP Family Medicine
DX: M79.602 Pain in left arm (principal); G89.18 Other acute postprocedural pain; D64.9 Anemia, unspecified; I11.0 Hypertensive heart disease with heart failure; I50.9 Heart failure, unspecified; I25.10 Atherosclerotic heart disease of native coronary artery without angina pectoris; I25.2 Old myocardial infarction; I65.29 Occlusion and stenosis of unspecified carotid artery; E78.5 Hyperlipidemia, unspecified; E11.9 Type 2 diabetes mellitus without complications; M19.90 Unspecified osteoarthritis, unspecified site; J44.9 Chronic obstructive pulmonary disease, unspecified; F41.9 Anxiety disorder, unspecified; F17.210 Nicotine dependence, cigarettes, uncomplicated; Z79.02 Long term (current) use of antithrombotics/antiplatelets; Z79.1 Long term (current) use of non-steroidal anti-inflammatories (NSAID); Z79.51 Long term (current) use of inhaled steroids; Z79.84 Long term (current) use of oral hypoglycemic drugs; Z79.899 Other long term (current) drug therapy; Z88.2 Allergy status to sulfonamides; Z88.6 Allergy status to analgesic agent; Z88.8 Allergy status to other drugs, medicaments and biological substances; Z95.0 Presence of cardiac pacemaker; Z86.14 Personal history of Methicillin resistant Staphylococcus aureus infection
CPT/HCPCS: 99283

== ENCOUNTER 2021-10-03 13:48 | Emergency (ER) | payer MEDICAID, SELFPAY ==
--- NOTE | 2021-10-03 13:56 | PC.NURSE ---
RN went in to get triage
[2021-10-03 13:58] VITALS: BP 127/80; PULSE 77; RESP 17; TEMP 36.8; O2SAT 98; BMI 33.2
--- NOTE | 2021-10-03 15:02 | HMH.EDGENADL ---
ED Disposition Clinical Impression: Left arm pain Disposition: Home, Self-Care Condition on Discharge: Good Additional Instructions: Toradol as needed for pain. Follow-up with your primary care provider or orthopedic provider tomorrow for further pain treatment. Prescriptions: Ketorolac Tromethamine [Toradol 10mg tablet] 10 mg PO Q6HP PRN #4 tab PRN Reason: Moderate Pain Transmission Status: Pending to [id number] Referrals: Ced Corbett MD [Primary Care Provider] - - Critical Care Critical Care Time: No Attestation: On 10/03/21, the high probability of a clinically significant, sudden or life threatening deterioration of the following system(s) required my full and direct attention, intervention and personal management. The time I documented below is in addition to time spent performing reported procedures but includes the following listed in this critical care notation. Medical Decision Making - Gregory Inquiry Pt receiving controlled substance: No Gregory was queried for this patient: Yes Vital Signs: 10/03/21 13:58 Temperature 98.2 F Temperature Source Oral Pulse Rate [Left Radial] 77 Respiratory Rate 17 Blood Pressure [Right Arm] 127/80 Blood Pressure Mean [Right Arm] 95 02 Sat by Pulse Oximetry 98 Orders (Tests/Meds): ED MEDICATIONS Discontinued Medications Generic Name Dose Route Start Last Admin Trade Name Freq PRN Reason Stop Dose Admin Ketorolac Tromethamine 60 mg 10/03/21 15:06 Ketorolac 60mg/2ml Vial IM 10/03/21 15:07 ONCE ONE Medical Decision Narrative: The patient has history of frequent emergency department visits requesting pain medication. She has overdosed twice recently. I declined to give her any controlled substances today. Her states that she would just like an injection of something nonnarcotic and a prescription for a couple of pills of the same medication to get her through until tomorrow. I offered Toradol and he says that is what we want . General Adult HPI - General Chief complaint: PAIN Stated complaint: lt arm pain Time Seen by Provider: 10/03/21 15:03 Mode of Arrival: Ambulatory Limitations: No Limitations Description of Symptoms (Recalled from ER Triage Doc. by RN): pt to ed requesting a pain pill for chronic arm pain. pt was seen in the ed yesterday with same complaint. - History of Present Illness HPI narrative: Complains of left arm pain related to surgery on her left arm for humerus fracture. She had surgery on 09/21/2021. She is receiving prescriptions for pain medication every 3 days. She received a prescription on 09/29/2021. She says that she was supposed to receive another prescription on 10/01/2021, but they forgot to phone it in to the pharmacy. She is requesting medication for pain. She was seen in the emergency department here yesterday with the same complaint. She was given a Percocet in the emergency department. Initially a prescription for Percocet was written, but when physician reviewed her Gregory report and saw her recent prescriptions, the prescription was canceled. - Related Data Home Medications Medication Instructions Recorded Confirmed Cetirizine HCl 10 mg PO DAILY 04/22/21 09/24/21 Metoprolol Succinate [Metoprolol 25 mg PO DAILY 04/22/21 09/24/21 Succinate 25mg Tablet*] lisinopriL [Lisinopril] 20 mg PO DAILY 04/22/21 09/24/21 Metformin HCl [Metformin 1000mg 1,000 mg PO BID 05/28/21 09/24/21 Tablets] Furosemide [Furosemide 20mg Tab*] 40 mg PO DAILY 09/01/21 09/24/21 Levothyroxine Sodium [Synthroid 50 mcg PO DAILY 09/01/21 09/24/21 50mcg (0.05mg) tab] OLANZapine [Olanzapine] 20 mg PO DAILY 09/01/21 09/24/21 Potassium Chloride [K-Tab ER 20 60 meq PO DAILY 09/01/21 09/24/21 mEq] Doxepin HCl [Sinequin 50mg capsule] 50 - 100 mg PO HS 09/08/21 09/24/21 Lidocaine [Lidocaine 5% patch] 1 patch TOPICAL Q12HP PRN 09/08/21 09/24/21 clonazePAM [Clonazepam] 2 mg PO
[2021-10-03 15:25] VITALS: BP 144/72; PULSE 75; RESP 17; TEMP 36.8; O2SAT 98
== END 2021-10-03 15:26 | disposition home or self-care (01) ==
PROVIDERS: Emergency Provider Emergency Medicine; PCP Family Medicine
DX: M79.602 Pain in left arm (principal); Z98.890 Other specified postprocedural states; Z72.0 Tobacco use; F41.9 Anxiety disorder, unspecified; I25.10 Atherosclerotic heart disease of native coronary artery without angina pectoris; I65.29 Occlusion and stenosis of unspecified carotid artery; I50.9 Heart failure, unspecified; J44.9 Chronic obstructive pulmonary disease, unspecified; E11.9 Type 2 diabetes mellitus without complications; E78.5 Hyperlipidemia, unspecified; I11.0 Hypertensive heart disease with heart failure; I25.2 Old myocardial infarction; Z88.6 Allergy status to analgesic agent
CPT/HCPCS: 96372; 99283

== ENCOUNTER → 2021-10-08 12:07 | Outpatient (CLI) | payer MEDICAID, SELFPAY ==
--- NOTE | 2021-10-08 12:11 | XR_ITS ---
FINAL REPORT CLINICAL HISTORY: humerus fracture COMPARISON: 09/03/2021 FINDINGS: LEFT HUMERUS Two views were obtained. There has been interval ORIF of the distal left humerus. The alignment is anatomic. The hardware is intact. Soft tissue edema is identified. IMPRESSION: Postsurgical changes without evidence of complication. Reviewed, Interpreted and Dictated by Lynette Huffman MD Transcribed by Haleigh Walden Authenticated by Lynette Huffman MD on 10/08/2021 02:05:[address] [facility]
== END ==
PROVIDERS: PCP Family Medicine; Visit Provider Orthopaedic Surgery
DX: S42.302A Unspecified fracture of shaft of humerus, left arm, initial encounter for closed fracture (principal)
CPT/HCPCS: 73060

== ENCOUNTER 2021-10-11 08:36 | Emergency (ER) | payer MEDICAID, SELFPAY ==
--- NOTE | 2021-10-11 09:14 | HMH.EDGENADL ---
ED Disposition Clinical Impression: Post-op pain Disposition: Home, Self-Care Condition on Discharge: Good Referrals: Ced Corbett MD [Primary Care Provider] - - Critical Care Critical Care Time: No Attestation: On 10/11/21, the high probability of a clinically significant, sudden or life threatening deterioration of the following system(s) required my full and direct attention, intervention and personal management. The time I documented below is in addition to time spent performing reported procedures but includes the following listed in this critical care notation. Medical Decision Making - Medical Records Medical records reviewed: Yes: I reviewed the patient's medical records. - Gregory Inquiry Pt receiving controlled substance: No Vital Signs: 10/11/21 09:18 Temperature 98.5 F Temperature Source Oral Pulse Rate [Right Radial] 82 Respiratory Rate 18 Blood Pressure [Right Arm] 149/89 H Blood Pressure Mean [Right Arm] 109 Blood Pressure Source [Right Arm] Automatic Cuff Blood Pressure Position [Right Arm] Right Lateral 02 Sat by Pulse Oximetry 100 Oxygen Delivery Method Room Air - Lab Data Lab results reviewed: Yes: I reviewed the patient's lab results. Orders (Tests/Meds): ORDERS Category Date Time Status XR humerus LT Stat Exams 10/11/21 10:09 Ordered Medical Decision Narrative: Is a 45-year-old female with a recent history of surgery to her left upper extremities presenting for chief complaint of postsurgical pain. Patient states she has been unable to get her Percocet and asks for a new prescription. She denies any systemic symptoms. Differential diagnosis includes, but is not limited to, postsurgical pain, pain secondary to healing fracture, infection, new trauma. Initial exam, patient is hemodynamically stable nontoxic-appearing. She was evaluated of x-ray of the left upper extremity, no acute findings. Patient remains well-appearing. Treated with p.o. [place] and IM Toradol in the emergency department. Discharged in stable condition. General Adult HPI - General Stated complaint: lt arm pain Time Seen by Provider: 10/11/21 09:10 - History of Present Illness HPI narrative: Haleigh is a 45-year-old female with a past medical history of illicit drug use, overdose and chronic opioid use is presenting for chief complaint of left upper extremity pain after surgery. Patient states that she has not been able to obtain her Percocet prescription due to the fact that pharmacy is closed today. Has worsening pain. Denies fever, change to motor function, sensory deficit, new trauma. - Related Data Home Medications Medication Instructions Recorded Confirmed Cetirizine HCl 10 mg PO DAILY 04/22/21 10/08/21 Metoprolol Succinate [Metoprolol 25 mg PO DAILY 04/22/21 10/08/21 Succinate 25mg Tablet*] lisinopriL [Lisinopril] 20 mg PO DAILY 04/22/21 10/08/21 Metformin HCl [Metformin 1000mg 1,000 mg PO BID 05/28/21 10/08/21 Tablets] Furosemide [Furosemide 20mg Tab*] 40 mg PO DAILY 09/01/21 10/08/21 Levothyroxine Sodium [Synthroid 50 mcg PO DAILY 09/01/21 10/08/21 50mcg (0.05mg) tab] OLANZapine [Olanzapine] 20 mg PO DAILY 09/01/21 10/08/21 Potassium Chloride [K-Tab ER 20 60 meq PO DAILY 09/01/21 10/08/21 mEq] Doxepin HCl [Sinequin 50mg capsule] 50 - 100 mg PO HS 09/08/21 10/08/21 Lidocaine [Lidocaine 5% patch] 1 patch TOPICAL Q12HP PRN 09/08/21 10/08/21 Meclizine HCl [Antivert 25mg 25 mg PO TIDP PRN 09/09/21 10/08/21 tablet] ondansetron HCL [Ondansetron 4mg 4 mg PO TIDP PRN 09/09/21 10/08/21 tab*] docusate sodium 100 mg capsule cap PO 09/24/21 10/08/21 Previous Rx's Medication Instructions Recorded folic acid 1 mg tablet 1 mg PO DAILY #90 tab 05/05/21 fluticasone propionate 50 1 spray INTRANASAL DAILY #16 g 06/17/21 mcg/actuation nasal spray,suspension buspirone 15 mg tablet 15 mg PO TID #90 tab 06/28/21 clopidogrel 75 mg tablet 75 mg PO DAILY #90 tab
[2021-10-11 09:18] VITALS: BP 149/89; PULSE 82; RESP 18; TEMP 36.9; O2SAT 100; BMI 35.5
--- NOTE | 2021-10-11 10:09 | XR_ITS ---
PROCEDURE INFORMATION: Exam: XR Left Humerus Exam date and time: 10/11/2021 10:24 AM Age: 45 years old Clinical indication: Pain; Upper arm; Left; Prior surgery; Surgery date: 3-7 days post-operative; Surgery type: Surgery on humerus fracture a week ago; Additional info: Pain S/P sgy TECHNIQUE: Imaging protocol: XR Left humerus. Views: 2 or more views. COMPARISON: CR XR HUMERUS LT 10/08/2021 12:22 PM FINDINGS: Bones/joints: Long plate and screws in the humerus. The fracture fragments are stable in alignment.. Soft tissues: Soft tissue swelling of the upper arm IMPRESSION: Long plate and screws in the humerus. The fracture fragments are stable in alignment..
[2021-10-11 12:42] VITALS: BP 124/72; PULSE 60; RESP 17; O2SAT 95
[2021-10-11 12:51] VITALS: BP 124/72; PULSE 68; RESP 16; TEMP 36.9; O2SAT 92
== END 2021-10-11 12:51 | disposition home or self-care (01) ==
PROVIDERS: Emergency Provider Emergency Medicine; PCP Family Medicine
DX: M79.602 Pain in left arm (principal); D64.9 Anemia, unspecified; I11.0 Hypertensive heart disease with heart failure; I50.9 Heart failure, unspecified; I25.2 Old myocardial infarction; I25.10 Atherosclerotic heart disease of native coronary artery without angina pectoris; E11.9 Type 2 diabetes mellitus without complications; E03.9 Hypothyroidism, unspecified; M19.90 Unspecified osteoarthritis, unspecified site; J44.9 Chronic obstructive pulmonary disease, unspecified; F17.210 Nicotine dependence, cigarettes, uncomplicated; Z79.1 Long term (current) use of non-steroidal anti-inflammatories (NSAID); Z79.51 Long term (current) use of inhaled steroids; Z79.899 Other long term (current) drug therapy; Z88.2 Allergy status to sulfonamides; Z88.6 Allergy status to analgesic agent; Z88.8 Allergy status to other drugs, medicaments and biological substances
CPT/HCPCS: 73060; 96372; 99284

== ENCOUNTER 2021-10-14 16:46 | Emergency (ER) | payer MEDICAID, SELFPAY ==
--- NOTE | 2021-10-14 16:54 | PC.NURSE ---
notified pt we will room pt as soon as one is available, pt verbalized understanding of this.
--- NOTE | 2021-10-14 17:57 | XR_ITS ---
PROCEDURE INFORMATION: Exam: XR Left Elbow Exam date and time: 10/14/2021 6:01 PM Age: 45 years old Clinical indication: Prior surgery; Surgery date: 6+ months; Surgery type: Distal humerus FX repair. Patient HX: No recent injury. Pain in left elbow. TECHNIQUE: Imaging protocol: XR Left elbow. Views: 3 or more views. COMPARISON: CR XR HUMERUS LT 10/11/2021 10:24 AM FINDINGS: Bones/joints: Previously fixated spiral oblique fracture of the mid to distal left humeral diaphysis again noted with no gross hardware complication or change. Near anatomic alignment is unchanged. No radiographic evidence to suggest hardware breakage, displacement, loosening, or infection. No blastic or lytic lesions. Radiocapitellar alignment and ulnotrochlear alignment are normal. No gross joint effusion. Soft tissues: No periostitis or osteolysis. Moderate posterior soft tissue swelling in the upper arm which may be posttraumatic or postoperative. No radiopaque foreign bodies. Other findings: Proximal radioulnar alignment is normal. IMPRESSION: 1. No significant change from 10/11/2021. 2. Hardware fixation of the mid to distal left humerus without gross hardware complication or change. 3. Posterior soft tissue swelling.
[2021-10-14 18:06] VITALS: BP 122/65; PULSE 82; RESP 18; TEMP 36.9; O2SAT 96; BMI 35.5
--- NOTE | 2021-10-14 18:42 | HMH.EDGENADL ---
ED Disposition Clinical Impression: Left elbow pain Disposition: Home, Self-Care Condition on Discharge: Good Instructions: DI for Elbow Pain Prescriptions: Acetaminophen [Tylenol 500mg tablet] 500 mg PO Q6 #24 tab Transmission Status: Pending to [facility] Referrals: Francis Cline MD [Primary Care Provider] - - Critical Care Critical Care Time: No Attestation: On 10/14/21, the high probability of a clinically significant, sudden or life threatening deterioration of the following system(s) required my full and direct attention, intervention and personal management. The time I documented below is in addition to time spent performing reported procedures but includes the following listed in this critical care notation. Medical Decision Making - Medical Records Medical records reviewed: Yes: I reviewed the patient's medical records. - Gregory Inquiry Pt receiving controlled substance: Yes Gregory was queried for this patient: No Reason not queried -: Gregory system downtime Risks and benefits of using a controlled substance: were discussed with pt by me Vital Signs: 10/14/21 18:06 Temperature 98.4 F Temperature Source Oral Pulse Rate [Left Radial] 82 Respiratory Rate 18 Blood Pressure [Right Arm] 122/65 Blood Pressure Mean [Right Arm] 84 02 Sat by Pulse Oximetry 96 Oxygen Delivery Method Room Air Orders (Tests/Meds): ED MEDICATIONS Discontinued Medications Generic Name Dose Route Start Last Admin Trade Name Rejiq PRN Reason Stop Dose Admin Morphine Sulfate 4 mg 10/14/21 17:57 10/14/21 18:30 Morphine 2mg/Ml Syringe IM 10/14/21 17:58 4 mg ONCE ONE Administration - Radiology Data #1 Image(s): Elbow Image Reviewed: Yes I reviewed the patient's radiology results, Yes I reviewed the patient's radiology image, Yes I have reviewed radiologist's interpretation IMPRESSION: 1. No significant change from 10/11/2021. 2. Hardware fixation of the mid to distal left humerus without gross hardware complication or change. 3. Posterior soft tissue swelling. - Reevaluation(s) Time: 18:45 Reevaluation #1: On reevaluation, patient is feeling better. No deformity on imaging studies. Patient will follow up with PCP. Given strict return precautions. Verbalized understanding. Medical Decision Narrative: 45-year-old female presenting with some left elbow pain. Appears to be acute exacerbation of chronic pain. Patient provided analgesia in the emergency department. I did explain to the patient that she will need to obtain outpatient medications from her primary physician. Imaging obtained. General Adult HPI - General Chief complaint: PAIN Stated complaint: Left arm pain Time Seen by Provider: 10/14/21 18:10 Mode of Arrival: Ambulatory Limitations: No Limitations Description of Symptoms (Recalled from ER Triage Doc. by RN): pt to ed c/o chronic left arm pain. pt states her pain medication prescription didn't get filled correctly. - History of Present Illness HPI narrative: Is a 45-year-old female presented to the emergency department with some left elbow pain. This appears to be chronic in nature from previous injury. Patient has had surgery and fixation in the area. Patient states that her primary physician was supposed to call in some pain pills this evening, however they did not do this yet. She was up in the emergency department with her and figured she just get checked out. She denies any trauma to the area. Pain is constant. Worse when she moves. Denies any headache or change in vision. No focal weakness. No fevers or chills. No chest pain or shortness of breath. No abdominal pain or vomiting. - Related Data Home Medications Medication Instructions Recorded Confirmed Cetirizine HCl 10 mg PO DAILY 04/22/21 10/08/21 Metoprolol Succinate [Metoprolol 25 mg PO DAILY 04/22/21 10/08/21 Succinate 25mg Tablet*] lisinopriL [Lisinopril]
[2021-10-14 19:41] VITALS: BP 113/78; PULSE 80; RESP 18; TEMP 36.9; O2SAT 96
== END 2021-10-14 19:42 | disposition home or self-care (01) ==
PROVIDERS: Emergency Provider Emergency Medicine; PCP Internal Medicine Adolescent Medicine
DX: M25.522 Pain in left elbow (principal); Z79.899 Other long term (current) drug therapy; Z79.84 Long term (current) use of oral hypoglycemic drugs; Z88.6 Allergy status to analgesic agent; Z88.2 Allergy status to sulfonamides; F41.9 Anxiety disorder, unspecified; I25.10 Atherosclerotic heart disease of native coronary artery without angina pectoris; I65.29 Occlusion and stenosis of unspecified carotid artery; J44.9 Chronic obstructive pulmonary disease, unspecified; I11.0 Hypertensive heart disease with heart failure; E11.9 Type 2 diabetes mellitus without complications; I50.9 Heart failure, unspecified; E78.5 Hyperlipidemia, unspecified; I25.2 Old myocardial infarction
CPT/HCPCS: 73080; 96372; 99283

== ENCOUNTER 2021-10-18 09:13 | Emergency (ER) | payer MEDICAID, SELFPAY ==
[2021-10-18 09:14] VITALS: BP 134/96; PULSE 95; RESP 16; TEMP 37.1; O2SAT 96; BMI 35.5
--- NOTE | 2021-10-18 09:17 | XR_ITS ---
FINAL REPORT CLINICAL HISTORY: fell on knee cap, c/o knee pain and swelling at patella FINDINGS: Three views of the right knee reveal no evidence of fracture or dislocation. The bony alignment is normal. The joint spaces demonstrate mild degenerative change. There is no evidence of joint effusion. There is anterior soft tissue swelling with possible prepatellar bursitis or prepatellar hematoma. IMPRESSION: Anterior soft tissue swelling with possible prepatellar bursitis or prepatellar hematoma. No acute bony abnormality. Reviewed, Interpreted and Dictated by Ken Osorio III, MD Transcribed by Rafaela Florentino Authenticated and [facility]
--- NOTE | 2021-10-18 09:20 | PC.NURSE ---
halley notified of xray order, spoke with matt
--- NOTE | 2021-10-18 09:25 | HMH.EDGENADL ---
ED Disposition Clinical Impression: Patellar bursitis of right knee, Right anterior knee pain Disposition: Home, Self-Care Condition on Discharge: Good Instructions: DI for Knee Sprain, DI for Bursitis, DI for Knee Pain Additional Instructions: You have been evaluated for injury to the right knee. Overall presentation is concerning for soft tissue swelling in the prepatellar area. There is no fracture on your x-ray. Please keep Dipesh wrap in place for comfort. Take anti-inflammatory medication like naproxen or ibuprofen twice daily. Follow-up with your primary care doctor or orthopedist as needed. Return to the emergency department for any new or worsening symptoms Prescriptions: Naproxen [Naproxen 500mg tab] 500 mg PO BID #30 tab Transmission Status: Received by Clinic [email or web address] Referrals: Ced Corbett MD [Primary Care Provider] - Time of Disposition: 10:39 - Critical Care Critical Care Time: No Attestation: On 10/18/21, the high probability of a clinically significant, sudden or life threatening deterioration of the following system(s) required my full and direct attention, intervention and personal management. The time I documented below is in addition to time spent performing reported procedures but includes the following listed in this critical care notation. Medical Decision Making - Medical Records Medical records reviewed: Yes: I reviewed the patient's medical records. - Gregory Inquiry Pt receiving controlled substance: No Vital Signs: 10/18/21 09:14 10/18/21 09:30 Temperature 98.7 F Temperature Source Oral Pulse Rate 83 Pulse Rate [Radial] 95 H Respiratory Rate 16 Blood Pressure 135/107 H Blood Pressure [Right Arm] 134/96 H Blood Pressure Mean [Right Arm] 108 Blood Pressure Position [Right Arm] Sitting 02 Sat by Pulse Oximetry 96 90 L Oxygen Delivery Method Room Air Orders (Tests/Meds): ED MEDICATIONS Discontinued Medications Generic Name Dose Route Start Last Admin Trade Name Freq PRN Reason Stop Dose Admin Acetaminophen 1,000 mg 10/18/21 09:24 10/18/21 09:25 Acetaminophen 500mg Tab PO 10/18/21 09:25 1,000 mg ONCE ONE Administration Naproxen 500 mg 10/18/21 09:18 10/18/21 09:23 Naproxen 500mg Tablet PO 10/18/21 09:19 Not Given ONCE ONE ORDERS Category Date Time Status XR knee RT 3V Stat Exams 10/18/21 09:17 Taken Medical Decision Narrative: In summary this is a 45-year-old female presenting to the emergency department with right knee pain after a fall, injury. Patient clinically stable on arrival. Vital signs within normal limits. Physical exam is most concerning for prepatellar swelling. Will obtain x-rays of the right knee. Patient given acetaminophen X-rays show prepatellar swelling. There is no effusion. No fracture or other acute finding. Presentation most concerning for prepatellar bursitis, possibly due to trauma or inflammation. I recommended patient take anti-inflammatory medication like naproxen 500 mg twice daily. She is able to ambulate. Does not need crutches. Given Dipesh wrap for comfort. Counseled on conservative management and PCP follow-up. General Adult HPI - General Stated complaint: ao fall 10/18, rt knee pain Time Seen by Provider: 10/18/21 09:22 Mode of Arrival: Ambulatory Source of Information: Patient Limitations: No Limitations Description of Symptoms (Recalled from ER Triage Doc. by RN): to ed per pvt car with c/o rt knee pain states slipped on water fell injured rt knee swelling. pt asking for pain medications - History of Present Illness HPI narrative: 45-year-old female presenting to the emergency department with right knee pain. Pain started this morning when she woke up. Is described as throbbing pain, located in the front. Pain with bending of the knee. No significant pain at rest. No pain with ambulation. It looks like her knee is swollen. Pain started after she fell in the
[2021-10-18 09:30] VITALS: BP 135/107; PULSE 83; O2SAT 90
--- NOTE | 2021-10-18 09:43 | PC.NURSE ---
STEPHANIE JULIO at
[2021-10-18 10:00] VITALS: BP 151/68; PULSE 70; O2SAT 99
[2021-10-18 10:30] VITALS: BP 132/76; PULSE 71; O2SAT 96
[2021-10-18 10:43] VITALS: BP 132/76; PULSE 71; RESP 16; TEMP 37.1; O2SAT 95
== END 2021-10-18 10:44 | disposition home or self-care (01) ==
PROVIDERS: Emergency Provider Emergency Medicine; PCP Family Medicine
DX: M70.51 Other bursitis of knee, right knee; E11.9 Type 2 diabetes mellitus without complications; J44.9 Chronic obstructive pulmonary disease, unspecified; I25.10 Atherosclerotic heart disease of native coronary artery without angina pectoris; E78.5 Hyperlipidemia, unspecified; I10 Essential (primary) hypertension
CPT/HCPCS: 73562; 99283

== ENCOUNTER 2021-10-21 12:33 | Emergency (ER) | payer MEDICAID, SELFPAY ==
[2021-10-21 12:35] VITALS: BP 110/54; PULSE 90; RESP 18; TEMP 37.1; O2SAT 94; BMI 34.3
--- NOTE | 2021-10-21 12:36 | PC.NURSE ---
Dr. Mohr at speaking with patient
--- NOTE | 2021-10-21 12:40 | HMH.EDGENADL ---
ED Disposition Clinical Impression: Right foot pain Disposition: Home, Self-Care Condition on Discharge: Good Referrals: Ced Corbett MD [Primary Care Provider] - - Critical Care Critical Care Time: No Attestation: On 10/21/21, the high probability of a clinically significant, sudden or life threatening deterioration of the following system(s) required my full and direct attention, intervention and personal management. The time I documented below is in addition to time spent performing reported procedures but includes the following listed in this critical care notation. Medical Decision Making - Gregory Inquiry Pt receiving controlled substance: No Medical Decision Narrative: 45 yo female w/ hx chronic right foot pain presents for right foot pain. Pt is well known to [facility] ED, has presented here for same chief complaint multiple times in the past with multiple previous imaging including xr and ct done in past 6 months. patient has pcp rx for chronic pain med given through ed including narcotics but on multiple previous and current visits will ask for narcotic medications specifically for treatment of right foot pain. she is ambulating without difficulty, and her tenderness on palpation on exam is elicited only when asked directly and she expresses no pain when those same areas are palpated when distracted by other lines of questions or other exam maneuvers. she has a 2+ DP pulse and good cap refill without numbness or weakness or other focal neurological deficit. she reports no recent trauma either. low acute suspicion for etiologies such as fracture, dislocation, septic arthritis, dvt, although these were considered. i do not believe she requires additional imaging at this time. i ordered her tylenol, im toradol, and applied lidocaine patch in ed for her localized acute on chronic pain. she continues to ambulate without difficulty or apparent discomfort or pain. she is stable for discharge. given strict ed return precautions. General Adult HPI - General Stated complaint: foot pain Time Seen by Provider: 10/21/21 12:35 - History of Present Illness HPI narrative: 45-year-old female with a history of chronic right foot pain presents for evaluation of right foot pain. Patient states she woke up this morning and noticed increased pain from her chronic pain in her right foot along her heel and ankle. She denies any recent trauma, twisting of her ankle, increased activities. Patient states she recently refilled her chronic pain medication with her PCP but it is not improving the pain today. - Related Data Home Medications Medication Instructions Recorded Confirmed Cetirizine HCl 10 mg PO DAILY 04/22/21 10/08/21 Metoprolol Succinate [Metoprolol 25 mg PO DAILY 04/22/21 10/08/21 Succinate 25mg Tablet*] lisinopriL [Lisinopril] 20 mg PO DAILY 04/22/21 10/08/21 Metformin HCl [Metformin 1000mg 1,000 mg PO BID 05/28/21 10/08/21 Tablets] Furosemide [Furosemide 20mg Tab*] 40 mg PO DAILY 09/01/21 10/08/21 Levothyroxine Sodium [Synthroid 50 mcg PO DAILY 09/01/21 10/08/21 50mcg (0.05mg) tab] OLANZapine [Olanzapine] 20 mg PO DAILY 09/01/21 10/08/21 Potassium Chloride [K-Tab ER 20 60 meq PO DAILY 09/01/21 10/08/21 mEq] Doxepin HCl [Sinequin 50mg capsule] 50 - 100 mg PO HS 09/08/21 10/08/21 Lidocaine [Lidocaine 5% patch] 1 patch TOPICAL Q12HP PRN 09/08/21 10/08/21 Meclizine HCl [Antivert 25mg 25 mg PO TIDP PRN 09/09/21 10/08/21 tablet] ondansetron HCL [Ondansetron 4mg 4 mg PO TIDP PRN 09/09/21 10/08/21 tab*] docusate sodium 100 mg capsule cap PO 09/24/21 10/08/21 Previous Rx's Medication Instructions Recorded folic acid 1 mg tablet 1 mg PO DAILY #90 tab 05/05/21 fluticasone propionate 50 1 spray INTRANASAL DAILY #16 g 06/17/21 mcg/actuation nasal spray,suspension buspirone 15 mg tablet 15 mg PO TID #90 tab 06/28/21 clopidogrel 75 mg tablet 75 mg PO DAILY #90 tab 08/26/21 hydroxyzine HCl 50 mg tablet 50 mg P
[2021-10-21 12:41] VITALS: BMI 34.3
[2021-10-21 12:59] VITALS: BP 110/54; PULSE 90; RESP 18; TEMP 37.1; O2SAT 94
== END 2021-10-21 13:01 | disposition home or self-care (01) ==
PROVIDERS: Emergency Provider Student in an Organized Health Care Education/Training Program; PCP Family Medicine
DX: M79.671 Pain in right foot (principal); G89.29 Other chronic pain; I50.9 Heart failure, unspecified; I25.10 Atherosclerotic heart disease of native coronary artery without angina pectoris; I25.2 Old myocardial infarction; I65.29 Occlusion and stenosis of unspecified carotid artery; J44.9 Chronic obstructive pulmonary disease, unspecified; F41.9 Anxiety disorder, unspecified; F17.210 Nicotine dependence, cigarettes, uncomplicated; Z79.02 Long term (current) use of antithrombotics/antiplatelets; Z79.1 Long term (current) use of non-steroidal anti-inflammatories (NSAID); Z79.51 Long term (current) use of inhaled steroids; Z79.84 Long term (current) use of oral hypoglycemic drugs; Z79.899 Other long term (current) drug therapy; Z88.2 Allergy status to sulfonamides; Z88.6 Allergy status to analgesic agent; Z88.8 Allergy status to other drugs, medicaments and biological substances; Z95.5 Presence of coronary angioplasty implant and graft
CPT/HCPCS: 96372; 99283

== ENCOUNTER 2021-10-22 18:03 | Emergency (ER) | payer MEDICAID, SELFPAY ==
[2021-10-22 18:04] VITALS: BP 174/65; PULSE 56; RESP 18; TEMP 36.9; O2SAT 99; BMI 35.5
--- NOTE | 2021-10-22 18:12 | HMH.EDGENADL ---
ED Disposition Clinical Impression: Chronic foot pain Disposition: Home, Self-Care Condition on Discharge: Good Referrals: Max Alvarez MD [Primary Care Provider] - - Critical Care Critical Care Time: No Attestation: On 10/22/21, the high probability of a clinically significant, sudden or life threatening deterioration of the following system(s) required my full and direct attention, intervention and personal management. The time I documented below is in addition to time spent performing reported procedures but includes the following listed in this critical care notation. Medical Decision Making - Medical Records Medical records reviewed: Yes: I reviewed the patient's medical records. - Gregory Inquiry Pt receiving controlled substance: No Vital Signs: 10/22/21 18:04 Temperature 98.4 F Temperature Source Oral Pulse Rate [Right Radial] 56 L Respiratory Rate 18 Blood Pressure [Right Arm] 174/65 H Blood Pressure Mean [Right Arm] 101 Blood Pressure Source [Right Arm] Automatic Cuff Blood Pressure Position [Right Arm] Sitting 02 Sat by Pulse Oximetry 99 Orders (Tests/Meds): ED MEDICATIONS Discontinued Medications Generic Name Dose Route Start Last Admin Trade Name Enrike PRN Reason Stop Dose Admin Ketorolac Tromethamine 30 mg 10/22/21 18:50 10/22/21 18:56 Ketorolac 30mg/Ml Vial IM 10/22/21 18:51 30 mg ONCE ONE Administration Tramadol HCl 50 mg 10/22/21 18:48 10/22/21 18:56 Tramadol 50mg Tablet PO 10/22/21 18:49 50 mg ONCE ONE Administration Medical Decision Narrative: 45 yo F who presents requesting pain medicine for her foot. She has a history of polysubstance reliance and overdose therefore I declined to provide opiates. She was given a dose of toradol and will be discharged. Exam is not consistent with trauma and exam is benign. General Adult HPI - General Chief complaint: PAIN Stated complaint: right foot pain Time Seen by Provider: 10/22/21 18:15 Mode of Arrival: Wheelchair Limitations: No Limitations Description of Symptoms (Recalled from ER Triage Doc. by RN): pt presents to ED c/o right ankle and foot pain. pt denies any injury. pt states she broke her foot a year ago. - History of Present Illness HPI narrative: 45 yo F with chronic pain who presents asking for pain medicine for her foot. Pt states she has not injured the foot and that she typically gets pain medicine every 3 days from her othopedic surgeon but is out for today. pain is burning and stabbing and she does have a hx of neuropathy on gabapentin. - Related Data Home Medications Medication Instructions Recorded Confirmed Cetirizine HCl 10 mg PO DAILY 04/22/21 10/08/21 Metoprolol Succinate [Metoprolol 25 mg PO DAILY 04/22/21 10/08/21 Succinate 25mg Tablet*] lisinopriL [Lisinopril] 20 mg PO DAILY 04/22/21 10/08/21 Metformin HCl [Metformin 1000mg 1,000 mg PO BID 05/28/21 10/08/21 Tablets] Furosemide [Furosemide 20mg Tab*] 40 mg PO DAILY 09/01/21 10/08/21 Levothyroxine Sodium [Synthroid 50 mcg PO DAILY 09/01/21 10/08/21 50mcg (0.05mg) tab] OLANZapine [Olanzapine] 20 mg PO DAILY 09/01/21 10/08/21 Potassium Chloride [K-Tab ER 20 60 meq PO DAILY 09/01/21 10/08/21 mEq] Doxepin HCl [Sinequin 50mg capsule] 50 - 100 mg PO HS 09/08/21 10/08/21 Lidocaine [Lidocaine 5% patch] 1 patch TOPICAL Q12HP PRN 09/08/21 10/08/21 Meclizine HCl [Antivert 25mg 25 mg PO TIDP PRN 09/09/21 10/08/21 tablet] ondansetron HCL [Ondansetron 4mg 4 mg PO TIDP PRN 09/09/21 10/08/21 tab*] docusate sodium 100 mg capsule cap PO 09/24/21 10/08/21 Previous Rx's Medication Instructions Recorded folic acid 1 mg tablet 1 mg PO DAILY #90 tab 05/05/21 fluticasone propionate 50 1 spray INTRANASAL DAILY #16 g 06/17/21 mcg/actuation nasal spray,suspension buspirone 15 mg tablet 15 mg PO TID #90 tab 06/28/21 clopidogrel 75 mg tablet 75 mg PO DAILY #90 tab 08/26/21 hydroxyzine HCl 50 mg tablet 50 mg
[2021-10-22 19:08] VITALS: BP 164/74; PULSE 52; RESP 18; TEMP 36.9; O2SAT 99
== END 2021-10-22 19:10 | disposition home or self-care (01) ==
PROVIDERS: Emergency Provider Student in an Organized Health Care Education/Training Program; PCP Internal Medicine Adolescent Medicine
DX: M79.671 Pain in right foot (principal); G89.29 Other chronic pain; F19.11 Other psychoactive substance abuse, in remission; Z88.2 Allergy status to sulfonamides; Z88.6 Allergy status to analgesic agent; F41.9 Anxiety disorder, unspecified; I25.10 Atherosclerotic heart disease of native coronary artery without angina pectoris; I65.29 Occlusion and stenosis of unspecified carotid artery; J44.9 Chronic obstructive pulmonary disease, unspecified; E11.9 Type 2 diabetes mellitus without complications; I11.0 Hypertensive heart disease with heart failure; E78.5 Hyperlipidemia, unspecified; I50.9 Heart failure, unspecified; I25.2 Old myocardial infarction; D64.9 Anemia, unspecified; M19.90 Unspecified osteoarthritis, unspecified site; E03.9 Hypothyroidism, unspecified
CPT/HCPCS: 96372; 99283

== ENCOUNTER 2021-10-23 16:01 | Emergency (ER) | payer MEDICAID, SELFPAY ==
[2021-10-23 16:30] VITALS: BP 162/99; PULSE 78; RESP 25; O2SAT 96
[2021-10-23 16:33] VITALS: BP 160/91; PULSE 83; RESP 18; TEMP 36.9; O2SAT 91; BMI 34.3
[2021-10-23 17:00] VITALS: BP 117/54; RESP 22
[2021-10-23 17:31] VITALS: BP 148/94; RESP 10
--- NOTE | 2021-10-23 17:39 | HMH.EDGENADL ---
ED Disposition Clinical Impression: Seizure disorder Disposition: Home, Self-Care Condition on Discharge: Good Instructions: DI for Seizure Disorder -- Adult Additional Instructions: Klonopin as prescribed, 2 mg twice a day. Any additional prescriptions for Klonopin or other controlled substances will need to come through your primary care provider. Additional instructions for SEIZURE OR LOSS OF CONSCIOUSNESS/POSSIBLE SEIZURE: NO DRIVING, BIKE RIDING, SWIMMING, TUB BATHING, LADDERS UNTIL CLEARED BY DOCTOR. RETURN IF SEIZURE RECURS. NO ALCOHOL OR STREET DRUGS. See your physician as soon as possible for follow-up. Return to the emergency department if seizure recurs. Additional instructions for CONTROLLED SUBSTANCES: You have been prescribed a medication that is a controlled substance. Controlled substances include pain medications known as opiates and sedative nerve medications known as benzodiazepines. Tramadol, fioricet, and gabapentin are also controlled substances. Some common opiates include: Codeine (such as Tylenol #3) Hydrocodone (Vicodin, Lortab, Lorcet, [place]) Oxycodone (Percocet, Percodan, Oxycodone, Oxy IR) Some common benzodiazepines include: Diazepam (Valium) Lorazepam (Ativan) Alprazolam (Xanax) Clonazepam (Klonopin) Oxazepam (Serax) All of these controlled substances are highly addictive and frequently abused. Misuse can and frequently does lead to addiction as well as overdose and . Medication should be stored in a locked cabinet or other secure storage unit. Do not store the medication in a motor vehicle. Short term supplies, 3 days or less, are prescribed because of the highly addictive nature of the medication. Any of the controlled substance medication NOT taken should be disposed of properly and NOT SAVED. The recommended method of disposing of unused medications is: Place the medicines in a sealable plastic bag. If the medicine is a solid, crush it or add water to dissolve it. Add something undesirable (cat litter, coffee grounds, etc.) Dispose of sealed bag in household trash Do not flush or pour unused medicines down a sink or drain. Controlled substances should not be shared, given away or sold. Because of the addictive nature and frequent abuse, these medications are sometimes stolen. These medications should be kept in a safe place where they cannot be stolen. Do not keep them in your car or purse. Lost or stolen prescriptions for controlled substances WILL NOT BE REFILLED in this emergency department, regardless of whether a police report was filed. Prescriptions: clonazePAM [Klonopin] 2 mg PO BID #6 tablet Transmission Status: Sent to [id number] Referrals: Max Alvarez MD [Primary Care Provider] - - Critical Care Critical Care Time: No Attestation: On 10/23/21, the high probability of a clinically significant, sudden or life threatening deterioration of the following system(s) required my full and direct attention, intervention and personal management. The time I documented below is in addition to time spent performing reported procedures but includes the following listed in this critical care notation. Medical Decision Making - Gregory Inquiry Pt receiving controlled substance: Yes Gregory was queried for this patient: Yes Risks and benefits of using a controlled substance: were discussed with pt by me Vital Signs: 10/23/21 16:30 10/23/21 16:33 10/23/21 17:00 Temperature 98.4 F Temperature Source Oral Pulse Rate 78 Pulse Rate [Left Radial] 83 Respiratory Rate 25 H 18 22 Blood Pressure 162/99 H 117/54 L Blood Pressure [Right Arm] 160/91 H Blood Pressure Mean [Right Arm] 114 02 Sat by Pulse Oximetry 96 91 L 10/23/21 17:31 Temperature Temperature Source Pulse Rate Pulse Rate [Left Radial] Respiratory Rate 10 L Blood Pressure 148/94 H Blood Pressure [Right Arm] Blood Pressure Mean [Right Arm]
--- NOTE | 2021-10-23 17:45 | PC.NURSE ---
at the bedside
[2021-10-23 18:32] VITALS: BP 143/74; PULSE 78; RESP 16; TEMP 36.6; O2SAT 98
== END 2021-10-23 18:33 | disposition home or self-care (01) ==
PROVIDERS: Emergency Provider Emergency Medicine; PCP Internal Medicine Adolescent Medicine
DX: G40.909 Epilepsy, unspecified, not intractable, without status epilepticus (principal); D64.9 Anemia, unspecified; I11.0 Hypertensive heart disease with heart failure; I50.9 Heart failure, unspecified; I25.2 Old myocardial infarction; I65.29 Occlusion and stenosis of unspecified carotid artery; E11.9 Type 2 diabetes mellitus without complications; E03.9 Hypothyroidism, unspecified; M19.90 Unspecified osteoarthritis, unspecified site; J44.9 Chronic obstructive pulmonary disease, unspecified; F41.9 Anxiety disorder, unspecified; Z79.51 Long term (current) use of inhaled steroids; Z79.02 Long term (current) use of antithrombotics/antiplatelets; Z79.899 Other long term (current) drug therapy; Z88.2 Allergy status to sulfonamides; Z88.6 Allergy status to analgesic agent; Z88.8 Allergy status to other drugs, medicaments and biological substances; Z95.5 Presence of coronary angioplasty implant and graft
CPT/HCPCS: 99282

== ENCOUNTER 2021-10-24 12:05 | Emergency (ER) | payer MEDICAID, SELFPAY ==
[2021-10-24 12:06] VITALS: BP 135/69; PULSE 99; RESP 20; TEMP 36.8; O2SAT 93; BMI 34.3
--- NOTE | 2021-10-24 12:08 | PC.NURSE ---
pt ambulatory to room 8 from registration. RN at bedside to triage
--- NOTE | 2021-10-24 12:39 | HMH.EDGENADL ---
ED Disposition Clinical Impression: Medication error Disposition: Home, Self-Care Condition on Discharge: Good Additional Instructions: Please return to the ED with any new or worsening symptoms. Referrals: Max Alvarez MD [Primary Care Provider] - - Critical Care Critical Care Time: No Attestation: On 10/24/21, the high probability of a clinically significant, sudden or life threatening deterioration of the following system(s) required my full and direct attention, intervention and personal management. The time I documented below is in addition to time spent performing reported procedures but includes the following listed in this critical care notation. Medical Decision Making - Medical Records Medical records reviewed: Yes: I reviewed the patient's medical records. - Gregory Inquiry Pt receiving controlled substance: Yes Gregory was queried for this patient: Yes Risks and benefits of using a controlled substance: were discussed with pt by me Vital Signs: 10/24/21 12:06 Temperature 98.2 F Temperature Source Oral Pulse Rate [Right Brachial] 99 H Respiratory Rate 20 Blood Pressure [Right Arm] 135/69 Blood Pressure Mean [Right Arm] 91 Blood Pressure Source [Right Arm] Automatic Cuff Blood Pressure Position [Right Arm] Supine 02 Sat by Pulse Oximetry 93 L Oxygen Delivery Method Room Air Orders (Tests/Meds): ED MEDICATIONS Generic Name Dose Route Start Last Admin Trade Name Freq PRN Reason Stop Dose Admin Clonazepam 2 mg 10/24/21 21:00 10/24/21 12:40 Clonazepam 1mg Tablet PO 11/23/21 20:59 2 mg HS DOUGLAS Administration Medical Decision Narrative: Patient is 45-year-old female presents ED today for evaluation of medication issues. Patient is well-appearing at evaluation no acute distress, vital signs not reflect any significant abnormal pathology. Patient awake alert, ambulatory in the emergency department. Arrives with a chief complaint of dizziness, however is having no issues walking, no nystagmus on exam, no abnormal neurologic examination findings. It is a reasonable story the patient is unable to fill her Klonopin yesterday she was discharged after closing time of clinic pharmacy, I will give her 2 mg orally here, patient is requesting some to go home with, cannot discharge her with oral medications to take at home later, patient will be able to fill her medications on Monday, has verbalized understanding with this plan, discharged in stable condition with return precautions. General Adult HPI - General Chief complaint: Dizziness Stated complaint: dizziness Time Seen by Provider: 10/24/21 12:20 Mode of Arrival: Ambulatory Limitations: No Limitations Description of Symptoms (Recalled from ER Triage Doc. by RN): pt states she is feeling dizzy like she was yesterday when she had a seizure and states she is out of her klonopin and when she does not take klonipine it triggers a seizure. - History of Present Illness HPI narrative: Patient is a 45-year-old female presenting to the ED today for further evaluation of medication issues, patient states that she was unable to fill her Klonopin prescription was first prescribed to her yesterday, states that she can only get medications filled at clinic pharmacy here at [facility], states that she was discharged yesterday and went to clinic pharmacy, however they were closed. Patient denies any other medical complaints at this time, states that she is not having any significant dizziness, no vertigo, no headache, no visual changes, no chest pain shortness of breath abdominal pain nausea vomiting or diarrhea. - Related Data Home Medications Medication Instructions Recorded Confirmed Cetirizine HCl 10 mg PO DAILY 04/22/21 10/08/21 Metoprolol Succinate [Metoprolol 25 mg PO DAILY 04/22/21 10/08/21 Succinate 25mg Tablet*] lisinopriL [Lisinopril] 20 mg PO DAILY 04/22/21 10/08/21 Metformin HCl [Metformin 1000mg 1,000 mg PO BID
[2021-10-24 13:08] VITALS: BP 131/60; PULSE 90; RESP 20; TEMP 36.8; O2SAT 94
== END 2021-10-24 13:09 | disposition home or self-care (01) ==
PROVIDERS: Emergency Provider Student in an Organized Health Care Education/Training Program; PCP Internal Medicine Adolescent Medicine
DX: R42 Dizziness and giddiness (principal); D64.9 Anemia, unspecified; I50.9 Heart failure, unspecified; I25.10 Atherosclerotic heart disease of native coronary artery without angina pectoris; I25.2 Old myocardial infarction; I65.29 Occlusion and stenosis of unspecified carotid artery; E78.5 Hyperlipidemia, unspecified; E11.9 Type 2 diabetes mellitus without complications; E07.9 Disorder of thyroid, unspecified; M19.90 Unspecified osteoarthritis, unspecified site; J44.9 Chronic obstructive pulmonary disease, unspecified; F17.210 Nicotine dependence, cigarettes, uncomplicated; Z79.02 Long term (current) use of antithrombotics/antiplatelets; Z79.51 Long term (current) use of inhaled steroids; Z79.899 Other long term (current) drug therapy; Z88.2 Allergy status to sulfonamides; Z88.6 Allergy status to analgesic agent; Z88.8 Allergy status to other drugs, medicaments and biological substances
CPT/HCPCS: 99282

== ENCOUNTER 2021-10-28 11:55 | Emergency (ER) | payer MEDICAID, SELFPAY ==
[2021-10-28 11:56] VITALS: BMI 30.2
--- NOTE | 2021-10-28 11:59 | HMH.EDGENADL ---
ED Disposition Clinical Impression: Benzodiazepine dependence, Withdrawal from benzodiazepine Disposition: Home, Self-Care Condition on Discharge: Good Prescriptions: LORazepam [Ativan 1mg tablet] 1 mg PO DAILY 5 Days #5 tab Transmission Status: Sent to [facility] Referrals: Ced Corbett MD [Primary Care Provider] - - Critical Care Critical Care Time: No Attestation: On , the high probability of a clinically significant, sudden or life threatening deterioration of the following system(s) required my full and direct attention, intervention and personal management. The time I documented below is in addition to time spent performing reported procedures but includes the following listed in this critical care notation. Medical Decision Making - Medical Records Medical records reviewed: Yes: I reviewed the patient's medical records. - Gregory Inquiry Pt receiving controlled substance: Yes Gregory was queried for this patient: Yes Risks and benefits of using a controlled substance: were discussed with pt by me Vital Signs: 10/28/21 12:22 10/28/21 12:30 Temperature 98.2 F Temperature Source Oral Pulse Rate 95 H Pulse Rate [Radial] 103 H Respiratory Rate 16 Blood Pressure 122/68 Blood Pressure [Right Arm] 128/71 Blood Pressure Mean 83 Blood Pressure Mean [Right Arm] 90 Blood Pressure Position [Right Arm] Sitting 02 Sat by Pulse Oximetry 98 92 L Oxygen Delivery Method Room Air Room Air - Lab Data Lab Results 10/28/21 12:58: WBC 10.4, RBC 4.83, Hgb 12.6, Hct 39.1, MCV 80.9 L, MCH 26.0 L, MCHC 32.2, RDW 17.3, Plt Count 383, MPV 8.3, Neut % (Auto) 83.6 H, Lymph % (Auto) 10.9, [place] % (Auto) 3.8, Eos % (Auto) 0.9, Baso % (Auto) 0.8, Neut # (Auto) 8.7 H, Lymph # (Auto) 1.2, [place] # (Auto) 0.4, Eos # (Auto) 0.1, Baso # (Auto) 0.1 10/28/21 12:58: Sodium 136, Potassium 4.0, Chloride 102, Carbon Dioxide 31 H, Anion Gap 7.0, BUN 4 L, Creatinine 0.50 L, Estimated Creat Clear 177, Estimated GFR 133, Est GFR ( Amer) 161, Glucose 183 H, Calcium 9.1, Total Bilirubin 0.3, AST 20, ALT 14, Alkaline Phosphatase 136 H, Total Protein 7.2 D, Albumin 4.3, Globulin 2.9, Albumin/Globulin Ratio 1.5 Result diagrams: 10/28/21 12:58 10/28/21 12:58 Orders (Tests/Meds): ED MEDICATIONS Discontinued Medications Generic Name Dose Route Start Last Admin Trade Name Freq PRN Reason Stop Dose Admin Lorazepam 1 mg 10/28/21 12:10 10/28/21 12:16 Lorazepam 1mg Tablet PO 10/28/21 12:11 1 mg ONCE ONE Administration Medical Decision Narrative: labs unremarkable, will DC with a few ativan to mitigate against benzo withdrawal and possible seizure. Advise PCP f/u as soon as possible General Adult HPI - General Stated complaint: seziure Time Seen by Provider: 10/28/21 11:59 Mode of Arrival: Ambulatory Source of Information: Patient - History of Present Illness HPI narrative: 45 yo/F, history of seizures, presents with chief complaint of I think I'm going to have a seizure. Reports having been on klonopin 2mg for the last 2 years which was recently discontinued. States she feels shaky and dizzy. Denies any actual seizure activity thus far. Denies GARCIA, blurry or double vision or other symptoms at this time. Last klonopin dose was 2 days ago. - Related Data Home Medications Medication Instructions Recorded Confirmed Cetirizine HCl 10 mg PO DAILY 04/22/21 10/08/21 Metoprolol Succinate [Metoprolol 25 mg PO DAILY 04/22/21 10/08/21 Succinate 25mg Tablet*] lisinopriL [Lisinopril] 20 mg PO DAILY 04/22/21 10/08/21 Metformin HCl [Metformin 1000mg 1,000 mg PO BID 05/28/21 10/08/21 Tablets] Furosemide [Furosemide 20mg Tab*] 40 mg PO DAILY 09/01/21 10/08/21 Levothyroxine Sodium [Synthroid 50 mcg PO DAILY 09/01/21 10/08/21 50mcg (0.05mg) tab] OLANZapine [Olanzapine] 20 mg PO DAILY 09/01/21 10/08/21 Potassium Chloride [K-Tab ER 20 60 meq PO DAILY 09/01/21 10/08/21 mEq]
--- NOTE | 2021-10-28 12:00 | PC.NURSE ---
Seizure pads placed on bed rails
--- NOTE | 2021-10-28 12:03 | PC.NURSE ---
STEPHANIE JULIO at speaking with patient
[2021-10-28 12:22] VITALS: BP 128/71; PULSE 103; RESP 16; TEMP 36.8; O2SAT 98; BMI 35.5
--- NOTE | 2021-10-28 12:24 | PC.NURSE ---
contacted lab for blood draw on pt
[2021-10-28 12:30] VITALS: BP 122/68; PULSE 95; O2SAT 92
[2021-10-28 13:09] LABS: Basophils # 0.1 K/mm3 (0-0.2); Basophils % 0.8 % (0.1-2.0); Eosinophils # 0.1 K/mm3 (0.0-0.4); Eosinophils % 0.9 % (0.1-12.0); Hematocrit 39.1 % (37.0-47.0); Hemoglobin 12.6 g/dL (12.2-16.2); Lymphocytes # 1.2 K/mm3 (0.7-4.5); Lymphocytes % 10.9 % (10-50); Mean Corpuscular HGB Conc 32.2 g/dL (31.8-35.4); Mean Corpuscular Volume 80.9 fl (81-99); Mean Platelet Volume 8.3 fl (7.4-10.4); Monocytes # 0.4 K/mm3 (0.1-1.0); Monocytes % 3.8 % (1.7-9.3); Neutrophils # 8.7 K/mm3 (1.8-7.8); Neutrophils % 83.6 % (37.0-80.0); Platelet Count 383 K/mm3 (142-424); Red Blood Count 4.83 M/mm3 (4.20-5.40); Red Cell Distribution Width 17.3 % (11.5-17.5); White Blood Count 10.4 K/mm3 (4.8-10.8)
[2021-10-28 13:13] LABS: Chloride 102 mmol/L (98-107); Sodium 136 mmol/L (136-145)
[2021-10-28 13:15] LABS: Blood Urea Nitrogen 4 mg/dl (7-17); Creatinine Clearance Estimated 177 mL/min (50-200); Estimated Glomerular Filt Rate 133 ml/min (>60); GFR (African American) 161 ML/MIN (>60)
[2021-10-28 13:16] LABS: Alanine Aminotransferase 14 U/L (12-78); Albumin Level 4.3 g/dl (3.5-5.0); Albumin/Globulin Ratio 1.5 (1.1-1.8); Alkaline Phosphatase 136 U/L (38-126); Aspartate Amino Transferase 20 U/L (14-36); Bilirubin,Total 0.3 mg/dl (0.2-1.3); Calcium 9.1 mg/dl (8.4-10.2); Carbon Dioxide 31 mmol/L (22.0-30.0); Globulin 2.9 g/dL (1.3-3.2); Glucose 183 mg/dl (74-100); Total Protein,Serum 7.2 g/dl (6.3-8.2)
--- NOTE | 2021-10-28 13:25 | PC.NURSE ---
checked on pt at this time, pt laying in bed on her right side, pt reports no needs at this time, reports she is feeling better. Seizure pads remain in place. Will continue to monitor
[2021-10-28 13:39] VITALS: BP 123/65; PULSE 78; RESP 16; TEMP 36.6; O2SAT 98
== END 2021-10-28 13:41 | disposition home or self-care (01) ==
PROVIDERS: Emergency Provider Emergency Medicine; PCP Family Medicine
DX: F13.239 Sedative, hypnotic or anxiolytic dependence with withdrawal, unspecified (principal); R42 Dizziness and giddiness; D64.9 Anemia, unspecified; R25.1 Tremor, unspecified; I11.0 Hypertensive heart disease with heart failure; I50.9 Heart failure, unspecified; I25.10 Atherosclerotic heart disease of native coronary artery without angina pectoris; I25.2 Old myocardial infarction; E78.5 Hyperlipidemia, unspecified; E11.9 Type 2 diabetes mellitus without complications; F41.9 Anxiety disorder, unspecified; F17.210 Nicotine dependence, cigarettes, uncomplicated; M19.90 Unspecified osteoarthritis, unspecified site; I65.29 Occlusion and stenosis of unspecified carotid artery; G40.909 Epilepsy, unspecified, not intractable, without status epilepticus; Z79.51 Long term (current) use of inhaled steroids; Z79.899 Other long term (current) drug therapy; Z88.2 Allergy status to sulfonamides; Z88.6 Allergy status to analgesic agent; Z88.8 Allergy status to other drugs, medicaments and biological substances
CPT/HCPCS: 80053; 85025; 99283

== ENCOUNTER 2021-10-31 14:47 | Emergency (ER) | payer MEDICAID, SELFPAY ==
[2021-10-31 14:53] VITALS: BP 135/78; PULSE 90; RESP 18; TEMP 37.4; O2SAT 95; BMI 31.5
--- NOTE | 2021-10-31 14:54 | HMH.EDGENADL ---
ED Disposition Clinical Impression: Chronic anxiety Chronic pain Qualifiers: Chronic pain type: other chronic pain Qualified Code(s): G89.29 - Other chronic pain Disposition: Home, Self-Care Condition on Discharge: Fair Additional Instructions: Follow-up with your orthopedic physician and your primary care provider tomorrow to obtain further medications. Referrals: Cde Corbett MD [Primary Care Provider] - - Critical Care Critical Care Time: No Attestation: On 10/31/21, the high probability of a clinically significant, sudden or life threatening deterioration of the following system(s) required my full and direct attention, intervention and personal management. The time I documented below is in addition to time spent performing reported procedures but includes the following listed in this critical care notation. Medical Decision Making - Gregory Inquiry Pt receiving controlled substance: No Gregory was queried for this patient: Yes Vital Signs: 10/31/21 14:53 Temperature 99.4 F Temperature Source Oral Pulse Rate [Brachial] 90 Respiratory Rate 18 Blood Pressure [Right Arm] 135/78 Blood Pressure Mean [Right Arm] 97 Blood Pressure Source [Right Arm] Automatic Cuff Blood Pressure Position [Right Arm] Sitting 02 Sat by Pulse Oximetry 95 Oxygen Delivery Method Room Air Orders (Tests/Meds): ED MEDICATIONS Discontinued Medications Generic Name Dose Route Start Last Admin Trade Name Rejiq PRN Reason Stop Dose Admin Hydroxyzine HCl 50 mg 10/31/21 15:02 10/31/21 15:07 Hydroxyzine 50mg/Ml Vial IM 10/31/21 15:03 50 mg ONCE ONE Administration Ketorolac Tromethamine 60 mg 10/31/21 15:02 10/31/21 15:07 Ketorolac 60mg/2ml Vial IM 10/31/21 15:03 60 mg ONCE ONE Administration Medical Decision Narrative: Reviewed recent prescription fills. Patient filled prescription for oxycodone 10 mg, 15 tablets, on 10/27/2021, 4-day supply. Patient filled prescription for Ativan 1 mg, 5 tablets, 10/28/2021, 5-day supply. I have had numerous encounters with patient requesting controlled substances. She is known to have had 2 recent overdoses of controlled substances. Benzodiazepines have subsequently been discontinued. She should still have Ativan from prescription that was filled 3 days ago. Pain medication is being prescribed by her orthopedic physician, 3-day supply at a time per patient. I have advised the patient that I will not refill her pain medication, that that will need to be done by her orthopedic physician and that she should not the obtaining pain medication prescriptions from more than 1 provider, nor from the emergency department for this condition. I advised her that I would not administer or prescribe benzodiazepines. I offered her an injection of Toradol for pain and hydroxyzine for anxiety. General Adult HPI - General Stated complaint: nervous/anxiety Time Seen by Provider: 10/31/21 14:55 - History of Present Illness HPI narrative: Patient is well-known to me from numerous emergency department visits. She is requesting pain medication for pain in her left arm from a previous humerus fracture status postoperative repair. She says she took her last prescribed pain pill last night. She is requesting medications for anxiety which she says has been present all day long. She previously had been on benzodiazepines for her anxiety but these have been stopped by her primary care provider. She was in this emergency department 4 days ago complaining of I feel like I am going to have a seizure and was given a prescription for 5 Ativan. States she is now out of that medication. She takes hydroxyzine at night. - Related Data Home Medications Medication Instructions Recorded Confirmed Cetirizine HCl 10 mg PO DAILY 04/22/21 10/08/21 Metoprolol Succinate [Metoprolol 25 mg PO DAILY 04/22/21 10/08/21 Succinate 25mg Tablet*] lisinopriL [Lisinopril] 20 mg PO DAILY 04/22/21 0
[2021-10-31 15:19] VITALS: BP 106/78; PULSE 77; RESP 18; TEMP 37.2; O2SAT 95
== END 2021-10-31 15:20 | disposition home or self-care (01) ==
PROVIDERS: Emergency Provider Emergency Medicine; PCP Family Medicine
DX: F41.8 Other specified anxiety disorders (principal); G89.29 Other chronic pain; M79.602 Pain in left arm; I25.10 Atherosclerotic heart disease of native coronary artery without angina pectoris; I25.2 Old myocardial infarction; I10 Essential (primary) hypertension; E78.5 Hyperlipidemia, unspecified; F17.210 Nicotine dependence, cigarettes, uncomplicated
CPT/HCPCS: 96372; 99283

== ENCOUNTER 2021-11-03 16:53 | Emergency (ER) | payer MEDICAID, SELFPAY ==
--- NOTE | 2021-11-03 17:13 | XR_ITS ---
PROCEDURE INFORMATION: Exam: XR Chest Exam date and time: 11/03/21 05:43 PM Age: 45 years old Clinical indication: Other: Hypoxia TECHNIQUE: Imaging protocol: Radiologic exam of the chest. Views: 1 view. COMPARISON: CR XR CHEST PORTABLE 09/11/21 07:21 AM FINDINGS: Lungs: Unremarkable. No consolidation. Pleural spaces: Unremarkable. No pleural effusion. No pneumothorax. Heart/Mediastinum: Unremarkable. No cardiomegaly. Bones/joints: Unremarkable. IMPRESSION: No acute findings.
--- NOTE | 2021-11-03 17:15 | HMH.EDGENADL ---
ED Disposition Clinical Impression: Hypoxia, Weakness, Anxiety Disposition: Home, Self-Care Condition on Discharge: Good Additional Instructions: Follow-up with primary care provider, call for appointment Referrals: Max Alvarez MD [Primary Care Provider] - - Critical Care Critical Care Time: No Attestation: On 11/03/21, the high probability of a clinically significant, sudden or life threatening deterioration of the following system(s) required my full and direct attention, intervention and personal management. The time I documented below is in addition to time spent performing reported procedures but includes the following listed in this critical care notation. Medical Decision Making - Gregory Inquiry Pt receiving controlled substance: No Vital Signs: 11/03/21 17:37 11/03/21 17:45 11/03/21 18:31 Temperature 98.7 F Temperature Source Oral Pulse Rate 86 77 Pulse Rate [Right Brachial] 89 Respiratory Rate 12 12 Blood Pressure 154/88 H Blood Pressure [Right Arm] 137/60 Blood Pressure Mean 100 Blood Pressure Mean [Right Arm] 85 02 Sat by Pulse Oximetry 84 L 95 99 Oxygen Delivery Method Room Air Nasal Cannula Nasal Cannula Oxygen Flow Rate (LPM) 2 2 - Lab Data Lab Results 11/03/21 17:13: Specimen Source Right brachial, O2 % 2lpm, ABG pH 7.40, ABG pCO2 41.0, ABG pO2 67.3 L, ABG HCO3 25.0, ABG Total CO2 26.3, ABG O2 Saturation 94, ABG Base Excess 0.2, Idris Test Non applicable 11/03/21 18:16: SARS-CoV-2 (PCR) Not detected, Influenza A Untype (PCR) Not detected, Influenza Type B (PCR) Not detected 11/03/21 19:05: WBC 12.0 H, RBC 4.48, Hgb 11.6 L, Hct 37.0, MCV 82.6, MCH 25.8 L, MCHC 31.3 L, RDW 18.2 H, Plt Count 341, MPV 8.0, Neut % (Auto) 76.4, Lymph % (Auto) 16.1, [place] % (Auto) 4.4, Eos % (Auto) 2.2, Baso % (Auto) 0.9, Neut # (Auto) 9.2 H, Lymph # (Auto) 2.0, [place] # (Auto) 0.5, Eos # (Auto) 0.3, Baso # (Auto) 0.1 11/03/21 19:05: Sodium 136, Potassium 4.2, Chloride 99, Carbon Dioxide 31 H, Anion Gap 10.2, BUN 9, Creatinine 0.90, Estimated Creat Clear 98, Estimated GFR 67, Est GFR ( Amer) 82, Glucose 98, Calcium 8.3 L, Total Bilirubin < 0.1 L, AST 17, ALT 13, Alkaline Phosphatase 114, Troponin I < 0.01, NT-Pro-B Natriuret Pep 54.6, Total Protein 6.6, Albumin 3.9, Globulin 2.7, Albumin/Globulin Ratio 1.4, Salicylates < 1.0 L, Acetaminophen < 10 L 11/03/21 19:40: Urine Color Yellow, Urine Appearance Clear, Urine pH 6.0, Ur Specific [place] <= 1.005, Urine Protein Negative, Urine Glucose (UA) Negative, Urine Ketones Negative, Urine Blood Trace-i, Urine Nitrate Negative, Urine Bilirubin Negative, Urine Urobilinogen 0.2, Ur Leukocyte Esterase Trace, Urine RBC None, Urine WBC Occasional, Ur Squamous Epith Cells 3-5, Urine Bacteria None 11/03/21 19:40: Urine Opiates Screen Negative, Urine Methadone Screen Negative, Ur Barbituates Screen Negative, Ur Phencyclidine Scrn Negative, Ur Amphetamines Screen Negative, U Benzodiazepines Scrn Negative, Urine Cocaine Screen Negative, U Marijuana (THC) Screen Negative Result diagrams: 11/03/21 19:05 11/03/21 19:05 - Radiology Data #1 Image(s): Chest Image Reviewed: Yes I reviewed the patient's radiology image, Yes I have reviewed radiologist's interpretation PROCEDURE INFORMATION: Exam: XR Chest Exam date and time: 11/03/21 05:43 PM Age: 45 years old Clinical indication: Other: Hypoxia TECHNIQUE: Imaging protocol: Radiologic exam of the chest. Views: 1 view. COMPARISON: CR XR CHEST PORTABLE 09/11/21 07:21 AM FINDINGS: Lungs: Unremarkable. No consolidation. Pleural spaces: Unremarkable. No pleural effusion. No pneumothorax. Heart/Mediastinum: Unremarkable. No cardiomegaly. Bones/joints: Unremarkable. IMPRESSION: No acute findings. - ECG Data Tracing #1 EKG interpreted by Zohaib Wright MD: Rhythm: sinus Rate: 79 [place]: normal Ectopy: none Conduc
[2021-11-03 17:37] VITALS: BP 137/60; PULSE 89; RESP 12; TEMP 37.1; O2SAT 84; BMI 35.4
[2021-11-03 17:42] LABS: ABG Base Excess 0.2 mmol/L (-2.4-2.3); ABG Oxygen Saturation 94 % (90-100); ABG PO2 67.3 mmhg (80-100); ABG TCO2 26.3 mmhg (23-27)
[2021-11-03 17:43] LABS: Allen's Test Non Applicable; Source Right Brachial
[2021-11-03 17:45] VITALS: PULSE 86; O2SAT 95
--- NOTE | 2021-11-03 18:08 | ECG_ITS ---
APPROVED REPORT Exam: Resting ECG HR:79 bpm ECG Measurements Heart Rate 79 AXES SD 160 P 26 QRSd 83 QRS 34 QT 374 T 43 QTc 409 Conclusion SINUS RHYTHM LOW QRS VOLTAGE IN PRECORDIAL LEADS [QRS DEFLECTION < 1.0 mV IN CHEST LEADS] BORDERLINE ECG UNCONFIRMED REPORT Electronically signed by : Max Alvarez MD 11/04/2021 08:25:15
--- NOTE | 2021-11-03 18:15 | PC.NURSE ---
Patient stated I took 2 Gabapentin and 15 nerve pills today When lifting patient's shirt up for an EKG staff found a pill bottle from 09/25/21 for blood thinners. I ask what she had in the bottle and she stated Gabapentin and Tylenol . After leaving the room and returning patient corrected herself and stated that she had 2 Gabapentin and 15 Percocet verified that she messed up and verified what she stated was true. Kenya Rodas was a witness to this conversation. notified
--- NOTE | 2021-11-03 18:17 | PC.NURSE ---
Swab sent to lab.
[2021-11-03 18:23] LABS: Coronavirus 19, PCR Not Detected (NotDetected); Influenza A, PCR Not Detected (NotDetected); Influenza B, PCR Not Detected (NotDetected)
[2021-11-03 18:31] VITALS: BP 154/88; PULSE 77; RESP 12; O2SAT 99
[2021-11-03 19:17] LABS: Basophils # 0.1 K/mm3 (0-0.2); Basophils % 0.9 % (0.1-2.0); Eosinophils # 0.3 K/mm3 (0.0-0.4); Eosinophils % 2.2 % (0.1-12.0); Hemoglobin 11.6 g/dL (12.2-16.2); Lymphocytes % 16.1 % (10-50); Mean Corpuscular HGB Conc 31.3 g/dL (31.8-35.4); Mean Corpuscular Hemoglobin 25.8 pg (27.0-31.2); Mean Corpuscular Volume 82.6 fl (81-99); Monocytes # 0.5 K/mm3 (0.1-1.0); Monocytes % 4.4 % (1.7-9.3); Neutrophils # 9.2 K/mm3 (1.8-7.8); Neutrophils % 76.4 % (37.0-80.0); Platelet Count 341 K/mm3 (142-424); Red Blood Count 4.48 M/mm3 (4.20-5.40); Red Cell Distribution Width 18.2 % (11.5-17.5)
[2021-11-03 19:28] LABS: Alanine Aminotransferase 13 U/L (12-78); Albumin Level 3.9 g/dl (3.5-5.0); Albumin/Globulin Ratio 1.4 (1.1-1.8); Alkaline Phosphatase 114 U/L (38-126); Anion Gap 10.2 mEq/L (5-15); Aspartate Amino Transferase 17 U/L (14-36); Blood Urea Nitrogen 9 mg/dl (7-17); Calcium 8.3 mg/dl (8.4-10.2); Carbon Dioxide 31 mmol/L (22.0-30.0); Chloride 99 mmol/L (98-107); Creatinine Clearance Estimated 98 mL/min (50-200); Estimated Glomerular Filt Rate 67 ml/min (>60); GFR (African American) 82 ML/MIN (>60); Globulin 2.7 g/dL (1.3-3.2); Glucose 98 mg/dl (74-100); Potassium 4.2 mmoL/L (3.5-5.1); Sodium 136 mmol/L (136-145); Total Protein,Serum 6.6 g/dl (6.3-8.2)
[2021-11-03 19:30] LABS: Acetaminophen < 10 ug/ml (10-30); Bilirubin,Total < 0.1 mg/dl (0.2-1.3); Salicylate < 1.0 mg/dL (2.0-20.0)
[2021-11-03 19:40] LABS: NT Pro Brain Natriuretic Pep. 54.6 pg/mL (0-125)
[2021-11-03 19:42] LABS: Microscopic, Urine URINE MICROSCOPIC (MICROSCOPIC)
[2021-11-03 19:46] LABS: Troponin I < 0.01 ng/ml (0.00-0.034)
[2021-11-03 20:02] LABS: Amphetamine/Metha Screen,Urine Negative ng/ml (<1000)
[2021-11-03 20:03] LABS: Barbiturates Screen,Urine Negative ng/ml (<200); Benzodiazepines Screen,Urine Negative ng/ml (<200)
[2021-11-03 20:04] LABS: Cannabinoid Screen,Urine Negative ng/ml (<50)
[2021-11-03 20:05] LABS: Cocaine Screen,Urine Negative ng/ml (<300); Methadone Screen,Urine Negative ng/ml (<300)
[2021-11-03 20:06] LABS: Opiate Screen,Urine Negative ng/ml (<300)
[2021-11-03 20:07] LABS: Phencyclidine Screen,Urine Negative ng/ml (<25)
[2021-11-03 20:08] LABS: Appearance,Urine CLEAR (Clear); Bilirubin,Urine Negative (Negative); Blood, Urine TRACE-I (Negative); Color,Urine YELLOW (Yellow); Glucose,Urine (UA) Negative (Negative); Ketones,Urine Negative (Negative); Leukocyte Esterase,Urine TRACE (Negative); Nitrate,Urine Negative (Negative); Protein,Urine Negative (Negative); Specific Gravity, Urine <= 1.005 (1.005-1.030); Urobilinogen,Urine 0.2 EU/dl (0.2)
[2021-11-03 20:09] LABS: WBC,Urine Occasional #/hpf (0-3)
[2021-11-03 20:26] VITALS: BP 136/64; PULSE 88; RESP 16; TEMP 36.9; O2SAT 98
== END 2021-11-03 20:28 | disposition home or self-care (01) ==
PROVIDERS: Emergency Provider Emergency Medicine; PCP Internal Medicine Adolescent Medicine
DX: R09.02 Hypoxemia (principal); F41.9 Anxiety disorder, unspecified; R53.1 Weakness
CPT/HCPCS: 71045; 80053; 80305; 80329; 81001; 82803; 83880; 84484; 85025; 93005; 99284; C9803; U0003; U0005

== ENCOUNTER 2021-11-17 07:14 | Emergency (ER) | payer MEDICAID, SELFPAY ==
[2021-11-17 07:14] VITALS: BP 152/86; PULSE 84; RESP 16; TEMP 36.8; O2SAT 94; BMI 35.5
--- NOTE | 2021-11-17 07:30 | HMH.EDANX ---
ED Disposition Clinical Impression: Anxiety Disposition: Home, Self-Care Condition on Discharge: Good Instructions: DI for Anxiety -- Adult Additional Instructions: see pcp for follow up Referrals: Max Alvarez MD [Primary Care Provider] - - Critical Care Critical Care Time: No Attestation: On 11/17/21, the high probability of a clinically significant, sudden or life threatening deterioration of the following system(s) required my full and direct attention, intervention and personal management. The time I documented below is in addition to time spent performing reported procedures but includes the following listed in this critical care notation. Medical Decision Making - Medical Records Medical records reviewed: Yes: I reviewed the patient's medical records. - Gregory Inquiry Pt receiving controlled substance: No Vital Signs: 11/17/21 07:14 Temperature 98.2 F Temperature Source Oral Pulse Rate [Right Radial] 84 Respiratory Rate 16 Blood Pressure [Right Arm] 152/86 H Blood Pressure Mean [Right Arm] 108 Blood Pressure Source [Right Arm] Automatic Cuff Blood Pressure Position [Right Arm] Sitting 02 Sat by Pulse Oximetry 94 L Oxygen Delivery Method Room Air - Lab Data Lab results reviewed: Yes: I reviewed the patient's lab results. Lab Results 11/17/21 07:34: Urine Color Yellow, Urine Appearance Clear, Urine pH 6.5, Ur Specific [place] <= 1.005, Urine Protein Negative, Urine Glucose (UA) Negative, Urine Ketones Negative, Urine Blood Negative, Urine Nitrate Negative, Urine Bilirubin Negative, Urine Urobilinogen 0.2, Ur Leukocyte Esterase Negative, Urine RBC None, Urine WBC None, Ur Squamous Epith Cells None, Urine Bacteria Trace 11/17/21 07:34: Urine Opiates Screen Negative, Urine Methadone Screen Negative, Ur Barbituates Screen Negative, Ur Phencyclidine Scrn Negative, Ur Amphetamines Screen Negative, U Benzodiazepines Scrn Negative, Urine Cocaine Screen Negative, U Marijuana (THC) Screen Negative 11/17/21 07:49: POC Glucose 137 H Medical Decision Narrative: pt with stable exam and has multiple meds and will be d/c to see pcp Anxiety HPI - General Chief Complaint: Recheck/Abnormal Lab/Rx Stated Complaint: anxiety Time Seen by Provider: 11/17/21 07:30 Mode of Arrival: Ambulatory Source of Information: Patient, Medical Record Limitations: No Limitations Description of Symptoms (Recalled from ER Triage Doc. by RN): Pt states I'm nervous and jittery and advises I've had trouble with my nerves my whole life . - History of Present Illness HPI narrative: has ongoing anxiety and was seen by pcp about 2 weeks ago - no new sx or chest pain MD complaint: anxiety Onset (ago): week(s) Severity: moderate History of similar episodes: Yes Associated symptoms: denies other symptoms - Related Data Home Medications: Home Medications Medication Instructions Recorded Confirmed Cetirizine HCl 10 mg PO DAILY 04/22/21 11/17/21 Metoprolol Succinate [Metoprolol 25 mg PO DAILY 04/22/21 11/17/21 Succinate 25mg Tablet*] lisinopriL [Lisinopril] 20 mg PO DAILY 04/22/21 11/17/21 Furosemide [Furosemide 20mg Tab*] 40 mg PO DAILY 09/01/21 11/17/21 Levothyroxine Sodium [Synthroid 75 mcg PO DAILY 09/01/21 11/17/21 50mcg (0.05mg) tab] OLANZapine [Olanzapine] 20 mg PO DAILY 09/01/21 11/17/21 Potassium Chloride [K-Tab ER 20 60 meq PO DAILY 09/01/21 11/17/21 mEq] ondansetron HCL [Ondansetron 4mg 4 mg PO TIDP PRN 09/09/21 11/17/21 tab*] Atorvastatin Calcium [Lipitor 40mg 40 mg PO DAILY 11/17/21 11/17/21 Tab] LORazepam [Ativan 1mg tablet] 1 mg PO DAILY 11/17/21 11/17/21 Magnesium Oxide 250 mg PO DAILY 11/17/21 11/17/21 Omeprazole 20 mg PO DAILY 11/17/21 11/17/21 Quetiapine Fumarate [Quetiapine 150 mg PO HS 11/17/21 11/17/21 Fumarate ER] Sertraline HCl [Zoloft] 200 mg PO DAILY 11/17/21 11/17/21 Previous Rx's Medication Instructions Recorded folic acid 1 mg tablet 1 mg PO KENRICK
--- NOTE | 2021-11-17 07:32 | PC.NURSE ---
pt ambulated to the bathroom with no complications for urine sample
--- NOTE | 2021-11-17 07:32 | PC.NURSE ---
pt ambulatory to restroom without complications
--- NOTE | 2021-11-17 07:34 | PC.NURSE ---
urine specimen sent to the lab
--- NOTE | 2021-11-17 07:37 | PC.NURSE ---
STEPHANIE JULIO at
[2021-11-17 07:39] LABS: Microscopic, Urine URINE MICROSCOPIC (MICROSCOPIC)
[2021-11-17 07:42] LABS: Appearance,Urine CLEAR (Clear); Bilirubin,Urine Negative (Negative); Blood, Urine Negative (Negative); Color,Urine YELLOW (Yellow); Glucose,Urine (UA) Negative (Negative); Ketones,Urine Negative (Negative); Leukocyte Esterase,Urine Negative (Negative); Nitrate,Urine Negative (Negative); PH,Urine 6.5 (5.0-8.5); Protein,Urine Negative (Negative); Specific Gravity, Urine <= 1.005 (1.005-1.030); Urobilinogen,Urine 0.2 EU/dl (0.2)
[2021-11-17 07:54] LABS: Amphetamine/Metha Screen,Urine Negative ng/ml (<1000); Benzodiazepines Screen,Urine Negative ng/ml (<200)
[2021-11-17 07:55] LABS: Barbiturates Screen,Urine Negative ng/ml (<200)
[2021-11-17 08:00] LABS: Cannabinoid Screen,Urine Negative ng/ml (<50)
[2021-11-17 08:01] LABS: POC Glucose,Bedside 137 (70-110)
[2021-11-17 08:01] LABS: Cocaine Screen,Urine Negative ng/ml (<300); Methadone Screen,Urine Negative ng/ml (<300)
[2021-11-17 08:02] LABS: Opiate Screen,Urine Negative ng/ml (<300)
[2021-11-17 08:03] LABS: Phencyclidine Screen,Urine Negative ng/ml (<25)
[2021-11-17 08:07] LABS: Bacteria,Urine Trace /lpf
[2021-11-17 08:31] VITALS: BP 144/81; PULSE 86; RESP 16; TEMP 36.8; O2SAT 95
== END 2021-11-17 08:32 | disposition home or self-care (01) ==
PROVIDERS: Emergency Provider Emergency Medicine; PCP Internal Medicine Adolescent Medicine
DX: F41.9 Anxiety disorder, unspecified (principal); F17.210 Nicotine dependence, cigarettes, uncomplicated
CPT/HCPCS: 80305; 81001; 82962; 99283

== ENCOUNTER 2021-11-23 17:21 | Emergency (ER) | payer MEDICAID, SELFPAY ==
[2021-11-23 17:23] VITALS: BP 97/47; PULSE 79; RESP 16; TEMP 36.9; O2SAT 97; BMI 35.5
--- NOTE | 2021-11-23 17:25 | PC.NURSE ---
2078 ED MD AWARE OF B/P. ORDERS FOR IVF BOLUS
--- NOTE | 2021-11-23 17:30 | HMH.EDGENADL ---
ED Disposition Clinical Impression: Confusion Disposition: Home, Self-Care Condition on Discharge: Good Instructions: DI for Altered Mental Status Additional Instructions: follow up PCP, return for worse Referrals: Max Alvarez MD [Primary Care Provider] - - Critical Care Critical Care Time: No Attestation: On , the high probability of a clinically significant, sudden or life threatening deterioration of the following system(s) required my full and direct attention, intervention and personal management. The time I documented below is in addition to time spent performing reported procedures but includes the following listed in this critical care notation. Medical Decision Making - Medical Records Medical records reviewed: Yes: I reviewed the patient's medical records. - Gregory Inquiry Pt receiving controlled substance: No Vital Signs: 11/23/21 17:23 Temperature 98.4 F Temperature Source Oral Pulse Rate [Brachial] 79 Respiratory Rate 16 Blood Pressure [Left Arm] 97/47 L Blood Pressure Mean [Left Arm] 63 Blood Pressure Source [Left Arm] Automatic Cuff Blood Pressure Position [Left Arm] Sitting 02 Sat by Pulse Oximetry 97 Oxygen Delivery Method Nasal Cannula Oxygen Flow Rate (LPM) 2 - Lab Data Lab Results 11/23/21 17:49: POC Glucose 94 11/23/21 17:57: WBC 7.9, RBC 5.26, Hgb 13.3, Hct 43.1, MCV 82.1, MCH 25.3 L, MCHC 30.9 L, RDW 18.1 H, Plt Count 472 H, MPV 7.5, Neut % (Auto) 73.6, Lymph % (Auto) 16.2, [place] % (Auto) 5.9, Eos % (Auto) 3.5, Baso % (Auto) 0.8, Neut # (Auto) 5.8, Lymph # (Auto) 1.3, [place] # (Auto) 0.5, Eos # (Auto) 0.3, Baso # (Auto) 0.1 11/23/21 17:57: Sodium 139, Potassium 3.8, Chloride 99, Carbon Dioxide 33 H, Anion Gap 10.8, BUN 6 L, Creatinine 0.80, Estimated Creat Clear 111, Estimated GFR 77, Est GFR ( Amer) 93, Glucose 101 H, Calcium 9.2, Total Bilirubin 0.3, AST 19, ALT 14, Alkaline Phosphatase 122, Total Protein 7.7, Albumin 4.5, Globulin 3.2, Albumin/Globulin Ratio 1.4 11/23/21 18:55: Urine Color Yellow, Urine Appearance Clear, Urine pH 7.5, Ur Specific [place] 1.010, Urine Protein Negative, Urine Glucose (UA) Negative, Urine Ketones Negative, Urine Blood Trace-i, Urine Nitrate Negative, Urine Bilirubin Negative, Urine Urobilinogen 0.2, Ur Leukocyte Esterase Trace Result diagrams: 11/23/21 17:57 11/23/21 17:57 Orders (Tests/Meds): ED MEDICATIONS Generic Name Dose Route Start Last Admin Trade Name Freq PRN Reason Stop Dose Admin Sodium Chloride 1,000 mls @ 999 mls/hr 11/23/21 18:15 11/23/21 18:06 Sod Chlor 0.9% 1000ml Bag IV 11/23/21 19:15 999 mls/hr .Q1H1M DOUGLAS Administration ORDERS Category Date Time Status Urinalysis and Microscopic Stat Lab 11/23/21 18:55 Results - Reevaluation(s) Time: 19:08 (reeval, vss, appears well, aox4) General Adult HPI - General Stated complaint: confussed Time Seen by Provider: 11/23/21 17:30 Source of Information: Patient, Spouse - History of Present Illness HPI narrative: c/o pt is confused and weak pt says she needs something for her nerves Onset (ago): hour(s) Severity: moderate Consistency: constant Relieving factors: none Exacerbating factors: none Associated symptoms: denies other symptoms - Related Data Home Medications Medication Instructions Recorded Confirmed Cetirizine HCl 10 mg PO DAILY 04/22/21 11/17/21 Metoprolol Succinate [Metoprolol 25 mg PO DAILY 04/22/21 11/17/21 Succinate 25mg Tablet*] lisinopriL [Lisinopril] 20 mg PO DAILY 04/22/21 11/17/21 Furosemide [Furosemide 20mg Tab*] 40 mg PO DAILY 09/01/21 11/17/21 Levothyroxine Sodium [Synthroid 75 mcg PO DAILY 09/01/21 11/17/21 50mcg (0.05mg) tab] OLANZapine [Olanzapine] 20 mg PO DAILY 09/01/21 11/17/21 Potassium Chloride [K-Tab ER 20 60 meq PO DAILY 09/01/21 11/17/21 mEq] ondansetron HCL [Ondansetron 4mg 4 mg PO TIDP PRN 09/09/21 11/17/21 tab*] Atorvastatin Calcium [Lipitor 40mg 40 mg PO DAILY
--- NOTE | 2021-11-23 18:03 | PC.NURSE ---
Family called updated them on patients status
--- NOTE | 2021-11-23 18:05 | PC.NURSE ---
FSBS: 89 PATIENT RESTING IN BED WITH T.V. ON. NO COMPLAINTS VOICED AT THIS TIME.
[2021-11-23 18:07] LABS: POC Glucose,Bedside 94 (70-110)
[2021-11-23 18:15] LABS: Chloride 99 mmol/L (98-107); Potassium 3.8 mmoL/L (3.5-5.1); Sodium 139 mmol/L (136-145)
[2021-11-23 18:16] LABS: Basophils # 0.1 K/mm3 (0-0.2); Basophils % 0.8 % (0.1-2.0); Eosinophils # 0.3 K/mm3 (0.0-0.4); Eosinophils % 3.5 % (0.1-12.0); Hematocrit 43.1 % (37.0-47.0); Hemoglobin 13.3 g/dL (12.2-16.2); Lymphocytes # 1.3 K/mm3 (0.7-4.5); Lymphocytes % 16.2 % (10-50); Mean Corpuscular HGB Conc 30.9 g/dL (31.8-35.4); Mean Corpuscular Hemoglobin 25.3 pg (27.0-31.2); Mean Corpuscular Volume 82.1 fl (81-99); Mean Platelet Volume 7.5 fl (7.4-10.4); Monocytes # 0.5 K/mm3 (0.1-1.0); Monocytes % 5.9 % (1.7-9.3); Neutrophils # 5.8 K/mm3 (1.8-7.8); Neutrophils % 73.6 % (37.0-80.0); Platelet Count 472 K/mm3 (142-424); Red Blood Count 5.26 M/mm3 (4.20-5.40); Red Cell Distribution Width 18.1 % (11.5-17.5); White Blood Count 7.9 K/mm3 (4.8-10.8)
[2021-11-23 18:17] LABS: Alanine Aminotransferase 14 U/L (12-78); Blood Urea Nitrogen 6 mg/dl (7-17); Creatinine Clearance Estimated 111 mL/min (50-200); Estimated Glomerular Filt Rate 77 ml/min (>60); GFR (African American) 93 ML/MIN (>60)
[2021-11-23 18:18] LABS: Albumin Level 4.5 g/dl (3.5-5.0); Albumin/Globulin Ratio 1.4 (1.1-1.8); Alkaline Phosphatase 122 U/L (38-126); Anion Gap 10.8 mEq/L (5-15); Aspartate Amino Transferase 19 U/L (14-36); Bilirubin,Total 0.3 mg/dl (0.2-1.3); Calcium 9.2 mg/dl (8.4-10.2); Carbon Dioxide 33 mmol/L (22.0-30.0); Globulin 3.2 g/dL (1.3-3.2); Glucose 101 mg/dl (74-100); Total Protein,Serum 7.7 g/dl (6.3-8.2)
--- NOTE | 2021-11-23 18:32 | PC.NURSE ---
PT RESTING COMFORTABLY, WARM BLANKET PROVIDED. NO NEEDS AT THIS TIME. AT BEDSIDE
--- NOTE | 2021-11-23 18:57 | PC.NURSE ---
ASSISTED TO BR FOR UA
[2021-11-23 19:04] LABS: Microscopic, Urine URINE MICROSCOPIC (MICROSCOPIC)
[2021-11-23 19:06] LABS: Appearance,Urine CLEAR (Clear); Bilirubin,Urine Negative (Negative); Blood, Urine TRACE-I (Negative); Color,Urine YELLOW (Yellow); Glucose,Urine (UA) Negative (Negative); Ketones,Urine Negative (Negative); Leukocyte Esterase,Urine TRACE (Negative); Nitrate,Urine Negative (Negative); PH,Urine 7.5 (5.0-8.5); Protein,Urine Negative (Negative); Urobilinogen,Urine 0.2 EU/dl (0.2)
[2021-11-23 19:20] LABS: Bacteria,Urine Trace /lpf; Squamous Epithelial Cell,Urine Occasional #/hpf (0-5); WBC,Urine Occasional #/hpf (0-3)
[2021-11-23 20:04] VITALS: BP 100/60; PULSE 79; RESP 18; TEMP 36.8; O2SAT 98
== END 2021-11-23 20:06 | disposition home or self-care (01) ==
PROVIDERS: Emergency Provider Emergency Medicine; PCP Internal Medicine Adolescent Medicine
DX: R41.82 Altered mental status, unspecified (principal); D64.9 Anemia, unspecified; I11.0 Hypertensive heart disease with heart failure; I50.9 Heart failure, unspecified; I25.10 Atherosclerotic heart disease of native coronary artery without angina pectoris; I25.2 Old myocardial infarction; I65.29 Occlusion and stenosis of unspecified carotid artery; E78.5 Hyperlipidemia, unspecified; E03.9 Hypothyroidism, unspecified; M19.90 Unspecified osteoarthritis, unspecified site; J44.9 Chronic obstructive pulmonary disease, unspecified; F41.9 Anxiety disorder, unspecified; F17.210 Nicotine dependence, cigarettes, uncomplicated; Z79.51 Long term (current) use of inhaled steroids; Z79.02 Long term (current) use of antithrombotics/antiplatelets; Z79.899 Other long term (current) drug therapy; Z88.2 Allergy status to sulfonamides; Z88.6 Allergy status to analgesic agent
CPT/HCPCS: 80053; 81001; 82962; 85025; 96360; 99284

== ENCOUNTER → 2021-12-15 11:52 | Outpatient (CLI) | payer MEDICAID, SELFPAY ==
--- NOTE | 2021-12-15 11:58 | XR_ITS ---
FINAL REPORT CLINICAL HISTORY: LEFT HIP PAIN FINDINGS: LEFT HIP Two views of the left hip including an AP pelvis demonstrate no acute fracture or dislocation. There is mild degenerative change in both hips. The visualized bony structures are well aligned. No soft tissue abnormality is seen. There is an IUD in the mid pelvis. IMPRESSION: Mild degenerative change in both hips. Reviewed, Interpreted and Dictated by Ken Osorio III, MD Transcribed by [employer] Authenticated and [facility]
--- NOTE | 2021-12-15 11:58 | XR_ITS ---
FINAL REPORT CLINICAL HISTORY: LEFT LEG PAIN FINDINGS: LEFT TIBIA FIBULA 2 views were obtained. There is no acute fracture or dislocation. The joint spaces are intact. There are calcaneal spurs. There is no soft tissue abnormality. IMPRESSION: No acute bony abnormality. Reviewed, Interpreted and Dictated by Ken Osorio III, MD Transcribed by [employer] [facility] and [facility]
== END ==
PROVIDERS: PCP Internal Medicine Adolescent Medicine; Visit Provider Internal Medicine Adolescent Medicine
DX: M25.552 Pain in left hip (principal); M79.605 Pain in left leg
CPT/HCPCS: 73502; 73590

== ENCOUNTER → 2022-03-28 13:42 | Outpatient (POV) | payer MEDICAID, SELFPAY ==
[2022-03-28 15:29] VITALS: BP 118/73; PULSE 90; RESP 18; O2SAT 96; BMI 34.3
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
== END | disposition home or self-care (01) ==
PROVIDERS: PCP Nurse Practitioner Family; Visit Provider Nurse Practitioner Family
DX: G62.9 Polyneuropathy, unspecified (principal); M79.604 Pain in right leg; M79.605 Pain in left leg; M79.671 Pain in right foot; M79.672 Pain in left foot
CPT/HCPCS: 99202; G0463

== ENCOUNTER → 2022-04-13 13:53 | Outpatient (POV) | payer MEDICAID, SELFPAY ==
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
[2022-04-13 14:15] VITALS: BP 105/62; PULSE 85; RESP 18; O2SAT 96; BMI 34.3
== END | disposition home or self-care (01) ==
PROVIDERS: PCP Nurse Practitioner Family; Visit Provider Nurse Practitioner Family
DX: G62.9 Polyneuropathy, unspecified (principal); M79.604 Pain in right leg; M79.605 Pain in left leg; M79.671 Pain in right foot
CPT/HCPCS: 99212; G0463

== ENCOUNTER → 2022-05-12 12:43 | Outpatient (POV) | payer MEDICAID, SELFPAY ==
--- NOTE | 2022-05-12 13:00 | EXP.PAIN.SOA ---
[facility] Pain Management SOAP Note Subjective:: Patient is a pleasant 46-year-old female who presents today for follow-up and medication refill. We are currently treating the patient for right foot pain, bilateral leg pain, neuropathy. Today the patient rates her pain a 8 out of 10. Patient denies any new trauma or injury. Patient denies any change in location or type of pain she experiences. Patient is currently managed with lidocaine patches, compounding cream, ropinirole 0.5 mg at bedtime and gabapentin 800 mg 3 times a day. Patient denies any side effects from this medication. She states these medications do provide significant improvement of her symptoms. Patient is requesting refills on these medications. Patient does present in a wheelchair today. Patient does have a cardiac history as well as seizures in the past. Her Gregory is [id number]. Its been reviewed and appropriate. Review of Systems: General: No recent weight changes, no fever, no sleep disturbances Respiratory: No cough, no shortness of air, no recurring pulmonary infections Cardiovascular/peripheral vascular: No chest pain, no palpitations, no edema, no shortness of breath Gastrointestinal: No new onset incontinence, normal bowel movements reported Genitourinary: No new onset incontinence Musculoskeletal: Right foot pain Psychiatric: [Normal mood/affect] Neurological: [Denies weakness in extremities], [denies balance issues] Objective:: Physical Exam: General: Alert and oriented x3, no acute distress, pleasant and cooperative Lungs: Respirations even and unlabored, symmetrical chest expansion Eyes: PERRL Musculoskeletal: Flexion and extension of right foot somewhat guarded secondary to pain, [antalgic gait noted] Neurological: Speech clear, no gross sensory deficit Assessment:: Right foot pain, bilateral leg pain, neuropathy Plan:: Patient continues to experience significant pain in her lower extremities and right foot however she is doing well with her current medication regimen. I will refill her gabapentin 800 mg 3 times a day, lidocaine 5% patches daily, Requip 0.5 mg at bedtime and provide a 1 month supply of these medications. Patient will return to clinic in 1 month for reevaluation of symptoms, medication refill and follow-up. Patient has been instructed to contact the clinic with any concerns before the next appointment. Dr. Ho has reviewed this note and agrees with this plan of care. This note was dictated using voice recognition software and make contain errors or omissions. [facility] Disclaimer: The information contained in this section may have been updated after the patient was seen, as this information can be updated by other users. Medical History (Updated 03/28/22 @ 16:46 by Taty Sol APRN) Anemia Anxiety Arthritis Carotid stenosis CHF (congestive heart failure) COPD (chronic obstructive pulmonary disease) Depression Diabetes HLD (hyperlipidemia) HTN (hypertension) Hypothyroidism Myocardial infarction Social History (Updated 03/28/22 @ 15:37 by Melony Perez RN) Smoking Status: Current every day smoker tobacco type: cigarettes packs per day: 1 second hand exposure: No alcohol intake: never substance use type: denies use current occupational status: disabled Travel in the last 8 weeks: None household members: spouse and children housing: house number of children: 3 caffeine: Yes
[2022-05-12 13:16] VITALS: BP 113/77; PULSE 93; RESP 18; O2SAT 98; BMI 34.3
== END | disposition home or self-care (01) ==
PROVIDERS: PCP Nurse Practitioner Family; Visit Provider Nurse Practitioner Family
DX: G62.9 Polyneuropathy, unspecified (principal); M79.604 Pain in right leg; M79.605 Pain in left leg; M79.671 Pain in right foot; F17.210 Nicotine dependence, cigarettes, uncomplicated
CPT/HCPCS: 99212; G0463

== ENCOUNTER → 2022-06-20 14:30 | Outpatient (POV) | payer MEDICAID, SELFPAY ==
--- NOTE | 2022-06-20 14:46 | EXP.PAIN.SOA ---
[facility] Pain Management SOAP Note Subjective:: Patient is a pleasant 46-year-old female who presents today for medication refill and follow-up. We are currently treating the patient for right foot pain, bilateral leg pain, neuropathy. Today she rates her pain an 8 out of 10. Patient denies any new trauma or injury. Patient denies any change location or type of pain she experiences. Patient is currently managed with lidocaine 5% patches, compounding cream, ropinirole 0.5 mg at bedtime and gabapentin 800 mg 3 times daily. Patient denies any side effects from these medications. She states these medications do help manage her pain symptoms. She is requesting refills at today's visit. Patient is also asking for any additional medicine that she can take in between her gabapentin to provide additional relief. Patient does use a wheelchair for ambulation and does have a history of cardiac problems as well as seizures. Her Gregory is [phone]. Its been reviewed and appropriate. Review of Systems: General: No recent weight changes, no fever, no sleep disturbances Respiratory: No cough, no shortness of air, no recurring pulmonary infections Cardiovascular/peripheral vascular: No chest pain, no palpitations, no edema, no shortness of breath Gastrointestinal: No new onset incontinence, normal bowel movements reported Genitourinary: No new onset incontinence Musculoskeletal: Leg pain, foot pain Psychiatric: [Normal mood/affect] Neurological: [Denies weakness in extremities], [denies balance issues] Objective:: Physical Exam: General: Alert and oriented x3, no acute distress, pleasant and cooperative Lungs: Respirations even and unlabored, symmetrical chest expansion Eyes: PERRL Musculoskeletal: Flexion and extension of lumbar [spine] somewhat guarded secondary to pain, [antalgic gait noted] Neurological: Speech clear, no gross sensory deficit Assessment:: Right foot pain, bilateral leg pain, neuropathy Plan:: Patient continues to experience significant pain in her bilateral legs along with her right foot. I will refill the patient's lidocaine 5% patches, ropinirole 0.25 mg at bedtime and gabapentin 800 mg 3 times daily and provide a 1 month supply of these medications. I will also order the patient tizanidine 2 mg 3 times daily and provide a 1 month supply of this medication. Patient will return to clinic in 1 month for reevaluation of symptoms, medication refill and follow-up. Patient has been instructed to contact the clinic with any concerns before the next appointment. Dr. Ho has reviewed this note and agrees with this plan of care. This note was dictated using voice recognition software and make contain errors or omissions. [facility] Disclaimer: The information contained in this section may have been updated after the patient was seen, as this information can be updated by other users. Medical History (Updated 03/28/22 @ 16:46 by Taty Sol APRN) Anemia Anxiety Arthritis Carotid stenosis CHF (congestive heart failure) COPD (chronic obstructive pulmonary disease) Depression Diabetes HLD (hyperlipidemia) HTN (hypertension) Hypothyroidism Myocardial infarction Social History (Updated 03/28/22 @ 15:37 by Melony Perez RN) Smoking Status: Current every day smoker tobacco type: cigarettes packs per day: 1 second hand exposure: No alcohol intake: never substance use type: denies use current occupational status: disabled Travel in the last 8 weeks: None household members: spouse and children housing: house number of children: 3 caffeine: Yes
[2022-06-20 15:01] VITALS: BP 97/59; PULSE 78; RESP 18; O2SAT 98; BMI 34.3
== END | disposition home or self-care (01) ==
PROVIDERS: PCP Nurse Practitioner Family; Visit Provider Nurse Practitioner Family
DX: M79.671 Pain in right foot (principal); M79.672 Pain in left foot; M79.604 Pain in right leg; M79.605 Pain in left leg; G62.9 Polyneuropathy, unspecified
CPT/HCPCS: 99212; G0463

== ENCOUNTER → 2022-07-21 10:30 | Outpatient (POV) | payer MEDICAID, SELFPAY ==
--- NOTE | 2022-07-21 10:45 | EXP.PAIN.SOA ---
[facility] Pain Management SOAP Note Subjective:: Patient is a pleasant 46-year-old female who presents today for 1 month follow-up and medication refill. We are currently treating the patient for right foot pain, bilateral leg pain, lumbar radiculopathy symptoms, neuropathy. Today she rates her pain a 7 out of 10. Patient denies any new trauma or injury. Patient denies any change location or type of pain she experiences. Patient is currently managed with lidocaine 5% patches, compounding cream, ropinirole 0.5 mg at bedtime, tizanidine 2 mg 3 times a day and gabapentin 800 mg 3 times a day. Patient denies any side effects from this medication. Patient states she only needs refills on her tizanidine and gabapentin. Patient does use a wheelchair for ambulation and has a cardiac history as well as seizures in the past. Her Gregory is [phone]. Its been reviewed and appropriate. Review of Systems: General: No recent weight changes, no fever, no sleep disturbances Respiratory: No cough, no shortness of air, no recurring pulmonary infections Cardiovascular/peripheral vascular: No chest pain, no palpitations, no edema, no shortness of breath Gastrointestinal: No new onset incontinence, normal bowel movements reported Genitourinary: No new onset incontinence Musculoskeletal: Leg pain Psychiatric: [Normal mood/affect] Neurological: [Denies weakness in extremities], [denies balance issues] Objective:: Physical Exam: General: Alert and oriented x3, no acute distress, pleasant and cooperative Lungs: Respirations even and unlabored, symmetrical chest expansion Eyes: PERRL Musculoskeletal: Flexion and extension of lumbar [spine] somewhat guarded secondary to pain, [antalgic gait noted] Neurological: Speech clear, no gross sensory deficit Assessment:: Right foot pain, bilateral leg pain, lumbar radiculopathy symptoms, neuropathy Plan:: Patient is doing well with her current medication regimen. I will refill her gabapentin 800 mg 3 times daily and tizanidine 2 mg 3 times a day and provide a 1 month supply of this medication. Patient will return to clinic in 1 month for reevaluation of symptoms, medication refill and plan of care. Patient has been instructed to contact the clinic with any concerns before the next appointment. Dr. Ho has reviewed this note and agrees with this plan of care. This note was dictated using voice recognition software and make contain errors or omissions. [facility] Disclaimer: The information contained in this section may have been updated after the patient was seen, as this information can be updated by other users. Medical History (Updated 03/28/22 @ 16:46 by Taty Sol APRN) Anemia Anxiety Arthritis Carotid stenosis CHF (congestive heart failure) COPD (chronic obstructive pulmonary disease) Depression Diabetes HLD (hyperlipidemia) HTN (hypertension) Hypothyroidism Myocardial infarction Social History (Updated 03/28/22 @ 15:37 by Melony Perez RN) Smoking Status: Current every day smoker tobacco type: cigarettes packs per day: 1 second hand exposure: No alcohol intake: never substance use type: denies use current occupational status: disabled Travel in the last 8 weeks: None household members: spouse and children housing: house number of children: 3 caffeine: Yes
[2022-07-21 10:49] VITALS: BP 99/67; PULSE 79; RESP 18; O2SAT 98; BMI 34.3
--- NOTE | 2022-08-22 14:18 | PC.NURSE ---
called in Rx for requip 0.25mg, one PO qhs with two refills to [facility] on [address].
== END | disposition home or self-care (01) ==
PROVIDERS: PCP Nurse Practitioner Family; Visit Provider Nurse Practitioner Family
DX: M54.16 Radiculopathy, lumbar region (principal); M79.604 Pain in right leg; M79.605 Pain in left leg; M79.671 Pain in right foot; G62.9 Polyneuropathy, unspecified
CPT/HCPCS: 99212; G0463

== ENCOUNTER 2023-01-19 12:17 | Emergency (ER) | payer MEDICAID, SELFPAY ==
[2023-01-19] VITALS (9 sets, daily range): BP systolic 97–120; BP diastolic 66–82; PULSE 87–101; RESP 18; TEMP 36.6–36.7; O2SAT 93–100; BMI 21.4
[2023-01-19 12:36] LABS: POC Glucose,Bedside 93 (70-110)
--- NOTE | 2023-01-19 12:47 | CT_ITS ---
FINAL REPORT CLINICAL HISTORY: RUQ pain, AMS COMPARISON: None FINDINGS: CT OF THE ABDOMEN AND PELVIS WITH CONTRAST Axial CT images of the abdomen and pelvis were obtained after the administration of IV contrast. Coronal reformatted images were also obtained and reviewed. This study was performed with techniques to keep radiation doses as low as reasonably achievable (ALARA). Individualized dose reduction techniques using automated exposure control or adjustment of mA and/or kV according to the patient's size were employed. Abdomen: Small nodular opacities in the lung bases up to 6 mm are nonspecific and favored to be postinflammatory. The heart is normal in size. There is a 5 mm probable cyst in the inferior right hepatic lobe. Presumed cholecystectomy. The spleen is unremarkable. No adrenal mass is present. The pancreas has an unremarkable appearance. The kidneys are normal, without evidence of mass or hydronephrosis. The aorta is normal in caliber. There is no free fluid or adenopathy. No mass or abnormal fluid collection is seen. There is a moderate to large stool burden. Pelvis: The appendix normal. The urinary bladder is unremarkable. No inflammatory process is seen. There is no evidence of mass or adenopathy. There is no evidence of bowel obstruction. An IUD is present in the uterus. IMPRESSION: Small nodular opacities in the lung bases favored to be postinflammatory. 5 mm probable right hepatic cyst. Moderate to large stool burden. Reviewed, Interpreted and Dictated by Ken Osorio III, MD Transcribed by Rafaela Florentino Authenticated and [facility]
[2023-01-19 12:58] LABS: Basophils % 0.2 % (0.1-2.0); Eosinophils % 0.3 % (0.1-12.0); Hematocrit 33.5 % (37.0-47.0); Hemoglobin 10.5 g/dL (12.2-16.2); Lymphocytes # 2.5 K/mm3 (0.7-4.5); Lymphocytes % 38.8 % (10-50); Mean Corpuscular HGB Conc 31.5 g/dL (31.8-35.4); Mean Corpuscular Hemoglobin 27.3 pg (27.0-31.2); Mean Corpuscular Volume 86.7 fl (81-99); Mean Platelet Volume 7.4 fl (7.4-10.4); Monocytes # 0.5 K/mm3 (0.1-1.0); Monocytes % 7.7 % (1.7-9.3); Neutrophils # 3.4 K/mm3 (1.8-7.8); Neutrophils % 52.9 % (37.0-80.0); Platelet Count 408 K/mm3 (142-424); Red Blood Count 3.86 M/mm3 (4.20-5.40); Red Cell Distribution Width 18.4 % (11.5-17.5); White Blood Count 6.5 K/mm3 (4.8-10.8)
[2023-01-19 12:59] LABS: Chloride 104 mmol/L (98-107); Potassium 3.5 mmoL/L (3.5-5.1); Sodium 139 mmol/L (136-145)
[2023-01-19 13:02] LABS: Alanine Aminotransferase 29 U/L (12-78); Albumin Level 3.2 g/dl (3.5-5.0); Albumin/Globulin Ratio 1.1 (1.1-1.8); Alkaline Phosphatase 136 U/L (38-126); Anion Gap 15.5 mEq/L (5-15); Aspartate Amino Transferase 47 U/L (14-36); Bilirubin,Total 0.5 mg/dl (0.2-1.3); Blood Urea Nitrogen 7 mg/dl (7-17); Calcium 8.6 mg/dl (8.4-10.2); Carbon Dioxide 23 mmol/L (22.0-30.0); Creatinine Clearance Estimated 75 mL/min (50-200); Estimated Glomerular Filt Rate 89 ml/min (>60); GFR (African American) 108 ML/MIN (>60); Glucose 126 mg/dl (74-100); Lipase 88 U/L (23-300); Total Protein,Serum 6.2 g/dl (6.3-8.2)
--- NOTE | 2023-01-19 13:40 | PC.NURSE ---
ZHANNA Goff rounded on patient, no needs at this time. Call light within reach.
--- NOTE | 2023-01-19 15:06 | HMH.EDGENADL ---
Discharge Plan Disposition Patient Disposition: Home, Self-Care Condition: Good Prescriptions Prescriptions: New polyethylene glycol 3350 [Miralax] 17 gram/dose powder 17 g PO DAILY 30 Days Qty: 510 1RF sennosides [senna] 8.6 mg tablet 8.6 mg PO DAILY PRN (Reason: constipation) Qty: 30 0RF No Action clopidogrel 75 mg tablet 75 mg PO DAILY Qty: 90 0RF folic acid 1 mg tablet 1 mg PO DAILY Qty: 90 0RF fluticasone propionate 50 mcg/actuation spray,suspension 1 spray intranasal DAILY Qty: 16 10RF levetiracetam 1,000 mg tablet 1,000 mg PO BID Qty: 60 0RF buspirone 30 mg tablet 30 mg PO BID Qty: 60 1RF hydroxyzine HCl 50 mg tablet 50 mg PO QID Qty: 120 0RF sertraline 100 mg tablet 200 mg PO DAILY Qty: 60 1RF Trintellix 20 mg tablet 20 mg PO DAILY Qty: 30 1RF cetirizine 10 MG tablet 10 mg PO DAILY lisinopril 20 MG tablet 20 mg PO DAILY metoprolol succinate 25 MG tablet extended release 24 hr 25 mg PO DAILY ondansetron HCl 4 MG tablet 4 mg PO TIDP PRN (Reason: Nausea And Vomiting) tizanidine 2 mg tablet 2 mg PO TID Qty: 90 0RF lidocaine 5 % adhesive patch,medicated 1 patch topical DAILY Rx Instructions: leave on most painful area for up to 12 hrs olanzapine [Zyprexa] 15 mg tablet 15 mg PO BID quetiapine [Seroquel XR] 50 mg tablet extended release 24 hr 50 mg PO HS gabapentin [Neurontin] 800 mg tablet 800 mg PO TID Qty: 90 0RF ropinirole 0.5 mg tablet 0.5 mg PO HS Qty: 30 2RF Rx Instructions: administer 1-3 hours before bedtime furosemide 20 MG tablet 40 mg PO DAILY potassium chloride 20 MEQ tablet extended release 60 meq PO DAILY levothyroxine 50 MCG tablet 75 mcg PO DAILY Rx Instructions: TAKE ONE TABLET BY MOUTH EVERY DAY FOR thyroid atorvastatin 40 MG tablet 40 mg PO DAILY Rx Instructions: TAKE ONE TABLET BY MOUTH EVERY DAY DIRECTED omeprazole 20 MG capsule,delayed release(DR/EC) 20 mg PO DAILY Rx Instructions: TAKE ONE CAPSULE BY MOUTH EVERY DAY magnesium oxide 250 MG tablet 250 mg PO DAILY Rx Instructions: TAKE ONE TABLET BY MOUTH EVERY DAY Referrals Follow up/Referrals: Iris Romero APRN [Primary Care Provider] - See instructions Activity Restrictions/Add. Instructions Additional Instructions/Restrictions: You were evaluated in the emergency department today. Please picking tech your prescriptions at the pharmacy and use them for a bowel cleanout. I recommend taking 4 capfuls of MiraLAX on day 1. After that, titrate 1-2 capfuls per day as needed for soft stools. Follow-up with your primary care provider over the next 2 days for reassessment. Return to the emergency department for any new or worsening symptoms. Clinical Impressions Clinical Impression: Constipation, Chronic abdominal pain, Chronic vomiting Instructions Patient Instructions: DI for Diarrhea and Traveler's Diarrhea -- Adult, DI for Diarrhea and Traveler's Diarrhea -- Child, DI for Nausea -- Adult, DI for Nausea -- Child Discharge ED Provider: Taty Bains General Adult HPI General Chief complaint: Nausea/Vomiting/Diarrhea Stated complaint: phy ref, stomach pain Time Seen by Provider: 01/19/23 12:37 Mode of Arrival: Wheelchair Source of Information: Patient and Relative Limitations: No Limitations Description of Symptoms (Recalled from ER Triage Doc. by RN): Pt arrives from pcp office with c/o nausea and vomiting for the prior 2 months with decreased appetite and 50lb weight loss. Denies any diarrhea. History of Present Illness HPI narrative: This patient is a 47-year-old female with a history of obesity, type 2 diabetes, seizure disorder, Charcot's foot with chronic wound with wound VAC in place to the right foot, benzodiazepine dependence, COPD and recurrent urinary tract infections presenting to the emergency department for evaluat
[2023-01-19 15:24] LABS: Microscopic, Urine URINE MICROSCOPIC (MICROSCOPIC)
[2023-01-19 15:26] LABS: Appearance,Urine CLEAR (Clear); Bilirubin,Urine Negative (Negative); Blood, Urine Negative (Negative); Color,Urine YELLOW (Yellow); Glucose,Urine (UA) Negative (Negative); Ketones,Urine Negative (Negative); Leukocyte Esterase,Urine TRACE (Negative); Nitrate,Urine Negative (Negative); Protein,Urine Negative (Negative); Urobilinogen,Urine 0.2 EU/dl (0.2)
[2023-01-19 15:51] LABS: WBC,Urine Occasional #/hpf (0-3)
[2023-01-19 15:52] LABS: Squamous Epithelial Cell,Urine Occasional #/hpf (0-5)
== END 2023-01-19 16:54 | disposition home or self-care (01) ==
PROVIDERS: Emergency Provider Emergency Medicine; PCP Nurse Practitioner Family
DX: R10.11 Right upper quadrant pain (principal); K59.00 Constipation, unspecified; R11.2 Nausea with vomiting, unspecified; R63.4 Abnormal weight loss; E11.618 Type 2 diabetes mellitus with other diabetic arthropathy; G40.909 Epilepsy, unspecified, not intractable, without status epilepticus; J44.9 Chronic obstructive pulmonary disease, unspecified; I65.29 Occlusion and stenosis of unspecified carotid artery; I11.0 Hypertensive heart disease with heart failure; I50.9 Heart failure, unspecified; E78.5 Hyperlipidemia, unspecified; E03.9 Hypothyroidism, unspecified; I25.2 Old myocardial infarction; F41.9 Anxiety disorder, unspecified
CPT/HCPCS: 74177; 80053; 81001; 82962; 83690; 85025; 96374; 96375; 99285; J2405; Q9967

== ENCOUNTER 2023-01-20 17:14 | Emergency (ER) | payer MEDICAID, SELFPAY ==
[2023-01-20 17:15] VITALS: BP 160/109; PULSE 89; RESP 20; TEMP 37; O2SAT 97; BMI 21.4
--- NOTE | 2023-01-20 17:28 | HMH.EDGENADL ---
Discharge Plan Disposition Patient Disposition: Home, Self-Care Condition: Fair Prescriptions Prescriptions: No Action clopidogrel 75 mg tablet 75 mg PO DAILY Qty: 90 0RF folic acid 1 mg tablet 1 mg PO DAILY Qty: 90 0RF fluticasone propionate 50 mcg/actuation spray,suspension 1 spray intranasal DAILY Qty: 16 10RF levetiracetam 1,000 mg tablet 1,000 mg PO BID Qty: 60 0RF buspirone 30 mg tablet 30 mg PO BID Qty: 60 1RF hydroxyzine HCl 50 mg tablet 50 mg PO QID Qty: 120 0RF sertraline 100 mg tablet 200 mg PO DAILY Qty: 60 1RF Trintellix 20 mg tablet 20 mg PO DAILY Qty: 30 1RF cetirizine 10 MG tablet 10 mg PO DAILY lisinopril 20 MG tablet 20 mg PO DAILY metoprolol succinate 25 MG tablet extended release 24 hr 25 mg PO DAILY ondansetron HCl 4 MG tablet 4 mg PO TIDP PRN (Reason: Nausea And Vomiting) tizanidine 2 mg tablet 2 mg PO TID Qty: 90 0RF lidocaine 5 % adhesive patch,medicated 1 patch topical DAILY Rx Instructions: leave on most painful area for up to 12 hrs olanzapine [Zyprexa] 15 mg tablet 15 mg PO BID quetiapine [Seroquel XR] 50 mg tablet extended release 24 hr 50 mg PO HS gabapentin [Neurontin] 800 mg tablet 800 mg PO TID Qty: 90 0RF ropinirole 0.5 mg tablet 0.5 mg PO HS Qty: 30 2RF Rx Instructions: administer 1-3 hours before bedtime polyethylene glycol 3350 [Miralax] 17 gram/dose powder 17 g PO DAILY 30 Days Qty: 510 1RF sennosides [senna] 8.6 mg tablet 8.6 mg PO DAILY PRN (Reason: constipation) Qty: 30 0RF furosemide 20 MG tablet 40 mg PO DAILY potassium chloride 20 MEQ tablet extended release 60 meq PO DAILY levothyroxine 50 MCG tablet 75 mcg PO DAILY Rx Instructions: TAKE ONE TABLET BY MOUTH EVERY DAY FOR thyroid atorvastatin 40 MG tablet 40 mg PO DAILY Rx Instructions: TAKE ONE TABLET BY MOUTH EVERY DAY DIRECTED omeprazole 20 MG capsule,delayed release(DR/EC) 20 mg PO DAILY Rx Instructions: TAKE ONE CAPSULE BY MOUTH EVERY DAY magnesium oxide 250 MG tablet 250 mg PO DAILY Rx Instructions: TAKE ONE TABLET BY MOUTH EVERY DAY Activity Restrictions/Add. Instructions Additional Instructions/Restrictions: As discussed, it seems that the enema we performed here in the emergency department did not have significant effect. You have elected to be discharged at this time after shared decision making with your family member and trial laxatives at home. Your work-up is otherwise reassuring. Please continue to take the antibiotics for previously diagnosed UTI. Please return with any new or worsening symptoms. Please follow-up with your primary care doctor Clinical Impressions Clinical Impression: Constipation by delayed colonic transit Discharge ED Provider: Jalen Ott Adult HPI General Chief complaint: Altered Mental Status Stated complaint: AMS Time Seen by Provider: 01/20/23 17:18 Mode of Arrival: EMS Source of Information: Patient Limitations: No Limitations Description of Symptoms (Recalled from ER Triage Doc. by RN): pt to ed via ems with no complaints. family reports pt has increased altered mental status. History of Present Illness HPI narrative: Patient presents for evaluation of multiple symptoms including chest pain abdominal pain nausea, chronic back pain chronic neck pain, anxiety, malaise, possible urinary symptoms, all gradual in onset starting unspecified amount of time ago, unable to clarify after several rounds of repeat questioning. Patient presents with family member at bedside who provides additional history. Patient has history of several chronic medical issues including chronic vomiting, neuropathy, anxiety, COPD, type 2 diabetes, seizure disorder, chronic wound of lower extremity on the right side, dizziness, chronic pain, obesity, benzodiazepine dependence. She was eval
--- NOTE | 2023-01-20 17:41 | PC.NURSE ---
Dr. Ott at [facility]
--- NOTE | 2023-01-20 17:51 | XR_ITS ---
PROCEDURE INFORMATION: Exam: XR Chest Exam date and time: 01/20/2023 5:57 PM Age: 47 years old Clinical indication: Shortness of breath; Additional info: SOA TECHNIQUE: Imaging protocol: Radiologic exam of the chest. Views: 1 view. COMPARISON: CR XR CHEST PORTABLE 03/11/2021 17:43 FINDINGS: Lungs: Unremarkable. No consolidation. Pleural spaces: Unremarkable. No pleural effusion. No pneumothorax. Heart/Mediastinum: Coronary artery stents. Bones/joints: Postsurgical changes of the left humerus. IMPRESSION: No acute findings.
[2023-01-20 17:58] LABS: Basophils % 0.3 % (0.1-2.0); Eosinophils % 0.3 % (0.1-12.0); Hematocrit 35.2 % (37.0-47.0); Hemoglobin 10.7 g/dL (12.2-16.2); Lymphocytes # 2.5 K/mm3 (0.7-4.5); Lymphocytes % 32.3 % (10-50); Mean Corpuscular HGB Conc 30.5 g/dL (31.8-35.4); Mean Corpuscular Hemoglobin 26.6 pg (27.0-31.2); Mean Corpuscular Volume 87.2 fl (81-99); Mean Platelet Volume 7.8 fl (7.4-10.4); Monocytes # 0.6 K/mm3 (0.1-1.0); Monocytes % 7.6 % (1.7-9.3); Neutrophils # 4.6 K/mm3 (1.8-7.8); Neutrophils % 59.4 % (37.0-80.0); Platelet Count 469 K/mm3 (142-424); Red Blood Count 4.04 M/mm3 (4.20-5.40); Red Cell Distribution Width 18.6 % (11.5-17.5); White Blood Count 7.7 K/mm3 (4.8-10.8)
[2023-01-20 18:01] LABS: Chloride 102 mmol/L (98-107); Sodium 137 mmol/L (136-145)
[2023-01-20 18:02] LABS: Potassium 3.2 mmoL/L (3.5-5.1)
[2023-01-20 18:04] LABS: Alanine Aminotransferase 27 U/L (12-78); Alkaline Phosphatase 130 U/L (38-126); Anion Gap 15.2 mEq/L (5-15); Aspartate Amino Transferase 47 U/L (14-36); Bilirubin,Total 0.5 mg/dl (0.2-1.3); Blood Urea Nitrogen 7 mg/dl (7-17); Calcium 8.8 mg/dl (8.4-10.2); Carbon Dioxide 23 mmol/L (22.0-30.0); Creatinine Clearance Estimated 65 mL/min (50-200); Estimated Glomerular Filt Rate 77 ml/min (>60); GFR (African American) 93 ML/MIN (>60); Glucose 104 mg/dl (74-100); HCG Qualitative, Serum Negative (Negative); Lipase 61 U/L (23-300); Phosphorous 2.8 mg/dl (2.5-4.5)
[2023-01-20 18:05] LABS: Albumin/Globulin Ratio 1.1 (1.1-1.8); Globulin 2.8 g/dL (1.3-3.2); Magnesium 1.7 mg/dl (1.6-2.3); Total Protein,Serum 5.8 g/dl (6.3-8.2)
[2023-01-20 18:07] LABS: Acetaminophen < 10 ug/ml (10-30); Salicylate < 1.0 mg/dL (2.0-20.0)
--- NOTE | 2023-01-20 18:07 | ECG_ITS ---
APPROVED REPORT Exam: Resting ECG HR:98 bpm ECG Measurements Heart Rate 98 AXES NJ 139 P 53 QRSd 81 QRS 78 QT 370 T -23 QTc [address] DEVIATION AND MODERATE T-WAVE ABNORMALITY, CONSIDER ANTEROLATERAL ISCHEMIA [-0.1+ mV T-WAVE IN V3-V6] ST DEVIATION AND MODERATE T-WAVE ABNORMALITY, CONSIDER INFERIOR ISCHEMIA [-0.1+ mV T-WAVE IN II/aVF] ABNORMAL ECG UNCONFIRMED REPORT Electronically signed by : Max Alvarez MD 01/21/2023 06:48:03
[2023-01-20 18:26] LABS: Troponin I < 0.01 ng/ml (0.00-0.034)
[2023-01-20 18:27] LABS: NT Pro Brain Natriuretic Pep. 665 pg/mL (0-125)
[2023-01-20 18:30] VITALS: BP 109/74; PULSE 93; O2SAT 99
[2023-01-20 18:36] LABS: Thyroid Stimulating Hormone 0.74 uIU/mL (0.465-4.68)
[2023-01-20 19:00] VITALS: BP 125/77; PULSE 91; O2SAT 100
[2023-01-20 19:10] LABS: Free T4 (Free Thyroxine) 2.45 ng/dl (0.78-2.19)
--- NOTE | 2023-01-20 19:53 | PC.NURSE ---
Pt complaining of nausea, back pain asking for pain and nerve medication. Son at bedside, states she was here last night and dx with UTI and constipation but has not taken medicine called in for her. He states her dr was concerned due to increased confusion today. Pt is a/o at this time.
--- NOTE | 2023-01-20 20:09 | PC.NURSE ---
Pt placed on bedpan, unable to urinate, In/Out cath performed for UA, Kacy at bedside
[2023-01-20 20:12] LABS: Microscopic, Urine URINE MICROSCOPIC (MICROSCOPIC)
[2023-01-20 20:18] LABS: Appearance,Urine CLEAR (Clear); Blood, Urine Negative (Negative); Color,Urine YELLOW (Yellow); Glucose,Urine (UA) Negative (Negative); Ketones,Urine 1+ (Negative); Leukocyte Esterase,Urine Negative (Negative); Nitrate,Urine Negative (Negative); Protein,Urine 1+ (Negative); Specific Gravity, Urine 1.025 (1.005-1.030); Urobilinogen,Urine 0.2 EU/dl (0.2)
[2023-01-20 20:21] LABS: Bilirubin,Urine 2+ (Negative)
[2023-01-20 20:32] LABS: Amphetamine/Metha Screen,Urine Negative ng/ml (<1000)
[2023-01-20 20:33] LABS: Barbiturates Screen,Urine Negative ng/ml (<200)
[2023-01-20 20:34] LABS: Benzodiazepines Screen,Urine Negative ng/ml (<200); Cannabinoid Screen,Urine Negative ng/ml (<50)
[2023-01-20 20:35] LABS: Cocaine Screen,Urine Negative ng/ml (<300); Methadone Screen,Urine Negative ng/ml (<300)
[2023-01-20 20:36] LABS: Opiate Screen,Urine Positive ng/ml (<300)
[2023-01-20 20:37] LABS: Phencyclidine Screen,Urine Negative ng/ml (<25)
[2023-01-20 20:42] LABS: Amorphous Sediment,Urine Trace /lpf; Bacteria,Urine 3+ /lpf
[2023-01-20 21:26] LABS: POC Glucose,Bedside 97 (70-110)
[2023-01-20 22:06] LABS: Troponin I < 0.01 ng/ml (0.00-0.034)
--- NOTE | 2023-01-20 22:15 | PC.NURSE ---
pt removed off bedpan no contents in lenz, asked her to bear down and water content out no stool, pt states she wants to go home and use miralax. Dr Ott aware
[2023-01-20 22:27] VITALS: BP 132/84; PULSE 84; RESP 20; TEMP 36.6; O2SAT 97
== END 2023-01-20 22:29 | disposition home or self-care (01) ==
PROVIDERS: Emergency Provider Emergency Medicine
DX: R07.9 Chest pain, unspecified (principal); R41.82 Altered mental status, unspecified; R10.9 Unspecified abdominal pain; I11.0 Hypertensive heart disease with heart failure; I50.9 Heart failure, unspecified; E78.5 Hyperlipidemia, unspecified; E03.9 Hypothyroidism, unspecified; J44.9 Chronic obstructive pulmonary disease, unspecified; F41.9 Anxiety disorder, unspecified; I65.29 Occlusion and stenosis of unspecified carotid artery; E11.9 Type 2 diabetes mellitus without complications
CPT/HCPCS: 36415; 71045; 80053; 80305; 80329; 81001; 82962; 83690; 83735; 83880; 84100; 84439; 84443; 84484; 84703; 85025; 87086; 93005; 96360; 99285